=== PATIENT | male | born 1970 | race Caucasian/White ===

== ENCOUNTER 2020-08-31 09:24 | Emergency (ER) | payer OTHER, SELFPAY ==
--- NOTE | ~2020-08-31 | XR_ITS ---
EXAMINATION: XR LUMBOSACRAL SPINE CLINICAL INFORMATION: Injury COMPARISON: None TECHNIQUE: Three views of the lumbosacral spine. FINDINGS: No acute fracture or subluxation. Vertebral body height and alignment is maintained. Mild disc space narrowing of L3-L4. Small endplate osteophytes at multiple levels throughout the lumbar spine. The sacroiliac joints are symmetric. The sacrum appears intact. The bowel gas pattern is unremarkable. XR/XR lumbar spine 2-3V IMPRESSION: No acute abnormality. Mild degenerative changes.
[2020-08-31 09:51] VITALS: BP 154/90; PULSE 90; RESP 18; TEMP 36.9; O2SAT 96; BMI 33.4
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
== END 2020-08-31 11:01 | disposition home or self-care (01) ==
PROVIDERS: Emergency Provider Emergency Medicine Emergency Medical Services; PCP Internal Medicine
DX: S39.012A Strain of muscle, fascia and tendon of lower back, initial encounter (principal); V43.52XA Car driver injured in collision with other type car in traffic accident, initial encounter; G89.11 Acute pain due to trauma; M54.2 Cervicalgia; Y93.89 Activity, other specified; Y92.414 Local residential or business street as the place of occurrence of the external cause; Y99.9 Unspecified external cause status
CPT/HCPCS: 72100; 99283

== ENCOUNTER 2021-11-20 18:05 | Emergency (ER) | payer OTHER, SELFPAY ==
[2021-11-20 18:18] VITALS: BP 145/93; BP 172/100; PULSE 112; PULSE 98; RESP 16; TEMP 37; O2SAT 100; O2SAT 99; BMI 33.7
--- NOTE | 2021-11-20 18:29 | ED_ITS ---
HPI - General Adult General Chief complaint: General Medical Stated complaint: Withdraw Time Seen by Provider: 11/20/21 18:18 Source: patient Mode of arrival: ambulatory Limitations: other (Poor historian) History of Present Illness HPI narrative: This is a 51-year-old male pmhx diabetes, glaucoma, opiate used disorder started on suboxone 8 mg today presenting to the emergency department complaints of malaise, body aches, nausea, diarrhea, chills status post starting Suboxone. According to patient he was started on Suboxone today for the 1st time, he was given 8 mg, he tells me that he last used opiates late last night/possibly this morning. He told me he used a large amount of drugs. He tells me he took fentanyl and heroin in large quantities. Patient just tells me he does not feel well. Upon my examination he is shivering, and tells me he is having some palpitations. Denies shortness of breath, abdominal pain, headache, vision changes, chest pain Radiation: non-radiation Severity: severe Related Data Previous Rx's Medication Instructions Recorded lidocaine 4 % topical patch 1 patch topical DAILY PRN pain #10 08/31/20 ea Allergies Allergy/AdvReac Type Severity Reaction Status Date / Time haloperidol [From HALDOL] Allergy Severe EPS Unverified 02/17/20 16:53 trazodone [TRAZODONE] Allergy Unknown AGITATION Unverified 02/17/20 16:53 Review of Systems Review of Systems: Constitutional : No Weight loss, No Fever, + Chills, + Fatigue, + Malaise ENT/Mouth : No sore throat, No Rhinorrhea Eyes: No Eye Pain, No Swelling, No Redness Cardiovascular : No Chest Pain, No SOB, No Dyspnea on Exertion, No Orthopnea, No Edema, + Palpitations Respiratory : No Cough, No Sputum, No Wheezing Gastrointestinal : No Nausea, + Vomiting, No Diarrhea, No Constipation, No abdominal Pain, No Hematochezia, No Melena Genitourinary : No Dysuria, No Urinary Frequency, No Hematuria, Musculoskeletal : No joint pain, No Myalgias, No Joint Swelling Skin : No Skin Lesions, No rash Neuro : No Weakness, No Numbness, No Dizziness, No Headache All other systems reviewed and are negative Yes all other systems are reviewed and are negative [facility] Past Medical History Attestation statement: The following information was validated with the patient. Source: old records reviewed and nursing notes reviewed Medical History Diabetes Glaucoma Social History Social History Advance Directives: No Advance Directives Information Provided: No Physical Exam ED Vital Signs: Vital Signs - 24 hr 11/20/21 18:18 11/20/21 20:00 11/20/21 21:59 Temperature 98.6 F 98.9 F 98.7 F Pulse Rate 98 85 66 Respiratory Rate 16 16 16 Blood Pressure 145/93 H 148/89 H 163/91 H Pulse Oximetry 100 97 97 Oxygen Delivery Method Room Air Room Air Room Air BMI result Body Mass Index 33.7 VSS Appearance: Alert.? Oriented X3.? No acute distress.? Patient should bring Head: Normocephalic, atraumatic, no step-offs or deformities Eyes: Pupils equal, round and reactive to light.? ENT: Pharynx normal.? Neck: Normal inspection.? Neck supple.? CVS: Normal heart rate and rhythm.? Pulses normal.? Respiratory: No respiratory distress.? Breath sounds normal.? Abdomen: Soft and nontender.? Skin: Skin warm and dry.? Normal skin color.? Normal skin turgor.? Extremities: No lower extremity edema.? No calf ttp. 5/5 strength to bilateral upper and lower extremities Back: No midline tenderness, no C-spine tenderness, full range of motion, no CVA tenderness bilaterally Neuro: Oriented X 3.? No motor deficit.? No sensory deficit. CN 2-12 intact Course Reevaluation(s) Reevaluation #1: Drug tox positive for fentanyl. Patient's EKG with normal sinus rhythm, no ST elevations or inversions concerning for ischemia. Patient tells me that he is feeling back to normal. He does admit to drug use prior to taking Suboxone likely precipitated withdrawal. At this time patient will be discharged home I advised him to not use any drugs, he does not want to speak to anybody from the care team or crisis team. I offered him this and hospital to speak to somebody in for further evaluation however patient tells me he is uncomfortable and would like to go home. Explained to patient risks and benefits. He verbalized understanding. He tells me he will reach out to the methadone Center that he used to go to and he is going to speak to them. At this time I feel comfortable discharge home with strict return precautions. Time: 22:37 Medical Decision Making [facility] Narrative Medical decision making narrative: 1829 51-year-old male presents with body aches, palpitations, malaise, chills status post starting Suboxone today, reports that late last night possibly early this morning he will use a large amount of heroin and fentanyl. Physical examination benign however patient is shivering throughout my examination. Plan at this time is to obtain a drug screen, COVID test, UA. I will also obtain an EKG to check patient's cardiac rhythm. I will give patient 1 mg of p.o. Ativan for comfort. I am suspecting precipitated withdrawal as patient used heroin and fentanyl in close proximity to starting Suboxone. Medical Records Medical records reviewed: Yes I reviewed the patient's medical records. Lab Data Lab results reviewed: Yes I reviewed the patient's lab results. Labs: Lab Results 11/20/21 11/20/21 11/20/21 Range/Units 18:40 20:27 20:27 Urine Color YELLOW Urine Appearance CLEAR Urine pH >= 9.0 H (5.0-8.0) Ur Specific [place] 1.015 (1.005-1.025) Urine Protein TRACE (NEG-TRACE) MG/DL Urine Glucose (UA) NEG (NEG) MG/DL Urine Ketones 15 (NEG) MG/DL Urine Blood TRACE (NEG) Urine Nitrite NEG (NEG) Ur Leukocyte Esterase NEG (NEG) Urine RBC 5-9 H (0) /HPF Urine WBC 0-2 (0-4) /HPF Ur Squamous Epith Cells TRACE /LPF Urine Bacteria NONE /LPF Urine Opiates Screen Not Detected (Not Detect) Urine Fentanyl Screen POSITIVE H (Not Detect) Ur Barbiturates Screen Not Detected (Not Detect) Ur Phencyclidine Scrn Not Detected (Not Detect) Ur Amphetamines Screen Not Detected (Not Detect) U Benzodiazepines Scrn Not Detected (Not Detect) Urine Cocaine Screen Not Detected (Not Detect) U Marijuana (THC) Screen Not Detected (Not Detect) COVID-19 (BRUNO) Negative (Negative) COVID-19 Clin Com See Note ECG Data Attestation: I personally reviewed and interpreted this ECG as follows: Prior ECG tracings: available for review Interpretation: Ventricular rate of QRS, QT/QTC normal. EKG shows sinus rhythm with no ST becky vations or inversions concerning for ischemia. Significant changes when EKG May 2018. Critical Care Time Critical Care Time Critical Care Time: No Discharge Plan Discharge Clinical Impression: Opiate withdrawal Patient Disposition: Home, Self-Care Additional Instructions: Take your medications as prescribed. If you were prescribed antibiotics today, it is important that you take your medication to their entirety, do not skip any doses, do not finish them early. Follow-up with your primary care provider this week. Return to the emergency department with new or worsening symptoms. Such as fevers, chills, chest pain, shortness of breath, nausea, vomiting, dizziness, headache, vision changes, lethargy, suicidal ideation, homicidal ideation In case of emergency call 911 I offered you to stay in the hospital for observation/further evaluation, you refuse. Please return with new or worsening symptoms. Follow up with the behavioral health team if needed and please reach out to the methadone clinic. Prescriptions: No Action lidocaine 4 % adhesive patch,medicated 1 patch topical DAILY PRN (Reason: pain) Qty: 10 0RF Rx Instructions: may leave on for up to 12 hrs Referrals: [facility] [Provider Group] - 2 days Physician,Unknown J [Primary Care Provider] - Stand Alone Forms: Work/School Release
--- NOTE | 2021-11-20 18:29 | ECG_ITS ---
Test Reason : palpitations Blood Pressure : / mmHG Vent. Rate : 087 BPM Atrial Rate : 087 BPM P-R Int : 140 ms QRS Dur : 086 ms QT Int : 376 ms P-R-T Axes : 053 005 028 degrees QTc Int : 452 ms Normal sinus rhythm Normal ECG When compared with ECG of 06-MAY-2018 09:40, QT has lengthened Referred By: Margaret English Electronically Signed By:TOBIN EARLY MD
[2021-11-20 19:05] LABS: COVID-19 Test Negative (Negative); IDNOW Serial# 16C4AD1C
[2021-11-20] MEDS: LORazepam 1 MG TABLET PO (19:07)
[2021-11-20 20:00] VITALS: BP 148/89; PULSE 85; RESP 16; TEMP 37.2; O2SAT 97
[2021-11-20 20:33] LABS: Appearance Urine CLEAR; Color Urine YELLOW; Glucose Urine UA NEG (NEG); Leukocyte Esterase Urine NEG (NEG); Nitrite Urine NEG (NEG); PH >= 9.0 (5.0-8.0); Specific Gravity - Urine 1.015 (1.005-1.025); UACC Culture Trigger NO; Urine Blood TRACE (NEG); Urine Ketones 15 MG/DL (NEG); Urine Protein TRACE MG/DL (NEG-TRACE)
[2021-11-20 20:42] LABS: Squamous Epithelial Cell Urine TRACE /LPF; WBC Urine 0-2 /HPF (0-4)
[2021-11-20 20:54] LABS: Amphetamine Screen Urine Not Detected (Not Detect); Barbiturates, Urine Not Detected (Not Detect); Benzodiazepines Screen Urine Not Detected (Not Detect); Cannabinoid Screen Urine Not Detected (Not Detect); Cocaine Screen Urine Not Detected (Not Detect); Fentanyl, urine POSITIVE (Not Detect); Opiate Screen Urine Not Detected (Not Detect); Phencyclidine Screen Urine Not Detected (Not Detect)
[2021-11-20 21:59] VITALS: BP 163/91; PULSE 66; RESP 16; TEMP 37.1; O2SAT 97
== END 2021-11-20 23:19 | disposition home or self-care (01) ==
PROVIDERS: Physician Assistant; Emergency Provider Internal Medicine
DX: F11.23 Opioid dependence with withdrawal (principal); M79.10 Myalgia, unspecified site; R00.2 Palpitations; Z20.822 Contact with and (suspected) exposure to COVID-19; Z79.899 Other long term (current) drug therapy
CPT/HCPCS: 80307; 81001; 87635; 93005; 96372; 99283; 99284

== ENCOUNTER 2022-02-14 13:49 | Outpatient (REF) | payer OTHER, SELFPAY ==
--- NOTE | ~2022-02-14 | XR_ITS ---
EXAMINATION: XR SHOULDER, LEFT CLINICAL INFORMATION: Left shoulder pain COMPARISON: None TECHNIQUE: AP external rotation, Grashey, scapular Y, and axillary views of the left shoulder. FINDINGS: No visible acute fracture or dislocation. Glenohumeral joint space is maintained. Mild acromioclavicular arthritis. Visualized left lung is clear. XR/XR shoulder LT min 2V IMPRESSION: Mild acromioclavicular arthritis. No acute findings.
== END 2022-02-14 13:50 | disposition home or self-care (01) ==
LOC: HO.XRAY 13:49
PROVIDERS: PCP General Practice; Visit Provider Emergency Medicine
DX: M25.512 Pain in left shoulder (principal)
CPT/HCPCS: 73030

== ENCOUNTER 2022-12-20 00:37 | Emergency (ER) | payer MEDICAID, SELFPAY ==
--- NOTE | ~2022-12-20 | XR_ITS ---
EXAMINATION: XR CHEST CLINICAL INFORMATION: Fever COMPARISON: 08/14/2019 TECHNIQUE: Frontal view of the chest was obtained. FINDINGS: Lung volumes are symmetric. There is questionable subtle patchy mid to upper right lung opacity. Left lung appears clear. No evidence of pneumothorax, pleural effusion, or pulmonary edema. The cardiomediastinal contour is unremarkable. No acute osseous findings are seen. XR/XR chest 1V IMPRESSION: Questionable subtle patchy mid to upper right lung opacity, for which developing consolidation would be difficult to exclude in the setting of fever. Radiographic followup after treatment/resolution of symptoms is recommended.
[2022-12-20 00:46] VITALS: BP 154/99; PULSE 105; RESP 18; TEMP 39.3; O2SAT 98; BMI 36.5
[2022-12-20] MEDS: Ibuprofen 600 MG TABLET PO (00:54)
[2022-12-20] MEDS: Ondansetron ODT 4 MG TAB.RAPDIS TRANSLINGU (01:00)
[2022-12-20 01:20] VITALS: BP 111/91; PULSE 94; RESP 16; TEMP 38.5; O2SAT 97
--- NOTE | 2022-12-20 01:21 | MHC.EDTECH ---
THIS PCT JUST ASSUMED CARE OF PATIENT ,VITALS SIGN TAKEN , BLANKET GIVEN TO PATIENT ,RN ESTEE IS AWARE OF PATIENT HIGH FEVER ,PATIENT RESTING QUIETLY IN BED .
[2022-12-20 01:47] VITALS: BP 117/74; PULSE 96; RESP 16; TEMP 37.8; O2SAT 98
--- NOTE | 2022-12-20 01:57 | ED_ITS ---
HPI - Fever General Chief Complaint: Fever Stated Complaint: [id number]/[id number] Time Seen by Provider: 12/20/22 01:38 Source: patient Mode of arrival: ambulatory Limitations: no limitations History of Present Illness HPI Narrative: Patient otherwise healthy had shingle vaccine and Lyme vaccine earlier today since then noticed high fever with body aches no cough no sore throat T-max was 102.8 degrees. No nausea no vomiting no urinary complaints no other family member sick no tick bite Related Data Previous Rx's Medication Instructions Recorded lidocaine 4 % topical patch 1 patch topical DAILY PRN pain #10 08/31/20 ea Allergies Allergy/AdvReac Type Severity Reaction Status Date / Time haloperidol [From HALDOL] Allergy Severe EPS Verified 12/20/22 00:53 trazodone [TRAZODONE] Allergy Unknown AGITATION Verified 12/20/22 00:53 Review of Systems Review of Systems: Yes all other systems are reviewed and are negative PMFSH Past Medical History Medical History Diabetes Glaucoma Social History Social History Alcohol intake: never Smoked in Last 30 Days: No Use of substances other than those prescribed or required for medical reasons: No Advance Directives: No Advance Directives Information Provided: Yes Physical Exam Vital Signs: Vital Signs: Last Vital Signs Temp 98.9 F 12/20/22 04:18 Pulse 93 12/20/22 02:34 Resp 16 12/20/22 02:34 BP 126/68 12/20/22 02:34 Pulse Ox 97 12/20/22 02:34 O2 Del Method Room Air 12/20/22 02:34 BMI result Body Mass Index 36.5 Appearance: Alert. Oriented X3. No acute distress. Eyes: PERRLA, No Nystagmus ENT: Pharynx normal. Oral Mucosa moist Neck: Normal inspection. Neck supple. CVS: Normal heart rate and rhythm. Pulses normal. Respiratory: No respiratory distress. Equal air entry bilateral, no wheezing/rales/rhonchi Abdomen: Soft and nontender. Bowel sounds are present, no mass palpable, no CVA tenderness Skin: Skin warm and dry. Normal skin color. Normal skin turgor. Extremities: No lower extremity edema. No calf tenderness Neuro: Oriented X 3. No motor deficit. No sensory deficit.No cerebellar signs , cranial nerves II-XII intact Medications Administered Discontinued Medications Generic Name Dose Route Start Last Admin Trade Name Ebenezer PRN Reason Stop Dose Admin Acetaminophen 650 mg 12/20/22 01:53 12/20/22 02:03 Acetaminophen 325 Mg Tablet PO 12/20/22 01:54 650 mg ONCE ONE Administration Ibuprofen 600 mg 12/20/22 00:51 12/20/22 00:54 Ibuprofen 600 Mg Tablet PO 12/20/22 00:52 600 mg ONCE ONE Administration Ondansetron HCl 4 mg 12/20/22 01:00 12/20/22 01:00 Ondansetron Odt 4 Mg Tab.Rapdis TRANSLINGU 12/20/22 01:01 4 mg ONCE ONE Administration Medical Decision Making Medical Decision Making [facility] Narrative: Patient with fever post vaccination likely the cause workup acid is negative a lthough shows leukocytosis and lactic acid of 2.1 but patient is taking metformin and feeling much better will discharge patient home advised to follow with PCP Lab Data [facility] Lab Attestation statement: I reviewed the patient's lab results. 12/20/22 02:16 12/20/22 02:16 Labs: Lab Results 12/20/22 12/20/22 12/20/22 Range/Units 02:16 02:16 02:16 WBC 14.2 H (4.8-10.8) X10*3/uL RBC 4.81 (4.60-5.80) X10*6/uL Hgb 13.5 L (14.0-18.0) g/dl Hct 40.9 L (42.0-52.0) % MCV 85.0 (80.0-98.0) fL MCH 28.1 (27.0-33.0) pg MCHC 33.0 (31.0-36.0) g/dl RDW 12.3 (11.0-16.0) % Plt Count 216 (160-400) X10*3/uL MPV 9.5 (9.4-12.4) fL Immature Gran % (Auto) 0.5 H (0.0-0.4) % Neut % (Auto) 83.9 H (45-73) % Lymph % (Auto) 7.3 L (20-40) % [place] % (Auto) 7.3 (2-11) % Eos % (Auto) 0.7 (0-4) % Baso % (Auto) 0.3 (0-2) % Lymph # (Auto) 1.0 L (1.2-4.9) X10*3/uL [place] # (Auto) 1.0 (0.1-1.2) X10*3/uL Eos # (Auto) 0.1 (0.0-0.4) X10*3/uL Baso # (Auto) 0.0 (0.0-0.2) X10*3/uL Abs Immat Gran (auto) 0.07 H (0.00-0.03) X10*3/uL Absolute Neuts (auto) 11.9 H (2.0-8.3) x10*3/uL Absolute Nucleated RBC 0.000 (0.0-0.012) X10*3/uL Nucleated RBC % (auto) 0.0 (0.0-0.2) /100WBC Sodium 133 L (135-145) mmol/L Potassium 4.0 (3.3-5.1) mmol/L Chloride 98 (96-108) mmol/L Carbon Dioxide 27 (22-29) mmol/L Anion Gap 12 (12-20) BUN 19 H (9-16) mg/dL Creatinine 1.03 (0.5-1.4) mg/dL Estim Creat Clear Calc 102.6 Estimated GFR > 60 Random Glucose 314 H (60-115) mg/dL Lactic Acid 2.1 H* (0.5-2.0) mmol/L Calcium 8.6 (8.4-10.2) mg/dL Total Bilirubin 0.5 (0.0-1.0) mg/dL AST 14 (5-37) U/L ALT 25 (0-40) U/L Alkaline Phosphatase 86 (39-117) U/L Total Protein 7.0 (6.5-8.0) g/dL Albumin 3.8 (3.5-5.0) g/dL Urine Color Urine Appearance Urine pH (5.0-9.0) Ur Specific [place] (1.005-1.025) Urine Protein (Neg-Trace) mg/dL Urine Glucose (UA) (Negative) mg/dL Urine Ketones (Negative) mg/dL Urine Blood (Negative) Urine Nitrite (Negative) Ur Leukocyte Esterase (Negative) COVID-19 (BRUNO) (Negative) COVID-19 Clin Com 12/20/22 12/20/22 Range/Units 02:16 02:27 WBC (4.8-10.8) X10*3/uL RBC (4.60-5.80) X10*6/uL Hgb (14.0-18.0) g/dl Hct (42.0-52.0) % MCV (80.0-98.0) fL MCH (27.0-33.0) pg MCHC (31.0-36.0) g/dl RDW (11.0-16.0) % Plt Count (160-400) X10*3/uL MPV (9.4-12.4) fL Immature Gran % (Auto) (0.0-0.4) % Neut % (Auto) (45-73) % Lymph % (Auto) (20-40) % [place] % (Auto) (2-11) % Eos % (Auto) (0-4) % Baso % (Auto) (0-2) % Lymph # (Auto) (1.2-4.9) X10*3/uL [place] # (Auto) (0.1-1.2) X10*3/uL Eos # (Auto) (0.0-0.4) X10*3/uL Baso # (Auto) (0.0-0.2) X10*3/uL Abs Immat Gran (auto) (0.00-0.03) X10*3/uL Absolute Neuts (auto) (2.0-8.3) x10*3/uL Absolute Nucleated RBC (0.0-0.012) X10*3/uL Nucleated RBC % (auto) (0.0-0.2) /100WBC Sodium (135-145) mmol/L Potassium (3.3-5.1) mmol/L Chloride (96-108) mmol/L Carbon Dioxide (22-29) mmol/L Anion Gap (12-20) BUN (9-16) mg/dL Creatinine (0.5-1.4) mg/dL Estim Creat Clear Calc Estimated GFR Random Glucose (60-115) mg/dL Lactic Acid (0.5-2.0) mmol/L Calcium (8.4-10.2) mg/dL Total Bilirubin (0.0-1.0) mg/dL AST (5-37) U/L ALT (0-40) U/L Alkaline Phosphatase (39-117) U/L Total Protein (6.5-8.0) g/dL Albumin (3.5-5.0) g/dL Urine Color Yellow Urine Appearance Clear Urine pH 8.0 (5.0-9.0) Ur Specific [place] 1.025 (1.005-1.025) Urine Protein Trace (Neg-Trace) mg/dL Urine Glucose (UA) 250 H (Negative) mg/dL Urine Ketones Negative (Negative) mg/dL Urine Blood Negative (Negative) Urine Nitrite Negative (Negative) Ur Leukocyte Esterase Negative (Negative) COVID-19 (BRUNO) Negative (Negative) COVID-19 Clin Com See Note Discharge Plan Discharge Clinical Impression: Viral infection Patient Disposition: Home, Self-Care Instructions: Viral Syndrome (ED) Additional Instructions: Drink plenty of fluid Tylenol/Motrin for fever Follow-up with PCP if fever continues Prescriptions: No Action lidocaine 4 % adhesive patch,medicated 1 patch topical DAILY PRN (Reason: pain) Qty: 10 0RF Rx Instructions: may leave on for up to 12 hrs
[2022-12-20] MEDS: Acetaminophen 325 MG TABLET 650 MG PO (02:03)
[2022-12-20 02:21] LABS: MANUAL DIFF FLAG NO
[2022-12-20 02:22] LABS: Basophils Percent Auto 0.3 % (0-2); Eosinophils Absolute Auto 0.1 X10*3/uL (0.0-0.4); Eosinophils Percent Auto 0.7 % (0-4); Hematocrit 40.9 % (42.0-52.0); Hemoglobin 13.5 g/dl (14.0-18.0); Imm Gran Abs Auto 0.07 X10*3/uL (0.00-0.03); Imm Gran Pct Auto 0.5 % (0.0-0.4); Lymphocytes Percent Auto 7.3 % (20-40); Mean Corpuscular Hemoglobin 28.1 pg (27.0-33.0); Mean Platelet Volume 9.5 fL (9.4-12.4); Monocytes Percent Auto 7.3 % (2-11); Neutrophils Absolute Auto 11.9 x10*3/uL (2.0-8.3); Neutrophils Percent Auto 83.9 % (45-73); Platelet Count 216 X10*3/uL (160-400); Red Blood Count 4.81 X10*6/uL (4.60-5.80); Red Cell Distribution Width 12.3 % (11.0-16.0); White Blood Count 14.2 X10*3/uL (4.8-10.8)
--- NOTE | 2022-12-20 02:30 | MHC.EDTECH ---
PATIENT BLOOD DRAWN ,COVID SWAB COLLECTED ,1SET AND ND SET BLOOD CULTURE AND LACTIC ACID DRAWN AND SENT TO LAB ,VITALS SIGN TAKEN ,RN ESTEE IS AWARE THAT PATIENT TEMP UP AGAIN TO 101.0 ,PATIENT RESTING QUIETLY IN BED ,URINE SAMPLE COLLECTED AND SENT TO LAB .
[2022-12-20 02:34] VITALS: BP 126/68; PULSE 93; RESP 16; TEMP 38.3; O2SAT 97
[2022-12-20 02:34] LABS: COVID-19 Test Negative (Negative); IDNOW Serial# 6674DD1D
[2022-12-20 02:35] LABS: Appearance Urine Clear; Color Urine Yellow; Glucose Urine UA 250 mg/dL (Negative); Leukocyte Esterase Urine Negative (Negative); Nitrite Urine Negative (Negative); Specific Gravity - Urine 1.025 (1.005-1.025); Urine Blood Negative (Negative); Urine Ketones Negative (Negative); Urine Protein Trace mg/dL (Neg-Trace)
--- NOTE | 2022-12-20 02:38 | MHC.EDTECH ---
PATIENT WWAS HOOKED UP TO TISSUE INSERTER BY THIS PCT .
[2022-12-20 02:46] LABS: Alanine Aminotransferase 25 U/L (0-40); Albumin Level 3.8 g/dL (3.5-5.0); Alkaline Phosphatase 86 U/L (39-117); Anion Gap 12 (12-20); Aspartate Amino Transferase 14 U/L (5-37); Bilirubin Total 0.5 mg/dL (0.0-1.0); Blood Urea Nitrogen 19 mg/dL (9-16); Calcium 8.6 mg/dL (8.4-10.2); Carbon Dioxide 27 mmol/L (22-29); Chloride 98 mmol/L (96-108); Creatinine Clr Calc Pharmacy 102.6; Estimated Glomerular Filt Rate > 60; Glucose Random 314 mg/dL (60-115); Lactic Acid 2.1 mmol/L (0.5-2.0); Sodium 133 mmol/L (135-145)
[2022-12-20 04:18] VITALS: TEMP 37.2
[2022-12-20 04:19] LABS: Reflex Lactate? Lactic Acid Added
== END 2022-12-20 04:43 | disposition home or self-care (01) ==
PROVIDERS: Emergency Provider Internal Medicine
DX: B34.9 Viral infection, unspecified (principal); R50.9 Fever, unspecified; Z20.822 Contact with and (suspected) exposure to COVID-19; E11.9 Type 2 diabetes mellitus without complications
CPT/HCPCS: 71045; 80053; 81003; 83605; 85025; 87040; 87635; 99283; 99285

== ENCOUNTER 2023-08-17 09:40 | Emergency (ER) | payer MEDICAID, SELFPAY ==
--- NOTE | 2023-08-17 | ECG_ITS ---
Test Reason : epigastric pain Blood Pressure : / mmHG Vent. Rate : 073 BPM Atrial Rate : 073 BPM P-R Int : 148 ms QRS Dur : 086 ms QT Int : 382 ms P-R-T Axes : 016 -02 022 degrees QTc Int : 420 ms Normal sinus rhythm Cannot rule out Anterior infarct , age undetermined Abnormal ECG When compared with ECG of 20-NOV-2021 19:08, No significant change was found Referred By: Generic ED Physician Electronically Signed By:FLAKO KHALIL
--- NOTE | ~2023-08-17 | US_ITS ---
EXAMINATION: US VENOUS ULTRASOUND WITH DOPPLER LOWER EXTREMITY, BILATERAL CLINICAL INFORMATION: Swelling COMPARISON: None available. TECHNIQUE: Ultrasound of the deep veins is performed from the hip to the calf with compression sonography and color and pulse Doppler assessment. Spectral analysis with color-flow imaging is performed. FINDINGS: RIGHT: There is normal venous compression and respiratory variation and augmented flow. The visualized common femoral vein, superficial femoral vein, profunda femoral vein, popliteal vein, and the trifurcation region shows no evidence of deep venous thrombosis. There is no significant popliteal fossa cyst. LEFT: There is normal venous compression and respiratory variation and augmented flow. The visualized common femoral vein, superficial femoral vein, profunda femoral vein, popliteal vein, and the trifurcation region shows no evidence of deep venous thrombosis. The left peroneal vein was not identified limiting assessment. There is no significant popliteal fossa cyst. If the patient's symptoms persist, followup ultrasound in 5 days 7 days might be of value to exclude proximal propagation from a non-visualized calf vein. US/US venous duplex LE BI IMPRESSION: No DVT demonstrated in the bilateral lower extremities however the left peroneal vein was not identified limiting assessment.
[2023-08-17 09:49] VITALS: BP 113/86; PULSE 77; RESP 16; TEMP 36.6; O2SAT 94; BMI 38.4
[2023-08-17 10:10] LABS: Basophils Percent Auto 0.5 % (0-2); Eosinophils Absolute Auto 0.3 X10*3/uL (0.0-0.4); Eosinophils Percent Auto 3.4 % (0-4); Hematocrit 41.6 % (42.0-52.0); Hemoglobin 14.5 g/dl (14.0-18.0); Imm Gran Abs Auto 0.02 X10*3/uL (0.00-0.03); Imm Gran Pct Auto 0.3 % (0.0-0.4); Lymphocytes Absolute Auto 2.4 X10*3/uL (1.2-4.9); Lymphocytes Percent Auto 31.7 % (20-40); MANUAL DIFF FLAG NO; Mean Corpuscular HGB Conc 34.9 g/dl (31.0-36.0); Mean Corpuscular Hemoglobin 28.5 pg (27.0-33.0); Mean Corpuscular Volume 81.7 fL (80.0-98.0); Mean Platelet Volume 9.3 fL (9.4-12.4); Monocytes Absolute Auto 0.7 X10*3/uL (0.1-1.2); Neutrophils Absolute Auto 4.2 x10*3/uL (2.0-8.3); Neutrophils Percent Auto 55.1 % (45-73); Platelet Count 215 X10*3/uL (160-400); Red Blood Count 5.09 X10*6/uL (4.60-5.80); Red Cell Distribution Width 11.9 % (11.0-16.0); White Blood Count 7.6 X10*3/uL (4.8-10.8)
[2023-08-17 10:29] LABS: Alanine Aminotransferase 24 U/L (0-40); Albumin Level 4.1 g/dL (3.5-5.0); Alkaline Phosphatase 124 U/L (39-117); Anion Gap 14 (12-20); Aspartate Amino Transferase 15 U/L (5-37); Bilirubin Total 0.5 mg/dL (0.0-1.0); Blood Urea Nitrogen 15 mg/dL (9-16); Calcium 9.2 mg/dL (8.4-10.2); Carbon Dioxide 28 mmol/L (22-29); Chloride 94 mmol/L (96-108); Creatinine Clr Calc Pharmacy 81.2; Estimated Glomerular Filt Rate 59; Glucose Random 572 mg/dL (60-115); Potassium 4.7 mmol/L (3.3-5.1); Sodium 131 mmol/L (135-145); Total Protein 8.2 g/dL (6.5-8.0)
--- NOTE | 2023-08-17 11:26 | ED_ITS ---
HPI - General Adult General Chief complaint: General Medical Stated complaint: Abd pain, swelling in feet Time Seen by Provider: 08/17/23 10:56 Source: patient and family (Spouse) Mode of arrival: ambulatory Limitations: no limitations History of Present Illness HPI narrative: A 53-year-old male with history of DM controlled with metformin patient used to take insulin that was discontinued by his PCP few months ago, patient admitted to eating lot of fruits lately that maybe the reason of elevated blood sugar. Patient also been complaining of bilateral feet swelling that started few weeks ago, declined any recent travel, no trauma. Related Data Previous Rx's Medication Instructions Recorded lidocaine 4 % topical patch 1 patch topical DAILY PRN pain #10 08/31/20 ea Allergies Allergy/AdvReac Type Severity Reaction Status Date / Time haloperidol [From HALDOL] Allergy Severe EPS Verified 12/20/22 00:53 trazodone [TRAZODONE] Allergy Unknown AGITATION Verified 12/20/22 00:53 Review of Systems 2 Review of Systems: All other systems are reviewed and are negative Constitutional: Reports as per HPI and Reports no additional constitutional complaints Eyes: Reports as per HPI and Reports no additional eye complaints Reports system reviewed and no additional complaints, except as documented Cardiovascular: Reports as per HPI and Reports no additional cardiovascular complaints Respiratory: Reports as per HPI and Reports no additional respiratory complaints Gastrointestinal: Reports as per HPI and Reports no additional gastrointestinal complaints Genitourinary: Reports no additional female genitourinary complaints Musculoskeletal: Reports no additional musculoskeletal complaints Skin/Breast: Reports system reviewed and no additional complaints, except as docu Psychiatric: Reports no additional psychiatric complaints Endocrine: Reports no additional endocrine complaints Hematologic/Lymphatic: Reports no additional hematologic/lymphatic complaints Allergic/Immunologic: Reports no additional allergic/immunologic complaints Reports system reviewed and no additional complaints, except as documented and Reports Abnormal speech present [facility] Past Medical History Medical History Diabetes Glaucoma Social History Social History Alcohol intake: never Advance Directives: No Advance Directives Information Provided: Yes Physical Exam ED Vital Signs: Vital Signs - 24 hr 08/17/23 09:49 08/17/23 13:05 Temperature 97.9 F 97.6 F Pulse Rate 77 63 Respiratory Rate 16 18 Blood Pressure 113/86 123/72 Pulse Oximetry 94 99 Oxygen Delivery Method Room Air BMI result Body Mass Index 38.4 Vital signs have been reviewed and appear to be correct. Blood pressure elevated. Heart rate normal. Respiratory rate normal. Temperature normal. Oxygen saturation normal. Appearance: Alert. Oriented X3. No acute distress. Head: Normal external exam. Normocephalic. Atraumatic. No Rocha signs noted. No raccoon eyes noted Eyes: PERRLA. EOMI. Conjunctiva and sclera normal. Eyelids normal. ENT: TM's Normal. Pharynx normal. Uvula midline. Moist mucous membranes. No trismus noted. No drooling noted. No muffled voice noted. Neck: Normal inspection. Neck supple. FROM. No adenopathy. Thyroid Normal. No meningeal signs. No neck mass noted. CVS: Normal heart rate and rhythm. Heart sound normal. No murmurs noted. Pulses normal throughout. Respiratory: No respiratory distress. Painless inspiration. Breath sounds normal. No wheezes/rales/rhonchi noted. Chest nontender. No accessory muscle usage noted or decreased air movement noted. Abdomen: Soft and nontender. Bowel sounds normal in all 4 quadrants. No distention noted. No organomegaly noted. No visible injury noted. Back: No CVA tenderness. Full range of motion noted. Skin: Skin warm and dry. Normal skin color. Normal skin turgor. No rashes/lesions/lacerations noted. Extremities: +1 lower extremity pitting edema. Extremities exhibit normal range of motion. Extremities nontender. Neuro: Oriented X 3. Cranial nerve exam: II-XII are grossly intact No motor deficit. No sensory deficit. Reflexes normal. Course Reevaluation(s) Reevaluation #1: 53-year-old male with history of DM came in for hyperglycemia patient only control his diabetes with metformin used to take insulin was discontinued by his primary doctor but patient admitted that he has been eating high carbohydrate foods. Came in with bilateral lower extremity swelling, patient has a normal liver function, normal renal function, no issue with CHF, ultrasound showed no DVT. Patient was instructed to exercise or walk with nighttime leg elevation. Time: 15:56 Medications Administered Discontinued Medications Generic Name Dose Route Start Last Admin Trade Name Freq PRN Reason Stop Dose Admin Sodium Chloride 1,000 mls @ 999 mls/hr 08/17/23 11:14 08/17/23 12:59 Ns IV 08/17/23 12:14 Infused .Q1H1M ONE Infusion Sodium Chloride 1,000 mls @ 999 mls/hr 08/17/23 12:45 08/17/23 15:05 Ns IV 08/17/23 13:45 Infused .Q1H1M ONE Infusion Insulin Human Regular 5 unit 08/17/23 11:14 08/17/23 11:36 Insulin Regular, Human 100 Unit/Ml 3 Ml Vial IVPUSH 08/17/23 11:15 5 unit ONCE ONE Administration Insulin Human Regular 5 unit 08/17/23 12:45 08/17/23 13:04 Insulin Regular, Human 100 Unit/Ml 3 Ml Vial IVPUSH 08/17/23 12:46 5 unit ONCE ONE Administration Medical Decision Making Differential Diagnosis Differential Diagnoses: The differential diagnosis associated with the presentation includes (Hyperglycemia, DKA, electrolyte derangement, severe anemia, hepatitis, kidney injury, CHF, DVT.) Admission/Observation Consideration of admission/observation: Escalation of care including admission/observation considered Lab Data MDM Lab Attestation statement: I reviewed the patient's lab results. 08/17/23 10:06 08/17/23 10:06 Labs: Lab Results 08/17/23 08/17/23 08/17/23 Range/Units 10:06 12:17 13:51 WBC 7.6 (4.8-10.8) X10*3/uL RBC 5.09 (4.60-5.80) X10*6/uL Hgb 14.5 (14.0-18.0) g/dl Hct 41.6 L (42.0-52.0) % MCV 81.7 (80.0-98.0) fL MCH 28.5 (27.0-33.0) pg MCHC 34.9 (31.0-36.0) g/dl RDW 11.9 (11.0-16.0) % Plt Count 215 (160-400) X10*3/uL MPV 9.3 L (9.4-12.4) fL Immature Gran % (Auto) 0.3 (0.0-0.4) % Neut % (Auto) 55.1 (45-73) % Lymph % (Auto) 31.7 (20-40) % Barrow % (Auto) 9.0 (2-11) % Eos % (Auto) 3.4 (0-4) % Baso % (Auto) 0.5 (0-2) % Lymph # (Auto) 2.4 (1.2-4.9) X10*3/uL Barrow # (Auto) 0.7 (0.1-1.2) X10*3/uL Eos # (Auto) 0.3 (0.0-0.4) X10*3/uL Baso # (Auto) 0.0 (0.0-0.2) X10*3/uL Abs Immat Gran (auto) 0.02 (0.00-0.03) X10*3/uL Absolute Neuts (auto) 4.2 (2.0-8.3) x10*3/uL Absolute Nucleated RBC 0.000 (0.0-0.012) X10*3/uL Nucleated RBC % (auto) 0.0 (0.0-0.2) /100WBC Sodium 131 L (135-145) mmol/L Potassium 4.7 (3.3-5.1) mmol/L Chloride 94 L (96-108) mmol/L Carbon Dioxide 28 (22-29) mmol/L Anion Gap 14 (12-20) BUN 15 (9-16) mg/dL Creatinine 1.28 (0.5-1.4) mg/dL Estim Creat Clear Calc 81.2 Estimated GFR 59 POC Glucose 367 H* 257 H (60-115) mg/dL Random Glucose 572 H* (60-115) mg/dL Calcium 9.2 D (8.4-10.2) mg/dL Total Bilirubin 0.5 (0.0-1.0) mg/dL AST 15 (5-37) U/L ALT 24 (0-40) U/L Alkaline Phosphatase 124 H (39-117) U/L B-Natriuretic Peptide 20 (<100) pg/mL Total Protein 8.2 H (6.5-8.0) g/dL Albumin 4.1 (3.5-5.0) g/dL / Range/Units 15:15 WBC (4.8-10.8) X10*3/uL RBC (4.60-5.80) X10*6/uL Hgb (14.0-18.0) g/dl Hct (42.0-52.0) % MCV (80.0-98.0) fL MCH (27.0-33.0) pg MCHC (31.0-36.0) g/dl RDW (11.0-16.0) % Plt Count (160-400) X10*3/uL MPV (9.4-12.4) fL Immature Gran % (Auto) (0.0-0.4) % Neut % (Auto) (45-73) % Lymph % (Auto) (20-40) % Barrow % (Auto) (2-11) % Eos % (Auto) (0-4) % Baso % (Auto) (0-2) % Lymph # (Auto) (1.2-4.9) X10*3/uL Barrow # (Auto) (0.1-1.2) X10*3/uL Eos # (Auto) (0.0-0.4) X10*3/uL Baso # (Auto) (0.0-0.2) X10*3/uL Abs Immat Gran (auto) (0.00-0.03) X10*3/uL Absolute Neuts (auto) (2.0-8.3) x10*3/uL Absolute Nucleated RBC (0.0-0.012) X10*3/uL Nucleated RBC % (auto) (0.0-0.2) /100WBC Sodium (135-145) mmol/L Potassium (3.3-5.1) mmol/L Chloride (96-108) mmol/L Carbon Dioxide (22-29) mmol/L Anion Gap (12-20) BUN (9-16) mg/dL Creatinine (0.5-1.4) mg/dL Estim Creat Clear Calc Estimated GFR POC Glucose 285 H (60-115) mg/dL Random Glucose (60-115) mg/dL Calcium (8.4-10.2) mg/dL Total Bilirubin (0.0-1.0) mg/dL AST (5-37) U/L ALT (0-40) U/L Alkaline Phosphatase (39-117) U/L B-Natriuretic Peptide (<100) pg/mL Total Protein (6.5-8.0) g/dL Albumin (3.5-5.0) g/dL Independent Interpretation I performed an independent interpretation of an: Ultrasound (Bilateral lower extremity ultrasound: No DVT) Radiology Impression Discussion of test interpretation with radiology: I have reviewed the radiologist's reading. Discharge Plan Discharge Clinical Impression: Hyperglycemia due to diabetes mellitus, Edema Patient Disposition: Home, Self-Care Instructions: Diabetic Hyperglycemia (ED), Leg Edema (ED) Prescriptions: No Action lidocaine 4 % adhesive patch,medicated 1 patch topical DAILY PRN (Reason: pain) Qty: 10 0RF Rx Instructions: may leave on for up to 12 hrs Referrals: Michelle Rodriguez MD [Primary Care Provider] -
[2023-08-17] MEDS: Insulin Regular, Human 100 UNIT/ML 3 ML VIAL IVPUSH ×2 (11:36→13:04)
[2023-08-17] MEDS: 0.9 % Sodium Chloride 1,000 ML 999 ML IV ×2 (11:37→13:05)
[2023-08-17 11:57] LABS: B Type Natriuretic Peptide 20 pg/mL (<100)
[2023-08-17 12:20] LABS: Glucose, Whole Blood 367 mg/dL (60-115)
[2023-08-17 13:05] VITALS: BP 123/72; PULSE 63; RESP 18; TEMP 36.4; O2SAT 99
[2023-08-17 13:55] LABS: Glucose, Whole Blood 257 mg/dL (60-115)
[2023-08-17 15:19] LABS: Glucose, Whole Blood 285 mg/dL (60-115)
--- NOTE | 2023-08-17 15:24 | MHC.RECOVRN ---
Met with pt in ED15 after pt expressed to RN desire to meet with recovery team. Pt presented to the ED with bilateral feet swelling over past few days that has been getting worse. Pt sitting in bed, awake, alert, easily engages in conversation. Pt reports recent recurrence, a little longer than 3 months ago, after 13 years in recovery. Pt reports he is currently using heroin/fentanyl, 3 bundles daily, IV/IN, last use this morning. Pt reports he had switched from IV to IN use 5 days ago. 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 Pt is currently on methadone, 110 mg daily though [facility] x 1 year. Pt has discussed recurrence with OTP. Discussed other recovery support options, pt interested in softball coach. Provided pt with written resources as well as t/w contact information if needed. Denies questions or concerns at this time. Discussed with RN. women's lacrosse coach referral placed.
[2023-08-17 16:00] VITALS: BP 158/98; PULSE 65; RESP 20; TEMP 36.9; O2SAT 100
[2023-08-17 16:25] VITALS: BP 158/98; PULSE 65; RESP 20; TEMP 36.9; O2SAT 100
== END 2023-08-17 16:26 | disposition home or self-care (01) ==
PROVIDERS: Emergency Provider Emergency Medicine; PCP General Practice
DX: E11.65 Type 2 diabetes mellitus with hyperglycemia (principal); R60.0 Localized edema; Z79.84 Long term (current) use of oral hypoglycemic drugs
CPT/HCPCS: 36415; 80053; 82947; 83880; 85025; 93005; 93970; 96361; 96374; 96376; 99284

== ENCOUNTER → 2023-08-17 10:10 | Outpatient (BNV) | payer MEDICAID, SELFPAY | PROVIDERS: Emergency Provider Emergency Medicine; PCP General Practice; Visit Provider Internal Medicine | DX: R10.13 Epigastric pain (principal) | CPT/HCPCS: 93010 ==

== ENCOUNTER 2023-08-19 10:01 | Outpatient (REF) | payer MEDICAID, SELFPAY ==
[2023-08-19 12:14] LABS: Cholesterol 139 mg/dL (<200); HDL Cholesterol 34 mg/dL (>40); LDL Cholesterol Calculated 86 mg/dL (<100); Triglycerides 99 mg/dL (<150)
[2023-08-20 08:16] LABS: HIV AB/AG Nonreactive (Nonreactive); HIV Num 1 0.07 S/CO (0.00-0.99)
== END 2023-08-19 10:02 | disposition home or self-care (01) ==
LOC: HO.HHCL 10:01
PROVIDERS: Visit Provider General Practice
DX: E11.9 Type 2 diabetes mellitus without complications (principal); Z79.4 Long term (current) use of insulin
CPT/HCPCS: 36415; 80061; 87389

== ENCOUNTER 2023-09-06 20:07 | Emergency (ER) | payer MEDICAID, SELFPAY ==
[2023-09-06 20:15] VITALS: BP 174/88; PULSE 82; O2SAT 99
--- NOTE | 2023-09-06 20:15 | ED_ITS ---
HPI - General Adult General Chief complaint: General Medical Stated complaint: HTN, on lisinopril, feeling dizzy and weak Time Seen by Provider: 09/06/23 20:41 Source: patient Mode of arrival: ambulatory Limitations: no limitations History of Present Illness HPI narrative: Patient with history of hypertension recently started on lisinopril 2 days ago 10 mg daily blood pressure still elevated on arrival was 174/108 at home it was 164/98 no significant headache no nausea no vomiting no chest pain no shortness of breath Related Data Previous Rx's ?Medication ?Instructions ?Recorded lidocaine 4 % topical patch 1 patch topical DAILY PRN pain #10 08/31/20 ea blood-glucose meter #1 ea 09/06/23 insulin lispro 100 unit/mL 1 sliding scale dose subcut 09/06/23 subcutaneous pen (Humalog KwikPen USEASDIRECTD #15 mL (U-100) Insulin) lisinopril 20 1 tab PO DAILY #30 tabs 09/06/23 mg-hydrochlorothiazide 12.5 mg tablet Allergies Allergy/AdvReac Type Severity Reaction Status Date / Time haloperidol [From HALDOL] Allergy Severe EPS Verified 09/06/23 23:45 trazodone [TRAZODONE] Allergy Unknown AGITATION Verified 09/06/23 23:45 Review of Systems Review of Systems: Yes all other systems are reviewed and are negative PMFSH Past Medical History Medical History Diabetes Glaucoma Social History Social History Alcohol intake: never Advance Directives: No Advance Directives Information Provided: No Physical Exam ED Vital Signs: Vital Signs - 24 hr 09/06/23 20:39 09/06/23 22:39 Temperature 97 F 96.8 F Pulse Rate 73 75 Respiratory Rate 18 16 Blood Pressure 164/98 H 180/98 H Pulse Oximetry 97 99 Oxygen Delivery Method Room Air Room Air BMI result Body Mass Index 34.4 Appearance: Alert. Oriented X3. No acute distress. Eyes: PERRLA, No Nystagmus ENT: Pharynx normal. Oral Mucosa moist Neck: Normal inspection. Neck supple. CVS: Normal heart rate and rhythm. Pulses normal. Respiratory: No respiratory distress. Equal air entry bilateral, no wheezing/rales/rhonchi Abdomen: Soft and nontender. Bowel sounds are present, no mass palpable, no CVA tenderness Skin: Skin warm and dry. Normal skin color. Normal skin turgor. Extremities: No lower extremity edema. No calf tenderness Neuro: Oriented X 3. No motor deficit. No sensory deficit.No cerebellar signs , cranial nerves II-XII intact Course Course Course Narrative: This is a Rapid Medical Examination (RME) in triage, full HPI, ROS, assessment and plan per primary provider in the Main ED. 53 yo male with history of HTN on lisinopril started 2 days ago, recently out of detox who presents to the ER for evaluation of elevated BP at home - 170/80s at home. Dizzy intermittently today. Plan: monitor BP, labs Medications Administered Discontinued Medications Generic Name Dose Route Start Last Admin Trade Name Ebenezer PRN Reason Stop Dose Admin Lisinopril 20 mg 09/06/23 23:29 09/06/23 23:45 Lisinopril 20 Mg Tablet PO 09/06/23 23:30 20 mg ONCE ONE Administration Protocol Medical Decision Making Medical Decision Making [facility] Narrative: Patient's history of hypertension recently started on lisinopril 10 mg daily noted to have elevated blood pressure without any target organ damage patient advised to increase the dose of lisinopril to 20 mg along with hydrochlorothiazide check blood pressure at home also patient's blood sugar slightly elevated has Lantus insulin at home advised to increase the dose of Lantus to 24 units and continue sliding scale of insulin before meals Differential Diagnosis Differential Diagnoses: The differential diagnosis associated with the presentation includes Accelerated hypertension/hypertensive urgency/hyperglycemia Lab Data [facility] Lab Attestation statement: I reviewed the patient's lab results. Labs: Lab Results 09/06/23 Range/Units 23:34 POC Glucose 230 H (60-115) mg/dL Discharge Plan Discharge Clinical Impression: Hypertension, Diabetes mellitus Patient Disposition: Home, Self-Care Instructions: Chronic Hypertension (ED), Type 2 Diabetes Management for Adults (ED) Additional Instructions: Decrease salt intake Increase the dose of lisinopril to 20 mg daily Follow with your PCP Normal blood pressure should be less than 135/85 Take insulin as prescribed Increase the dose of Lantus to 24 units in the night And take NovoLog insulin 3 times a day before meals according to sliding scale 0-150: 0 unit 151-200 : 2 units 201-250: 4 units 251-300: 6 units 301-350: 8 units 351-400 : 10 units >401 : 12 units and come to ed or call pcp Prescriptions: New lisinopril-hydrochlorothiazide 20-12.5 mg tablet 1 tab PO DAILY Qty: 30 0RF (DME) blood-glucose meter Kit See Rx Instructions .Route Qty: 1 0RF Rx Instructions: As directed insulin lispro [Humalog KwikPen Insulin] 100 unit/mL insulin pen 1 sliding scale dose subcut USEASDIRECTD Qty: 15 3RF Rx Instructions: check blood sugar before meals BG <111 0 units, 111-150 - 0 units, 151-200 2 units, 201-250 4 units, 251-300 6 units, 301-350 8 units, >350 10 units No Action lidocaine 4 % adhesive patch,medicated 1 patch topical DAILY PRN (Reason: pain) Qty: 10 0RF Rx Instructions: may leave on for up to 12 hrs Print Language: Armenian
[2023-09-06 20:39] VITALS: BP 164/98; PULSE 73; RESP 18; TEMP 36.1; O2SAT 97; BMI 34.4
[2023-09-06 22:39] VITALS: BP 180/98; PULSE 75; RESP 16; TEMP 36; O2SAT 99
[2023-09-06 23:37] LABS: Glucose, Whole Blood 230 mg/dL (60-115)
[2023-09-06] MEDS: lisinopriL 20 MG TABLET PO (23:45)
[2023-09-06 23:50] VITALS: BP 152/106; PULSE 86; RESP 16; TEMP 36; O2SAT 99
== END 2023-09-06 23:51 | disposition home or self-care (01) ==
PROVIDERS: Emergency Provider Internal Medicine; PCP General Practice
DX: R42 Dizziness and giddiness (principal); I10 Essential (primary) hypertension; E11.9 Type 2 diabetes mellitus without complications; Z79.899 Other long term (current) drug therapy; Z79.4 Long term (current) use of insulin
CPT/HCPCS: 82947; 99282; 99283

== ENCOUNTER 2023-09-07 09:44 | Emergency (ER) | payer MEDICAID, SELFPAY ==
[2023-09-07 09:52] VITALS: BP 176/101; PULSE 85; RESP 18; TEMP 35.5; O2SAT 98; BMI 29.0
--- NOTE | 2023-09-07 10:23 | ED_ITS ---
HPI - General Adult General Chief complaint: Back Pain/Injury Stated complaint: HBP/Back pain Time Seen by Provider: 09/07/23 10:23 Source: patient Mode of arrival: ambulatory Limitations: no limitations History of Present Illness HPI narrative: Patient is a 53-year-old male with history of substance use disorder, HTN, DM presenting to the emergency department with complaint of mild low back pain. Patient was recently discharged from detox after 9 weeks of using fentanyl after not using for several years. He states that he was discharged from detox with 20 mg of lisinopril, has been taking this for 3 days. He was seen in this emergency department last night for ongoing high blood pressure. He was given an additional dose of lisinopril last night and a prescription for lisinopril/HCTZ was sent to his pharmacy for a 30 day supply. Patient states that when he went to pick up worker his new prescription, [facility] told him that it would only be covered by his insurance for a 90 day supply. He states that he is r eturning today because his discharge instructions noted that if he developed back pain should return to the ED. He complains of 2/10 low back pain. Reports elevated blood pressure readings on home monitor this morning. Denies fall or other trauma. Denies heavy lifting or other strenuous activity. Denies radiation of pain to his legs. Denies fever, weakness, numbness, tingling to lower extremities. Denies saddle anesthesia or bowel or bladder incontinence. Denies headaches, vision changes, chest pain, palpitations, dyspnea. MD complaint: back pain Onset (ago): hour(s) Location: back Radiation: non-radiation Severity: mild Severity scale (1-10): 2 Quality: aching Associated symptoms: other (high blood pressure readings) Treatments prior to arrival: none Related Data Previous Rx's ?Medication ?Instructions ?Recorded lidocaine 4 % topical patch 1 patch topical DAILY PRN pain #10 08/31/20 ea blood-glucose meter #1 ea 09/06/23 insulin lispro 100 unit/mL 1 sliding scale dose subcut 09/06/23 subcutaneous pen (Humalog KwikPen USEASDIRECTD #15 mL (U-100) Insulin) lisinopril 20 1 tab PO DAILY #30 tabs 09/06/23 mg-hydrochlorothiazide 12.5 mg tablet lisinopril 20 1 tab PO DAILY #90 tabs 09/07/23 mg-hydrochlorothiazide 12.5 mg tablet Allergies Allergy/AdvReac Type Severity Reaction Status Date / Time haloperidol [From HALDOL] Allergy Severe EPS Verified 09/07/23 09:59 trazodone [TRAZODONE] Allergy Unknown AGITATION Verified 09/07/23 09:59 Review of Systems Review of Systems: As per HPI. Yes all other systems are reviewed and are negative Constitutional: Constitutional: Reports as per HPI [facility] Past Medical History Medical History Diabetes Glaucoma Social History Social History Alcohol intake: never Advance Directives: No Advance Directives Information Provided: Yes Physical Exam ED Vital Signs: Vital Signs - 24 hr 09/07/23 09:52 Temperature 96 F L Pulse Rate 85 Respiratory Rate 18 Blood Pressure 176/101 H Pulse Oximetry 98 Oxygen Delivery Method Room Air BMI result Body Mass Index 29.0 Vital signs have been reviewed and appear to be correct. Blood pressure elevated. Heart rate normal. Respiratory rate normal. Temperature normal. Oxygen saturation normal. Const General: cooperative, healthy appearing and no acute distress Orientation/consciousness: oriented to person, oriented to place, oriented to time and patient oriented x3 Limitations: no limitations [facility] Head: Yes normocephalic and Yes atraumatic Ears: external ears normal General nose exam: Normal external nose present Face and sinus: Yes face symmetric Mouth: oropharynx normal and moist mucous membranes Throat: Yes uvula midline Eyes Pupils: Equal, round and reactive pupils present Neck Neck: Yes normal visual inspection, Yes no meningeal signs and Yes supple Resp Effort & Inspection: normal respiratory effort and able to speak in complete sentences Auscultation: clear to auscultation bilaterally Cardio Rate: regular rate Rhythm: regular rhythm Heart sounds: S1 normal heart sound present and S2 normal heart sound present GI Palpation (GI): Soft to palpation and nontender Auscultation: normoactive bowel sounds General: Yes no CVA tenderness Back/Spine/Pelvis Back: no CVA tenderness Thoracic/Lumbar Spine: thoracic and lumbar spine normal to inspection, thoraco- lumbar ROM normal, No pain with thoraco-lumbar ROM, No thoracic spinal tenderness and No lumbar spinal tenderness Skin General skin exam: elasticity normal and turgor normal Neuro General: oriented to person, oriented to place, oriented to time, patient oriented x3, gait normal, tone normal, moves all extremities, Normal light touch and pain sensation, no meningeal signs, no focal motor deficits, CN's II-XI intact bilaterally and deep tendon reflexes 2+ bilaterally Cranial nerves: Yes Equal, round and reactive pupils present Cognition (Neuro): normal cognition Motor exam (neuro): 5/5 motor strength present throughout, Normal motor muscle tone present throughout and Motor abnormalities not present Sensory Exam: Normal double simultaneous stimulation for sensation Extrem General: Yes full ROM, Yes no pedal edema and Yes no calf tenderness Psych Mental Status: mental status grossly normal Affect: normal affect Thought process: Normal thought process present Medical Decision Making Medical Decision Making MDM Narrative: Patient is a 53-year-old male with history of substance use disorder, HTN, DM presenting to the emergency department with complaint of mild low back pain. On exam patient is awake, A+Ox3, BP elevated, VS otherwise WNL, afebrile, normal neurological exam without focal deficits, physical exam findings as above. Given reported symptoms and physical exam findings, initial differential includes lumbar strain, hypertension. Do not suspect ACS, AAA rupture. No red flag findings concerning for spinal epidural abscess, cauda equina, cord compression, malignancy/mass. Patient was evaluated in this emergency department last night for hypertension and prescription was sent to pharmacy which patient was unable to fill due to an insurance issue. He reports that his hypertension is newly diagnosed and he is overly anxious about checking his blood pressure and is unsure of which symptoms to return to the emergency department for. Patient educated at length about signs and symptoms for which he should return to the emergency department. Patient states he is seeing his primary care provider in the morning. New prescription for lisinopril/HCTZ sent to pharmacy for 90 day supply which will be covered by patient's insurance. Patient verbalized understanding of and agreement with plan. Differential Diagnosis Differential Diagnoses: The differential diagnosis associated with the presentation includes As per [facility] External Record Review External record reviewed: Inpatient record, Office record and Outpatient record Prescription Management I considered prescription management with: Other Chronic Conditions Patient?s care impacted by: Diabetes and Hypertension Discharge Plan Discharge Clinical Impression: Hypertension, Low back pain Patient Disposition: Home, Self-Care Instructions: How to Take a Blood Pressure (ED), Low-Sodium Diet (ED), Hypert ension (ED), Hypertension and Diabetes (ED) Additional Instructions: You were evaluated in the emergency department today for elevated blood pressure readings. Please take your medications as prescribed and follow-up with your primary care provider in morning. Your prescription was resent with a 90 day supply so that it will be covered by your insurance. Return to the emergency department with chest pain, difficulty breathing, severe headaches, changes in vision, dizziness or lightheadedness, or any other concerning symptoms. Prescriptions: New lisinopril-hydrochlorothiazide 20-12.5 mg tablet 1 tab PO DAILY Qty: 90 0RF No Action lidocaine 4 % adhesive patch,medicated 1 patch topical DAILY PRN (Reason: pain) Qty: 10 0RF Rx Instructions: may leave on for up to 12 hrs lisinopril-hydrochlorothiazide 20-12.5 mg tablet 1 tab PO DAILY Qty: 30 0RF (DME) blood-glucose meter Kit See Rx Instructions .Route Qty: 1 0RF Rx Instructions: As directed insulin lispro [Humalog KwikPen Insulin] 100 unit/mL insulin pen 1 sliding scale dose subcut USEASDIRECTD Qty: 15 3RF Rx Instructions: check blood sugar before meals BG <111 0 units, 111-150 - 0 units, 151-200 2 units, 201-250 4 units, 251-300 6 units, 301-350 8 units, >350 10 units Print Language: Kittitian
[2023-09-07 10:53] VITALS: BP 176/101; PULSE 85; RESP 18; TEMP 35.5; O2SAT 98
== END 2023-09-07 10:25 | disposition home or self-care (01) ==
PROVIDERS: Emergency Provider Student in an Organized Health Care Education/Training Program; PCP General Practice
DX: M54.50 Low back pain, unspecified (principal); I10 Essential (primary) hypertension; Z79.899 Other long term (current) drug therapy
CPT/HCPCS: 99282; 99283

== ENCOUNTER 2024-03-08 09:09 | Outpatient (REF) | payer MEDICAID, SELFPAY ==
[2024-03-08 11:23] LABS: MANUAL DIFF FLAG NO
[2024-03-08 11:32] LABS: Basophils Absolute Auto 0.1 X10*3/uL (0.0-0.2); Basophils Percent Auto 0.7 % (0-2); Eosinophils Absolute Auto 0.5 X10*3/uL (0.0-0.4); Eosinophils Percent Auto 5.7 % (0-4); Hematocrit 43.3 % (42.0-52.0); Hemoglobin 14.1 g/dl (14.0-18.0); Imm Gran Abs Auto 0.05 X10*3/uL (0.00-0.03); Imm Gran Pct Auto 0.5 % (0.0-0.4); Lymphocytes Percent Auto 21.2 % (20-40); Mean Corpuscular HGB Conc 32.6 g/dl (31.0-36.0); Mean Corpuscular Hemoglobin 28.3 pg (27.0-33.0); Mean Corpuscular Volume 86.8 fL (80.0-98.0); Monocytes Absolute Auto 0.7 X10*3/uL (0.1-1.2); Monocytes Percent Auto 7.9 % (2-11); Neutrophils Absolute Auto 5.9 x10*3/uL (2.0-8.3); Platelet Count 260 X10*3/uL (160-400); Red Blood Count 4.99 X10*6/uL (4.60-5.80); Red Cell Distribution Width 12.3 % (11.0-16.0); White Blood Count 9.2 X10*3/uL (4.8-10.8)
[2024-03-08 11:53] LABS: Estimated Average Glucose 206 mg/dL; Hemoglobin A1C 257.3492 umol/L; Hemoglobin A1c % 8.8 % (<6.0)
[2024-03-08 12:02] LABS: Creatinine Urine 110.89 mg/dL; Microalbumin Urine < 5.0 mg/L
[2024-03-08 12:11] LABS: TSH reflex Free T4 1.01 uIU/mL (0.32-4.0)
[2024-03-08 12:14] LABS: HBS Num1 71.41 mIU/mL (0-7.99); HBsAGNum1 0.53 S/CO (0.00-0.99); Hepatitis A Antibody IgM 0.26 Index (0-0.79); Hepatitis B Core Antibody Nonreactive (Nonreactive); Hepatitis B Surface Antigen Negative (Negative); ~Hepatitis A Antibody IgM Nonreactive (Nonreactive); ~Hepatitis B Surface Antibody REACTIVE (Nonreactive); ~Hepatitis C Antibody Reactive (Nonreactive)
[2024-03-08 12:29] LABS: Folate 11.9 ng/mL (> or = 4.0); Vitamin B12 653 pg/mL (200-900)
[2024-03-09 13:33] LABS: RPR Rapid Plasma Reagin NON-REACTIVE (NON-REACTIVE)
[2024-03-17 14:49] LABS: Testosterone, Total 69 ng/dL (250-1100)
== END 2024-03-08 09:10 | disposition home or self-care (01) ==
LOC: HO.HHCL 09:09
PROVIDERS: Visit Provider General Practice
DX: E29.1 Testicular hypofunction (principal); R41.3 Other amnesia; E11.65 Type 2 diabetes mellitus with hyperglycemia; Z79.4 Long term (current) use of insulin; Z86.19 Personal history of other infectious and parasitic diseases
CPT/HCPCS: 36415; 82043; 82570; 82607; 82746; 83036; 84402; 84403; 84443; 85025; 86592; 86704; 86706; 86709; 86803; 87340

== ENCOUNTER 2024-07-01 11:06 | Outpatient (REF) | payer MEDICAID, SELFPAY ==
--- NOTE | ~2024-07-01 | US_ITS ---
CLINICAL HISTORY: flank pain US Renal Comparison: None Findings: Right kidney normal size and echotexture, 10.7 cm length. Left kidney normal size and echotexture, 10.8 cm length. No hydronephrosis of either kidney. Normal color Doppler IMPRESSION: 1. Normal kidneys. This document has been electronically signed by: Fausto Pavon MD on 07/01/2024 12:27:56
--- OUTSIDE RECORDS SUMMARY | 2024-07-01 14:58 | XMS_ITS | Encounter Summary ---
Author Organization [facility] Address [address] [place] [address] 7t [place] [address] Care Team Providers Care University Manager Name Role Phone Michelle Rodriguez MD Primary Care Provider [phone] Rose Phillip PharmD Unavailable [phone] Reason for Visit * Reason Comments Med Refill Encounter Details Date Type Department Care Team ([facility] st Contact Info) Description 11/11/2023 Refill [facility] MEDICINE [address] [place], [place] [phone] Michelle Rodriguez MD [address] [place] [address] Primary insomnia Social History Tobacco Use Types Packs/Day Years Used Date Smoking Tobacco: Every Day Cigarettes 0.1 2 Passive Smoke Exposure: Past Smokeless Tobacco: Current Alcohol Use Standard Drinks/Week Comments Never 0 (1 standard drink = 0.6 oz pur e alcohol) Depression Answer Date Recorded Patient Health Questionnaire-9 Score 6 11/01/2022 Housing Stability Answer Date Recorded What is your housing situation today? I have natacha deshpande 11/06/[address] you li ve. Do you have problems with any of the following? None of the above 11/06/2023 Food Insecurity Answer Date Recorded Within the past 12 months, y ou worried that your food would run out before you got money to buy more: Never True 11/06/2023 Within the past 12 months,th e food you bought just didn't last and you didn't have enough money to get more: Never True 11/2023 Transportation Answer Date Recorded In the past 12 months, has l ack of transportation kept you from medical appts, meetings, work or from getting things needed for daily living? No 11/06/2023 Utilities Answer Date Recorded In the past 12 months, has t he electric, gas, oil or water company threatened to shut off services in your home? No 11/06/2023 Depression Answer Date Recorded Patient Health Questionnaire-2 Score 3 11/01/2022 Sex and Gender Information Value Date Recorded Sex Assigned at Male 04/01/2022 10:16 AM EDT Legal Sex Male 10:16 AM EDT Gender Identity Male 04/01/2022 10:16 AM EDT Sexual Orientation Straight 04/01/2022 10 :16 AM EDT documented as of this encounter Plan of Treatment Upcoming Encounters Date Type Department Care Team (Late st Contact Info) Description 07/02/2024 9:00 AM EST Medication Management [facility] MEDICINE [address] [place] [address] Rose Phillip PharmD [address] [place] [address] 09/08/2024 9:00 AM EDT Office Visit [facility] ADULT DENTAL [address] [place] [address] Miguelito, Johanne [address] [place] [address] documented as of this encounter Visit Diagnoses Diagnosis Primary insomnia Persistent disorder of initiating or maintaining sleep documented in this encounter Additional Health Concerns Assessment Noted Time PHQ-9 Depression Total Score: 6 11/02/19 23 3:44 PM EDT documented as of this encounter Care Teams University Manager Relationship Specialty Start Date End Date Michelle Rodriguez MD [address] [place] [phone] PCP - General Family Medicine 02/19/21 Rose Phillip PharmD [address] [place] [address] Pharmacist Internal Medicine 03/02/24 documented as of this encounter
--- OUTSIDE RECORDS SUMMARY | 2024-07-01 14:59 | XMS_ITS | Encounter Summary ---
Author Organization [facility] Address [address] [place] [address] 7 [place] [address] Care Team Providers Care Defect Repairer Glassware Name Role Phone Michelle Rodriguez MD Primary Care Provider [phone] Rose Phillip PharmD Unavailable [phone] Reason for Visit * Reason Comments Pre-visit Planning (Unable to reach for PVP screening, LVM) Encounter Details Date Type Department Care Team ([facility] st Contact Info) Description 06/03/2024 Patient Outreach [facility] MEDICINE [address] [place], [place] [phone] Michelle Rodriguez MD [address] [place], [place] [phone] Pre-visit Planning ((Unable to reach for PVP screening, LVM)) Social History Tobacco Use Types Packs/Day Years [...] AM EDT documented as of this encounter Progress Notes * Brenda Alvarez - 06/03/2024 2:22 PM EST CC Brenda. Placed outbound call to patient to complete pre-visit planning. No answer at this time. Patient name and were not confirmed. CC left voicemail requesting return call. Direct contact information provided. documented in this encounter Plan of Treatment Upcoming Encounters Date Type Department Care Team (Late st Contact Info) Description 07/02/2024 9:00 AM EST Medication Management [facility] MEDICINE [address] [place] [address] Rose Phillip, PharmD [address] [place] [address] 09/08/2024 9:00 AM EDT Office Visit [facility] ADULT DENTAL [address] [place] [address] Miguelito, Johanne [address] [place] [address] documented as of this encounter Visit Diagnoses Not on filedocumented in this encounter Additional Health Concerns Assessment Noted Time PHQ-9 Depression Total Score: 6 11/02/19 23 3:44 PM EDT documented as of this encounter Care Teams Defect Repairer Glassware Relationship Specialty Start Date End Date Michelle Rodriguez MD [address] [place] [address] PCP - General Family Medicine 02/19/21 Rose Phillip, Camilo [address] [place] [address] Pharmacist Internal Medicine 03/02/24 documented as of this encounter
--- OUTSIDE RECORDS SUMMARY | 2024-07-01 14:59 | XMS_ITS | Encounter Summary ---
Author Organization [facility] Address [address] [place] [address] 7t [place] [address] Care Team Providers Care Mold Capper Helper Name Role Phone Michelle Rodriguez MD Primary Care Provider [phone] Rose Phillip PharmD Unavailable [phone] Reason for Visit * Reason Comments Med Refill Encounter Details Date Type Department Care Team ([facility] st Contact Info) Description 09/10/2023 Refill [facility] MEDICINE [address] [place], [place] [phone] Michelle Rodriguez MD [address] [place] [address] Primary insomnia Social History Tobacco Use Types [...] housing situation today? I have natacha deshpande 04/07/[address] you li ve. Do you have problems with any of the following? None of the above 04/07/2023 Food Insecurity Answer Date Recorded Within the past 12 months, y ou worried that your food would run out before you got money to buy more: Never True 04/07/2023 Within the past 12 months,th e food you bought just didn't last and you didn't have enough money to get more: Never True 10/2022 Transportation Answer Date Recorded In the past 12 months, has l ack of transportation kept you from medical appts, meetings, work or from getting things needed for daily living? No 04/07/2023 Utilities Answer Date Recorded In the past 12 months, has t he electric, gas, oil or water company threatened to shut off services in your home? I am not sure 04/07/2023 Depression Answer Date Recorded Patient Health Questionnaire-2 [...] Description 07/02/2024 9:00 AM EST Medication Management [facility] MEDICINE [address] [place] [address] Rose Phillip PharmD [address] [place] [address] 09/08/2024 9:00 AM EDT Office Visit [facility] ADULT DENTAL [address] [place] [address] Miguelito, Johanne [address] [place] [address] documented as of this encounter Visit Diagnoses Diagnosis Primary insomnia Persistent disorder of initiating or maintaining sleep documented in this encounter Additional Health Concerns Assessment Noted Time PHQ-9 Depression Total Score: 6 11/02/19 23 3:44 PM EDT documented as of this encounter Care Teams Mold Capper Helper Relationship Specialty Start Date End Date Michelle Rodriguez MD [address] [place] [phone] PCP - General Family Medicine 02/19/21 Rose Phillip PharmD [address] [place] [address] Pharmacist Internal Medicine 03/02/24 documented as of this encounter
--- OUTSIDE RECORDS SUMMARY | 2024-07-01 14:59 | XMS_ITS | Encounter Summary ---
Author Organization [facility] Address [address] [facility] 7t [place] [address] Care Team Providers Care Utility Bill Complaints Investigator Name Role Phone Michelle Rodriguez MD Primary Care Provider [phone] Rose Phillip PharmD Unavailable [phone] Encounter Details Date Type Department Care Team ([facility] st Contact Info) Description 09/11/2023 Orders Only [facility] MED[facility]INE [address] [place], [place] [phone] Michelle Rodriguez MD [address] [place], [place] [phone] Primary insomnia Social History Tobacco Use Types [...] Description 07/02/2024 9:00 AM EST Medication Management [facility] MED[facility]INE [address] [place] [address] Rose Phillip PharmD [address] [place] [address] 09/08/2024 9:00 AM EDT Office Visit [facility] ADULT DENTAL [address] [place] [address] Miguelito, Johanne [address] [place] [address] documented as of this encounter Visit Diagnoses Diagnosis Primary insomnia Persistent disorder of initiating or maintaining sleep documented in this encounter Additional Health Concerns Assessment Noted Time PHQ-9 Depression Total Score: 6 11/02/19 23 3:44 PM EDT documented as of this encounter Care Teams Utility Bill Complaints Investigator Relationship Specialty Start Date End Date Michelle Rodriguez MD [address] [place] [address] PCP - General Family Medicine 02/19/21 Rose Phillip PharmD [address] [place] [address] Pharmacist Internal Medicine 03/02/24 documented as of this encounter
--- OUTSIDE RECORDS SUMMARY | 2024-07-01 14:59 | XMS_ITS | Encounter Summary ---
Author Organization [employer] [facility] Address [address] [place] [address] [place] [address] Care Team Providers Care Broadcast Operations Manager Name Role Phone Michelle Rodriguez MD Primary Care Provider [phone] Rose Phillip PharmD Unavailable [phone] Reason for Visit * Reason Comments Med Refill Encounter Details Date Type Department Care Team (Late st Contact Info) Description 01/20/2023 Refill [facility] MEDICINE [address] [place] [address] Mimi Machuca FNP [address] [place] [address] Dept [place] [address] Primary insomnia Social History Tobacco Use Types Packs/Day Years Used Date Smoking Tobacco: Every Day Cigarettes 0.1 2 Passive Smoke Exposure: Past Smokeless Tobacco: Current Depression Answer Date Recorded Patient Health Questionnaire-9 Score 6 11/01/2022 Depression Answer Date Recorded Patient Health Questionnaire-2 [...] Description 07/02/2024 9:00 AM EST Medication Management [facility] MEDICINE [address] [place], [place] [phone] PuAngela jenningssa, PharmD [address] [place], [place] [phone] 09/08/2024 9:00 AM EDT Office Visit [facility] ADULT DENTAL [address] [place] [address] Johanne Farley [address] [place] [address] documented as of this encounter Visit Diagnoses Diagnosis Primary insomnia Persistent disorder of initiating or maintaining sleep documented in this encounter Additional Health Concerns Assessment Noted Time PHQ-9 Depression Total Score: 6 11/02/19 23 3:44 PM EDT documented as of this encounter Care Teams Broadcast Operations Manager Relationship Specialty Start Date End Date Michelle Rodriguez MD [address] [place] [address] PCP - General Family Medicine 02/19/21 Rose Phillip, Camilo [address] [place] [address] Pharmacist Internal Medicine 03/02/24 documented as of this encounter
--- OUTSIDE RECORDS SUMMARY | 2024-07-01 14:59 | XMS_ITS | Encounter Summary ---
Author Organization [facility] Address [address] [place] [address] 7 [place] [address] Care Team Providers Care Manager Ui Name Role Phone Michelle Rodriguez MD Primary Care Provider Rose Phillip PharmD Unavailable Reason for Visit * Reason Comments Med Refill Encounter Details Date Type Department Care Team (Late st Contact Info) Description 12/21/2022 Refill [facility]INE [address] [place], [place] [phone] Michelle Rodriguez MD [address] [place] [address] Social History Tobacco Use Types Packs/Day Years [...] Description 07/02/2024 9:00 AM EST Medication Management [facility] MED[facility]INE [address] [place] [address] PuiaAngelasa, PharmD [address] [place], [place] [phone] 09/08/2024 9:00 AM EDT Office Visit [facility] ADULT DENTAL [address] [place] [address] Johanne Farley [address] [place] [address] documented as of this encounter Visit Diagnoses Not on filedocumented in this encounter Additional Health Concerns Assessment Noted Time PHQ-9 Depression Total Score: 6 11/02/19 23 3:44 PM EDT documented as of this encounter Care Teams Manager Ui Relationship Specialty Start Date End Date Michelle Rodriguez MD [address] [place] [phone] PCP - General Family Medicine 02/19/21 Rose Phillip PharmD [address] [place] [address] Pharmacist Internal Medicine 03/02/24 documented as of this encounter
--- OUTSIDE RECORDS SUMMARY | 2024-07-01 14:59 | XMS_ITS | Encounter Summary ---
Author Organization [employer] [facility] Address [address] [facility] 7t [place] [address] Care Team Providers Care Practice Specialist Name Role Phone Michelle Rodriguez MD Primary Care Provider [phone] Rose Phillip PharmD Unavailable [phone] Reason for Visit * Reason Comments Med Refill Encounter Details Date Type Department Care Team ([facility] st Contact Info) Description 06/22/2024 Refill [facility] MEDICINE [address] [place], [place] [phone] Michelle Rodriguez MD [address] [place] [address] Type 2 diabetes mellitus with hyperglycemia, with long-term current use of insulin ([facility]) Social History Tobacco Use Types Packs/Day Years [...] 9:00 AM EST Medication Management [facility] MEDICINE [address] [place] [address] Rose Phillip PharmD [address] [place] [address] 09/08/2024 9:00 AM EDT Office Visit [facility] ADULT DENTAL [address] [place] [address] Johanne Farley [address] [place] [address] documented as of this encounter Visit Diagnoses Diagnosis Type 2 diabetes mellitus with hyperglycemia, with long-term current use of insulin ([facility]) documented in this encounter Additional Health Concerns Assessment Noted Time PHQ-9 Depression Total Score: 6 11/02/19 23 3:44 PM EDT documented as of this encounter Care Teams Practice Specialist Relationship Specialty Start Date End Date Michelle Rodriguez MD [address] [place] [id number] PCP - General Family Medicine 02/19/21 Rose Phillip PharmD [address] [place] [phone] Pharmacist Internal Medicine 03/02/24 documented as of this encounter
--- OUTSIDE RECORDS SUMMARY | 2024-07-01 14:59 | XMS_ITS | Encounter Summary ---
Author Organization [employer] Address [address] [place] [address] 7t [place] [address] Care Team Providers Care Nipple Machine Operator Name Role Phone Michelle Rodriguez MD Primary Care Provider [phone] Rose Phillip PharmD Unavailable [phone] Reason for Visit * Reason Onset Date Comments No Show 06/11/2024 Encounter Details Date Type Department Care Team ([facility] st Contact Info) Description 06/11/2024 Telephone [facility] [address] [place], [place] [phone] Michelle Rodriguez MD [address] [place], [place] [phone] No Show Social History Tobacco Use Types Packs/Day Years [...] AM EDT documented as of this encounter Miscellaneous Notes * Telephone Encounter - Tamela Ford - 06/11/2024 10:35 AM EST Pt no show to appt PHQ9, A1c & Glu pt request (Unable to reach for PVP screening, LVM) to be completed in office documented in this encounter Plan of Treatment Upcoming Encounters Date Type Department Care Team (Late st Contact Info) Description 07/02/2024 9:00 AM EST Medication Management [facility] [address] [place] [address] Rose Phillip PharmD [address] [place] [address] 09/08/2024 9:00 AM EDT Office Visit [facility] D[facility] [address] [place] [address] Miguelito, Johanne [address] [place] [address] documented as of this encounter Visit Diagnoses Not on filedocumented in this encounter Additional Health Concerns Assessment Noted Time PHQ-9 Depression Total Score: 6 11/02/19 23 3:44 PM EDT documented as of this encounter Care Teams Nipple Machine Operator Relationship Specialty Start Date End Date Michelle Rodriguez MD [address] [place] [address] PCP - General Family Medicine 02/19/21 Rose Phillip, MerissaD [address] [place] [address] Pharmacist Internal Medicine 03/02/24 documented as of this encounter
--- OUTSIDE RECORDS SUMMARY | 2024-07-01 14:59 | XMS_ITS | Encounter Summary ---
Author Organization [email or web address] [facility] Address [address] [place] [address] 7 [place] [address] Care Team Providers Care Freelance Art Director Name Role Phone Michelle Rodriguez MD Primary Care Provider [phone] Rose Phillip PharmD Unavailable [phone] Encounter Details Date Type Department Care Team (Latest Contact Info) Description 12/13/2021 Abstract [facility] CONVERSIONS Dental, Provider, DDS Social History Tobacco Use Types Packs/Day Years Used Date Smoking Tobacco: Never Assessed Sex and Gender Information Value Date Recorded Sex Assigned at Male 04/01/2022 10:16 AM EDT Legal Sex Male 10:16 AM EDT Gender Identity Male 04/01/2022 10:16 AM EDT Sexual Orientation Straight 04/01/2022 10 :16 AM EDT documented as of this encounter Plan of Treatment Upcoming Encounters Date Type Department Care Team ( st Contact Info) Description 07/02/2024 9:00 AM EST Medication Management [facility] [address] [place] [address] Rose Phillip, PharmD [address] [place] [address] 09/08/2024 9:00 AM EDT Office Visit [facility] ADULT DENTAL [address] [place] [address] Johanne Farley [address] [place] [address] documented as of this encounter Visit Diagnoses Not on filedocumented in this encounter Care Teams Freelance Art Director Relationship Specialty Start Date End Date Michelle Rodriguez MD [address] [place] [address] PCP - General Family Medicine 02/19/21 Rose Phillip, Camilo [address] [place] [address] Pharmacist Internal Medicine 03/02/24 documented as of this encounter
--- OUTSIDE RECORDS SUMMARY | 2024-07-01 14:59 | XMS_ITS | Encounter Summary ---
Author Organization [employer] Address [address] [place] [address] 7t [place] [address] Care Team Providers Care Technical Consultant Name Role Phone Michelle Rodriguez MD Primary Care Provider [phone] Rose Phillip PharmD Unavailable Reason for Referral * Consultation (Routine) - Authorized Specialty Diagnoses / Procedures Referred By Contac t Referred To Contact Pharmacy Diagnoses Type 2 diabetes mellitus with hyperglycemia, with long-term current use of insulin (CMS/HCC) Michelle Rodriguez MD [address] [place] [address] Phone: tel: fax: Referral ID Status Reason Start Date Expiration Date Visits Requested Visits Authorized [id number] Authorized Consult and Treat 03/26/2024 03/26/2025 6 6 Encounter Details Date Type Department Care Team (Late st Contact Info) Description 03/21/2024 Orders Only [facility] [address] [place], [place] [phone] Michelle Rodriguez MD [address] [place], [place] [phone] Male hypogonadism (Primary Dx); Type 2 diabetes mellitus with hyperglycemia, with long-term current use of insulin (CMS/HCC) Social History Tobacco Use Types Packs/Day Years [...] Description 07/02/2024 9:00 AM EST Medication Management [facility] [address] [place] [address] Rose Phillip, PharmD [address] [place] [address] 09/08/2024 9:00 AM EDT Office Visit [facility] ADULT DENTAL [address] [place] [address] Johanne Farley [address] [place] [address] Scheduled Orders Name Type Priority Associated Diagnoses Orde r Schedule Testosterone, Free (Dialysis) And Total, MS Lab Routine Male hypogonadism Expected: 03/21/2024 (Approximate), Expires: 03/21/2025 Scheduled Referrals Name Type Priority Associated Diagnoses Orde r Schedule Referral to Pharmacy CDTM Outpatient Referral Routine Type 2 diabetes mellitus with hyperglycemia, with long-term current use of insulin ([facility]) Ordered: 03/26/2024 documented as of this encounter Visit Diagnoses Diagnosis Male hypogonadism- Primary Other testicular hypofunction Type 2 diabetes mellitus with hyperglycemia, with long-term current use of insulin ([facility]) documented in this encounter Additional Health Concerns Assessment Noted Time PHQ-9 Depression Total Score: 6 11/02/19 23 3:44 PM EDT documented as of this encounter Care Teams Technical Consultant Relationship Specialty Start Date End Date Michelle Rodriguez MD [address] [place] [address] PCP - General Family Medicine 02/19/21 Rose Phillip PharmD [address] [place] [address] Pharmacist Internal Medicine 03/02/24 documented as of this encounter
--- OUTSIDE RECORDS SUMMARY | 2024-07-01 14:59 | XMS_ITS | Encounter Summary ---
Author Organization [employer] Address [address] [place] [address] [address] [place] [address] Care Team Providers Care Exhibit Carpenter Name Role Phone Michelle Rodriguez MD Primary Care Provider [phone] Rose Phillip PharmD Unavailable [phone] Reason for Referral * Imaging (Routine) - Closed Specialty Diagnoses / Procedures Referred By Contac t Referred To Contact Radiology Diagnoses Left flank pain Procedures US Renal Complete Michelle Rodriguez MD [address] [place] [address] Phone: tel: fax: [address] Phone: tel: fax: Referral ID Status Reason Start Date Expiration Date Visits Re quested Visits Authorized [id number] Closed 06/14/2024 06/14/2025 1 1 Reason for Visit * Reason Comments Diabetes Encounter Details Date Type Department Care Team (Late st Contact Info) Description 06/14/2024 9:00 AM EST Office Visit [facility] [address] [place], [place] [phone] Michelle Rodriguez MD [address] [place], [place] [phone] Type 2 diabetes mellitus with hyperglycemia, with long-term current use of insulin (CMS/HCC) (Primary Dx); Testosterone insufficiency; Left flank pain; Uncomplicated opioid dependence (CMS/HCC); Dietary counseling; Exercise counseling; Class 1 obesity with serious comorbidity and body mass index (BMI) of 34.0 to 34.9 in adult, unspecified obesity type; History of hepatitis C; Male hypogonadism; Generalized anxiety disorder; Gastroesophageal reflux disease, unspecified whether esophagitis present; Essential hypertension Social History Tobacco Use Types Packs/Day Years [...] AM EDT documented as of this encounter Last Filed Vital Signs Vital Sign Reading Time Taken Comments Blood Pressure 129/74 06/14/2024 8:56 AM EST Pulse 71 06/14/2024 8:56 AM EST Temperature 36.6 ??C (97.9 ??F) 06/14/2024 8:56 AM ES T Respiratory Rate 17 06/14/2024 8:56 AM EST Oxygen Saturation - - Inhaled Oxygen Concentration - - Weight 106 kg (234 lb) 06/14/2024 8:56 AM EST Height 172.7 cm (5' 8 ) 06/14/2024 8:56 AM EST Body Mass Index 35.58 06/14/2024 8:56 AM EST documented in this encounter Progress Notes * Michelle Rodriguez MD - 06/14/2024 9:00 AM EST SUBJECTIVE: Raimundo Carcamo is a 53 y.o. year old male who presents for chronic disease management. Denies recent illness, ER visit, or hospitalization. Acute Concerns: L sided flank pain, once or twice a year, feels numbing and searing along L side and then subsides on its own. Last happened one week ago. No fevers or chills, no dysuria. No prior imaging of kidneys Interim Updates: Memory loss, both parents with Alzheimer's Normal TSH, folate, Vit B12, CBC 03/2024 HTN At goal <140/90 most days at home Taking Amlodipine 5mg and Lisinopril 20mg daily Insomnia sleeping better with Ambien 10mg, 5-6 hours a night DM2: A1C 9.5 today and random glucose 357, comanaged with Rose Puia, next appt 07/02/24 Metformin 1000mg BID and Glipizide 5mg BID Lantus 30 units at night Taking Trulicity 4.5mg Podiatry: referral in, appt not made Dental: at [facility] Eye: at [facility] 03/2023 Mental Health Anxiety is high right now PTSD, and son killed in a robbery 20 years ago Therapist: stopped during pandemic, has not restarted taking Ambien Low testosterone/ED On testosterone 1.62% 2 pumps daily Needs retesting of testosterone gets Viagra from pharmacy in [place] Likely secondary to opioids OUD, on Methadone 87mg at [facility] clinic Using right now x 2 months Health maintenance: Colon- never, due, GI referral placed 01/2024 Imms- PCV, Td, COVID,zoster; declines today PSA at 55-69 shared decision making Patient Active Problem List Diagnosis Gastroesophageal reflux disease Hepatitis C Impaired glucose tolerance Male hypogonadism Noncompliance with treatment Obesity Severe opioid use disorder (CMS/HCC) Vitamin D deficiency Type 2 diabetes mellitus (CMS/HCC) Generalized anxiety disorder Carpal tunnel syndrome on both sides ED (erectile dysfunction) History of substance abuse (CMS/HCC) Hydrocele Melasma Ulnar neuropathy of both upper extremities Dental plaque Dental caries Xerostomia Pharyngeal dysphagia Memory loss No past surgical history on file. 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 Respiratory: Negative. Cardiovascular: Negative. Gastrointestinal: Positive for abdominal pain. Genitourinary: Positive for flank pain. Negative for decreased urine volume, difficulty urinating, dysuria and frequency. Skin: Negative. OBJECTIVE: Vitals: 06/14/24 0856 BP: 129/74 BP Location: Right arm Patient Position: Sitting BP Cuff Size: Large adult Pulse: 71 Resp: 17 Temp: 97.9 ??F (36.6 ??C) TempSrc: Temporal Weight: 234 lb (106 kg) Height: 5' 8 (1.727 m) Physical Exam Vitals and nursing note reviewed. Constitutional: Appearance: Normal appearance. He is normal weight. HENT: Head: Normocephalic and atraumatic. Cardiovascular: Rate and Rhythm: Normal rate and regular rhythm. Pulses: Normal pulses. Heart sounds: Normal heart sounds. Pulmonary: Effort: Pulmonary effort is normal. Breath sounds: Normal breath sounds. Musculoskeletal: Cervical back: Normal range of motion and neck supple. Skin: General: Skin is warm and dry. Capillary Refill: Capillary refill takes less than 2 seconds. Neurological: General: No focal deficit present. Mental Status: He is alert and oriented to person, place, and time. Psychiatric: Mood and Affect: Mood normal. Behavior: Behavior normal. ASSESSMENT/PLAN Problem List Items Addressed This Visit Gastroesophageal reflux disease Current Assessment & Plan Referred to GI 01/2024 for upper and lower endoscopy Pt given phone number to schedule today History of hepatitis C Overview Treated in 2011 Current Assessment & Plan Hep C antibody positive 03/2024 Awaiting confirmatory negative viral load Relevant Orders Hepatitis C Viral Load, RNA, Quantification Male hypogonadism Current Assessment & Plan Check testosterone level for monitoring On two pumps of 1.62% gel daily Obesity Type 2 diabetes mellitus (CMS/HCC) - Primary Current Assessment & Plan Add Lispro 6-10 units with meals (2 units for every 50 over 150 prior to eating), this is per patient preference and request because he has Lispro at home He will likely switch from Trulicity to Mounjaro at next CDTM appointment A1C 9.5 today and random glucose 357, comanaged with Rose Puia, next appt 07/02/24 Metformin 1000mg BID and Glipizide 5mg BID Lantus 30 units at night Taking Trulicity 4.5mg Podiatry: referral in, appt not made Dental: at [facility] BMP: Lab Results Component Value Date CREATININE 1.28 08/17/2023 K 4.7 08/17/2023 Microalbumin: Foot Exam: Complete at follow up Eye Exam:03/2023, no DM2 damage Lipid panel: ASCVD: The 10-year ASCVD risk score (Carlos REEVES, et al., 2019) is: 16.2% Values used to calculate the score: Age: 53 years Sex: Male Is Non- : No Diabetic: Yes Tobacco smoker: Yes Systolic Blood Pressure: 129 mmHg Is BP treated: Yes HDL Cholesterol: 34 mg/dL Total Cholesterol: 139 mg/dL Statin: Yes ASA: Yes JAYDON/ARB: Yes Encouraged regular aerobic exercise for improved glycemic control Encouraged daily foot checks Encouraged lean protein snacks and to avoid foods high in sugar and simple carbohydrates Treatment Goals: A1c goal: <7% FBG goal: <130 2 hour post prandial goal: <180 Relevant Orders POCT Glucose (Completed) POCT HGB A1C (Completed) Generalized anxiety disorder Current Assessment & Plan Taking Ambien 10mg nightly for sleep Prior medication trials: Zoloft, Amitriptyline Uncomplicated opioid dependence (CMS/HCC) Current Assessment & Plan Has call or contact centre coach and supports at [facility] Last use 3 weeks ago Testosterone insufficiency Relevant Orders Testosterone, Total, males (Adult), IA Essential hypertension Current Assessment & Plan Continue Lisinopril 20mg and Amlodipine 5mg Other Visit Diagnoses Left flank pain Relevant Orders US Renal Complete Dietary counseling Exercise counseling Follow Up: 3-4 months or sooner prn Allergies Allergen Reactions Haloperidol Other reaction(s): Numbness, tingling or swelling of the lips, tongue or mouth Trazodone Other PANIC ATTACKS Current Outpatient Medications: amLODIPine (Norvasc) 5 MG tablet, TAKE 1 TABLET BY MOUTH EVERY MORNING, Disp: 30 tablet, Rfl: 11 aspirin 81 MG EC tablet, Take 1 tablet (81 mg) by mouth in the morning., Disp: 30 tablet, Rfl: 11 atorvastatin (Lipitor) 20 MG tablet, Take 1 tablet (20 mg) by mouth Once per day., Disp: 90 tablet,Rfl: 3 Continuous Glucose [facility] (FreeStyle [place] 2 Brohman) device, Scan sensor every 8 hours, Disp: 1 each, Rfl: 0 Continuous Glucose Sensor (FreeStyle [place] 2 Sensor) misc, APPLY AND CHANGE EVERY 14 DAYS, Disp: 2 each, Rfl: 3 dulaglutide (Trulicity) 4.5 MG/0.5ML solution pen-injector, Inject 4.5 mg under the skin 1 (one) time per week., Disp: 2 mL, Rfl: 11 fluticasone (Flonase) 50 MCG/ACT nasal spray, Administer 2 sprays into each nostril in the morning., Disp: , Rfl: glipiZIDE (Glucotrol) 5 MG tablet, Take 1 tablet (5 mg) by mouth before breakfast and before evening meal., Disp: 60 tablet, Rfl: 5 glucose blood (FreeStyle Precision Kwaku Test) test strip, Use to test blood sugar up to 3 times daily, as directed, Disp: 100 each, Rfl: 11 insulin glargine (Lantus SoloStar) 100 UNIT/ML pen, Inject 22 units under the skin daily at bedtime. Increase, as directed, to 26 units daily starting 12/6. Follow up with CDTM as scheduled., Disp: ,Rfl: insulin lispro (HumaLOG) 100 UNIT/ML injection, INJECT SUBCUTANEOUSLY PER SLIDING SCALE; BLOOD SUGAR <150 = 0 UNITS, BLOOD SUGAR 151-200 = 2 UNITS, BLOOD SUGAR 201-251 = 4 UNITS, BLOOD SUGAR 251-300 = 6 UNITS, BLOOD SUGAR 301-350 = 8 UNITS, BLOOD SUGAR > 350 = 10 UNITS, Disp: , Rfl: lisinopril 20 MG tablet, Take 1 tablet (20 mg) by mouth Once per day., Disp: 90 tablet, Rfl: 3 metFORMIN (Glucophage) 1000 MG tablet, TAKE 1 TABLET BY MOUTH TWICE DAILY IN THE MORNING AND IN THEEVENING WITH MEALS, Disp: 180 tablet, Rfl: 3 nicotine (Nicoderm CQ) 14 MG/24HR patch, Place 1 patch on the skin 1 (one) time each day at the same time., Disp: , Rfl: nicotine (Nicoderm, Step 3) 7 MG/24HR patch, APPLY 1 PATCH TOPICALLY TO THE SKIN IN THE MORNING *DONOT SMOKE WHILE USING PATCH*, Disp: 14 patch, Rfl: 0 nicotine polacrilex (Commit) 2 MG lozenge, Dissolve 1 lozenge, as directed, every 1-2 hours as needed for cravings. Max 20 lozenges per 24 hours., Disp: 144 lozenge, Rfl: 5 Pentips 32G X 4 MM misc, USE ONCE DAILY WITH INSULIN, Disp: 100 each, Rfl: 3 pilocarpine (Salagen) 5 MG tablet, Take 1 tablet (5 mg) by mouth 3 times daily., Disp: 90 tablet, Rfl: 11 Sodium Fluoride 5000 Sensitive 1.1-5 % gel, BRUSH WITH A PEA SIZED AMOUNT OF TOOTHPASTE (1/4 GRAM) TWICE DAILY IN THE MORNING AND AT BEDTIME FOR 2 MINUTES, SPIT OUT EXCESS, DO NOT RINSE, DO NOT EAT OR DRINK FOR 30 MINUTES AFTER USE, Disp: , Rfl: Testosterone 20.25 MG/ACT (1.62%) gel, APPLY 2 PUMPS TOPICALLY EVERY MORNING DIRECTED, Disp: 75 g, Rfl: 3 TRUEplus Lancets 33G misc, Use to test blood sugar 3 time(s) daily, Disp: 100 each, Rfl: 11 zolpidem (Ambien) 10 MG tablet, TAKE 1 TABLET BY MOUTH EVERY DAY AT BEDTIME, Disp: 30 tablet, Rfl: 0 [place] Translation: Patient is bilingual and declines translation services documented in this encounter Miscellaneous Notes * Assessment & Plan Note - Michelle Rodriguez MD - 06/14/2024 10:19 AM EST Associated Problem(s): Generalized anxiety disorder Taking Ambien 10mg nightly for sleep Prior medication trials: Zoloft, Amitriptyline * Assessment & Plan Note - Michelle Rodriguez MD - 06/14/2024 10:18 AM EST Associated Problem(s): Uncomplicated opioid dependence (CMS/HCC) Has call or contact centre coach and supports at [facility] Last use 3 weeks ago * Assessment & Plan Note - Michelle Rodriguez MD - 06/14/2024 10:17 AM EST Associated Problem(s): Type 2 diabetes mellitus (CMS/HCC) Add Lispro 6-10 units with meals (2 units for every 50 over 150 prior to eating), this is per patient preference and request because he has Lispro at home He will likely switch from Trulicity to Mounjaro at next CD appointment A1C 9.5 today and random glucose 357, comanaged with Rose Puia, next appt 07/02/24 Metformin 1000mg BID and Glipizide 5mg BID Lantus 30 units at night Taking Trulicity 4.5mg Podiatry: referral in, appt not made Dental: at [facility] BMP: Lab Results Component Value Date CREATININE 1.28 08/17/2023 K 4.7 08/17/2023 Microalbumin: Foot Exam: Complete at follow up Eye Exam:03/2023, no DM2 damage Lipid panel: ASCVD: The 10-year ASCVD risk score (Carlos REEVES, et al., 2019) is: 16.2% Values used to calculate the score: Age: 53 years Sex: Male Is Non- : No Diabetic: Yes Tobacco smoker: Yes Systolic Blood Pressure: 129 mmHg Is BP treated: Yes HDL Cholesterol: 34 mg/dL Total Cholesterol: 139 mg/dL Statin: Yes ASA: Yes JAYDON/ARB: Yes Encouraged regular aerobic exercise for improved glycemic control Encouraged daily foot checks Encouraged lean protein snacks and to avoid foods high in sugar and simple carbohydrates Treatment Goals: A1c goal: <7% FBG goal: <130 2 hour post prandial goal: <180 * Assessment & Plan Note - Michelle Rodriguez MD - 06/14/2024 10:15 AM EST Associated Problem(s): Essential hypertension Continue Lisinopril 20mg and Amlodipine 5mg * Assessment & Plan Note - Michelle Rodriguez MD - 06/14/2024 10:14 AM EST Associated Problem(s): Male hypogonadism Check testosterone level for monitoring On two pumps of 1.62% gel daily * Assessment & Plan Note - Michelle Rodriguez MD - 06/14/2024 10:14 AM EST Associated Problem(s): Gastroesophageal reflux disease Referred to GI 01/2024 for upper and lower endoscopy Pt given phone number to schedule today * Assessment & Plan Note - Michelle Rodriguez MD - 06/14/2024 10:14 AM EST Associated Problem(s): History of hepatitis C Hep C antibody positive 03/2024 Awaiting confirmatory negative viral load documented in this encounter Plan of Treatment Upcoming Encounters Date Type Department Care Team (Late st Contact Info) Description 07/02/2024 9:00 AM EST Medication Management [facility] [address] [place] [address] Rose Phillip, PharmD [address] [place] [address] 09/08/2024 9:00 AM EDT Office Visit [facility] ADULT DENT[facility] [address] [place] [address] Miguelito, Johanne [address] [place] [address] Scheduled Orders Name Type Priority Associated Diagnoses Orde r Schedule Hepatitis C Viral Load, RNA, Quantification Lab Routine History of hepatitis C Expected: 06/14/2024 (Approximate), Expires: 06/14/2025 Testosterone, Total, males (Adult), IA Lab Routine Testosterone insufficiency Expected: 06/14/2024, Expires: 06/14/2025 US Renal Complete Imaging Routine Left flank pain Expected: 06/14/2024, Expires: 06/14/2025 documented as of this encounter Procedures Procedure Name Priority Date/Time Associated Diagnosis Comments POCT GLYCATED HEMOGLOBIN, TOTAL Routine 06/14/2024 9:04 AM EST Type 2 diabetes mellitus with hyperglycemia, with long-term current use of insulin ([facility]) POCT GLUCOSE Routine 06/14/2024 9:02 AM EST Type 2 diabetes mellitus with hyperglycemia, with long-term current use of insulin ([facility]) documented in this encounter Results * (ABNORMAL) POCT HGB A1C (06/14/2024 9:04 AM EST) Hemoglobin A1C 9.5(A) 4.0 - 6.0 % QC Media Lot # [id number] Lot# Expiration Date Blood 06/14/2024 9:04 AM EST Michelle Rodriguez MD POINT OF CARE TEST ENTER/EDIT ORDERABLES Final Result * (ABNORMAL) POCT Glucose (06/14/2024 9:02 AM EST) Glucose Blood, POC 357(A) 60 - 200 mg/dL QC Media Lot # [id number] Lot# Expiration Date ,025 Blood Capillary blood specimen / Unknown 06/14/2024 9:02 AM EST Michelle Rodriguez MD POINT OF CARE TEST ENTER/EDIT ORDERABLES Final Result documented in this encounter Visit Diagnoses Diagnosis Type 2 diabetes mellitus with hyperglycemia, with long-term current use of insulin ([facility])- Primary Testosterone insufficiency Left flank pain Abdominal pain, unspecified site Uncomplicated opioid dependence ([facility]) Dietary counseling Dietary surveillance and counseling Exercise counseling Class 1 obesity with serious comorbidity and body mass index (BMI) of 34.0 to 34.9 in adult, unspecified obesity type History of hepatitis C Personal history of other infectious and parasitic disease Male hypogonadism Other testicular hypofunction Generalized anxiety disorder Gastroesophageal reflux disease, unspecified whether esophagitis present Essential hypertension Unspecified essential hypertension documented in this encounter Additional Health Concerns Assessment Noted Time PHQ-9 Depression Total Score: 6 11/02/19 23 3:44 PM EDT documented as of this encounter Care Teams Exhibit Carpenter Relationship Specialty Start Date End Date Michelle Rodriguez MD [address] [place] [address] PCP - General Family Medicine 02/19/21 Rose Phillip PharmD [address] [place] [address] Pharmacist Internal Medicine 03/02/24 documented as of this encounter
--- OUTSIDE RECORDS SUMMARY | 2024-07-01 14:59 | XMS_ITS | Encounter Summary ---
Author Organization [employer] Address [address] [place] [address] [address] [place] [address] Care Team Providers Care It Risk Advisor Name Role Phone Michelle Rodriguez MD Primary Care Provider [phone] Rose Phillip PharmD Unavailable [phone] Encounter Details Date Type Department Care Team (Late st Contact Info) Description 02/05/2023 Orders Only [facility] [address] [place], [place] [phone] Michelle Rodriguez MD [address] [place] [address] Male hypogonadism (Primary Dx) Social History Tobacco Use Types Packs/Day Years [...] Description 07/02/2024 9:00 AM EST Medication Management [facility] [address] [place] [address] Rose Phillip, PharmD [address] [place], [place] [phone] 09/08/2024 9:00 AM EDT Office Visit [facility] [address] [place] [address] Johanne Farley [address] [place] [address] Scheduled Orders Name Type Priority Associated Diagnoses Orde r Schedule Testosterone, Free (Dialysis) And Total, MS Lab Routine Male hypogonadism Expected: 02/05/2023 (Approximate), Expires: 02/06/2024 documented as of this encounter Visit Diagnoses Diagnosis Male hypogonadism- Primary Other testicular hypofunction documented in this encounter Additional Health Concerns Assessment Noted Time PHQ-9 Depression Total Score: 6 11/02/19 23 3:44 PM EDT documented as of this encounter Care Teams It Risk Advisor Relationship Specialty Start Date End Date Michelle Rodriguez MD [address] [place] [address] [phone] PCP - General Family Medicine 02/19/21 Rose Phillip PharmD [address] [place] [phone] Pharmacist Internal Medicine 03/02/24 documented as of this encounter
--- OUTSIDE RECORDS SUMMARY | 2024-07-01 14:59 | XMS_ITS | Encounter Summary ---
Author Organization [employer] Address [address] [facility] [address] [place] [address] Care Team Providers Care Composite Bond Technician Name Role Phone Michelle Rodriguez MD Primary Care Provider [phone] Rose Phillip PharmD Unavailable [phone] Encounter Details Date Type Department Care Team (Late st Contact Info) Description 07/15/2022 Orders Only [facility] [address] [place] [address] Pily Linn LPN Social History Tobacco Use Types Packs/Day Years Used Date Smoking Tobacco: Every Day Cigarettes 0.3 2 Passive Smoke Exposure: Past Smokeless Tobacco: Current Sex and Gender Information Value Date Recorded Sex Assigned at Male 04/01/2022 10:16 AM EDT Legal Sex Male 10:16 AM EDT Gender Identity Male 04/01/2022 10:16 AM EDT Sexual Orientation Straight 04/01/2022 10 :16 AM EDT COVID-19 Exposure Response Date Recorded In the last 10 days, have yo u been in contact with someone who was confirmed or suspected to have Coronavirus/COVID-19? No / Unsure 06/27/2022 9:36 AM EST documented as of this encounter Plan of Treatment Upcoming Encounters Date Type Department Care Team (Late st Contact Info) Description 07/02/2024 9:00 AM EST Medication Management [facility] [address] [place], [place] [phone] Rose Phillip, PharmD [address] [place], [place] [phone] 09/08/2024 9:00 AM EDT Office Visit [facility] [address] [place] [address] Johanne Farley [address] [place], [place] [phone] documented as of this encounter Visit Diagnoses Not on filedocumented in this encounter Care Teams Composite Bond Technician Relationship Specialty Start Date End Date Michelle Rodriguez MD [address] [place], [place] [phone] PCP - General Family Medicine 02/19/21 Rose Phillip PharmD [address] [place], [place] [phone] Pharmacist Internal Medicine 03/02/24 documented as of this encounter
--- OUTSIDE RECORDS SUMMARY | 2024-07-01 14:59 | XMS_ITS | Clinical Summary ---
Author Organization [employer] Address [address] [place] [address] [address] [place] [address] Care Team Providers Care Tonsorial Artist Name Role Phone Michelle Rodriguez MD Primary Care Provider [phone] Rose Phillip PharmD Unavailable [phone] Allergies Active Allergy Reactions Criticality Noted Date Comments Haloperidol 05/06/2012 Other reaction(s): Numbness, tingling or swelling of the lips, tongue or mouth Trazodone Other 09/14/2020 PANIC ATTACKS Medications * This document contains information received from the source organization and may not represent a complete record from that organization. fluticasone (Flonase) 50 MCG/ACT nasal spray Administer 2 sprays into each nostril in the morning. 023 Active aspirin 81 MG EC tablet Take 1 tablet (81 mg) by mouth in the morning. 30 tablet 024 2024 Active amLODIPine (Norvasc) 5 MG tablet TAKE 1 TABLET BY MOUTH EVERY MORNING 30 tablet Active lisinopril 20 MG tabletIndicatio ns:Primary hypertension Take 1 tablet (20 mg) by mouth Once per day. 90 tablet 3 Active metFORMIN (Glucophage) 1000 MG tablet TAKE 1 TABLET BY MOUTH TWICE DAILY IN THE MORNING AND IN THE EVENING WITH MEALS 180 tablet Active Testosterone 20.25 MG/ACT (1.62%) gel APPLY 2 PUMPS TOPICALLY EVERY MORNING DIRECTED 75 g 3 Active Pentips 32G X 4 MM misc USE ONCE DAILY WITH INSULIN 100 each Active Continuous Glucose Reg[facility] (FreeStyle La Nena 2 Lewis) deviceIndicatio ns:Type 2 diabetes mellitus with hyperglycemia, with long-term current use of insulin ([facility]) Scan sensor every 8 hours 1 each Active zolpidem (Ambien) 10 MG tabletIndicatio ns:Primary insomnia TAKE 1 TABLET BY MOUTH EVERY DAY AT BEDTIME 30 tablet Active pilocarpine (Salagen) 5 MG tablet Take 1 tablet (5 mg) by mouth 3 times daily. 90 tablet 2024 Active nicotine polacrilex (Commit) 2 MG lozengeIndicati ons:Tobacco use disorder Dissolve 1 lozenge, as directed, every 1-2 hours as needed for cravings. Max 20 lozenges per 24 hours. 144 lozenge 5 Active glucose blood (FreeStyle Precision Kwaku Test) test stripIndication s:Type 2 diabetes mellitus with hyperglycemia, with long-term current use of insulin ([facility]) Use to test blood sugar up to 3 times daily, as directed 100 each Active TRUEplus Lancets 33G miscIndications :Type 2 diabetes mellitus with hyperglycemia, with long-term current use of insulin ([facility]) Use to test blood sugar 3 time(s) daily 100 each Active dulaglutide (Trulicity) 4.5 MG/0.5ML solution pen-injectorInd ications:Type 2 diabetes mellitus with hyperglycemia, with long-term current use of insulin ([facility]) Inject 4.5 mg under the skin 1 (one) time per week. 2 mL Active Sodium Fluoride 5000 Sensitive 1.1-5 % gel BRUSH WITH A PEA SIZED AMOUNT OF TOOTHPASTE (1/4 GRAM) TWICE DAILY IN THE MORNING AND AT BEDTIME FOR 2 MINUTES, SPIT OUT EXCESS, DO NOT RINSE, DO NOT EAT OR DRINK FOR 30 MINUTES AFTER USE Active glipiZIDE (Glucotrol) 5 MG tabletIndicatio ns:Type 2 diabetes mellitus with hyperglycemia, with long-term current use of insulin ([facility]) Take 1 tablet (5 mg) by mouth before breakfast and before evening meal. 60 tablet 5 Active atorvastatin (Lipitor) 20 MG tablet Take 1 tablet (20 mg) by mouth Once per day. 90 tablet 3 024 2024 Active nicotine (Nicoderm, Step 3) 7 MG/24HR patchIndication s:Tobacco use disorder APPLY 1 PATCH TOPICALLY TO THE SKIN IN THE MORNING *DO NOT SMOKE WHILE USING PATCH* 14 patch Active nicotine (Nicoderm CQ) 14 MG/24HR patchIndication s:Tobacco use disorder Place 1 patch on the skin 1 (one) time each day at the same time. Active insulin glargine (Lantus SoloStar) 100 UNIT/ML penIndications: Type 2 diabetes mellitus with hyperglycemia, with long-term current use of insulin ([facility]) Inject 22 units under the skin daily at bedtime. Increase, as directed, to 26 units daily starting 05/07. Follow up with CDTM as scheduled. Active insulin lispro (HumaLOG) 100 UNIT/ML injection INJECT SUBCUTANEOUSLY PER SLIDING SCALE; BLOOD SUGAR <150 = 0 UNITS, BLOOD SUGAR 151-200 = 2 UNITS, BLOOD SUGAR 201-251 = 4 UNITS, BLOOD SUGAR 251-300 = 6 UNITS, BLOOD SUGAR 301-350 = 8 UNITS, BLOOD SUGAR > 350 = 10 UNITS Active Continuous Glucose Sensor (FreeStyle La Nena 2 Sensor) miscIndications :Type 2 diabetes mellitus with hyperglycemia, with long-term current use of insulin (CMS/HCC) USE DIRECTED TO TEST BLOOD SUGAR. CHANGE EVERY 14 DAYS . 2 each 3 Active hydroquinone 4 % creamIndication s:Melasma APPLY TO THE AFFECTED AREA(S) TWICE DAILY, AVOID el joseph 28.35 g 3 023 2024 Discontinued(C ost of medication) Continuous Glucose Sensor (FreeStyle La Nena 2 Sensor) miscIndications :Type 2 diabetes mellitus with hyperglycemia, with long-term current use of insulin (CMS/HCC) APPLY AND CHANGE EVERY 14 DAYS 2 each 3 024 2024 Discontinued lisinopril-hydr oCHLOROthiazide 20-12.5 MG tablet Take 1 tablet by mouth Once per day. 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 [facility] Last use 3 weeks ago Testosterone insufficiency 06/14/2024 Essential hypertension 06/14/2024 Assessment & Plan (06/14/2024 10:15 AM EST): Continue Lisinopril 20mg and Amlodipine 5mg Pharyngeal dysphagia 01/28/2024 Memory loss 01/28/2024 Assessment & Plan (01/28/2024 12:06 PM EDT): Labs ordered, f/u in 1-2 months to review and perform MMSE Dental plaque 11/27/2023 Dental caries 11/27/2023 Xerostomia 11/27/2023 Ulnar neuropathy of both upper extremities 05/21 Assessment & Plan (05/21/2023 12:49 PM EST): Trial of Gabapentin Note written for work to modify his work environment for less bending of elbows to 90 degrees and less trauma to the elbows Melasma 11/06/2022 Assessment & Plan (11/06/2022 9:30 AM EDT): Sun exposure to be strictly voided SPF 30-50 Hydroquinone cream daily as first line treatment History of substance abuse 11/01/2022 Overview (11/01/2022): IVDA, heroin. Last use 2013, follows with suboxone clinic Type 2 diabetes mellitus 06/18/2022 Assessment & Plan (06/14/2024 10:17 AM EST): Add Lispro 6-10 units with meals (2 units for every 50 over 150 prior to eating), this is per patient preference and request because he has Lispro at home He will likely switch from Trulicity to Mounjaro at next [facility] appointment A1C 9.5 today and random glucose 357, comanaged with Rose Kenji, next appt 07/02/24 Metformin 1000mg BID and Glipizide 5mg BID Lantus 30 units at night Taking Trulicity 4.5mg Podiatry: referral in, appt not made Dental: at [facility] BMP: Lab Results Component Value Date [...] <130 2 hour post prandial goal: <180 Assessment & Plan (01/28/2024 12:07 PM EDT): continue Trulicity at 3mg weekly Continue Metformin, Glipizide Continue Lantus 20 units at night Will refer for CGM and co-management with clinical pharmacist Current A1c: 12.9 BMP: Lab Results Component Value Date CREATININE 1.08/17/2023 K 4.7 08/17/2023 Microalbumin: Foot Exam: Complete at follow up Eye Exam: 09/2022, no DM2 damage Lipid panel: ASCVD: Calculate pending updated labs Statin: Yes ASA: No JAYDON/ARB: Yes (but not taking) Encouraged regular aerobic exercise for improved glycemic control Encouraged daily foot checks Encouraged lean protein snacks and to avoid foods high in sugar and simple carbohydrates Treatment Goals: A1c goal: <7% FBG goal: <130 2 hour post prandial goal: <180 Assessment & Plan (08/18/2023 10:29 AM EDT): continue Trulicity at 3mg weekly (encouraged being regular about taking it) Continue Metformin, Glipizide Add back Lantus 20 units at night Current A1c: 12.9 BMP: Lab Results Component Value Date CREATININE 1.28 08/17/2023 K 4.7 08/17/2023 Microalbumin: Foot Exam: Complete at follow up Eye Exam: 09/2022, no DM2 damage Lipid panel: ASCVD: Calculate pending updated labs Statin: Yes ASA: No JAYDON/ARB: Yes (but not taking) Encouraged regular aerobic exercise for improved glycemic control Encouraged daily foot checks Encouraged lean protein snacks and to avoid foods high in sugar and simple carbohydrates Treatment Goals: A1c goal: <7% FBG goal: <130 2 hour post prandial goal: <180 Assessment & Plan (05/21/2023 9:01 AM EST): Increase Trulicity to 3mg weekly Continue Metformin, Glipizide * he asks about CGM, but he will not qualify because not injecting multiple times with insulin Current A1c: 7.7 BMP: Lab Results Component Value Date CREATININE 1.03 12/20/2022 K 4.0 12/20/2022 Microalbumin: Foot Exam: Complete at follow up Eye Exam: 09/2022, no DM2 damage Lipid panel: ASCVD: Calculate pending updated labs Statin: Yes ASA: No JAYDON/ARB: Yes (but not taking) Encouraged regular aerobic exercise for improved glycemic control Encouraged daily foot checks Encouraged lean protein snacks and to avoid foods high in sugar and simple carbohydrates Treatment Goals: A1c goal: <7% FBG goal: <130 2 hour post prandial goal: <180 Assessment & Plan (11/05/2022 1:22 PM EDT): On Trulicity 1.5mg weekly, Metformin, Glipizide * he asks about CGM, but he will not qualify because not injecting multiple times with insulin Current A1c: 7.7 BMP: Microalbumin: Foot Exam: Complete at follow up Eye Exam: 09/2022, no DM2 damage Lipid panel: ASCVD: Calculate pending updated labs Statin: Yes ASA: No JAYDON/ARB: Yes (but not taking) Encouraged regular aerobic exercise for improved glycemic control Encouraged daily foot checks Encouraged lean protein snacks and to avoid foods high in sugar and simple carbohydrates Treatment Goals: A1c goal: <7% FBG goal: <130 2 hour post prandial goal: <180 Obesity 02/19/2021 Generalized anxiety disorder 08/16/2019 Assessment & Plan (06/14/2024 10:19 AM EST): Taking Ambien 10mg nightly for sleep Prior medication trials: Zoloft, Amitriptyline Carpal tunnel syndrome on both sides 06/12/2018 Overview (11/01/2022): Bilateral with some proximal nerve damage on the left as well Hydrocele 06/25/2017 Male hypogonadism 10/28/2013 Assessment & Plan (06/14/2024 10:14 AM EST): Check testosterone level for monitoring On two pumps of 1.62% gel daily Assessment & Plan (05/21/2023 9:01 AM EST): Check testosterone level for monitoring Assessment & Plan (11/05/2022 1:24 PM EDT): Likely opioid induced I will take over testosterone prescribing, sent to our pharmacy with PA Needs q 3-4 months CBC, testosterone levels, and to quit smoking Gastroesophageal reflux disease 05/06/2012 Assessment & Plan (06/14/2024 10:14 AM EST): Referred to GI 01/2024 for upper and lower endoscopy Pt given phone number to schedule today History of hepatitis C 05/06/2012 Overview (06/14/2024): Treated in 2011 Assessment & Plan (06/14/2024 10:14 AM EST): Hep C antibody positive 03/2024 Awaiting confirmatory negative viral load Vitamin D deficiency 05/06/2012 Resolved Problems Problem Noted Date Diagnosed Date Resolved Date ED (erectile dysfunction) 06/14/2019 Overview (11/01/2022): Follows with urology Prediabetes 07/04/2017 11/05/2022 Impaired glucose tolerance 05/06/2012 0 06/14/2024 Noncompliance with treatment 05/06/2012 06/11/2024 Severe opioid use disorder 05/06/2012 0 06/14/2024 Assessment & Plan (08/18/2023 10:26 AM EDT): Has started injecting and snorting as of two months ago, 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 Assessment & Plan (11/05/2022 1:20 PM EDT): Continue meds per psych He asked about Klonopin, I declined to prescribe this Encounters Date Type Department Care Team Description 07/01/2024 Orders Only [facility] [address] [place] [address] Michelle Rodriguez MD 06/22/2024 Refill [facility] [address] [place] [address] Michelle Rodriguez MD Type 2 diabetes mellitus with hyperglycemia, with long-term current use of insulin (CMS/HCC) 06/14/2024 9:00 AM EST Office Visit [facility] [address] [place] [address] Michelle Rodriguez MD Type 2 diabetes mellitus with hyperglycemia, with [...] disease, unspecified whether esophagitis present; Essential hypertension 06/11/2024 Telephone [facility] [address] [place] [address] Michelle Rodriguez MD No Show 06/03/2024 Patient Outreach [address] [address] Michelle Rodriguez MD Pre-visit Planning ((Unable to reach for PVP screening, LVM)) 05/03/2024 10:30 AM EST Telemedicine [facility] [address] [place] [address] Rose Phillip, PharmD Type 2 diabetes mellitus with hyperglycemia, with long-term current use of insulin ([facility]) 04/23/2024 Telephone [facility] [address] [place] [phone] Melina Britt [place] APT REQUEST 04/22/[address] [address] Liat Pink, Camilo 04/14/2024 Travel 04/13/[address] [address] Rose Phillip PharmD Tobacco use disorder 04/09/2024 Travel 04/05/[address] [address] Michelle Rodriguez MD telephone call 04/01/2024 Travel from Last 3 Months Immunizations Name Administration Dates Next Due Hep B, adult 04/21/2024(Deferred: No longer needed - immune per titers 03/08/24) Influenza, IIV3, injectable 02/28/2010 Influenza, Split (incl. sangeeta fied surface antigen) 05/06/2012 Pfizer Covid-19 Vaccine 12+ Bivalent 06/27/2022 Tdap 04/21/2024 Zoster, Recombinant 04/21/2024(Deferred: Patient Refused - reports hospitalization following dose #1),12/19/2022 Social History Tobacco Use Types Packs/Day Years Used Date Smoking Tobacco: Every Day Cigarettes 0.1 2 Passive Smoke Exposure: Past Smokeless Tobacco: Current Tobacco Cessation:Ready to Q uit: Yes; Counseling Given: Yes Alcohol Use Standard Drinks/Week Comments Never 0 [...] Orientation Straight 04/01/2022 10 :16 AM EDT Last Filed Vital Signs Vital Sign Reading Time Taken Comments Blood Pressure 129/74 06/14/2024 8:56 AM EST Pulse 71 06/14/2024 8:56 AM EST Temperature 36.6 ??C (97.9 ??F) 06/14/2024 8:56 AM ES T Respiratory Rate 17 06/14/2024 8:56 AM EST Oxygen Saturation 98% 09/26/2023 1:10 PM EDT Inhaled Oxygen Concentration - - Weight 106 kg (234 lb) 06/14/2024 8:56 AM EST Height 172.7 cm (5' 8 ) 06/14/2024 8:56 AM EST Body Mass Index 35.58 06/14/2024 8:56 AM EST Plan of Treatment Upcoming Encounters Date Type Department Care Team (Late st Contact Info) Description 07/02/2024 9:00 AM EST Medication Management [facility] [address] [place] [address] Rose Phillip, PharmD [address] [place] [address] 09/08/2024 9:00 AM EDT Office Visit [facility] [address] [place] [address] Bright Farleyaris [address] [place] [address] Health Maintenance Due Date Last Done Comments CT Colonography 1972 Colonoscopy 1972 Colorectal Cancer Screening 1972 Dental X-Ray: Full Mouth 1972 FIT DNA/Cologuard 1972 FIT 1972 FOBT 1972 Sigmoidoscopy 1972 Diabetes: Foot Exam 1982 Alcohol/Substance Use Screening 1984 Family Planning (PISQ) 08/02/1987 Hepatitis A Vaccines (1 of 2 - Risk 2-dose series) 08/02/1991 Pneumococcal Vaccine: 50+ Years (1 of 2 - PCV) 08/02/1991 Zoster Vaccines (2 of 2) 02/13/2023 12/19/2022 Depression Screening 11/02/2023 11/01/2022, 11/02/19 23 COVID-19 Vaccine ( season) 2024 06/27/2022, 10/05/2021, 12/27/2020, Additional history exists Influenza Vaccine (#1) 2024 05/06/2012, 2009 Dental Oral Exam 05/29/2024 11/27/2023 Dental Prophylaxis 05/29/2024 11/27/2023 Lipid Panel 08/18/2024 08/19/2023, 04/03, 08/22/2021 Diabetes: Hemoglobin A1C 09/12/2024 025, 03/08/2024, 03/02/2024, Additional history exists SDOH Screening 11/05/2024 11/06/2023 Dental X-Ray: Bitewings 11/27/2024 11/27/2023 Diabetes: Urine Protein Screening 03/08/2025 03/08/2024, 04/24/2022, 08/22/2021 Tobacco Screening 06/14/2025 06/14/2024 Eye Exam 11/19/2025 11/20/2023, 11/01, 11/20/2023, Additional history exists DTaP/Tdap/Td Vaccines (2 - Td or Tdap) 04/21/2034 04/21/2024 RSV Patients and Patients Aged 60 years or older (1 - 1-dose 75+ series) 08/02/2047 HIV Screening Completed 08/19/2023 HIB Vaccines Aged Out No longer eligi ble based on patient's age to complete this topic HPV Vaccines Aged Out No longer eligi ble based on patient's age to complete this topic Hepatitis B Vaccines Discontinued IPV Vaccines Aged Out No longer eligi ble based on patient's age to complete this topic Meningococcal Vaccine Aged Out No munira ken eligible based on patient's age to complete this topic RSV under 20 months Aged Out No longe r eligible based on patient's age to complete this topic Rotavirus Vaccines Aged Out No longer eligible based on patient's age to complete this topic Procedures Procedure Name Priority Date/Time Associated Diagnosis Comments US RENAL BI Routine 07/01/2024 12:27 PM EST POCT GLYCATED HEMOGLOBIN, TOTAL Routine 06/14/2024 9:04 AM EST Type 2 diabetes mellitus with hyperglycemia, with long-term current use of insulin ([facility]) POCT GLUCOSE Routine 06/14/2024 9:02 AM EST Type 2 diabetes mellitus with hyperglycemia, with long-term current use of insulin ([facility]) ALBUMIN, RANDOM URINE W/CREATININE Routine 03/08/2024 9:17 AM EDT Full PROPHYLAXIS - ADULT Routine 11/27/2023 8:00 AM EDT Dental plaque Dental calculus BITEWINGS - 4 RADIOGRAPHIC IMAGES Routine 11/27/2023 8:00 AM EDT PERIODIC ORAL EVALUATION - ESTABLISHED PATIENT Routine 11/27/2023 8:00 AM EDT HIV 1/2 ANTIGEN/ANTIBODY, FOURTH GENERATION W/RFL Routine 08/19/2023 10:02 AM EDT Type 2 diabetes mellitus without complication, with long-term current use of insulin (CMS/HCC) LIPID PANEL, STANDARD Routine 08/19/2023 10:02 AM EDT Type 2 diabetes mellitus without complication, with long-term current use of insulin (CMS/HCC) from Last 3 Months or Most Recently Relevant to Health Maintenance Results * US RENAL BI (07/01/2024 12:27 PM EST) Anatomical Region Laterality Modality Abdomen Ultrasound 07/01/2024 12:2 7 PM EST Narrative 07/01/2024 12:29 PM EST ? [facility] ?[address] ?[place] [address] ? Ultrasound Report ? Signed ? Patient: Carlos Alberto,Raimundo ?MR#: [id number] ?? 9 ? : 1970 ?Acct:[id number] ? Age/Sex: 53 / M ?ADM Date: 07/01/24 ? Loc: HO.US ? Attending Dr: Michelle Rodriguez MD ? Ordering Physician: Michelle Rodriguez ?? Date of Service: 07/01/24 ?? Procedure(s): US renal BI ?? Accession Number(s): [id number] ? cc: Michelle Rodriguez ? CLINICAL HISTORY: flank pain ? US Renal ? Comparison: None ? Findings: ?? Right kidney normal size and echotexture, 10.7 cm length. ?? Left kidney normal size and echotexture, 10.8 cm length. ? No hydronephrosis of either kidney. Normal color Doppler ? IMPRESSION: ?? 1. Normal kidneys. ? This document has been electronically signed by: Fausto Pavon MD on ?? 07/01/2024 12:27:56 ? Dictated By: ?Fausto Pavon MD ? Signed By: ?<Electronically signed by Fausto Pavon MD in OV> ? 07/01/24 1229 ? DD/ 1227 ? TD/TT: 07/01/24 1227 ? Yard Pilot: ? Procedure Note Sukhdev Sloan - 07/01/[address] [address] Ultrasound Report Signed Patient: Raimundo CarcamoMR#: [id number] 9 : 1970Acct:[id number] Age/Sex: 53 / MADM Date: 07/01/24 Loc: HO.US Attending Dr: Michelle Rodriguez MD Ordering Physician: Michelle Rodriguez Date of Service: 07/01/24 Procedure(s): US renal BI Accession Number(s): [id number] cc: Michelle Rodriguez CLINICAL HISTORY: flank pain US Renal Comparison: None Findings: Right kidney normal size and echotexture, 10.7 cm length. Left kidney normal size and echotexture, 10.8 cm length. No hydronephrosis of either kidney. Normal color Doppler IMPRESSION: 1. Normal kidneys. This document has been electronically signed by: Fausto Pavon MD on 07/01/2024 12:27:56 Dictated By: Fausto Pavon MD Signed By: <Electronically signed by Fausto Pavon MD in OV> 07/01/24 1229 DD/ 1227 TD/TT: 07/01/24 1227 Yard Pilot: Michelle Rodriguez MD IMG US PROCEDURES Final Result * (ABNORMAL) POCT HGB A1C (06/14/2024 9:04 AM EST) Hemoglobin A1C 9.5(A) 4.0 - 6.0 % QC Media Lot # [id number] Lot# Expiration Date ,026 Blood 06/14/2024 9:04 AM EST Michelle Rodriguez MD POINT OF CARE TEST ENTER/EDIT ORDERABLES Final Result * (ABNORMAL) POCT Glucose (06/14/2024 9:02 AM EST) Glucose Blood, POC 357(A) 60 - 200 mg/dL QC Media Lot # [id number] Lot# Expiration Date 6172,025 Blood Capillary blood specimen / Unknown 06/14/2024 9:02 AM EST Michelle Rodriguez MD POINT OF CARE TEST ENTER/EDIT ORDERABLES Final Result * Albumin, Random Urine W/Creatinine (03/08/2024 9:17 AM EDT) Creatinine, Urine 110.89 mg/dL [facility] Microalbumin Urine <5.0 mg/L [facility] Microalbum Creatinine Ratio Ur TNP <30 ug/mg cr [facility] Comment:Unable to calculate albumin/creatinine ratio due to lowmicroalbumin or creatinine result. 03/08/2024 9:17 AM EDT 03/08/2024 10:55 AM EDT Michelle Rodriguez MD LAB URINE ORDERABLES Final Res ult [facility] [address] [place] [phone] * HIV-1/2 Antigen and Antibodies, Fourth Generation, with Reflexes (08/19/2023 10:02 AM EDT) HIV AB/AG Nonreactive Nonreactive [facility] Comment:HIV-1 p24 Ag and/or HIV-1/HIV-2 Ab not detected.A test result that is nonreactive does not exclude thepossibility of exposure to or infection with HIV-1 and/orHIV-2. Nonreactive results in this assay for individualswith prior exposure to HIV-1 and/or HIV-2 may be due toantigen and antibody levels that are below the limit ofdetection of this assay.The Manyeta HIV Ag/Ab Combo assay result andsupplemental assay results should be interpreted inconjunction with the patient's clinical presentation,history and other laboratory results. If the results areinconsistent with clinical evidence, additional testing issuggested to confirm the result. Blood Venous blood specimen / Unknown 08/19/2023 10:02 AM EDT 08/19/2023 11:21 AM EDT Michelle Rodriguez MD LAB BLOOD ORDERABLES Final Res ult Performing Organization Address City/[facility]/ZIP Co de Phone Number [facility] [address] [place] [address] [phone] * (ABNORMAL) Lipid Panel, Standard (08/19/2023 10:02 AM EDT) Triglycerides 99 <150 mg/dL [facility] Comment:Desirable Triglyceri de: less than 150 mg/dLBorderline High Triglyceride 150-199 mg/dLHigh Triglyceride: 200-499 mg/dLVery High Triglyceride: greater than or equal to 5OO mg/dL Cholesterol 139 <200 mg/dL [facility] Comment:Desirable Cholestero l: less than 200 mg/dLBorderline High Cholesterol: 200-239 mg/dLHigh Cholesterol: greater than 239 mg/dL LDL Cholesterol Calculated 86 <100 mg/dL [facility] Comment:Desirable LDL: less than 100 mg/dLNear Optimal/Above Optimal LDL: 110- 129 mg/dLBorderline High LDL: 130-159 mg/dLHigh LDL: 160-189 mg/dLVery High LDL: greater than or equal to 190 mg/dL HDL Cholesterol 34(L) >40 mg/dL [facility] Comment:Desirable HDL: great er than 40 mg/dL Note: This HDL assay may give artificially low results in patients with liver disease. Blood Venous blood specimen / Unknown 08/19/2023 10:02 AM EDT 08/19/2023 11:21 AM EDT Michelle Rodriguez MD LAB BLOOD ORDERABLES Final Res ult Performing Organization Address City/[facility]/ZIP Co de Phone Number [facility] [address] [place] [address] [phone] from Last 3 Months or Most Recently Relevant to Health Maintenance Insurance [facility] C3 DENTAL-[facility] MEDICAID STAND ADULT Care Teams Tonsorial Artist Relationship Specialty Start Date End Date Michelle Rodriguez MD [address] [place] [address] PCP - General Family Medicine 02/19/21 Rose Phillip, Camilo [address] [place] [address] Pharmacist Internal Medicine 03/02/24
--- OUTSIDE RECORDS SUMMARY | 2024-07-01 14:59 | XMS_ITS | Encounter Summary ---
Author Organization [employer] Address [address] [facility] 7t [place] [address] Care Team Providers Care Manual Plate Filler Name Role Phone Michelle Rodriguez MD Primary Care Provider [phone] Rose Phillip PharmD Unavailable [phone] Encounter Details Date Type Department Care Team ([facility] st Contact Info) Description 03/02/2024 Orders Only [facility] [address] [place], [place] [phone] Michelle Rodriguez MD [address] [place], [place] [phone] History of hepatitis C (Primary Dx) Social History Tobacco Use Types [...] Description 07/02/2024 9:00 AM EST Medication Management [facility] [address] [place] [address] Rose Phillip PharmD [address] [place] [address] 09/08/2024 9:00 AM EDT Office Visit [facility] ADULT DENTAL [address] [place] [address] Miguelito, Johanne [address] [place] [address] documented as of this encounter Procedures Procedure Name Priority Date/Time Associated Diagnosis Comments HEPATITIS PANEL, GENERAL Routine 03/08/2024 9:25 AM EDT History of hepatitis C documented in this encounter Results * (ABNORMAL) Hepatitis A,B,C Profile (03/08/2024 9:25 AM EDT) Hepatitis A IgM Nonreactive Nonreactive [facility] Comment:IgM antibodies to JOSEPH V not detected; does not exclude earlyacute or recovered HAV infection. ~Hepatitis B Surface Antibody REACTIVE Nonreactive [facility] Comment:REACTIVE: > 11.99 mI U/mL Hepatitis B Core Antibody Nonreactive Nonreactive [facility] Hepatitis C Antibody Reactive(A) Nonreactive [facility] Comment:Presumptive evidence of antibodies to HCV. Hepatitis B Surface Ag Negative Negative [facility] Blood Venous blood specimen / Unknown 03/08/2024 9:25 AM EDT 03/08/2024 11:15 AM EDT Michelle Rodriguez MD LAB BLOOD ORDERABLES Final Res ult [facility] [address] [place] [address] [phone] documented in this encounter Visit Diagnoses Diagnosis History of hepatitis C- Primary Personal history of other infectious and parasitic disease documented in this encounter Additional Health Concerns Assessment Noted Time PHQ-9 Depression Total Score: 6 11/02/19 23 3:44 PM EDT documented as of this encounter Care Teams Manual Plate Filler Relationship Specialty Start Date End Date Michelle Rodriguez MD [address] [place] [address] PCP - General Family Medicine 02/19/21 Rose Phillip PharmD [address] [place] [address] Pharmacist Internal Medicine 03/02/24 documented as of this encounter
--- OUTSIDE RECORDS SUMMARY | 2024-07-01 14:59 | XMS_ITS | Encounter Summary ---
Author Organization [employer] Address [address] [place] [address] 7 [place] [address] Care Team Providers Care Silver Plater Name Role Phone Michelle Rodriguez MD Primary Care Provider [phone] Rose Phillip PharmD Unavailable [phone] Encounter Details Date Type Department Care Team ([facility] st Contact Info) Description 04/22/2024 Telephone [facility] [address] [place], [place] [phone] Liat Pink PharmD 230 [place] [address] Social History Tobacco Use Types Packs/Day Years [...] Description 07/02/2024 9:00 AM EST Medication Management [facility] [address] [place] [address] Rose Phillip PharmD [address] [place] [address] 09/08/2024 9:00 AM EDT Office Visit [facility] ADULT DENTAL [address] [place] [address] Miguelito, Johanne [address] [place] [address] documented as of this encounter Visit Diagnoses Not on filedocumented in this encounter Additional Health Concerns Assessment Noted Time PHQ-9 Depression Total Score: 6 11/02/19 23 3:44 PM EDT documented as of this encounter Care Teams Silver Plater Relationship Specialty Start Date End Date Michelle Rodriguez MD [address] [place] [address] PCP - General Family Medicine 02/19/21 Rose Phillip PharmD [address] [place] [address] Pharmacist Internal Medicine 03/02/24 documented as of this encounter
--- OUTSIDE RECORDS SUMMARY | 2024-07-01 14:59 | XMS_ITS | Encounter Summary ---
Author Organization [employer] Address [address] [place] [address] 7t [place] [address] Care Team Providers Care Level Vial Setter Name Role Phone Michelle Rodriguez MD Primary Care Provider [phone] Rose Phillip PharmD Unavailable Encounter Details Date Type Department Care Team (Late st Contact Info) Description 08/30/2022 Orders Only [facility] CHC MED & PEDS [address] [place] [address] Pily Linn LPN Social History Tobacco Use [...] Description 07/02/2024 9:00 AM EST Medication Management [facility] MEDICINE [address] [place] [address] PuiaAngelasa, PharmD [address] [place] [address] 09/08/2024 9:00 AM EDT Office Visit [facility] ADULT DENTAL 230 [place] [address] Johanne Farley 230 [place] [address] documented as of this encounter Visit Diagnoses Not on filedocumented in this encounter Care Teams Level Vial Setter Relationship Specialty Start Date End Date Michelle Rodriguez MD [address] [place], [place] [phone] PCP - General Family Medicine 02/19/21 Rose Phillip PharmD [address] [place] [address] Pharmacist Internal Medicine 03/02/24 documented as of this encounter
--- OUTSIDE RECORDS SUMMARY | 2024-07-01 14:59 | XMS_ITS | Encounter Summary ---
Author Organization [employer] Address [address] [facility] [address] 7t [place] [address] Care Team Providers Care Splicing Supervisor Name Role Phone Michelle Rodriguez MD Primary Care Provider [phone] Rose Phillip PharmD Unavailable [phone] Reason for Visit * Reason Comments Med Refill Encounter Details Date Type Department Care Team ([facility] st Contact Info) Description 05/14/2023 Refill [facility] [address] [place] [address] Uriah Hoang FNP Social History Tobacco Use Types Packs/Day Years [...] Description 07/02/2024 9:00 AM EST Medication Management [facility] [address] [place] [address] Rose Phillip PharmD [address] [place] [address] 09/08/2024 9:00 AM EDT Office Visit [facility] ADULT DENTAL [address] [place], [place] [phone] Johanne Farley [address] [place] [address] documented as of this encounter Visit Diagnoses Not on filedocumented in this encounter Additional Health Concerns Assessment Noted Time PHQ-9 Depression Total Score: 6 11/02/19 23 3:44 PM EDT documented as of this encounter Care Teams Splicing Supervisor Relationship Specialty Start Date End Date Michelle Rodriguez MD [address] [place] [address] PCP - General Family Medicine 02/19/21 Rose Phillip PharmD [address] [place] [address] Pharmacist Internal Medicine 03/02/24 documented as of this encounter
== END 2024-07-01 11:07 | disposition home or self-care (01) ==
LOC: HO.US 11:06
PROVIDERS: PCP General Practice; Visit Provider General Practice
DX: R10.9 Unspecified abdominal pain (principal)
CPT/HCPCS: 76775

== ENCOUNTER → 2024-07-01 11:30 | Outpatient (BNV) | payer MEDICAID, SELFPAY | PROVIDERS: PCP General Practice; Visit Provider Radiology Vascular & Interventional Radiology | DX: R10.9 Unspecified abdominal pain (principal) | CPT/HCPCS: 76775 ==

== ENCOUNTER 2024-07-27 09:16 | Outpatient (REF) | payer MEDICAID, SELFPAY ==
--- OUTSIDE RECORDS SUMMARY | 2024-07-27 10:10 | XMS_ITS | Encounter Summary ---
Author Organization [employer] Address 75 [facility] 7t [place] [address] Care Team Providers Care Work Distributor Name Role Phone Michelle Rodriguez MD Primary Care Provider [phone] Rose Phillip PharmD Unavailable [phone] Encounter Details Date Type Department Care Team (Late st Contact Info) Description 07/15/2022 Orders Only [facility] CH[facility] MED & PEDS [address] [place] [address] Pily Linn LPN Social History Tobacco Use [...] Care Team (Late st Contact Info) Description 08/05/2024 9:30 AM EST Medication Management [facility] MEDICINE 230 [place], [place] [phone] Rose Phillip, PharmD [address] [place], [place] [phone] 09/08/2024 9:00 AM EDT Office Visit [facility] ADULT DENTAL 230 [place] [address] Johanne Farley 230 [place], [place] [phone] documented as of this encounter Visit Diagnoses Not on filedocumented in this encounter Care Teams Work Distributor Relationship Specialty Start Date End Date Michelle Rodriguez MD [address] [place], [place] [phone] PCP - General Family Medicine 02/19/21 Rose Phillip PharmD [address] [place], [place] [phone] Pharmacist Internal Medicine 03/02/24 documented as of this encounter
--- OUTSIDE RECORDS SUMMARY | 2024-07-27 10:10 | XMS_ITS | Encounter Summary ---
Author Organization [employer] Address [address] [place] [address] 7t [place] [address] Care Team Providers Care Amusement Machine Mechanic Name Role Phone Michelle Rodriguez MD Primary Care Provider [phone] Rose Phillip PharmD Unavailable [phone] Reason for Visit * Reason Comments Med Refill Encounter Details Date Type Department Care Team ([facility] st Contact Info) Description 07/23/2024 Refill [facility] 230 [place], [place] [phone] Michelle Rodriguez MD [address] [place] [address] Primary insomnia Social History Tobacco Use Types [...] Description 08/05/2024 9:30 AM EST Medication Management [facility] MED[facility] 230 [place] [address] Rose Phillip PharmD [address] [place] [address] 09/08/2024 9:00 AM EDT Office Visit [facility] ADULT DENTAL [address] [place] [address] Miguelito, Johanne [address] [place] [address] documented as of this encounter Visit Diagnoses Diagnosis Primary insomnia Persistent disorder of initiating or maintaining sleep documented in this encounter Additional Health Concerns Assessment Noted Time PHQ-9 Depression Total Score: 6 11/02/19 23 3:44 PM EDT documented as of this encounter Care Teams Amusement Machine Mechanic Relationship Specialty Start Date End Date Michelle Rodriguez MD [address] [place] [address] PCP - General Family Medicine 02/19/21 Rose Phillip PharmD [address] [place] [address] Pharmacist Internal Medicine 03/02/24 documented as of this encounter
--- OUTSIDE RECORDS SUMMARY | 2024-07-27 10:10 | XMS_ITS | Encounter Summary ---
Author Organization [employer] Address 75 [facility] 7t [place] [address] Care Team Providers Care Habilitation Worker Name Role Phone Michelle Rodriguez MD Primary Care Provider [phone] Rose Phillip PharmD Unavailable [phone] Encounter Details Date Type Department Care Team ([facility] st Contact Info) Description 09/11/2023 Orders Only [facility] MEDICINE [address] [place], [place] [phone] Michelle Rodriguez MD [address] [place], [place] [phone] Primary insomnia Social History Tobacco Use Types [...] Description 08/05/2024 9:30 AM EST Medication Management [facility] MEDICINE [address] [place] [address] Rose Phillip PharmD [address] [place] [address] 09/08/2024 9:00 AM EDT Office Visit [facility] ADULT DENTAL [address] [place] [address] Miguelito Johanne [address] [place] [address] documented as of this encounter Visit Diagnoses Diagnosis Primary insomnia Persistent disorder of initiating or maintaining sleep documented in this encounter Additional Health Concerns Assessment Noted Time PHQ-9 Depression Total Score: 6 11/02/19 23 3:44 PM EDT documented as of this encounter Care Teams Habilitation Worker Relationship Specialty Start Date End Date Michelle Rodriguez MD [address] [place] [address] PCP - General Family Medicine 02/19/21 Rose Phillip PharmD [address] [place] [address] Pharmacist Internal Medicine 03/02/24 documented as of this encounter
--- OUTSIDE RECORDS SUMMARY | 2024-07-27 10:10 | XMS_ITS | Encounter Summary ---
Author Organization [employer] Address [address] [facility] [address] 7t [place] [address] Care Team Providers Care Barn Manager Name Role Phone Michelle Rodriguez MD Primary Care Provider [phone] Rose Phillip PharmD Unavailable [phone] Reason for Visit * Reason Comments Med Refill Encounter Details Date Type Department Care Team ([facility] st Contact Info) Description 05/14/2023 Refill [facility] [address] [place] [address] Uriah Hoang FNP Social History Tobacco Use [...] Description 08/05/2024 9:30 AM EST Medication Management [facility] MED[facility] [address] [place] [address] Rose Phillip PharmD 230 [place] [address] 09/08/2024 9:00 AM EDT Office Visit [facility] ADULT DENTAL [address] [place], [place] [phone] Johanne Farley [address] [place] [address] documented as of this encounter Visit Diagnoses Not on filedocumented in this encounter Additional Health Concerns Assessment Noted Time PHQ-9 Depression Total Score: 6 11/02/19 23 3:44 PM EDT documented as of this encounter Care Teams Barn Manager Relationship Specialty Start Date End Date Michelle Rodriguez MD [address] [place] [address] PCP - General Family Medicine 02/19/21 Rose Phillip PharmD [address] [place] [address] Pharmacist Internal Medicine 03/02/24 documented as of this encounter
--- OUTSIDE RECORDS SUMMARY | 2024-07-27 10:10 | XMS_ITS | Encounter Summary ---
Author Organization [employer] Address [address] [place] [address] [place] [address] Care Team Providers Care Cocktail Waitress Name Role Phone Michelle Rodriguez MD Primary Care Provider [phone] Rose Phillip PharmD Unavailable [phone] Reason for Visit * Reason Comments Med Refill Encounter Details Date Type Department Care Team (Late st Contact Info) Description 01/20/2023 Refill [facility] MEDICINE [address] [place] [address] Mimi Machuca FNP [address] [place] [address] Dept [place] [address] Primary insomnia Social History Tobacco Use Types [...] Description 08/05/2024 9:30 AM EST Medication Management [facility] MEDICINE 230 [place], [place] [phone] PuiaGilbertoRose, PharmD 230 [place], [place] [phone] 09/08/2024 9:00 AM EDT Office Visit [facility] ADULT DENTAL [address] [place] [address] Johanne Farley [address] [place] [address] documented as of this encounter Visit Diagnoses Diagnosis Primary insomnia Persistent disorder of initiating or maintaining sleep documented in this encounter Additional Health Concerns Assessment Noted Time PHQ-9 Depression Total Score: 6 11/02/19 23 3:44 PM EDT documented as of this encounter Care Teams Cocktail Waitress Relationship Specialty Start Date End Date Michelle Rodriguez MD [address] [place] [address] PCP - General Family Medicine 02/19/21 Rose Phillip, Camilo [address] [place] [address] Pharmacist Internal Medicine 03/02/24 documented as of this encounter
--- OUTSIDE RECORDS SUMMARY | 2024-07-27 10:10 | XMS_ITS | Encounter Summary ---
Author Organization [employer] Address [address] [place] [address] 7 [place] [address] Care Team Providers Care Bottling Supervisor Name Role Phone Michelle Rodriguez MD Primary Care Provider Rose Phillip PharmD Unavailable [phone] Encounter Details Date Type Department Care Team (Late st Contact Info) Description 02/05/2023 Orders Only [facility] 230 [place], [place] [phone] Michelle Rodriguez MD [address] [place] [address] Male hypogonadism (Primary Dx) Social History Tobacco [...] Description 08/05/2024 9:30 AM EST Medication Management [facility] 230 [place] [address] Rose Phillip, PharmD [address] [place], [place] [phone] 09/08/2024 9:00 AM EDT Office Visit [facility] ADULT DENTAL 230 [place] [address] Johanne Farley 230 [place] [address] Scheduled Orders Name Type Priority Associated Diagnoses [...] documented as of this encounter Care Teams Bottling Supervisor Relationship Specialty Start Date End Date Michelle Rodriguez MD [address] [place] [address] [phone] PCP - General Family Medicine 02/19/21 Rose Phillip PharmD [address] [place] [address] Pharmacist Internal Medicine 03/02/24 documented as of this encounter
--- OUTSIDE RECORDS SUMMARY | 2024-07-27 10:10 | XMS_ITS | Encounter Summary ---
Author Organization [employer] Address [address] [place] [address] 7t [place] [address] Care Team Providers Care Nc Machinist Name Role Phone Michelle Rodriguez MD Primary Care Provider [phone] Rose Phillip PharmD Unavailable [phone] Reason for Visit * Reason Comments Med Refill Encounter Details Date Type Department Care Team ([facility] st Contact Info) Description 11/11/2023 Refill [facility] MED[facility] 230 [place], [place] [phone] Michelle Rodriguez MD 230 [place] [address] Primary insomnia Social History Tobacco Use Types [...] Description 08/05/2024 9:30 AM EST Medication Management [facility] [address] [place] [address] Rose Phillip PharmD 230 [place] [address] 09/08/2024 9:00 AM EDT Office Visit [facility] ADULT DENTAL 230 [place] [address] Miguelito, Johanne [address] [place] [address] documented as of this encounter Visit Diagnoses Diagnosis Primary insomnia Persistent disorder of initiating or maintaining sleep documented in this encounter Additional Health Concerns Assessment Noted Time PHQ-9 Depression Total Score: 6 11/02/19 23 3:44 PM EDT documented as of this encounter Care Teams Nc Machinist Relationship Specialty Start Date End Date Michelle Rodriguez MD [address] [place] [address] PCP - General Family Medicine 02/19/21 Rose Phillip PharmD [address] [place] [address] Pharmacist Internal Medicine 03/02/24 documented as of this encounter
--- OUTSIDE RECORDS SUMMARY | 2024-07-27 10:10 | XMS_ITS | Encounter Summary ---
Author Organization [employer] Address [address] [place] [address] 7 [place] [address] Care Team Providers Care Feller Machine Operator Name Role Phone Michelle Rodriguez MD Primary Care Provider Rose Phillip PharmD Unavailable [phone] Reason for Visit * Reason Comments Med Refill Encounter Details Date Type Department Care Team (Late st Contact Info) Description 12/21/2022 Refill [facility] [address] [place], [place] [phone] Michelle Rodriguez MD 230 [place] [address] Social History Tobacco Use Types Packs/Day Years [...] Description 08/05/2024 9:30 AM EST Medication Management [facility] [address] [place] [address] PuiaAngelasa, PharmD 230 [place], [place] [phone] 09/08/2024 9:00 AM EDT Office Visit [facility] ADULT DENTAL [address] [place] [address] Johanne Farley [address] [place] [address] documented as of this encounter Visit Diagnoses Not on filedocumented in this encounter Additional Health Concerns Assessment Noted Time PHQ-9 Depression Total Score: 6 11/02/19 23 3:44 PM EDT documented as of this encounter Care Teams Feller Machine Operator Relationship Specialty Start Date End Date Michelle Rodriguez MD [address] [place] [address] PCP - General Family Medicine 02/19/21 Rose Phillip PharmD [address] [place] [address] Pharmacist Internal Medicine 03/02/24 documented as of this encounter
--- OUTSIDE RECORDS SUMMARY | 2024-07-27 10:10 | XMS_ITS | Encounter Summary ---
Author Organization [employer] Address [address] [place] [address] 7t [place] [address] Care Team Providers Care Accounts Payable Professional Name Role Phone Michelle Rodriguez MD Primary Care Provider [phone] Rose Phillip PharmD Unavailable Reason for Referral * Consultation (Routine) - Authorized Specialty Diagnoses / Procedures Referred By Contac t Referred To Contact Pharmacy Diagnoses Type 2 diabetes mellitus with hyperglycemia, with long-term current use of insulin (CMS/HCC) Michelle Rodriguez MD [address] [place] [address] Phone: tel: fax: Referral ID Status Reason Start Date Expiration Date Visits Requested Visits Authorized [id number] Authorized Consult and Treat 03/26/2024 03/26/2025 6 6 Encounter Details Date Type Department Care Team (Late st Contact Info) Description 03/21/2024 Orders Only [facility] MEDICINE 230 [place], [place] [phone] Michelle Rodriguez MD [address] [place], [place] [phone] Male hypogonadism (Primary Dx); Type 2 diabetes [...] Description 08/05/2024 9:30 AM EST Medication Management [facility] MED[facility] [address] [place] [address] Rose Phillip, PharmD [address] [place] [address] 09/08/2024 9:00 AM EDT Office Visit [facility] ADULT DENTAL [address] [place] [address] Johanne Farley [address] [place] [address] Scheduled Orders Name Type Priority Associated Diagnoses Orde r Schedule Testosterone, Free (Dialysis) And Total, MS Lab Routine Male hypogonadism Expected: 03/21/2024 (Approximate), Expires: 03/21/2025 Scheduled Referrals Name Type Priority Associated Diagnoses Orde r Schedule Referral to Pharmacy CDTM Outpatient Referral Routine Type 2 diabetes mellitus with hyperglycemia, with long-term current use of insulin ([facility]) Ordered: 03/26/2024 documented as of this encounter Visit Diagnoses Diagnosis Male hypogonadism- Primary Other testicular hypofunction Type 2 diabetes mellitus with hyperglycemia, with long-term current use of insulin ([facility]) documented in this encounter Additional Health Concerns Assessment Noted Time PHQ-9 Depression Total Score: 6 11/02/19 23 3:44 PM EDT documented as of this encounter Care Teams Accounts Payable Professional Relationship Specialty Start Date End Date Michelle Rodriguez MD [address] [place] [address] PCP - General Family Medicine 02/19/21 Rose Phillip PharmD [address] [place] [address] Pharmacist Internal Medicine 03/02/24 documented as of this encounter
--- OUTSIDE RECORDS SUMMARY | 2024-07-27 10:10 | XMS_ITS | Encounter Summary ---
Author Organization [facility] [facility] Address [address] [place] [address] 7 [place] [address] Care Team Providers Care Green Feed Attendant Name Role Phone Michelle Rodriguez MD Primary Care Provider [phone] Rose Phillip PharmD Unavailable [phone] Encounter Details Date Type Department Care Team (Latest Contact Info) Description 12/13/2021 Abstract [facility] CONVERSIONS Dental, Provider, DDS Social History Tobacco [...] Care Team ( st Contact Info) Description 08/05/2024 9:30 AM EST Medication Management [facility] MEDICINE [address] [place] [address] Rose Phillip, PharmD [address] [place] [address] 09/08/2024 9:00 AM EDT Office Visit [facility] ADULT DENTAL [address] [place] [address] Johanne Farley [address] [place] [address] documented as of this encounter Visit Diagnoses Not on filedocumented in this encounter Care Teams Green Feed Attendant Relationship Specialty Start Date End Date Michelle Rodriguez MD [address] [place] [address] PCP - General Family Medicine 02/19/21 Rose Phillip, Camilo [address] [place] [address] Pharmacist Internal Medicine 03/02/24 documented as of this encounter
--- OUTSIDE RECORDS SUMMARY | 2024-07-27 10:10 | XMS_ITS | Encounter Summary ---
Author Organization [employer] Address [address] [facility] 7t [place] [address] Care Team Providers Care Residential Door Installer Name Role Phone Michelle Rodriguez MD Primary Care Provider [phone] Rose Phillip PharmD Unavailable [phone] Encounter Details Date Type Department Care Team ([facility] st Contact Info) Description 03/02/2024 Orders Only [facility] MEDICINE [address] [place], [place] [phone] Michelle Rodriguez MD [address] [place], [place] [phone] History of hepatitis C (Primary Dx) Social [...] Description 08/05/2024 9:30 AM EST Medication Management [facility] [address] [place] [address] Rose Phillip PharmD 230 [place] [address] 09/08/2024 9:00 AM EDT Office Visit [facility] ADULT DENTAL [address] [place] [address] Miguelito, Johanne [address] [place] [address] documented as of this encounter Procedures Procedure Name Priority Date/Time Associated Diagnosis Comments HEPATITIS PANEL, GENERAL Routine 03/08/2024 9:25 AM EDT History of hepatitis C documented in this encounter Results * (ABNORMAL) Hepatitis A,B,C Profile (03/08/2024 9:25 AM EDT) Hepatitis A IgM Nonreactive Nonreactive [facility] Comment:IgM antibodies to JOSEPH V not detected; does not exclude earlyacute or recovered HAV infection. ~Hepatitis B Surface Antibody REACTIVE Nonreactive [facility] Comment:REACTIVE: > 11.99 mI U/mL Hepatitis B Core Antibody Nonreactive Nonreactive [facility] Hepatitis C Antibody Reactive(A) Nonreactive [facility] Comment:Presumptive evidence of antibodies to HCV. Hepatitis B Surface Ag Negative Negative [facility] Blood Venous blood specimen / Unknown 03/08/2024 9:25 AM EDT 03/08/2024 11:15 AM EDT Michelle Rodriguez MD LAB BLOOD ORDERABLES Final Res ult [facility] [address] [place] [address] [phone] documented in this encounter Visit Diagnoses Diagnosis History of hepatitis C- Primary Personal history of other infectious and parasitic disease documented in this encounter Additional Health Concerns Assessment Noted Time PHQ-9 Depression Total Score: 6 11/02/19 23 3:44 PM EDT documented as of this encounter Care Teams Residential Door Installer Relationship Specialty Start Date End Date Michelle Rodriguez MD [address] [place] [address] PCP - General Family Medicine 02/19/21 Rose Phillip PharmD [address] [place] [address] Pharmacist Internal Medicine 03/02/24 documented as of this encounter
--- OUTSIDE RECORDS SUMMARY | 2024-07-27 10:10 | XMS_ITS | Encounter Summary ---
Author Organization [employer] Address [address] [place] [address] 7t [place] [address] Care Team Providers Care Engraver Wood Name Role Phone Michelle Rodriguez MD Primary Care Provider [phone] Rose Phillip PharmD Unavailable [phone] Reason for Visit * Reason Comments Med Refill Encounter Details Date Type Department Care Team ([facility] st Contact Info) Description 07/10/2024 Refill [facility] MED[facility]INE [address] [place], [place] [phone] Michelle Rodriguez MD [address] [place] [address] Social History Tobacco Use Types Packs/Day Years [...] 9:30 AM EST Medication Management [facility] MEDICINE [address] [place] [address] Rose Phillip PharmD [address] [place] [address] 09/08/2024 9:00 AM EDT Office Visit [facility] ADULT DENTAL [address] [place] [address] Miguelito, Johanne [address] [place] [address] documented as of this encounter Visit Diagnoses Not on filedocumented in this encounter Additional Health Concerns Assessment Noted Time PHQ-9 Depression Total Score: 6 11/02/19 23 3:44 PM EDT documented as of this encounter Care Teams Engraver Wood Relationship Specialty Start Date End Date Michelle Rodriguez MD [address] [place] [address] PCP - General Family Medicine 02/19/21 Rose Phillip PharmD [address] [place] [address] Pharmacist Internal Medicine 03/02/24 documented as of this encounter
--- OUTSIDE RECORDS SUMMARY | 2024-07-27 10:10 | XMS_ITS | Encounter Summary ---
Author Organization [email or web address] Address [address] [place] [address] 7t [place] [address] Care Team Providers Care Thermal Intelligence Analyst Name Role Phone Michelle Rodriguez MD Primary Care Provider [phone] Rose Phillip PharmD Unavailable Encounter Details Date Type Department Care Team (Late st Contact Info) Description 08/30/2022 Orders Only [facility] [address] [place] [address] Pily Linn LPN Social History Tobacco Use [...] Description 08/05/2024 9:30 AM EST Medication Management [facility] [address] [place] [address] PuiaAngelasa, PharmD [address] [place] [address] 09/08/2024 9:00 AM EDT Office Visit [facility] ADULT DENTAL [address] [place] [address] Johanne Farley [address] [place] [address] documented as of this encounter Visit Diagnoses Not on filedocumented in this encounter Care Teams Thermal Intelligence Analyst Relationship Specialty Start Date End Date Michelle Rodriguez MD [address] [place], [place] [phone] PCP - General Family Medicine 02/19/21 Rose Phillip PharmD [address] [place] [address] Pharmacist Internal Medicine 03/02/24 documented as of this encounter
--- OUTSIDE RECORDS SUMMARY | 2024-07-27 10:10 | XMS_ITS | Clinical Summary ---
Author Organization [employer] Address [address] [place] [address] 7t [place] [address] Care Team Providers Care Cripple Cutter Name Role Phone Michelle Rodriguez MD Primary Care Provider [phone] Rose Phillip PharmD Unavailable [phone] Allergies Active Allergy Reactions Criticality Noted [...] by mouth in the morning. 30 tablet 11 024 2024 Active amLODIPine (Norvasc) 5 MG tablet TAKE 1 TABLET BY MOUTH EVERY MORNING 30 tablet Active lisinopril 20 MG tabletIndicatio ns:Primary hypertension Take 1 tablet (20 mg) by mouth Once per day. 90 tablet 3 024 Active metFORMIN (Glucophage) 1000 MG tablet TAKE 1 TABLET BY MOUTH TWICE DAILY IN THE MORNING AND IN THE EVENING WITH MEALS 180 tablet 3 Active Pentips 32G X 4 MM misc USE ONCE DAILY WITH INSULIN 100 each [address] Traffic Controller (FreeStyle [place] 2 [place]) deviceIndicatio ns:Type 2 diabetes mellitus with hyperglycemia, with long-term current use of insulin ([facility]) Scan sensor every 8 hours 1 each Active pilocarpine (Salagen) 5 MG tablet Take 1 tablet (5 mg) by mouth 3 times daily. 90 tablet 11 2024 Active nicotine polacrilex (Commit) 2 MG lozengeIndicati ons:Tobacco use disorder Dissolve 1 lozenge, as directed, every 1-2 hours as needed for cravings. Max 20 lozenges per 24 hours. 144 lozenge 5 Active glucose blood (FreeStyle Precision Kwaku Test) test stripIndication s:Type 2 diabetes mellitus with hyperglycemia, with long-term current use of insulin ([facility]) Use to test blood sugar up to 3 times daily, as directed 100 each Active TRUEplus Lancets 33G miscIndications :Type 2 diabetes mellitus with hyperglycemia, with long-term current use of insulin ([facility]) Use to test blood sugar 3 time(s) daily 100 each Active dulaglutide (Trulicity) 4.5 MG/0.5ML solution pen-injectorInd ications:Type 2 diabetes mellitus with hyperglycemia, with long-term current use of insulin ([facility]) Inject 4.5 mg under the [...] hyperglycemia, with long-term current use of insulin ([facility]) Take 1 tablet (5 mg) by mouth before breakfast and before evening meal. 60 tablet 5 Active atorvastatin (Lipitor) 20 MG tablet Take 1 tablet (20 mg) by mouth Once per day. 90 tablet 3 2024 Active nicotine (Nicoderm, Step 3) 7 [...] hyperglycemia, with long-term current use of insulin ([facility]) Inject 22 units under the [...] EVERY 14 DAYS . 2 each 3 025 Active Testosterone 1.62 % gel APPLY 2 PUMPS TOPICALLY EVERY MORNING DIRECTED 75 g 3 025 Active zolpidem (Ambien) 10 MG tabletIndicatio ns:Primary insomnia TAKE 1 TABLET BY MOUTH AT BEDTIME 30 tablet Active Testosterone 20.25 MG/ACT (1.62%) gel APPLY 2 PUMPS TOPICALLY EVERY MORNING DIRECTED 75 g 3 024 2024 Discontinued zolpidem (Ambien) 10 MG tabletIndicatio ns:Primary insomnia TAKE 1 TABLET BY MOUTH EVERY DAY AT BEDTIME 30 tablet 024 2024 Discontinued Active Problems Problem Noted Date Diagnosed Date Uncomplicated opioid dependence 06/14/2024 Assessment & Plan (06/14/2024 10:18 AM EST): 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 [facility] Last use 3 weeks ago Testosterone [...] switch from Trulicity to Mounjaro at next [facility] appointment A1C 9.5 today and random glucose 357, comanaged with Rose Puia, next appt 07/02/24 Metformin 1000mg BID and Glipizide 5mg BID Lantus 30 units at night Taking Trulicity 4.5mg Podiatry: referral in, appt not made Dental: at [facility] BMP: Lab Results Component Value Date [...] two months ago, he is actively seeking detox/head wrestling coach Will come tomorrow morning at 845 to [...] Encounters Date Type Department Care Team Description 07/23/2024 Refill [facility]INE [address] [place] [address] Michelle Rodriguez MD Primary insomnia 07/10/2024 Refill [facility] [address] [place] [address] Michelle Rodriguez MD 07/09/2024 Telephone [facility] [address] [place] [address] [address] [place] Results 07/01/2024 Orders Only [facility] [address] [place] [address] Michelle Rodriguez MD 06/22/2024 Refill [facility] [address] [place] [address] Michelle Rodriguez MD Type 2 diabetes mellitus with hyperglycemia, with long-term current use of insulin (CMS/HCC) 06/14/2024 9:00 AM EST Office Visit [facility] [address] [place] [address] Michelle Rodriguez MD Type 2 diabetes mellitus [...] whether esophagitis present; Essential hypertension 06/11/2024 Telephone [facility] [address] [place] [address] Michelle Rodriguez MD No Show 06/03/2024 Patient Outreach [facility] [address] [place] [address] Michelle Rodriguez MD Pre-visit Planning ((Unable to reach for PVP screening, LVM)) 05/03/2024 10:30 AM EST Telemedicine [facility] [address] [place] [address] Rose Phillip, MerissaD Type 2 diabetes mellitus with hyperglycemia, with long-term current use of insulin ([facility]) from Last 3 Months Immunizations Name Administration [...] your housing situation today? I have natacha jeramy 11/06/[address] you li [...] Description 08/05/2024 9:30 AM EST Medication Management [facility] [address] [place] [address] PuiaRose, PharmD [address] [place] [address] 09/08/2024 9:00 AM EDT Office Visit [facility] ADULT DENTAL [address] [place] [address] Johanne Farley [address] [place] [address] Health Maintenance Due Date Last Done Comments [...] 02/13/2023 12/19/2022 Depression Screening 11/02/2023 11/01/2022, 11/02/19 COVID-19 Vaccine ( season) 2024 06/27/2022, 10/05/2021, [...] with long-term current use of insulin (CMS/HCC) POCT GLUCOSE Routine 06/14/2024 9:02 AM EST Type 2 diabetes mellitus with hyperglycemia, with long-term current use of insulin (CMS/HCC) ALBUMIN, RANDOM URINE W/CREATININE Routine 03/08/2024 9:17 [...] EST Narrative 07/01/2024 12:29 PM EST ? [facility] ?[address] ?[place] [address] ? Ultrasound Report ? Signed ? Patient: Carcamo,Raimundo ?MR#: [id number] ?? 9 ? : 1970 ?Acct:[id number] ? Age/Sex: 53 / M ?ADM Date: 07/01/24 ? Loc: HO.US ? Attending Dr: Michelle Rodriguez MD ? Ordering Physician: Michelle Rodriguez ?? Date of Service: 07/01/24 ?? Procedure(s): US renal BI ?? Accession Number(s): [id number] ? cc: Michelle Rodriguez ? CLINICAL HISTORY: [...] DD/ 1227 ? TD/TT: 07/01/24 1227 ? Website Designer: ? Procedure Note Nathalia, Image - 07/01/2024 [place] [address] Ultrasound Report Signed Patient: Todd Carcamo#: [id number] 9 : 1970Acct:[id number] Age/Sex: 53 / MADM Date: 07/01/24 Loc: HO.US Attending Dr: Michelle Rodriguez MD Ordering Physician: Michelle Rodriguez Date of Service: 07/01/24 Procedure(s): US renal BI Accession Number(s): [id number] cc: Michelle Rodriguez CLINICAL HISTORY: flank pain [...] 07/01/24 1229 DD/ 1227 TD/TT: 07/01/24 1227 Website Designer: Michelle Rodriguez MD IMG US PROCEDURES Final [...] Media Lot # [id number] Lot# Expiration Date 025 Blood Capillary blood specimen / Unknown 06/14/2024 9:02 AM EST Michelle Rodriguez MD POINT OF CARE TEST ENTER/EDIT ORDERABLES Final Result * Albumin, Random Urine W/Creatinine (03/08/2024 9:17 AM EDT) Creatinine, Urine 110.89 mg/dL [facility] Microalbumin Urine <5.0 mg/L [facility] Microalbum Creatinine Ratio Ur TNP <30 ug/mg cr [facility] Comment:Unable to calculate albumin/creatinine ratio due to lowmicroalbumin or creatinine result. 03/08/2024 9:17 AM EDT 03/08/2024 10:55 AM EDT us Michelle Rodriguez MD LAB URINE ORDERABLES Final Res ult Performing Organization Address [facility] Co de Phone Number [facility] [address] [place] [address] [phone] * HIV-1/2 Antigen and Antibodies, Fourth Generation, with Reflexes (08/19/2023 10:02 AM EDT) HIV AB/AG Nonreactive Nonreactive [facility] Comment:HIV-1 p24 Ag and/or HIV-1/HIV-2 Ab not detected.A test result that is nonreactive does not exclude thepossibility of exposure to or infection with HIV-1 and/orHIV-2. Nonreactive results in this assay for individualswith prior exposure to HIV-1 and/or HIV-2 may be due toantigen and antibody levels that are below the limit ofdetection of this assay.The [email or web address] HIV Ag/Ab Combo assay result andsupplemental assay results should be interpreted inconjunction with the patient's clinical presentation,history and other laboratory results. If the results areinconsistent with clinical evidence, additional testing issuggested to confirm the result. Blood Venous blood specimen / Unknown 08/19/2023 10:02 AM EDT 08/19/2023 11:21 AM EDT us Michelle Rodriguez MD LAB BLOOD ORDERABLES Final Res ult Performing Organization Address [facility]/ZIP Co de Phone Number [facility] [address] [place] [address] [phone] * (ABNORMAL) Lipid Panel, Standard (08/19/2023 10:02 AM EDT) Triglycerides 99 <150 mg/dL [facility] Comment:Desirable Triglyceri de: less than 150 mg/dLBorderline High Triglyceride 150-199 mg/dLHigh Triglyceride: 200-499 mg/dLVery High Triglyceride: greater than or equal to 5OO mg/dL Cholesterol 139 <200 mg/dL [facility] Comment:Desirable Cholestero l: less than 200 mg/dLBorderline High Cholesterol: 200-239 mg/dLHigh Cholesterol: greater than 239 mg/dL LDL Cholesterol Calculated 86 <100 mg/dL [facility] Comment:Desirable LDL: less than 100 mg/dLNear Optimal/Above Optimal LDL: 110- 129 mg/dLBorderline High LDL: 130-159 mg/dLHigh LDL: 160-189 mg/dLVery High LDL: greater than or equal to 190 mg/dL HDL Cholesterol 34(L) >40 mg/dL [facility] Comment:Desirable HDL: great er than 40 mg/dL Note: This HDL assay may give artificially low results in patients with liver disease. Blood Venous blood specimen / Unknown 08/19/2023 10:02 AM EDT 08/19/2023 11:21 AM EDT us Michelle Rodriguez MD LAB BLOOD ORDERABLES Final Res ult [facility] [address] [place] [address] [phone] from Last 3 Months or Most Recently Relevant to Health Maintenance Insurance [facility] [address] [place] [address] DENTAL-[facility] MEDICAID STAND ADULT Care Teams Cripple Cutter Relationship Specialty Start Date End Date Michelle Rodriguez MD [address] [place] [address] PCP - General Family Medicine 02/19/21 Rose Phillip PharmD [address] [place] [address] Pharmacist Internal Medicine 03/02/24
--- OUTSIDE RECORDS SUMMARY | 2024-07-27 10:10 | XMS_ITS | Encounter Summary ---
Author Organization [employer] Address [address] [place] [address] [place] [address] Care Team Providers Care Office Machine Repair Shop Supervisor Name Role Phone Michelle Rodriguez MD Primary Care Provider [phone] Rose Phillip PharmD Unavailable [phone] Encounter Details Date Type Department Care Team ([facility] st Contact Info) Description 04/22/2024 Telephone [facility] MEDICINE [address] [place], [place] [phone] Liat Pink PharmD [address] [place] [address] Social History Tobacco Use Types Packs/Day Years [...] 08/05/2024 9:30 AM EST Medication Management [facility] MEDICINE [address] [place] [address] Rose Phillip PharmD [address] [place] [address] 09/08/2024 9:00 AM EDT Office Visit [facility] ADULT DENTAL [address] [place] [address] Miguelito, Johanne [address] [place] [address] documented as of this encounter Visit Diagnoses Not on filedocumented in this encounter Additional Health Concerns Assessment Noted Time PHQ-9 Depression Total Score: 6 11/02/19 23 3:44 PM EDT documented as of this encounter Care Teams Office Machine Repair Shop Supervisor Relationship Specialty Start Date End Date Michelle Rodriugez MD [address] [place] [address] PCP - General Family Medicine 02/19/21 Rose Phillip PharmD [address] [place] [phone] Pharmacist Internal Medicine 03/02/24 documented as of this encounter
--- OUTSIDE RECORDS SUMMARY | 2024-07-27 10:10 | XMS_ITS | Encounter Summary ---
Author Organization [employer] Address [address] [place] [address] 7t [place] [address] Care Team Providers Care Button Sewer Hand Name Role Phone Michelle Rodriguez MD Primary Care Provider [phone] Rose Phillip PharmD Unavailable [phone] Reason for Visit * Reason Comments Med Refill Encounter Details Date Type Department Care Team ([facility] st Contact Info) Description 09/10/2023 Refill [facility] MEDICINE [address] [place], [place] [phone] Michelle Rodriguez MD [address] [place] [address] Primary insomnia Social History Tobacco Use Types [...] Description 08/05/2024 9:30 AM EST Medication Management [facility] MEDICINE [address] [place] [address] Rose Phillip PharmD [address] [place] [address] 09/08/2024 9:00 AM EDT Office Visit [facility] ADULT DENTAL [address] [place] [address] Miguelito, Johanne [address] [place] [address] documented as of this encounter Visit Diagnoses Diagnosis Primary insomnia Persistent disorder of initiating or maintaining sleep documented in this encounter Additional Health Concerns Assessment Noted Time PHQ-9 Depression Total Score: 6 11/02/19 23 3:44 PM EDT documented as of this encounter Care Teams Button Sewer Hand Relationship Specialty Start Date End Date Michelle Rodriguez MD [address] [place] [address] PCP - General Family Medicine 02/19/21 Rose Phillip PharmD [address] [place] [address] Pharmacist Internal Medicine 03/02/24 documented as of this encounter
--- OUTSIDE RECORDS SUMMARY | 2024-07-27 10:10 | XMS_ITS | Encounter Summary ---
Author Organization [employer] Address [address] [facility] 7t [place] [address] Care Team Providers Care Professor Of Marketing Name Role Phone Michelle Rodriguez MD Primary Care Provider [phone] Rose Phillip PharmD Unavailable [phone] Encounter Details Date Type Department Care Team ([facility] st Contact Info) Description 07/01/2024 Orders Only [facility] MEDICINE [address] [place], [place] [phone] Michelle Rodriguez MD [address] [place], [place] [phone] Social History Tobacco Use Types Packs/Day Years [...] as of this encounter Miscellaneous Notes * Result Encounter Note - Michelle Rodriguez MD - 07/01/2024 12:30 PM EST Please let patient know that no abnormalities were noted in his kidneys, specifically no stones or swelling of the kidneys or cysts. TY documented in this encounter Plan of Treatment Upcoming Encounters Date Type Department Care Team (Late st Contact Info) Description 08/05/2024 9:30 AM EST Medication Management [facility] MEDICINE [address] [place] [address] Rose Phillip, PharmD [address] [place] [address] 09/08/2024 9:00 AM EDT Office Visit [facility] ADULT DENTAL [address] [place] [address] Miguelito, Johanne [address] [place] [address] documented as of this encounter Procedures Procedure Name Priority Date/Time Associated Diagnosis Comments US RENAL BI Routine 07/01/2024 12:27 PM EST documented in this encounter Results * US RENAL BI (07/01/2024 12:27 PM EST) Anatomical Region Laterality Modality Abdomen Ultrasound 07/01/2024 12:2 7 PM EST Narrative 07/01/2024 12:29 PM EST ? [facility] ?[address] ?[place] [address] ? Ultrasound Report ? Signed ? Patient: Carcamo,Raimundo ?MR#: [id number] ?? 9 ? : 1970 ?Acct:[id number] ? Age/Sex: 53 / M ?ADM Date: 07/01/24 ? Loc: HO.US ? Attending Dr: Michelle Rodriguez MD ? Ordering Physician: Michelle Rodriguez ?? Date of Service: 07/01/24 ?? Procedure(s): US renal BI ?? Accession Number(s): [id number] ? cc: Michelle Rodriguez ? CLINICAL HISTORY: [...] DD/ 1227 ? TD/TT: 07/01/24 1227 ? Recycling Technician: ? Procedure Note Sukhdev Sloan - 07/01/2024 [place] [address] Ultrasound Report Signed Patient: Todd Carcamo#: [id number] 9 : 1970Acct:[id number] Age/Sex: 53 / MADM Date: 07/01/24 Loc: HO.US Attending Dr: Michelle Rodriguez MD Ordering Physician: Michelle Rodriguez Date of Service: 07/01/24 Procedure(s): US renal BI Accession Number(s): [id number] cc: Michelle Rodriguez CLINICAL HISTORY: flank pain [...] 07/01/24 1229 DD/ 1227 TD/TT: 07/01/24 1227 Recycling Technician: Michelle Rodriguez MD IM US PROCEDURES Final Result documented in this encounter Visit Diagnoses Not on filedocumented in this encounter Additional Health Concerns Assessment Noted Time PHQ-9 Depression Total Score: 6 11/02/19 23 3:44 PM EDT documented as of this encounter Care Teams Professor Of Marketing Relationship Specialty Start Date End Date Michelle Rodriguez MD [address] [place] [address] PCP - General Family Medicine 02/19/21 Rose Phillip PharmD [address] [place] [address] Pharmacist Internal Medicine 03/02/24 documented as of this encounter
--- OUTSIDE RECORDS SUMMARY | 2024-07-27 10:10 | XMS_ITS | Encounter Summary ---
Author Organization [employer] Address [address] [facility] 7t [place] [address] Care Team Providers Care Internet Manager Name Role Phone Michelle Rodriguez MD Primary Care Provider [phone] Rose Phillip PharmD Unavailable [phone] Reason for Visit * Reason Onset Date Comments Results 07/09/2024 Encounter Details Date Type Department Care Team ([facility] st Contact Info) Description 07/09/[address] [facility] MEDICINE [address] [place], [place] [phone] [place] Results Social History Tobacco Use Types Packs/Day Years [...] encounter Miscellaneous Notes * Telephone Encounter - Kenisha Plaza [place] - 07/09/2024 4:17 PM EST T/C placed to pt to notify per pcp that Ultrasound was normal. documented in this encounter Plan of Treatment Upcoming Encounters Date Type Department Care Team (Late st Contact Info) Description 08/05/2024 9:30 AM EST Medication Management [facility] MEDICINE [address] [place] [address] Rose Phillip, PharmD 230 [place] [address] 09/08/2024 9:00 AM EDT Office Visit [facility] ADULT DENTAL [address] [place] [address] Miguelito, Johanne [address] [place] [address] documented as of this encounter Visit Diagnoses Not on filedocumented in this encounter Additional Health Concerns Assessment Noted Time PHQ-9 Depression Total Score: 6 11/02/19 23 3:44 PM EDT documented as of this encounter Care Teams Internet Manager Relationship Specialty Start Date End Date Michelle Rodriguez MD [address] [place] [phone] PCP - General Family Medicine 02/19/21 Rose Phillip, PharmD [address] [place] [phone] Pharmacist Internal Medicine 03/02/24 documented as of this encounter
[2024-08-08 13:38] LABS: Testosterone, Total 335 ng/dL (250-1100)
== END 2024-07-27 09:17 | disposition home or self-care (01) ==
LOC: HO.HHCL 09:16
PROVIDERS: Visit Provider General Practice
DX: E29.1 Testicular hypofunction (principal); E34.9 Endocrine disorder, unspecified
CPT/HCPCS: 36415; 84402; 84403

== ENCOUNTER 2024-10-18 09:28 | Outpatient (REF) | payer MEDICAID, SELFPAY ==
--- OUTSIDE RECORDS SUMMARY | 2024-10-18 09:47 | XMS_ITS | Encounter Summary ---
Author Organization [employer] Address [address] [facility] 7t [place] [address] Care Team Providers Care Glove Cutter Name Role Phone Michelle Rodriguez MD Primary Care Provider [phone] Rose Phillip PharmD Unavailable [phone] Encounter Details Date Type Department Care Team (Late st Contact Info) Description 07/15/2022 Orders Only [facility] MED & PEDS [address] [place] [address] Pily Linn LPN Social History Tobacco Use [...] Care Team (Late st Contact Info) Description 10/18/2024 3:30 PM EDT Office Visit [facility] MEDICINE [address] [place] [phone] Michelle Rodriguez MD [address] [place] [address] 10/21/2024 10:30 AM EDT Medication Management [facility] MEDICINE [address] [place] [address] Rose Phillip PharmD [address] [place] [address] documented as of this encounter Visit Diagnoses Not on filedocumented in this encounter Care Teams Glove Cutter Relationship Specialty Start Date End Date Michelle Rodriguez MD [address] [place] [address] PCP - General Family Medicine 02/19/21 Rose Phillip PharmD [address] [place] [address] Pharmacist Internal Medicine 03/02/24 documented as of this encounter
--- OUTSIDE RECORDS SUMMARY | 2024-10-18 09:47 | XMS_ITS | Encounter Summary ---
Author Organization [employer] Address [address] [place] [address] 7t [place] [address] Care Team Providers Care Auditor Internal Name Role Phone Michelle Rodriguez MD Primary Care Provider [phone] Rose Phillip PharmD Unavailable Encounter Details Date Type Department Care Team (Late st Contact Info) Description 08/30/2022 Orders Only [facility] CHC MED & PEDS [address] [place] [address] Pily Linn LPN Social History Tobacco Use [...] Description 10/18/2024 3:30 PM EDT Office Visit [facility] MEDICINE [address] [place] [phone] Michelle Rodriguez MD [address] [place] [address] 10/21/2024 10:30 AM EDT Medication Management [facility] MEDICINE [address] [place] [phone] Rose Phillip, PharmD 230 [place] [address] documented as of this encounter Visit Diagnoses Not on filedocumented in this encounter Care Teams Auditor Internal Relationship Specialty Start Date End Date Michelle Rodriguez MD 230 [place], [place] [phone] PCP - General Family Medicine 02/19/21 Rose Phillip PharmD 230 [place] [address] Pharmacist Internal Medicine 03/02/24 documented as of this encounter
--- OUTSIDE RECORDS SUMMARY | 2024-10-18 09:47 | XMS_ITS | Encounter Summary ---
Author Organization [employer] Address [address] [place] [address] 7t [place] [address] Care Team Providers Care Application Support Administrator Name Role Phone Michelle Rodriguez MD Primary Care Provider [phone] Rose Phillip PharmD Unavailable [phone] Reason for Visit * Reason Comments Med Refill Encounter Details Date Type Department Care Team ([facility] st Contact Info) Description 11/11/[address] [facility] MEDICINE [address] [place], [place] [phone] Michelle Rodriguez MD [address] [place] [address] Primary insomnia Social History Tobacco Use Types [...] Description 10/18/2024 3:30 PM EDT Office Visit [facility] MEDICINE [address] [place] [phone] Michelle Rodriguez MD [address] [place] [phone] 10/21/2024 10:30 AM EDT Medication Management [facility] MEDICINE [address] [place] [address] Rose Phillip PharmD [address] [place] [phone] documented as of this encounter Visit Diagnoses Diagnosis Primary insomnia Persistent disorder of initiating or maintaining sleep documented in this encounter Additional Health Concerns Assessment Noted Time PHQ-9 Depression Total Score: 6 11/02/19 23 3:44 PM EDT documented as of this encounter Care Teams Application Support Administrator Relationship Specialty Start Date End Date Michelle Rodriguez MD [address] [place] [phone] PCP - General Family Medicine 02/19/21 Rose Phillip PharmD [address] [place] [phone] Pharmacist Internal Medicine 03/02/24 documented as of this encounter
--- OUTSIDE RECORDS SUMMARY | 2024-10-18 09:47 | XMS_ITS | Encounter Summary ---
Author Organization [employer] Address [address] [place] [address] 7 [place] [address] Care Team Providers Care Automatic Toe Laster Name Role Phone Michelle Rodriguez MD Primary Care Provider Rose Phillip PharmD Unavailable Reason for Visit * Reason Comments Med Refill Encounter Details Date Type Department Care Team (Late Contact Info) Description 12/21/2022 Refill [facility] MEDICINE [address] [place] [address] [phone] Michelle Rodriguez MD [address] [place] [address] [phone] Social History Tobacco Use Types Packs/Day Years [...] Description 10/18/2024 3:30 PM EDT Office Visit [facility] MEDICINE [address] [place] [address] [phone] Michelle Rodriguez MD [address] [place] [address] [phone] 10/21/2024 10:30 AM EDT Medication Management [facility] MEDICINE 230 [place] [address] Rose Phillip PharmD 230 [place] [address] documented as of this encounter Visit Diagnoses Not on filedocumented in this encounter Additional Health Concerns Assessment Noted Time PHQ-9 Depression Total Score: 6 11/02/19 23 3:44 PM EDT documented as of this encounter Care Teams Automatic Toe Laster Relationship Specialty Start Date End Date Michelle Rodriguez MD 230 [place], [place] [phone] PCP - General Family Medicine 02/19/21 Rose Phillip PharmD 230 [place], [place] [phone] Pharmacist Internal Medicine 03/02/24 documented as of this encounter
--- OUTSIDE RECORDS SUMMARY | 2024-10-18 09:48 | XMS_ITS | Encounter Summary ---
Author Organization [employer] Address [address] [place] [address] 7t [place] [address] Care Team Providers Care Reamer Hand Name Role Phone Michelle Rodriguez MD Primary Care Provider [phone] Rose Phillip PharmD Unavailable [phone] Reason for Visit * Reason Comments Med Refill Encounter Details Date Type Department Care Team ([facility] st Contact Info) Description 09/10/2023 Refill [facility] MEDICINE 230 [place], [place] [phone] Michelle Rodriguez MD 230 [place] [address] Primary insomnia Social History Tobacco Use Types [...] Description 10/18/2024 3:30 PM EDT Office Visit [facility] MEDICINE [address] [place] [phone] Michelle Rodriguez MD [address] [place] [address] 10/21/2024 10:30 AM EDT Medication Management [facility] MEDICINE [address] [place] [phone] Rose Phillip PharmD [address] [place] [phone] documented as of this encounter Visit Diagnoses Diagnosis Primary insomnia Persistent disorder of initiating or maintaining sleep documented in this encounter Additional Health Concerns Assessment Noted Time PHQ-9 Depression Total Score: 6 11/02/19 23 3:44 PM EDT documented as of this encounter Care Teams Reamer Hand Relationship Specialty Start Date End Date Michelle Rodriguez MD [address] [place] [phone] PCP - General Family Medicine 02/19/21 Rose Phillip PharmD [address] [place] [phone] Pharmacist Internal Medicine 03/02/24 documented as of this encounter
--- OUTSIDE RECORDS SUMMARY | 2024-10-18 09:48 | XMS_ITS | Encounter Summary ---
Author Organization [employer] Address [address] [facility] 7t [place] [address] Care Team Providers Care Yield Loss Inspector Name Role Phone Michelle Rodriguez MD Primary Care Provider [phone] Rose Phillip PharmD Unavailable [phone] Encounter Details Date Type Department Care Team ([facility] st Contact Info) Description 03/02/2024 Orders Only [facility] MEDICINE [address] [place], [place] [phone] Michelle Rodriguez MD [address] [place], [place] [phone] History of hepatitis C (Primary Dx) Social [...] Description 10/18/2024 3:30 PM EDT Office Visit [facility] MEDICINE [address] [place] [phone] Michelle Rodriguez MD [address] [place] [address] 10/21/2024 10:30 AM EDT Medication Management [facility] MEDICINE [address] [place] [phone] Rose Phillip, PharmD [address] [place] [address] documented as of this encounter Procedures Procedure Name Priority Date/Time Associated Diagnosis Comments HEPATITIS PANEL, GENERAL Routine 03/08/2024 9:25 AM EDT History of hepatitis C documented in this encounter Results * (ABNORMAL) Hepatitis A,B,C Profile (03/08/2024 9:25 AM EDT) Hepatitis A IgM Nonreactive Nonreactive [facility] Comment:IgM antibodies to JOSEPH V not detected; does not exclude earlyacute or recovered HAV infection. ~Hepatitis B Surface Antibody REACTIVE Nonreactive [facility] Comment:REACTIVE: > 11.99 mI U/mL Hepatitis B Core Antibody Nonreactive Nonreactive [facility] Hepatitis C Antibody Reactive(A) Nonreactive [facility] Comment:Presumptive evidence of antibodies to HCV. Hepatitis B Surface Ag Negative Negative [facility] Blood Venous blood specimen / Unknown 03/08/2024 9:25 AM EDT 03/08/2024 11:15 AM EDT Michelle Rodriguez MD LAB BLOOD ORDERABLES Final Res ult [facility] [address] [place] [phone] [phone] documented in this encounter Visit Diagnoses Diagnosis History of hepatitis C- Primary Personal history of other infectious and parasitic disease documented in this encounter Additional Health Concerns Assessment Noted Time PHQ-9 Depression Total Score: 6 11/02/19 23 3:44 PM EDT documented as of this encounter Care Teams Yield Loss Inspector Relationship Specialty Start Date End Date Michelle Rodriguez MD [address] [place] [address] PCP - General Family Medicine 02/19/21 Rose Phillip PharmD [address] [place] [phone] Pharmacist Internal Medicine 03/02/24 documented as of this encounter
--- OUTSIDE RECORDS SUMMARY | 2024-10-18 09:48 | XMS_ITS | Clinical Summary ---
Author Organization [employer] Address [address] [place] [address] 7t [place] [address] Care Team Providers Care Aircraft Load Controller Name Role Phone Michelle Rodriguez MD Primary Care Provider [phone] Rose Phillip PharmD Unavailable [phone] Allergies Active Allergy Reactions Criticality Noted [...] sprays into each nostril in the morning. 10/03/19 23 Active amLODIPine (Norvasc) 5 MG tablet TAKE 1 TABLET BY MOUTH EVERY MORNING 30 tablet 11 09/08/19 24 Active metFORMIN (Glucophage) 1000 MG tablet TAKE 1 TABLET BY MOUTH TWICE DAILY IN THE MORNING AND IN THE EVENING WITH MEALS 180 tablet 3 11/17/19 24 Active Pentips 32G X 4 MM misc USE ONCE DAILY WITH INSULIN 100 each 3 01/26/20 24 Active Continuous Glucose Braille Proofreader (FreeStyle [place]ena 2 Nebo) deviceIndication s:Type 2 diabetes mellitus with hyperglycemia, with long-term current use of insulin ([facility]) Scan sensor every 8 hours 1 each 01/28/20 24 Active pilocarpine (Salagen) 5 MG tablet Take 1 tablet (5 mg) by mouth 3 times daily. 90 tablet 11 02/20/20 24 025 Active glucose blood (FreeStyle Precision Kwaku Test) test stripIndications :Type 2 diabetes mellitus with hyperglycemia, with long-term current use of insulin ([facility]) Use to test blood sugar up to 3 times daily, as directed 100 each 11 03/02/20 24 Active TRUEplus Lancets 33G miscIndications: Type 2 diabetes mellitus with hyperglycemia, with long-term current use of insulin ([facility]) Use to test blood sugar 3 time(s) daily 100 each 11 03/02/20 24 Active Sodium Fluoride 5000 Sensitive 1.1-5 % gel BRUSH WITH A PEA SIZED AMOUNT OF TOOTHPASTE (1/4 GRAM) TWICE DAILY IN THE MORNING AND AT BEDTIME FOR 2 MINUTES, SPIT OUT EXCESS, DO NOT RINSE, DO NOT EAT OR DRINK FOR 30 MINUTES AFTER USE 02/20/20 24 Active atorvastatin (Lipitor) 20 MG tablet Take 1 tablet (20 mg) by mouth Once per day. 90 tablet 3 03/02/20 24 025 Active Continuous Glucose Sensor (FreeStyle La Nena 2 Sensor) miscIndications: Type 2 diabetes mellitus with hyperglycemia, with long-term current use of insulin ([facility]) USE DIRECTED TO TEST BLOOD SUGAR. CHANGE EVERY 14 DAYS . 2 each 3 06/22/19 25 Active Testosterone 1.62 % gel APPLY 2 PUMPS TOPICALLY EVERY MORNING DIRECTED 75 g 3 07/12/19 25 Active zolpidem (Ambien) 10 MG tabletIndication s:Primary insomnia TAKE 1 TABLET BY MOUTH AT BEDTIME 30 tablet 07/23/19 25 Active ibuprofen 600 MG tablet Take 1 tablet by mouth every 8 (eight) hours if needed for pain. 07/23/19 25 Active hydrOXYzine HCl (Atarax) 25 MG tablet TAKE 1 TO 2 TABLETS BY MOUTH TWICE DAILY NEEDED FOR ANXIETY 07/23/19 25 Active Semaglutide, 2 MG/DOSE, (Ozempic, 2 MG/DOSE,) 8 MG/3ML solution pen-injectorIndi cations:Type 2 diabetes mellitus with hyperglycemia, with long-term current use of insulin ([facility]) Inject 0.75 mL (2 mg) under the skin 1 (one) time per week. 3 mL 11 08/06/19 25 Active insulin glargine (Lantus SoloStar) 100 UNIT/ML penIndications:T ype 2 diabetes mellitus with hyperglycemia, with long-term current use of insulin ([facility]) Inject 10 Units under the skin at bedtime. 15 mL 1 08/06/19 25 Active insulin lispro (HumaLOG) 100 UNIT/ML injection INJECT SUBCUTANEOUSLY WITH MEALS PER SLIDING SCALE; BLOOD SUGAR <150 = 0 UNITS, 151-200 = 2 UNITS, 201-251 = 4 UNITS, 251-300 = 6 UNITS, 301-350 = 8 UNITS, > 350 = 10 UNITS 15 mL 08/06/19 25 Active nicotine polacrilex (Commit) 2 MG lozengeIndicatio ns:Tobacco use disorder DISSOLVE 1 LOZENGE BY MOUTH EVERY 1 TO 2 HOURS NEEDED FOR CRAVINGS DO NOT EXCEED 20 LOZENGE / 24 HOURS 144 lozenge 5 09/04/19 25 Active lisinopril 20 MG tabletIndication s:Primary hypertension TAKE 1 TABLET BY MOUTH EVERYDAY AT NOON 90 tablet 3 09/07/19 25 Active glipiZIDE (Glucotrol) 5 MG tabletIndication s:Type 2 diabetes mellitus with hyperglycemia, with long-term current use of insulin (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 [facility] Last use 3 weeks ago Testosterone [...] referral in, appt not made Dental: at [facility] BMP: Lab Results Component Value Date [...] two months ago, he is actively seeking detox/acetone recovery worker Will come tomorrow morning at 845 to [...] Encounters Date Type Department Care Team Description 10/15/2024 Telephone [facility] MED[facility]INE [address] [place] [address] Michelle Rodriguez MD Chart Prep 10/13/2024 9:00 AM EDT Telemedicine [facility] [address] [place] [address] Rose Phillip PharmD Type 2 diabetes mellitus with hyperglycemia, with long-term current use of insulin ([facility]) (Primary Dx) 10/12/2024 Refill [facility] [address] [place] [address] Rose [place] 09/05/2024 Refill [facility] [address] [place] [address] Rose Phillip Pharm[place] Type 2 diabetes mellitus with hyperglycemia, with long-term current use of insulin ([facility]) 09/05/2024 Refill [facility] [address] [place] [address] Michelle Rodriguez MD Primary hypertension 09/05/2024 Refill [facility] [address] [place] [address] Franci Lopez MD 09/03/2024 Refill [facility] [address] [place] [address] Rose Phillip [facility] Tobacco use disorder 08/13/2024 Population Health Risk Score [facility] Department [address] [phone] Provider, Population Health Generic 08/05/2024 Telephone [facility] MED[facility]INE [address] [place] [address] Rose Phillip PharmD Prior Authorization ([facility]) 08/05/2024 Travel 07/23/2024 Refill [facility] [address] [place] [address] Michelle Rodriguez MD Primary insomnia from Last 3 Months Immunizations Immunization Administration Dates Next Due Hep B, adult [...] the past 12 months, has t he [employer], gas, oil or water [employer] threatened to shut off services in your [...] 10/18/2024 3:30 PM EDT Office Visit [facility] MED[facility]INE [address] [place] [address] Michelle Rodriguez MD [address] [place] [address] 10/21/2024 10:30 AM EDT Medication Management [facility] [address] [place] [address] Rose Phillip, PharmD [address] [place] [address] Health Maintenance Due Date Last Done Comments CT Colonography 1972 Colonoscopy 1972 Colorectal Cancer Screening 1972 Dental X-Ray: Full Mouth 1972 FIT DNA/Cologuard 1972 FIT 1972 FOBT 1972 Sigmoidoscopy 1972 Disability Screening 1972 Diabetes: Foot Exam 1982 Alcohol/Substance Use [...] patient's age to complete this topic Meningococcal B Vaccine Aged Out No l onger eligible based on patient's age to complete [...] Procedure Name Priority Date/Time Associated Diagnosis Comments TESTOSTERONE, TOTAL, MALES (ADULT), IA Routine 07/27/2024 9:18 AM EST Testosterone insufficiency TESTOSTERONE, FREE (DIALYSIS) AND TOTAL,MS Routine 07/27/2024 9:18 AM EST Male hypogonadism POCT GLYCATED HEMOGLOBIN, TOTAL Routine 06/14/2024 9:04 AM EST Type 2 diabetes mellitus with hyperglycemia, with long-term current use of insulin ([facility]) ALBUMIN, RANDOM URINE W/CREATININE Routine 03/08/2024 9:17 [...] complication, with long-term current use of insulin ([facility]) LIPID PANEL, STANDARD Routine 08/19/2023 10:02 AM EDT Type 2 diabetes mellitus without complication, with long-term current use of insulin ([facility]) from Last 3 Months or Most Recently Relevant to Health Maintenance Results * Testosterone, Free (Dialysis) And Total, MS (07/27/2024 9:18 AM EST) Testosterone, Total 335 250 - 1100 ng/dL [facility] Comment:For additional infor erwin, please refer tohttp://education.[employer]/faq/CkyliMmwlxhovoavdRZRJZQJNV034(This link is being provided for informational/educational purposes only.)This test was developed and its analytical performancecharacteristics have been determined by [employer] [place], [place]. It hasnot been cleared or approved by the U.S. Food and DrugAdministration. This assay has been validated pursuantto the CLIA regulations and is used for clinicalpurposes. Testosterone, Free 65.0 35.0 - 155.0 pg/mL [facility] Comment:This test was develo ped and its analytical performancecharacteristics have been determined by [employer] [place], [place]. It hasnot been cleared or approved by the U.S. Food and DrugAdministration. This assay has been validated pursuantto the CLIA regulations and is used for clinicalpurposes.THIS TEST WAS PERFORMED AT:[employer]/[id number] [place] [address]JHEJTMFLONNIE GUAMAN MD,PHD Blood Venous blood specimen / Unknown 07/27/2024 9:18 AM EST 07/27/2024 11:35 AM EST Result [facility] Michelle Rodriguez MD LAB BLOOD ORDERABLES Final Res ult Performing Organization Address City/[facility]/ZIP Co de Phone Number [facility] [address] [place] [phone] * Testosterone, Total, males (Adult), IA (07/27/2024 9:18 AM EST) Testosterone, Total TNP [facility] Comment:DUPLICATE Blood Venous blood specimen / Unknown 07/27/2024 9:18 AM EST 07/27/2024 11:35 AM EST Result [facility] Michelle Rodriguez MD LAB BLOOD ORDERABLES Final Res ult Performing Organization Address City/[facility] Co de Phone Number [facility] [address] [place] [phone] * (ABNORMAL) POCT HGB A1C (06/14/2024 9:04 AM EST) Hemoglobin A1C 9.5(A) 4.0 - 6.0 % QC Media Lot # [id number] Lot# Expiration Date Blood 06/14/2024 9:04 AM EST Result [facility] Michelle Rodriguez MD POINT OF CARE TEST ENTER/EDIT ORDERABLES Final Result * Albumin, Random Urine W/Creatinine (03/08/2024 9:17 AM EDT) Creatinine, Urine 110.89 mg/dL [facility] Microalbumin Urine <5.0 mg/L [facility] Microalbum Creatinine Ratio Ur TNP <30 ug/mg cr [facility] Comment:Unable to calculate albumin/creatinine ratio due to lowmicroalbumin or creatinine result. 03/08/2024 9:17 AM EDT 03/08/2024 10:55 AM EDT us Michelle Rodriguez MD LAB URINE ORDERABLES Final Res ult Performing Organization Address City/[facility]/ZIP Co de Phone Number [facility] [address] [place] [phone] * HIV-1/2 Antigen and Antibodies, Fourth Generation, with Reflexes (08/19/2023 10:02 AM EDT) HIV AB/AG Nonreactive Nonreactive [facility] Comment:HIV-1 p24 Ag and/or HIV-1/HIV-2 Ab not detected.A test result that is nonreactive does not exclude thepossibility of exposure to or infection with HIV-1 and/orHIV-2. Nonreactive results in this assay for individualswith prior exposure to HIV-1 and/or HIV-2 may be due toantigen and antibody levels that are below the limit ofdetection of this assay.The [employer] HIV Ag/Ab Combo assay result andsupplemental assay results should be interpreted inconjunction with the patient's clinical presentation,history and other laboratory results. If the results areinconsistent with clinical evidence, additional testing issuggested to confirm the result. Blood Venous blood specimen / Unknown 08/19/2023 10:02 AM EDT 08/19/2023 11:21 AM EDT us Michelle Rodriguez MD LAB BLOOD ORDERABLES Final Res ult [facility] [address] [place] [phone] * (ABNORMAL) Lipid Panel, Standard (08/19/2023 10:02 AM EDT) Triglycerides 99 <150 mg/dL [facility] Comment:Desirable Triglyceri de: less than 150 mg/dLBorderline High Triglyceride 150-199 mg/dLHigh Triglyceride: 200-499 mg/dLVery High Triglyceride: greater than or equal to 5OO mg/dL Cholesterol 139 <200 mg/dL [facility] Comment:Desirable Cholestero l: less than 200 mg/dLBorderline High Cholesterol: 200-239 mg/dLHigh Cholesterol: greater than 239 mg/dL LDL Cholesterol Calculated 86 <100 mg/dL [facility] Comment:Desirable LDL: less than 100 mg/dLNear Optimal/Above Optimal LDL: 110- 129 mg/dLBorderline High LDL: 130-159 mg/dLHigh LDL: 160-189 mg/dLVery High LDL: greater than or equal to 190 mg/dL HDL Cholesterol 34(L) >40 mg/dL [facility] Comment:Desirable HDL: great er than 40 mg/dL Note: This HDL assay may give artificially low results in patients with liver disease. Blood Venous blood specimen / Unknown 08/19/2023 10:02 AM EDT 08/19/2023 11:21 AM EDT Michelle Rodriguez MD LAB BLOOD ORDERABLES Final Res ult Performing Organization Address [facility] Co de Phone Number [facility] [address] [place] [phone] from Last 3 Months or Most Recently Relevant to Health Maintenance Insurance [facility] C3 DENTAL-[facility] MEDICAID STAND ADULT Care Teams Aircraft Load Controller Relationship Specialty Start Date End Date Michelle Rodriguez MD [address] [place], [place] [phone] PCP - General Family Medicine 02/19/21 Rose Phillip PharmD [address] [place], [place] [phone] Pharmacist Internal Medicine 03/02/24
--- OUTSIDE RECORDS SUMMARY | 2024-10-18 09:48 | XMS_ITS | Encounter Summary ---
Author Organization [employer] Address [address] 7[address] [place] [address] Care Team Providers Care Booster Assembler Name Role Phone Michelle Rodriguez MD Primary Care Provider [phone] Rose Phillip PharmD Unavailable [phone] Reason for Visit * Reason Comments Med Refill Encounter Details Date Type Department Care Team ([facility] st Contact Info) Description 05/14/2023 Refill [facility] [address] [place] [address] Uriah Hoang FNP Social History Tobacco Use [...] Description 10/18/2024 3:30 PM EDT Office Visit [facility] [address] [place] [phone] Michelle Rodriguez MD [address] [place] [address] 10/21/2024 10:30 AM EDT Medication Management [facility] [address] [place] [phone] Rose Phillip PharmD [address] [place] [phone] documented as of this encounter Visit Diagnoses Not on filedocumented in this encounter Additional Health Concerns Assessment Noted Time PHQ-9 Depression Total Score: 6 11/02/19 23 3:44 PM EDT documented as of this encounter Care Teams Booster Assembler Relationship Specialty Start Date End Date Michelle Rodriguez MD [address] [place] [phone] PCP - General Family Medicine 02/19/21 Rose Phillip PharmD [address] [place] [address] [phone] Pharmacist Internal Medicine 03/02/24 documented as of this encounter
--- OUTSIDE RECORDS SUMMARY | 2024-10-18 09:48 | XMS_ITS | Encounter Summary ---
Author Organization [employer] Address [address] [place] [address] 7t [place] [address] Care Team Providers Care Supervisor Travel Information Center Name Role Phone Michelle Rodriguez MD Primary Care Provider [phone] Rose Phillip PharmD Unavailable Reason for Referral * Consultation (Routine) - Authorized Specialty Diagnoses / Procedures Referred By Contac t Referred To Contact Pharmacy Diagnoses Type 2 diabetes mellitus with hyperglycemia, with long-term current use of insulin (CMS/HCC) Michelle Rodriguez MD [address] [place] [address] Phone: tel: fax: Referral ID Status Reason Start Date Expiration Date Visits Requested Visits Authorized [id number] Authorized Consult and Treat 03/26/2024 03/26/2025 6 6 Encounter Details Date Type Department Care Team (Late st Contact Info) Description 03/21/2024 Orders Only [facility] [address] [place], [place] [phone] Michelle Rodriguez MD [address] [place], [place] [phone] Male hypogonadism (Primary Dx); Type 2 diabetes [...] Description 10/18/2024 3:30 PM EDT Office Visit [facility] [address] [place] [phone] Michelle Rodriguez MD [address] [place] [phone] 10/21/2024 10:30 AM EDT Medication Management [facility] [address] [place] [address] Rose Phillip, Camilo [address] [place] [phone] Scheduled Referrals Name Type Priority Associated Diagnoses Orde r Schedule Referral to Pharmacy CDTM Outpatient Referral Routine Type 2 diabetes mellitus with hyperglycemia, with long-term current use of insulin ([facility]) Ordered: 03/26/2024 documented as of this encounter Procedures Procedure Name Priority Date/Time Associated Diagnosis Comments TESTOSTERONE, FREE (DIALYSIS) AND TOTAL,MS Routine 07/27/2024 9:18 AM EST Male hypogonadism documented in this encounter Results * Testosterone, Free (Dialysis) And Total, MS (07/27/2024 9:18 AM EST) Testosterone, Total 335 250 - 1100 ng/dL [facility] Comment:For additional infor matfranki, please refer tohttp://education.[employer]/faq/PnggrSbgffgigcagtCWVWTCLXC901(This link is being provided for informational/educational purposes only.)This test was developed and its analytical performancecharacteristics have been determined by [employer]. It hasnot been cleared or approved by the U.S. Food and DrugAdministration. This assay has been validated pursuantto the CLIA regulations and is used for clinicalpurposes. Testosterone, Free 65.0 35.0 - 155.0 pg/mL [facility] Comment:This test was develo ped and its analytical performancecharacteristics have been determined by [employer]. It hasnot been cleared or approved by the U.S. Food and DrugAdministration. This assay has been validated pursuantto the CLIA regulations and is used for clinicalpurposes.THIS TEST WAS PERFORMED AT:[facility]/[employer] [id number] [place] [address]EJCQHADLONNIE GUAMAN MD,PHD Blood Venous blood specimen / Unknown 07/27/2024 9:18 AM EST 07/27/2024 11:35 AM EST us Michelle Rodriguez MD LAB BLOOD ORDERABLES Final Res ult [facility] [address] [place] [address] [phone] documented in this encounter Visit Diagnoses Diagnosis Male hypogonadism- Primary Other testicular hypofunction Type 2 diabetes mellitus with hyperglycemia, with long-term current use of insulin ([facility]) documented in this encounter Additional Health Concerns Assessment Noted Time PHQ-9 Depression Total Score: 6 11/02/19 23 3:44 PM EDT documented as of this encounter Care Teams Supervisor Travel Information Center Relationship Specialty Start Date End Date Michelle Rodriguez MD [address] [place] [address] PCP - General Family Medicine 02/19/21 Rose Phillip PharmD [address] [place] [address] Pharmacist Internal Medicine 03/02/24 documented as of this encounter
--- OUTSIDE RECORDS SUMMARY | 2024-10-18 09:48 | XMS_ITS | Encounter Summary ---
Author Organization [employer] Address [address] [place] [address] 7 [place] [address] Care Team Providers Care Vehicle Body Sander Name Role Phone Michelle Rodriguez MD Primary Care Provider [phone] Rose Phillip PharmD Unavailable [phone] Encounter Details Date Type Department Care Team ([facility] st Contact Info) Description 04/22/2024 Telephone [facility] [address] [place], [place] [phone] Liat Pink PharmD [address] [place] [address] Social History Tobacco Use Types Packs/Day Years [...] Description 10/18/2024 3:30 PM EDT Office Visit [facility] [address] [place] [phone] Michelle Rodriguez MD [address] [place] [address] 10/21/2024 10:30 AM EDT Medication Management [facility] [address] [place] [phone] Rose Phillip PharmD [address] [place] [phone] documented as of this encounter Visit Diagnoses Not on filedocumented in this encounter Additional Health Concerns Assessment Noted Time PHQ-9 Depression Total Score: 6 11/02/19 23 3:44 PM EDT documented as of this encounter Care Teams Vehicle Body Sander Relationship Specialty Start Date End Date Michelle Rodriguez MD [address] [place] [phone] PCP - General Family Medicine 02/19/21 Rose Phillip PharmD [address] [place] [address] [phone] Pharmacist Internal Medicine 03/02/24 documented as of this encounter
--- OUTSIDE RECORDS SUMMARY | 2024-10-18 09:48 | XMS_ITS | Encounter Summary ---
Author Organization [employer] [facility] Address [address] [place] [address] 7t [place] [address] Care Team Providers Care Medical Review Coordinator Name Role Phone Michelle Rodriguez MD Primary Care Provider [phone] Rose Phillip PharmD Unavailable Encounter Details Date Type Department Care Team (Latest Contact Info) Description 12/13/2021 Abstract [facility] CONVERSIONS Dental, Provider, DDS Social History [...] Description 10/18/2024 3:30 PM EDT Office Visit [facility] [address] [place] [phone] Michelle Rodriguez MD [address] [place] [address] 10/21/2024 10:30 AM EDT Medication Management [facility] [address] [place] [address] Rose Phillip, PharmD [address] [place] [address] documented as of this encounter Visit Diagnoses Not on filedocumented in this encounter Care Teams Medical Review Coordinator Relationship Specialty Start Date End Date Michelle Rodriguez MD [address] [place] [address] PCP - General Family Medicine 02/19/21 Rose Phillip PharmD [address] [place] [address] Pharmacist Internal Medicine 03/02/24 documented as of this encounter
--- OUTSIDE RECORDS SUMMARY | 2024-10-18 09:48 | XMS_ITS | Encounter Summary ---
Author Organization [employer] Address [address] [place] [address] 7t [place] [address] Care Team Providers Care Long Distance Operator Name Role Phone Michelle Rodriguez MD Primary Care Provider [phone] Rose Phillip PharmD Unavailable [phone] Encounter Details Date Type Department Care Team (Late st Contact Info) Description 02/05/2023 Orders Only [facility] MEDICINE [address] [place] [address] [phone] Michelle Rodriguez MD [address] [place] [address] [phone] Male hypogonadism (Primary Dx) Social History Tobacco [...] Description 10/18/2024 3:30 PM EDT Office Visit [facility] MEDICINE [address] [place] [address] [phone] Michelle Rodriguez MD [address] [place] [address] [phone] 10/21/2024 10:30 AM EDT Medication Management [facility] MEDICINE [address] [place] [address] Rose Phillip PharmD [address] [place] [address] Scheduled Orders Name Type Priority Associated Diagnoses [...] documented as of this encounter Care Teams Long Distance Operator Relationship Specialty Start Date End Date Michelle Rodriguez MD [address] [place] [phone] PCP - General Family Medicine 02/19/21 Rose Phillip PharmD [address] [place] [phone] Pharmacist Internal Medicine 03/02/24 documented as of this encounter
--- OUTSIDE RECORDS SUMMARY | 2024-10-18 09:48 | XMS_ITS | Encounter Summary ---
Author Organization [employer] Address [address] [place] [address] 7t [place] [address] Care Team Providers Care Brine Tank Separator Operator Name Role Phone Michelle Rodriguez MD Primary Care Provider [phone] Rose Phillip PharmD Unavailable [phone] Reason for Visit * Reason Comments Med Refill Encounter Details Date Type Department Care Team ([facility] st Contact Info) Description 10/12/2024 Refill [facility] MEDICINE [address] [place], [place] [phone] Rose Phillip, PharmD [address] [place] [address] Social History Tobacco Use Types Packs/Day Years [...] Description 10/18/2024 3:30 PM EDT Office Visit [facility] MEDICINE [address] [place] [phone] Michelle Rodriguez MD [address] [place] [address] 10/21/2024 10:30 AM EDT Medication Management [facility] MEDICINE [address] [place] [phone] Rose Phillip PharmD [address] [place] [phone] documented as of this encounter Visit Diagnoses Not on filedocumented in this encounter Additional Health Concerns Assessment Noted Time PHQ-9 Depression Total Score: 6 11/02/19 23 3:44 PM EDT documented as of this encounter Care Teams Brine Tank Separator Operator Relationship Specialty Start Date End Date Michelle Rodriguez MD [address] [place] [phone] PCP - General Family Medicine 02/19/21 Rose Phillip PharmD [address] [place] [address] [phone] Pharmacist Internal Medicine 03/02/24 documented as of this encounter
--- OUTSIDE RECORDS SUMMARY | 2024-10-18 09:48 | XMS_ITS | Encounter Summary ---
Author Organization [employer] Address [address] [place] [address] [place] [address] Care Team Providers Care Die Inspector Name Role Phone Michelle Rodriguez MD Primary Care Provider [phone] Rose Phillip PharmD Unavailable [phone] Reason for Visit * Reason Comments Med Refill Encounter Details Date Type Department Care Team (Late st Contact Info) Description 01/20/2023 Refill [facility] MEDICINE [address] [place] [phone] Mimi Machuca FNP [address] [place] [address] [place] [address] Primary insomnia Social History Tobacco Use Types [...] Description 10/18/2024 3:30 PM EDT Office Visit [facility] MEDICINE [address] [place], [place] [phone] Michelle Rodriguez MD [address] [place], [place] [phone] 10/21/2024 10:30 AM EDT Medication Management [facility] MEDICINE [address] [place] [address] Rose Phillip PharmD [address] [place] [address] documented as of this encounter Visit Diagnoses Diagnosis Primary insomnia Persistent disorder of initiating or maintaining sleep documented in this encounter Additional Health Concerns Assessment Noted Time PHQ-9 Depression Total Score: 6 11/02/19 23 3:44 PM EDT documented as of this encounter Care Teams Die Inspector Relationship Specialty Start Date End Date Michelle Rodriguez MD [address] [place] [address] PCP - General Family Medicine 02/19/21 Rose Phillip, Camilo [address] [place] [address] Pharmacist Internal Medicine 03/02/24 documented as of this encounter
--- OUTSIDE RECORDS SUMMARY | 2024-10-18 09:48 | XMS_ITS | Encounter Summary ---
Author Organization [employer] Address [address] [facility] 7t [place] [address] Care Team Providers Care Electrical Research Engineer Name Role Phone Michelle Rodriguez MD Primary Care Provider [phone] Rose Phillip PharmD Unavailable [phone] Encounter Details Date Type Department Care Team ([facility] st Contact Info) Description 09/11/2023 Orders Only [facility] MEDICINE 230 [place], [place] [phone] Michelle Rodriguez MD 230 [place], [place] [phone] Primary insomnia Social History Tobacco Use Types [...] Description 10/18/2024 3:30 PM EDT Office Visit [facility] MEDICINE [address] [place] [phone] Michelle Rodriguez MD [address] [place] [phone] 10/21/2024 10:30 AM EDT Medication Management [facility] MEDICINE [address] [place] [phone] Rose Phillip PharmD [address] [place] [phone] documented as of this encounter Visit Diagnoses Diagnosis Primary insomnia Persistent disorder of initiating or maintaining sleep documented in this encounter Additional Health Concerns Assessment Noted Time PHQ-9 Depression Total Score: 6 11/02/19 23 3:44 PM EDT documented as of this encounter Care Teams Electrical Research Engineer Relationship Specialty Start Date End Date Michelle Rodriguez MD [address] [place] [phone] PCP - General Family Medicine 02/19/21 Rose Phillip PharmD [address] [place] [phone] Pharmacist Internal Medicine 03/02/24 documented as of this encounter
--- OUTSIDE RECORDS SUMMARY | 2024-10-18 09:48 | XMS_ITS | Encounter Summary ---
Author Organization [employer] Address [address] [place] [address] 7 [place] [address] Care Team Providers Care Medical Logistics Specialist Name Role Phone Michelle Rodriguez MD Primary Care Provider Rose Phillip PharmD Unavailable Reason for Visit * Consultation (Routine) - Authorized Specialty Diagnoses / Procedures Referred By Contac t Referred To Contact Pharmacy Diagnoses Type 2 diabetes mellitus with hyperglycemia, with long-term current use of insulin (CMS/HCC) Michelle Rodriguez MD [address] [place] [address] Phone: tel: fax: Referral ID Status Reason Start Date Expiration Date Visits Requested Visits Authorized [id number] Authorized Consult and Treat 03/26/2024 03/26/2025 6 6 Encounter Details Date Type Department Care Team ([facility] st Contact Info) Description 10/13/2024 9:00 AM EDT Telemedicine [facility] MEDICINE [address] [place] [address] Rose Phillip, PharmD [address] [place] [address] Type 2 diabetes mellitus with hyperglycemia, with long-term current use of insulin (CMS/HCC) (Primary Dx) Social History Tobacco Use Types [...] as of this encounter Progress Notes * Rose Phillip PharmD - 10/13/2024 9:00 AM EDT Pharmacy Brief Encounter Pharmacist: Rose Phillip PharmD Raimundo Carcamo is a 54 y.o. year old patient here for CDTM - Diabetes completed over the phone. Pharmacotherapy: Glipizide IR 5 mg twice daily with meals Humalog kwikpen, inject subQ with meals per SS Sliding scale: BLOOD SUGAR <150 = 0 UNITS, 151-200 = 2 UNITS, 201-251 = 4 UNITS, 251-300 = 6 UNITS, 301-350 = 8 UNITS, > 350 = 10 UNITS Lantus solostar, inject 10 units subQ daily at bedtime *discrepancy exists* Metformin IR 1000 mg twice daily with meals (max dose) Ozempic 2 mg subQ once weekly on Tuesdays (max dose) Summary of previous encounter(s): 08/05/24 (CDTM) - change Trulicity to Ozempic to optimize tx; restart Lantus at starting dose of 10 units, reviewed difference between basal & bolus therapy and plan to taper/discontinue bolus in future as able; routine labs ordered. Today's Visit: [facility] placed outgoing call to patient due to now show to in person CDTM DM. In person follow up desired for repeat A1c & this was discussed with patient; he agreed to reschedule, as below. While on the phone; patient commented he has been experiencing nocturnal hypoBG and is awaking to CGM alarms many nights. Reports using Lantus 12 units (self increase +2). Continues on Humalog per SS. Patient reports using with meals per SS; denies using additional doses in response to hyperBG as known to do prior. Denies completing confirmatory, capillary BG monitoring in response to low BG alarms. It is not clear if these are true lows or potentially compression lows. This was discussed with patient, see planbelow. Patient is requesting apt with his PCP to discuss acute concerns; see plan below for provider visit. He c/o nocturia (?BPH sx, although he does not currently have this dx). He is not on diuretics, SGTL2 or other known, contributory meds. Denies other sx including burning or pain so less suggestive for UTI. 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 He denies SI but does request apt with PCP for these concerns. Plan: Patient counseled to complete confirmatory capillary BG monitoring as recommended by sensor black belt when CGM alarms for lows overnight. Reviewed s/sx and proper treatment of hypoBG for capillary BG values <70 mg/dL. If true hypoBG exists per capillary monitoring patient was directed to decrease Lantus to 10 units. Call the CDTM team for next steps if pattern of nocturnal hypoBG persists despite this change. If true nocturnal hypoBG (<70 mg/dL) is confirmed via SMBG counseled patient to decrease Lantus to 10 units daily. Otherwise, continue current regimen without change. Reviewed, preliminarily, thatbolus insulin treatment may not be indicated on an ongoing basis if DM control has improved on Ozempic. CGM data to guide next steps in follow up; patient is aware. Patient to follow up with PCP in sick visit now scheduled for 10/18. [facility] spoke with team RN regarding open recall and patient c/o of nocturia and strategy execution consultant fatigue. Patient agreed to and was scheduledfor sick visit. Will FYI PCP with this notes. Patient was rescheduled for CDTM DM in person in ~2 wks for repeat A1c, CGM download and further discussion around next steps for DM management. documented in this encounter Plan of Treatment Upcoming Encounters Date Type Department Care Team (Late st Contact Info) Description 10/18/2024 3:30 PM EDT Office Visit [facility] MEDICINE [address] [place] [phone] Michelle Rodriguez MD [address] [place] [phone] 10/21/2024 10:30 AM EDT Medication Management [address] [phone] Rose Phillip PharmD [address] [place] [phone] documented as of this encounter Visit Diagnoses Diagnosis Type 2 diabetes mellitus with hyperglycemia, with long-term current use of insulin ([facility])- Primary documented in this encounter Additional Health Concerns Assessment Noted Time PHQ-9 Depression Total Score: 6 11/02/19 23 3:44 PM EDT documented as of this encounter Care Teams Medical Logistics Specialist Relationship Specialty Start Date End Date Michelle Rodriguez MD [address] [place] [phone] PCP - General Family Medicine 02/19/21 Rose Phillip PharmD [address] [place] [phone] Pharmacist Internal Medicine 03/02/24 documented as of this encounter
--- OUTSIDE RECORDS SUMMARY | 2024-10-18 09:48 | XMS_ITS | Encounter Summary ---
Author Organization [employer] Address [address] [facility] 7t [place] [address] Care Team Providers Care Fabric Worker Fitter Name Role Phone Michelle Rodriguez MD Primary Care Provider [phone] Rose Phillip PharmD Unavailable [phone] Reason for Visit * Reason Onset Date Comments Chart Prep 10/15/2024 Encounter Details Date Type Department Care Team ([facility] st Contact Info) Description 10/15/2024 Telephone [facility] MEDICINE [address] [place], [place] [phone] Michelle Rodriguez MD [address] [place], [place] [phone] Chart Prep Social History Tobacco Use Types Packs/Day Years [...] encounter Miscellaneous Notes * Telephone Encounter - Ellen Bustos [place] - 10/15/2024 11:07 AM EDT Chart Prep Labs: done Spoke w/patient will have lab done before appointment. Images: done US Renal Report-07/01/24([facility]) Referrals: complete Vaccines due: Covid, Flu, PCV20, Hep A, and Zoster Screenings: colonoscopy and foot exam Overdue care gaps: A1c, Glucose, SBIRT, PHQ-9, BUNNY-7, Disability screen, and Tobacco documented in this encounter Plan of Treatment Upcoming Encounters Date Type Department Care Team (Late st Contact Info) Description 10/18/2024 3:30 PM EDT Office Visit [facility] MEDICINE [address] [place] [phone] Michelle Rodriguez MD [address] [place] [phone] 10/21/2024 10:30 AM EDT Medication Management [facility] MEDICINE [address] [place] [address] Rose Phillip, MerissaD [address] [place] [phone] documented as of this encounter Visit Diagnoses Not on filedocumented in this encounter Additional Health Concerns Assessment Noted Time PHQ-9 Depression Total Score: 6 11/02/19 23 3:44 PM EDT documented as of this encounter Care Teams Fabric Worker Fitter Relationship Specialty Start Date End Date Michelle Rodriguez MD [address] [place] [address] PCP - General Family Medicine 02/19/21 Rose Phillip PharmD [address] [place] [address] Pharmacist Internal Medicine 03/02/24 documented as of this encounter
[2024-10-18 11:46] LABS: Alanine Aminotransferase 39 U/L (0-40); Albumin Level 4.4 g/dL (3.5-5.0); Alkaline Phosphatase 85 U/L (39-117); Anion Gap 12 (12-20); Aspartate Amino Transferase 51 U/L (5-37); Bilirubin Direct 0.2 mg/dL (0.0-0.5); Bilirubin Total 0.4 mg/dL (0.0-1.0); Blood Urea Nitrogen 16 mg/dL (9-16); Calcium 9.1 mg/dL (8.4-10.2); Carbon Dioxide 25 mmol/L (22-29); Chloride 102 mmol/L (96-108); Cholesterol 75 mg/dL (<200); Estimated Glomerular Filt Rate > 60; Glucose Random 144 mg/dL (60-115); HDL Cholesterol 32 mg/dL (>40); LDL Cholesterol Calculated 33 mg/dL (<100); Sodium 135 mmol/L (135-145); Total Protein 7.9 g/dL (6.5-8.0); Triglycerides 52 mg/dL (<150)
== END 2024-10-18 09:29 | disposition home or self-care (01) ==
LOC: HO.HHCL 09:28
PROVIDERS: Visit Provider General Practice
DX: E11.65 Type 2 diabetes mellitus with hyperglycemia (principal); Z79.4 Long term (current) use of insulin
CPT/HCPCS: 36415; 80048; 80061; 80076

== ENCOUNTER 2025-03-14 14:24 | Emergency (ER) | payer MEDICAID, SELFPAY ==
--- NOTE | ~2025-03-14 | CT_ITS ---
CLINICAL HISTORY: right sided abdominal pain --- Additional Notes or Special Instructions: NO IV @ 18:27, GOING TO INSERT US GUIDED LINE - JR CT abdomen and pelvis with contrast Comparison: US - US RENAL BI - 07/01/24 11:43 EST Findings: No consolidation at the lung bases. Unremarkable gallbladder and bladder. No hydronephrosis. Right nephrolithiasis measures up to 3 mm. No left nephrolithiasis. No focal decreased enhancement of the kidneys. The other solid organs are unremarkable. No bowel dilation. Question mild wall thickening versus underdistention of portions of the small bowel and colon, most prominent in the distal small bowel and proximal colon. A normal appendix is identified. No aneurysm. Mild calcified atherosclerotic disease. No lymphadenopathy. No ascites. No acute osseous abnormality. Impression: Question mild enterocolitis, infectious/inflammatory. This document has been electronically signed by: Vidhya Pedersen MD on 03/14/2025 20:49:59
--- NOTE | ~2025-03-14 | XR_ITS ---
CLINICAL HISTORY: syncope Chest Radiographs, 2 views Comparison: 12/20/22 Findings: No cardiomegaly. Normal mediastinal contours. No pneumothorax. No opacity. No pleural effusion. Normal upper abdomen. No acute fracture. Impression: No acute findings. This document has been electronically signed by: Vidhya Pedersen MD on 03/14/2025 15:07:30
[2025-03-14 14:27] VITALS: BP 143/83; PULSE 103; RESP 16; TEMP 36.8; O2SAT 97; BMI 34.9
--- NOTE | 2025-03-14 14:28 | ED_ITS ---
HPI - General Adult General Chief complaint: Nausea/Vomiting/Diarrhea Stated complaint: fever, abd pain, n/v/d Time Seen by Provider: 03/14/25 16:39 Source: patient, RN notes reviewed and old records reviewed Mode of arrival: ambulatory Limitations: no limitations History of Present Illness ED Provider: Мария GAO narrative: 54-year-old male presents for evaluation of nausea, diarrhea and fevers. He reports his symptoms started 3 days ago. He has had fevers every day but mostly at night. He has some mild upper abdominal pain but no severe pain. Denies any black or bloody stool pain He reports diarrhea at least 3 times every day that has been foul-smelling. He did visit his mother in a prison but is unsure of any positive sick contacts Denies any previous abdominal surgeries Denies any cough, chest pain, shortness of breath Denies any rashes. Denies any headaches or neck pain Related Data Previous Rx's ?Medication ?Instructions ?Recorded lidocaine 4 % topical patch 1 patch topical DAILY PRN pain #10 08/31/20 ea blood-glucose meter #1 ea 09/06/23 insulin lispro 100 unit/mL 1 sliding scale dose subcut 09/06/23 subcutaneous pen (Humalog KwikPen USEASDIRECTD #15 mL (U-100) Insulin) lisinopril 20 1 tab PO DAILY #30 tabs 04/0 6/24 mg-hydrochlorothiazide 12.5 mg tablet lisinopril 20 1 tab PO DAILY #90 tabs 04/0 7/24 mg-hydrochlorothiazide 12.5 mg tablet Allergies Allergy/AdvReac Type Severity Reaction Status Date / Time haloperidol (From HALDOL) Allergy Severe EPS Verified 03/14/25 14:29 trazodone (TRAZODONE) Allergy Unknown AGITATION Verified 03/14/25 14:29 Review of Systems 2 Constitutional: Constitutional: Reports body ache(s), Reports chills, Reports fever(s), Denies headache(s) and Reports malaise Eyes: Eyes: Denies blurry vision ENT: Denies vertigo, Denies dizziness, Denies dry mouth and Denies headache(s) Cardiovascular: Cardiovascular: Denies chest pain and Denies dyspnea on exertion Respiratory: Respiratory: Denies cough and Denies dyspnea on exertion Gastrointestinal: Gastrointestinal: Reports abdominal pain, Denies melena, Denies bloating, Denies hematochezia, Reports diarrhea, Reports loose stools, Reports nausea, Denies vomiting and Denies hematemesis Genitourinary: Genitourinary: Denies dysuria and Denies flank pain Musculoskeletal: Musculoskeletal: Denies back pain Integumentary/Breasts: Skin/Breast: Denies rash Neurologic: Denies vertigo, Denies dizziness and Denies headache(s) [facility] Past Medical History Medical History Diabetes Glaucoma Social History Social History Alcohol intake: never Advance Directives: No Advance Directives Information Provided: No Do you have a plan to hurt others: No Plan Physical Exam ED Vital Signs: Vital Signs - 24 hr 03/14/25 14:27 03/14/25 16:53 03/14/25 20:12 Temperature 98.3 F 98.7 F 98.5 F Pulse Rate 103 H 81 88 Respiratory Rate 16 18 20 Blood Pressure 143/83 H 115/71 128/76 Pulse Oximetry 97 99 98 Oxygen Delivery Method Room Air Room Air Room Air BMI result Body Mass Index 34.9 Const General: healthy appearing, comfortable, no acute distress, alert and awake Nutritional Appearance: well nourished Orientation/consciousness: patient oriented x3 HENMT Head: Yes normocephalic and Yes atraumatic Eyes Eyelids: Yes eyelids normal Conjunctivae: conjunctivae normal Sclerae: sclerae normal Corneas: corneas normal Pupils: Equal, round and reactive pupils present EOM: EOMs intact bilaterally Neck Neck: Yes full ROM Resp Effort & Inspection: normal respiratory effort, able to speak in complete sentences, no audible wheezes and not labored Auscultation: clear to auscultation bilaterally Cardio Rate: regular rate Rhythm: regular rhythm GI Inspection: No distended Palpation (GI): Soft to palpation, not firm, nontender, no guarding and not rigid Skin General skin exam: elasticity normal Neuro General: patient oriented x3 Cranial nerves: Yes CN's II-XII intact bilaterally, Yes Equal, round and reactive pupils present and Yes Bilaterally intact EOM present Cognition (Neuro): normal cognition Extrem Other: Moving all extremities well without any obvious deformities Course Course Course Narrative: Rapid medical examination performed in triage by Hien Schmidt PA-C. Patient is a 54 year old assigned male at presenting to the emergency department feeling generally unwell. Patient states that he has had several episodes of syncope over the last few days and is having decreased appetite. Patient states that he has been taking care of his mother who is in hospice 23/12. Detailed physical exam and review of systems are deferred to the nursing assoc. EKG, labs, imaging, and swabs ordered. Patient placed back in the waiting room pending room availability and results. Reevaluation(s) Reevaluation #1: Patient's CT scan shows mild entire colitis. He reports that he has not had any abdominal pain, his diarrhea has seemed to stop since being in the emergency department. He was having diarrhea every 40 minutes and has not had an a bowel movement in over 4 hours. He was unable to provide us a stool sample for C diff testing. Given that his symptoms have improved C diff his favored to be less likely. We will discharge the patient with symptomatic care. He was treated for a mild hyponatremia with IV fluids Time: 20:58 Medications Administered Discontinued Medications Generic Name Dose Route Start Last Admin Trade Name Freq PRN Reason Stop Dose Admin Sodium Chloride 1,000 mls @ 999 mls/hr 03/14/25 17:15 03/14/25 19:08 Ns IV 03/14/25 18:15 999 mls/hr .Q1H1M RICHIE Administration Iohexol 85 ml 03/14/25 19:48 03/14/25 19:49 Iohexol 350 Mg/Ml 100 Ml Infus..Btl IV 03/14/25 19:49 85 ml ONCE ONE Administration Medical Decision Making Medical Decision Making [facility] Narrative: 54-year-old male presents for evaluation of mild abdominal discomfort, nausea and diarrhea. His symptoms started 3 days ago. Reports fevers over the last few days that improved with Tylenol. He took Tylenol this morning in his afebrile on arrival to the ED. He has a mild leukocytosis. Concern for infectious colitis or diverticulitis. He does not have any significant risk factors for C diff but did recently visit in prison. We will try to obtain a stool sample. Viral swabs negative. The patient's chemistries show a mild hyponatremia of 134 which is likely due to his diarrhea. We will give a L of IV fluids. Given his reported fevers with abdominal pain, nausea and diarrhea with a CT scan of the abdomen pelvis to rule out infectious process. Less likely obstruction due to the fact that he is still having diarrhea. He has no previous abdominal surgeries Differential Diagnosis Differential Diagnoses: The differential diagnosis associated with the presentation includes Colitis Diverticulitis C diff Acute appendicitis less likely Hyponatremia Dehydration MALACHI Lab Data MDM Lab Attestation statement: I reviewed the patient's lab results. As above notably mild leukocytosis and mild hyponatremia 03/14/25 14:43 03/14/25 14:43 Labs: Lab Results 03/14/25 Range/Units 14:43 WBC 11.3 H (4.8-10.8) X10*3/uL RBC 5.16 (4.60-5.80) X10*6/uL Hgb 14.3 (14.0-18.0) g/dl Hct 43.1 (42.0-52.0) % MCV 83.5 (80.0-98.0) fL MCH 27.7 (27.0-33.0) pg MCHC 33.2 (31.0-36.0) g/dl RDW 12.2 (11.0-16.0) % Plt Count 289 (160-400) X10*3/uL MPV 8.9 L (9.4-12.4) fL Immature Gran % (Auto) 0.4 (0.0-0.4) % Neut % (Auto) 71.8 (45-73) % Lymph % (Auto) 19.3 L (20-40) % Rock % (Auto) 7.2 (2-11) % Eos % (Auto) 0.9 (0-4) % Baso % (Auto) 0.4 (0-2) % Lymph # (Auto) 2.2 (1.2-4.9) X10*3/uL Rock # (Auto) 0.8 (0.1-1.2) X10*3/uL Eos # (Auto) 0.1 (0.0-0.4) X10*3/uL Baso # (Auto) 0.0 (0.0-0.2) X10*3/uL Abs Immat Gran (auto) 0.05 H (0.00-0.03) X10*3/uL Absolute Neuts (auto) 8.1 (2.0-8.3) x10*3/uL Absolute Nucleated RBC 0.000 (0.0-0.012) X10*3/uL Nucleated RBC % (auto) 0.0 (0.0-0.2) /100WBC PT 13.0 H (10.9-12.4) SEC INR 1.1 (0.9-1.1) Sodium 134 L (135-145) mmol/L Potassium 3.8 (3.3-5.1) mmol/L Chloride 102 (96-108) mmol/L Carbon Dioxide 22 (22-29) mmol/L Anion Gap 14 (12-20) BUN 14 (9-16) mg/dL Creatinine 0.84 (0.5-1.4) mg/dL Estim Creat Clear Calc 120.2 Estimated GFR > 60 Random Glucose 178 H (60-115) mg/dL Calcium 9.2 (8.4-10.2) mg/dL Magnesium 1.7 (1.6-2.6) mg/dL Total Bilirubin 0.5 (0.0-1.0) mg/dL AST 26 (5-37) U/L ALT 38 (0-40) U/L Alkaline Phosphatase 117 (39-117) U/L Troponin I High Sens < 2.7 (<3.5-35.0) ng/L Total Protein 8.5 H (6.5-8.0) g/dL Albumin 4.9 (3.5-5.0) g/dL Lipase 8 (8-78) U/L COVID-19 (BRUNO) Negative (Negative) COVID-19 Clin Com See Note Influenza Type A (ESTHER) Negative (Negative) Influenza Type B (ESTHER) Negative (Negative) Influenza A & B Note See Note Independent Interpretation I performed an independent interpretation of an: CT Scan Interpretation: Agree with Radiology interpretation Radiology Impression Discussion of test interpretation with radiology: I have reviewed the radiologist's reading. Radiologist Impression: Findings: No consolidation at the lung bases. Unremarkable gallbladder and bladder. No hydronephrosis. Right nephrolithiasis measures up to 3 mm. No left nephrolithiasis. No focal decreased enhancement of the kidneys. The other solid organs are unremarkable. No bowel dilation. Question mild wall thickening versus underdistention of portions of the small bowel and colon, most prominent in the distal small bowel and proximal colon. A normal appendix is identified. No aneurysm. Mild calcified atherosclerotic disease. No lymphadenopathy. No ascites. No acute osseous abnormality. Impression: Question mild enterocolitis, infectious/inflammatory. This document has been electronically signed by: Vidhya Pedersen MD on 03/14/2025 20:49:59 Discharge Plan Discharge Clinical Impression: Enterocolitis Patient Disposition: Home, Self-Care Instructions: Gastroenteritis (ED) Additional Instructions: Your symptoms are most likely related to a viral illness causing the nausea and the diarrhea. Your CT scan did not show any concerning findings. You may continue Imodium as needed for diarrhea. Hydrate well. Your sodium was slightly low and was treated with IV fluids Return for new or worsening symptoms Prescriptions: No Action lidocaine 4 % adhesive patch,medicated 1 patch topical DAILY PRN (Reason: pain) Qty: 10 0RF Rx Instructions: may leave on for up to 12 hrs lisinopril-hydrochlorothiazide 20-12.5 mg tablet 1 tab PO DAILY Qty: 30 0RF (DME) blood-glucose meter Kit See Rx Instructions .Route Qty: 1 0RF Rx Instructions: As directed insulin lispro [Humalog KwikPen Insulin] 100 unit/mL insulin pen 1 sliding scale dose subcut USEASDIRECTD Qty: 15 3RF Rx Instructions: check blood sugar before meals BG <111 0 units, 111-150 - 0 units, 151-200 2 units, 201-250 4 units, 251-300 6 units, 301-350 8 units, >350 10 units lisinopril-hydrochlorothiazide 20-12.5 mg tablet 1 tab PO DAILY Qty: 90 0RF Print Language: Somali
--- NOTE | 2025-03-14 14:29 | ECG_ITS ---
Test Reason : syncope Blood Pressure : */* mmHG Vent. Rate : 104 BPM Atrial Rate : 104 BPM P-R Int : 136 ms QRS Dur : 78 ms QT Int : 306 ms P-R-T Axes : 51 5 46 degrees QTcB Int : 402 ms Sinus tachycardia with occasional Premature ventricular complexes and Fusion complexes Otherwise normal ECG When compared with ECG of 17-Aug-2023 10:10, Fusion complexes are now Present Premature ventricular complexes are now Present Referred By: Hien Schmidt Electronically Signed By: Marcellus Atwood
[2025-03-14 14:48] LABS: MANUAL DIFF FLAG NO
[2025-03-14 14:56] LABS: INTERNATIONAL NORM RATIO 1.1 (0.9-1.1); Prothrombin Time 13.0 SEC (10.9-12.4)
[2025-03-14 15:04] LABS: Anion Gap 14 (12-20)
[2025-03-14 15:05] LABS: Hematocrit 43.1 % (42.0-52.0); Hemoglobin 14.3 g/dl (14.0-18.0); Imm Gran Abs Auto 0.05 X10*3/uL (0.00-0.03); Imm Gran Pct Auto 0.4 % (0.0-0.4); Lymphocytes Absolute Auto 2.2 X10*3/uL (1.2-4.9); Mean Corpuscular HGB Conc 33.2 g/dl (31.0-36.0); Mean Corpuscular Hemoglobin 27.7 pg (27.0-33.0); Mean Corpuscular Volume 83.5 fL (80.0-98.0); NRBC Abs Auto 0.000 X10*3/uL (0.0-0.012); NRBC Pct Auto 0.0 /100WBC (0.0-0.2); Platelet Count 289 X10*3/uL (160-400); Red Blood Count 5.16 X10*6/uL (4.60-5.80); White Blood Count 11.3 X10*3/uL (4.8-10.8)
[2025-03-14 15:06] LABS: COVID-19 Test Negative (Negative); IDNOW Serial# 55D5AD1C; IDNOW Serial# 58CA691E; Influenza B2 Negative (Negative)
[2025-03-14 15:09] LABS: Alanine Aminotransferase 38 U/L (0-40); Albumin Level 4.9 g/dL (3.5-5.0); Aspartate Amino Transferase 26 U/L (5-37); Blood Urea Nitrogen 14 mg/dL (9-16); Calcium 9.2 mg/dL (8.4-10.2); Carbon Dioxide 22 mmol/L (22-29); Chloride 102 mmol/L (96-108); Creatinine Clr Calc Pharmacy 120.2; Estimated Glomerular Filt Rate > 60; Magnesium 1.7 mg/dL (1.6-2.6); Potassium 3.8 mmol/L (3.3-5.1); Sodium 134 mmol/L (135-145); Total Protein 8.5 g/dL (6.5-8.0)
[2025-03-14 15:14] LABS: Troponin-I High Sensitivity < 2.7 ng/L (<3.5-35.0)
[2025-03-14 15:28] LABS: Alkaline Phosphatase 117 U/L (39-117)
--- OUTSIDE RECORDS SUMMARY | 2025-03-14 16:11 | XMS_ITS | Encounter Summary ---
Author Organization [employer] Address [address] [place] [address] [address] [place] [address] Care Team Providers Care Regional Recruiter Name Role Phone Michelle Rodriguez MD Primary Care Provider [phone] Rose Phillip PharmD Unavailable [phone] Reason for Referral * Consultation (Routine) - Authorized Specialty Diagnoses / Procedures Referred By Contac t Referred To Contact Pharmacy Diagnoses Type 2 diabetes mellitus with hyperglycemia, with long-term current use of insulin ([facility]) Michelle Rodriguez MD [address] [place] [address] Phone: tel: fax: Referral ID Status Reason Start Date Expiration Date Visits Requested Visits Authorized [id number] Authorized Consult and Treat 03/26/2024 03/26/2025 6 6 Encounter Details Date Type Department Care Team (Late st Contact Info) Description 03/21/2024 Orders Only [facility] [address] [place], [place] [phone] Michelle Rodriguez MD [address] [place], [place] [phone] Male hypogonadism (Primary Dx); Type 2 diabetes mellitus with hyperglycemia, with long-term current use of insulin ([facility]) Social History Tobacco Use Types Packs/Day Years [...] Care Team (Late st Contact Info) Description 03/31/2025 11:00 AM EDT Office Visit [facility] [address] [place] [address] Johanne Farley [address] [place] [address] 04/05/2025 11:00 AM EST Office Visit [facility] [address] [place] [address] Johanne Farley [address] [place] [address] Scheduled Referrals Name Type Priority Associated Diagnoses Orde r Schedule Referral to Pharmacy CDTM Outpatient Referral Routine Type 2 diabetes mellitus with hyperglycemia, with long-term current use of insulin ([facility]) Ordered: 03/26/2024 documented as of this encounter Procedures Procedure Name Priority Date/Time Associated Diagnosis Comments TESTOSTERONE, FREE (DIALYSIS) AND TOTAL,MS Routine 07/27/2024 9:18 AM EST Male hypogonadism documented in this encounter Results * Testosterone, Free (Dialysis) And Total, MS (07/27/2024 9:18 AM EST) Testosterone, Total 335 250 - 1100 ng/dL [facility] Comment:For additional infor erwin, please refer [email or web address].Akita/faq/[email or web address](This link is being provided for informational/educational purposes only.)This test was developed and its analytical performancecharacteristics have been determined by [employer] [place], [place]. It hasnot been cleared or approved by the U.S. Food and DrugAdministration. This assay has been validated pursuantto the CLIA regulations and is used for clinicalpurposes. Testosterone, Free 65.0 35.0 - 155.0 pg/mL [facility] Comment:This test was develo ped and its analytical performancecharacteristics have been determined by [employer] [place], [place]. It hasnot been cleared or approved by the U.S. Food and DrugAdministration. This assay has been validated pursuantto the CLIA regulations and is used for clinicalpurposes.THIS TEST WAS PERFORMED AT:[employer] [id number] [place] [id number] GUAMAN MD,PHD Blood Venous blood specimen / Unknown 07/27/2024 9:18 AM EST 07/27/2024 11:35 AM EST us Michelle Rodriguez MD LAB BLOOD ORDERABLES Final Res ult [facility] [address] [place] [phone] documented in this encounter Visit Diagnoses Diagnosis Male hypogonadism- Primary Other testicular hypofunction Type 2 diabetes mellitus with hyperglycemia, with long-term current use of insulin (HCC) documented in this encounter Additional Health Concerns Assessment Noted Time PHQ-9 Depression Total Score: 6 11/02/19 23 3:44 PM EDT documented as of this encounter Care Teams Regional Recruiter Relationship Specialty Start Date End Date Michelle Rodriguez MD [address] [place] [address] PCP - General Family Medicine 02/19/21 Rose Phillip PharmD [address] [place] [address] Pharmacist Internal Medicine 03/02/24 documented as of this encounter
--- OUTSIDE RECORDS SUMMARY | 2025-03-14 16:11 | XMS_ITS | Encounter Summary ---
Author Organization [employer] Address [address] [place] [address] 7 [place] [address] Care Team Providers Care Decorating Consultant Name Role Phone Michelle Rodriguez MD Primary Care Provider [phone] Rose Phillip PharmD Unavailable [phone] Encounter Details Date Type Department Care Team ([facility] st Contact Info) Description 04/22/2024 Telephone [facility] [address] [place], [place] [phone] Liat Pink, PharmD [address] [place] [address] Social History Tobacco Use Types Packs/Day Years [...] Description 03/31/2025 11:00 AM EDT Office Visit [facility]ULT [facility] [address] [place] [address] Johanne Farley [address] [place] [address] 04/05/2025 11:00 AM EST Office Visit [facility] [address] [place] [address] Johanne Farley [address] [place] [address] documented as of this encounter Visit Diagnoses Not on filedocumented in this encounter Additional Health Concerns Assessment Noted Time PHQ-9 Depression Total Score: 6 11/02/19 23 3:44 PM EDT documented as of this encounter Care Teams Decorating Consultant Relationship Specialty Start Date End Date Michelle Rodriguez MD [address] [place] [address] PCP - General Family Medicine 02/19/21 Rose Phillip PharmD [address] [place] [address] Pharmacist Internal Medicine 03/02/24 documented as of this encounter
--- OUTSIDE RECORDS SUMMARY | 2025-03-14 16:11 | XMS_ITS | Encounter Summary ---
Author Organization [employer] Address [address] [facility] 7t [place] [address] Care Team Providers Care Implement Mechanic Name Role Phone Michelle Rodriguez MD Primary Care Provider [phone] Rose Phillip PharmD Unavailable [phone] Encounter Details Date Type Department Care Team (Late st Contact Info) Description 08/30/2022 Orders Only [facility] [address] [place], [place] [phone] Pily Linn LPN Social History Tobacco Use [...] Description 03/31/2025 11:00 AM EDT Office Visit [facility] [address] [place] [address] Miguelito Johanne [address] [place] [address] 04/05/2025 11:00 AM EST Office Visit [facility] [address] [place] [address] Bright Farleyaris [address] [place] [address] documented as of this encounter Visit Diagnoses Not on filedocumented in this encounter Care Teams Implement Mechanic Relationship Specialty Start Date End Date Michelle Rodriguez MD [address] [place] [address] PCP - General Family Medicine 02/19/21 Rose Phillip, Camilo [address] [place] [address] Pharmacist Internal Medicine 03/02/24 documented as of this encounter
--- OUTSIDE RECORDS SUMMARY | 2025-03-14 16:11 | XMS_ITS | Encounter Summary ---
Author Organization [employer] Address [address] [place] [address] [address]t [place] [address] Care Team Providers Care Dolly Operator Name Role Phone Michelle Rodriguez MD Primary Care Provider [phone] Rose Phillip PharmD Unavailable [phone] Reason for Visit * Reason Comments Med Refill Encounter Details Date Type Department Care Team ([facility] st Contact Info) Description 11/11/2023 Refill [facility] [address] [place], [place] [phone] Michelle Rodriguez MD [address] [place], [place] [phone] Primary insomnia Social History Tobacco Use Types [...] Description 03/31/2025 11:00 AM EDT Office Visit [facility] ADULT D[facility] [address] [place] [address] Johanne Farley [address] [place] [address] 04/05/2025 11:00 AM EST Office Visit [facility] [address] [place] [address] Johanne Farley [address] [place] [address] documented as of this encounter Visit Diagnoses Diagnosis Primary insomnia Persistent disorder of initiating or maintaining sleep documented in this encounter Additional Health Concerns Assessment Noted Time PHQ-9 Depression Total Score: 6 11/02/19 23 3:44 PM EDT documented as of this encounter Care Teams Dolly Operator Relationship Specialty Start Date End Date Michelle Rodriguez MD [address] [place] [id number] PCP - General Family Medicine 02/19/21 Rose Phillip PharmD [address] [place] [phone] Pharmacist Internal Medicine 03/02/24 documented as of this encounter
--- OUTSIDE RECORDS SUMMARY | 2025-03-14 16:11 | XMS_ITS | Encounter Summary ---
Author Organization [employer] Address [address] [place] [address] 7t [place] [address] Care Team Providers Care Communications Tower Climber Name Role Phone Michelle Rodriguez MD Primary Care Provider [phone] Rose Phillip PharmD Unavailable [phone] Reason for Visit * Reason Comments Med Refill Encounter Details Date Type Department Care Team ([facility] st Contact Info) Description 02/10/2025 Refill [facility] [address] [place], [place] [phone] Michelle Rodriguez MD [address] [place], [place] [phone] Primary insomnia Social History Tobacco Use Types Packs/Day Years Used Date Smoking Tobacco: Every Day Cigarettes 0.1 2 Passive Smoke Exposure: Current Smokeless Tobacco: Current Alcohol Use Standard Drinks/Week Comments Never 0 (1 standard drink = 0.6 oz pur e alcohol) Depression Answer Date Recorded Patient Health Questionnaire-9 Score 21 10/18/2024 Patient Health Questionnaire-9 Score 21 10/18/2024 Last PHQ-9: Questionnaire Data Not on file 0 10/18/2024 Housing Stability Answer Date Recorded What is [...] Answer Date Recorded Patient Health Questionnaire-2 Score 6 10/18/2024 Sex and Gender Information Value Date Recorded Sex Assigned at Male 04/01/2022 10:16 AM EDT Legal Sex Male 10:16 AM EDT Gender Identity Male 04/01/2022 10:16 AM EDT Sexual Orientation Straight 04/01/2022 10 :16 AM EDT documented as of this encounter Plan of Treatment Upcoming Encounters Date Type Department Care Team (Late st Contact Info) Description 03/31/2025 11:00 AM EDT Office Visit [facility] ADULT [facility] [address] [place] [address] Johanne Farley [address] [place] [address] 04/05/2025 11:00 AM EST Office Visit [facility] [address] [place] [address] Johanne Farley [address] [place] [address] documented as of this encounter Visit Diagnoses Diagnosis Primary insomnia Persistent disorder of initiating or maintaining sleep documented in this encounter Additional Health Concerns Assessment Noted Time PHQ-9 Depression Total Score: 21 025 4:09 PM EDT documented as of this encounter Care Teams Communications Tower Climber Relationship Specialty Start Date End Date Michelle Rodriguez MD [address] [place] [id number] PCP - General Family Medicine 02/19/21 Rose Phillip PharmD [address] [place] [phone] Pharmacist Internal Medicine 03/02/24 documented as of this encounter
--- OUTSIDE RECORDS SUMMARY | 2025-03-14 16:11 | XMS_ITS | Encounter Summary ---
Author Organization [employer] Address [address] [facility] [address] 7[address] [place] [address] Care Team Providers Care Lens Generating Machine Tender Name Role Phone Michelle Rodriguez MD Primary Care Provider [phone] Rose Phillip PharmD Unavailable [phone] Encounter Details Date Type Department Care Team ([facility] st Contact Info) Description 10/19/2024 Orders Only [facility] [address] [place], [place] [phone] Michelle Rodriguez MD [address] [place], [place] [phone] Social History Tobacco Use Types Packs/Day Years [...] Description 03/31/2025 11:00 AM EDT Office Visit [facility] ADULT D[facility] [address] [place] [address] Johanne Farley [address] [place] [address] 04/05/2025 11:00 AM EST Office Visit [facility] [address] [place] [address] Johanne Farley [address] [place] [address] documented as of this encounter Visit Diagnoses Not on filedocumented in this encounter Additional Health Concerns Assessment Noted Time PHQ-9 Depression Total Score: 21 025 4:09 PM EDT documented as of this encounter Care Teams Lens Generating Machine Tender Relationship Specialty Start Date End Date Michelle Rodriguez MD [address] [place] [address] PCP - General Family Medicine 02/19/21 Rose Phillip PharmD [address] [place] [phone] Pharmacist Internal Medicine 03/02/24 documented as of this encounter
--- OUTSIDE RECORDS SUMMARY | 2025-03-14 16:11 | XMS_ITS | Encounter Summary ---
Author Organization [email or web address] Address [address] [place] [address] Care Team Providers Care Recycle Coordinator Name Role Phone Michelle Rodriguez MD Primary Care Provider [phone] Rose Phillip PharmD Unavailable [phone] Encounter Details Date Type Department Care Team (Late st Contact Info) Description 03/08/2025 Refill [facility] [address] [place], [place] [phone] Michelle Rodriguez MD [address] [place], [place] [phone] Social History Tobacco Use Types Packs/Day Years [...] your housing situation today? I have natacha dehspande 02/17/[address] you li ve. Do you have problems with any of the following? None of the above 02/17/2025 Food Insecurity Answer Date Recorded Within the past 12 months, y ou worried that your food would run out before you got money to buy more: Never True 02/17/2025 Within the past 12 months,th e food you bought just didn't last and you didn't have enough money to get more: Never True Transportation Answer Date Recorded In the past 12 months, has l ack of transportation kept you from medical appts, meetings, work or from getting things needed for daily living? No 02/17/2025 Utilities Answer Date Recorded In the past 12 months, has t he electric, gas, oil or water company threatened to shut off services in your home? No 02/17/2025 Depression Answer Date Recorded Patient Health Questionnaire-2 Score 6 10/18/2024 Internet Access Answer Date Recorded Internet Access Q1 Yes 02/17/2025 Internet Access Q2 Not on file 02/17/2025 Sex and Gender Information Value Date Recorded Sex Assigned at Male 04/01/2022 10:16 AM EDT Legal Sex Male 10:16 AM EDT Gender Identity Male 04/01/2022 10:16 AM EDT Sexual Orientation Straight 04/01/2022 10 :16 AM EDT documented as of this encounter Plan of Treatment Upcoming Encounters Date Type Department Care Team (Late st Contact Info) Description 03/31/2025 11:00 AM EDT Office Visit [facility] [address] [place] [address] Johanne Farley [address] [place] [address] 04/05/2025 11:00 AM EST Office Visit [facility] [address] [place] [address] Bright Farleyaris [address] [place] [address] documented as of this encounter Visit Diagnoses Not on filedocumented in this encounter Additional Health Concerns Assessment Noted Time PHQ-9 Depression Total Score: 21 025 4:09 PM EDT documented as of this encounter Care Teams Recycle Coordinator Relationship Specialty Start Date End Date Michelle Rodriguez MD [address] [place] [id number] PCP - General Family Medicine 02/19/21 Rose Phillip PharmD [address] [place] [id number] Pharmacist Internal Medicine 03/02/24 documented as of this encounter
--- OUTSIDE RECORDS SUMMARY | 2025-03-14 16:11 | XMS_ITS | Encounter Summary ---
Author Organization [employer] Address [address] [place] [address] [address] [place] [address] Care Team Providers Care Precision Agriculture Specialist Name Role Phone Michelle Rodriguez MD Primary Care Provider [phone] Rose Phillip PharmD Unavailable Reason for Referral * Consultation (Routine) - Authorized Specialty Diagnoses / Procedures Referred By Contanjelica t Referred To Contact Pharmacy Diagnoses Type 2 diabetes mellitus with hyperglycemia, with long-term current use of insulin (HCC) Michelle Rodriguez MD [address] [place] [address] Phone: tel: fax: Referral ID Status Reason Start Date Expiration Date Visits Requested Visits Authorized [id number] Authorized Consult and Treat 03/11/2025 03/11/2026 6 6 Encounter Details Date Type Department Care Team (Late st Contact Info) Description 03/11/2025 Orders Only [facility] MED[facility] [address] [place], [place] [phone] Michelle Rodriguez MD [address] [place], [place] [phone] Type 2 diabetes mellitus with hyperglycemia, with long-term current use of insulin (HCC) (Primary Dx) Social History Tobacco Use Types [...] housing situation today? I have natacha deshpande 02/17/[address] you li [...] Description 03/31/2025 11:00 AM EDT Office Visit [facility]ULT DENTAL [address] [place] [address] Miguelito Johanne [address] [place] [address] 04/05/2025 11:00 AM EST Office Visit [facility] DENTAL [address] [place] [address] Johanne Farley [address] [place] [address] Scheduled Referrals Name Type Priority Associated Diagnoses Orde r Schedule Referral to Pharmacy [facility] Outpatient Referral Routine Type 2 diabetes mellitus with hyperglycemia, with long-term current use of insulin (HCC) Ordered: 03/11/2025 documented as of this encounter Visit Diagnoses Diagnosis Type 2 diabetes mellitus with hyperglycemia, with long-term current use of insulin (HCC)- Primary documented in this encounter Additional Health Concerns Assessment Noted Time PHQ-9 Depression Total Score: 025 4:09 PM EDT documented as of this encounter Care Teams Precision Agriculture Specialist Relationship Specialty Start Date End Date Michelle Rodriguez MD [address] [place] [address] PCP - General Family Medicine 02/19/21 Rose Phillip PharmD [address] [place] [address] Pharmacist Internal Medicine 03/02/24 documented as of this encounter
--- OUTSIDE RECORDS SUMMARY | 2025-03-14 16:11 | XMS_ITS | Encounter Summary ---
Author Organization [employer] Address [address] [place] [address] Care Team Providers Care Electric Engine Mechanic Name Role Phone Michelle Rodriguez MD Primary Care Provider [phone] Rose Phillip PharmD Unavailable [phone] Encounter Details Date Type Department Care Team (Late st Contact Info) Description 09/11/2023 Orders Only [facility] MEDICINE [address] [place], [place] [phone] Michelle Rodriguez MD [address] [place], [place] [phone] Primary insomnia Social History Tobacco Use Types [...] Description 03/31/2025 11:00 AM EDT Office Visit [facility] ADULT DENTAL [address] [place] [address] Bright Farleyaris [address] [place] [address] 04/05/2025 11:00 AM EST Office Visit [facility]ULT D[facility] [address] [place] [address] Johanne Farley [address] [place] [address] documented as of this encounter Visit Diagnoses Diagnosis Primary insomnia Persistent disorder of initiating or maintaining sleep documented in this encounter Additional Health Concerns Assessment Noted Time PHQ-9 Depression Total Score: 6 11/02/19 23 3:44 PM EDT documented as of this encounter Care Teams Electric Engine Mechanic Relationship Specialty Start Date End Date Michelle Rodriguez MD [address] [place] [address] PCP - General Family Medicine 02/19/21 Rose Phillip PharmD [address] [place] [address] Pharmacist Internal Medicine 03/02/24 documented as of this encounter
--- OUTSIDE RECORDS SUMMARY | 2025-03-14 16:11 | XMS_ITS | Encounter Summary ---
Author Organization [employer] Address [address] [place] [address] [address] [place] [address] Care Team Providers Care Lining Cleaner Name Role Phone Michelle Rodriguez MD Primary Care Provider Rose Phillip PharmD Unavailable Reason for Visit * Reason Comments Med Refill Encounter Details Date Type Department Care Team (Late st Contact Info) Description 12/21/[address] [facility] MED[facility] [address] [place] [address] Michelle Rodriguez MD [address] [place] [address] Social History Tobacco Use Types Packs/Day Years [...] Description 03/31/2025 11:00 AM EDT Office Visit [facility] ADULT DENTAL [address] [place] [address] Johanne Farley [address] [place] [address] 04/05/2025 11:00 AM EST Office Visit [facility] ADULT DENTAL [address] [place] [address] Johanne Farley [address] [place], [place] [phone] documented as of this encounter Visit Diagnoses Not on filedocumented in this encounter Additional Health Concerns Assessment Noted Time PHQ-9 Depression Total Score: 6 11/02/19 23 3:44 PM EDT documented as of this encounter Care Teams Lining Cleaner Relationship Specialty Start Date End Date Michelle Rodriguez MD [address] [place] [address] PCP - General Family Medicine 02/19/21 Rose Phillip PharmD [address] [place] [address] Pharmacist Internal Medicine 03/02/24 documented as of this encounter
--- OUTSIDE RECORDS SUMMARY | 2025-03-14 16:11 | XMS_ITS | Clinical Summary ---
Author Organization [employer] Address [address] [place] [address] [address] [place] [address] Care Team Providers Care Childcare Aide Name Role Phone Michelle Rodriguez MD Primary Care Provider [phone] Rose Phillip PharmD Unavailable [phone] Allergies Active Allergy Reactions Criticality Noted Date Comments Haloperidol 05/06/2012 Other reaction(s): Numbness, tingling or swelling of the lips, tongue or mouth Trazodone Other 09/14/2020 PANIC ATTACKS Medications * This document contains information received from the source organization and may not represent a complete record from that organization. TRUEplus Lancets 33G miscIndications :Type 2 diabetes mellitus with hyperglycemia, with long-term current use of insulin (HCC) Use to test blood sugar 3 time(s) daily 100 each 11 03/02/20 24 Active Sodium Fluoride 5000 Sensitive 1.1-5 % gel BRUSH WITH A PEA SIZED AMOUNT OF TOOTHPASTE (1/4 GRAM) TWICE DAILY IN THE MORNING AND AT BEDTIME FOR 2 MINUTES, SPIT OUT EXCESS, DO NOT RINSE, DO NOT EAT OR DRINK FOR 30 MINUTES AFTER USE 02/20/20 24 Active Testosterone 1.62 % gel APPLY 2 PUMPS TOPICALLY EVERY MORNING DIRECTED 75 g 3 07/12/19 25 Active lisinopril 20 MG tabletIndicatio ns:Primary hypertension TAKE 1 TABLET BY MOUTH EVERYDAY AT NOON 90 tablet 3 09/07/19 25 Active aspirin 81 MG EC tablet TAKE 1 TABLET BY MOUTH EVERY MORNING 90 tablet 3 09/07/19 25 Active Continuous Glucose Certification Technician (FreeStyle [place] 3 [place]) deviceIndicatio ns:Type 2 diabetes mellitus with hyperglycemia, with long-term current use of insulin (HCC) 1 each Once per day. Use as directed for CGM 1 each 10/22/19 25 Active Continuous Glucose Sensor (FreeStyle [place]ena 3 Plus Sensor) miscIndications :Type 2 diabetes mellitus with hyperglycemia, with long-term current use of insulin ([facility]) Apply 1 every 15 days as directed for CGM 2 each 10/22/19 25 Active glucose blood (FreeStyle Precision Kwaku Test) test stripIndication s:Type 2 diabetes mellitus with hyperglycemia, with long-term current use of insulin ([facility]) Use to test blood sugar up to 3 times daily, as directed 100 each 10/22/19 25 Active insulin pen needle (Pentips) 32G x 4 mm misc Use 1 daily with basal insulin 100 each 10/22/19 25 Active metFORMIN (Glucophage) 1000 MG tablet TAKE 1 TABLET BY MOUTH TWICE DAILY IN THE MORNING AND IN THE EVENING WITH MEALS 180 tablet 3 10/30/19 25 Active glipiZIDE (Glucotrol) 5 MG tabletIndicatio ns:Type 2 diabetes mellitus with hyperglycemia, with long-term current use of insulin ([facility]) TAKE 1 TABLET BY MOUTH TWICE DAILY IN THE MORNING AND IN THE EVENING WITH MEALS 60 tablet 5 11/02/19 25 Active amLODIPine (Norvasc) 5 MG tablet TAKE 1 TABLET BY MOUTH EVERY MORNING 90 tablet 3 11/04/19 25 Active atorvastatin (Lipitor) 20 MG tablet TAKE 1 TABLET BY MOUTH EVERYDAY AT NOON 90 tablet 3 01/25/20 25 Active acetaminophen (Tylenol 8 Hour) 650 MG ER tablet Take 1 tablet (650 mg) by mouth every 8 (eight) hours if needed for mild pain. Do not crush, chew, or split. 30 tablet 01/27/20 25 Active ibuprofen 600 MG tablet Take 1 tablet (600 mg) by mouth 3 times daily. 20 tablet 01/27/20 25 Active insulin degludec (Tresiba FlexTouch) 100 UNIT/ML injection Inject 20 Units under the skin at bedtime. 15 mL 1 02/06/20 25 Active tamsulosin (Flomax) 0.4 MG 24 hr capsule Take 1 capsule (0.4 mg) by mouth at bedtime. 90 capsule 1 02/12/20 25 Active Tirzepatide (Mounjaro) 5 MG/0.5ML solution auto-injectorIn dications:Type 2 diabetes mellitus with hyperglycemia, with long-term current use of insulin (HCC) Inject 5 mg under the skin 1 (one) time per week. 2 mL 02/12/20 25 Active nicotine polacrilex (Nicorette) 2 MG gumIndications: Tobacco use disorder Chew 1 piece of gum, as directed, every 1-2 hours as needed for cravings. No more than 24 pieces in 24 hours. 110 each 5 02/12/20 25 Active nicotine polacrilex (Nicorette) 4 MG gum CHEW 1 PIECE OF GUM EVERY 1 TO 2 HOURS NEEDED FOR CRAVINGS. NO MORE THAN 24 IN 24 HOURS. 02/12/20 25 Active pilocarpine (Salagen) 5 MG tablet TAKE 1 TABLET BY MOUTH THREE TIMES DAILY IN THE MORNING, EVENING, AND BEDTIME 02/12/20 Active zolpidem (Ambien) 10 MG tabletIndicatio ns:Primary insomnia Take 1 tablet (10 mg) by mouth at bedtime. 30 tablet 02/26/20 25 Active pilocarpine (Salagen) 5 MG tablet Take 1 tablet (5 mg) by mouth 3 times daily. 90 tablet 02/20/20 025 hydrOXYzine HCl (Atarax) 25 MG tablet TAKE 1 TO 2 TABLETS BY MOUTH TWICE DAILY NEEDED FOR ANXIETY 07/23/19 025 Discontinued(T herapy completed) zolpidem (Ambien) 10 MG tabletIndicatio ns:Primary insomnia TAKE 1 TABLET BY MOUTH AT BEDTIME 30 tablet 01/06/20 025 Discontinued(R eorder (will not trigger notification to Pharmacy)) amoxicillin (Amoxil) 500 MG capsule Take 1 capsule (500 mg) by mouth every 8 (eight) hours for 10 days. 30 capsule 02/22/20 25 025 ibuprofen 800 MG tablet Take 1 tablet (800 mg) by mouth every 6 (six) hours if needed for mild pain for up to 7 days. 21 tablet 02/22/20 25 025 Active Problems Problem Noted Date Diagnosed Date Insomnia, unspecified 03/04/2025 Tobacco dependence 02/11/2025 Dental calculus 01/26/2025 Missing teeth, acquired 01/26/2025 Gingival bleeding 01/26/2025 Non-restorable tooth 01/26/2025 Tooth sensitivity 01/26/2025 Caregiver with fatigue 10/18/2024 Assessment & Plan (10/18/2024 5:09 PM EDT): Gave resources from [place] [facility] to call for respite care/hours and caregiver support Frequent urination 10/18/2024 Assessment & Plan (10/18/2024 5:10 PM EDT): UA bland Trial Flomax 0.4mg at night Screening for colon cancer 10/18/2024 Uncomplicated opioid dependence (CMS/HCC) 2024 Assessment & Plan (06/14/2024 10:18 AM EST): Has graduation coach and supports at [facility] Last use 3 weeks ago Testosterone insufficiency 06/14/2024 Assessment & Plan (10/18/2024 5:10 PM EDT): Continue 2 pumps daily 1.62% foam Essential hypertension 06/14/2024 Assessment & Plan (06/14/2024 10:15 AM EST): Continue Lisinopril 20mg and Amlodipine 5mg Pharyngeal dysphagia 01/28/2024 Memory loss 01/28/2024 Assessment & Plan (01/28/2024 12:06 PM EDT): Labs ordered, f/u in 1-2 months to review and perform MMSE Dental plaque 11/27/2023 Severe dental caries 11/27/2023 Xerostomia 11/27/2023 Ulnar neuropathy of [...] first line treatment History of substance abuse ([facility]) 11/01/2022 Overview (11/01/2022): IVDA, heroin. Last use 2013, follows with suboxone clinic Type 2 diabetes mellitus 06/18/2022 Assessment & Plan (02/05/2025 12:12 PM EDT): Uncontrolled today, A1c above 8. There is probably related to patient's weight gain, I do not see any S/S acute infection at this time. Increase Tresiba to 18 units nightly, can increase 2 more units (20U/at bedtime) every 4 days if FBS is above 120, she will follow-up with CDTM program and PCP Continue metformin and glipizide. Rx Humalog 4 units today. Consider switching him to Mounjaro as he has reached max dose of Ozempic with no improvement of A1c and/or weight loss. Advised to restart testosterone gel Assessment & Plan (10/18/2024 5:11 PM EDT): Continue Novolog with meals, hold Lantus at night Metformin 1000mg BID and Glipizide 5mg BID Taking Trulicity 4.5mg Podiatry: referral in, appt not made Dental: at [facility] BMP: Lab Results Component Value Date CREATININE 0.80 10/18/2024 K 4.0 10/18/2024 Microalbumin: Foot Exam: Complete at follow up Eye Exam:03/2023, no DM2 damage Lipid panel: ASCVD: The ASCVD Risk score (Carlos REEVES, et al., 2019) failed to calculate for the following reasons: The valid total cholesterol range is 130 to 320 mg/dL Statin: Yes ASA: Yes JAYDON/ARB: Yes Encouraged regular aerobic exercise for improved glycemic control Encouraged daily foot checks Encouraged lean protein snacks and to avoid foods high in sugar and simple carbohydrates Treatment Goals: A1c goal: <7% FBG goal: <130 2 hour post prandial goal: <180 Assessment & Plan (06/14/2024 10:17 AM EST): Add Lispro 6-10 units with meals (2 units for every 50 over 150 prior to eating), this is per patient preference and request because he has Lispro at home He will likely switch from Trulicity to Mounjaro at next [facility] appointment A1C 9.5 today and random glucose 357, comanaged with Rosesa Phillip, next appt 07/02/24 Metformin 1000mg BID and Glipizide 5mg BID Lantus 30 units at night Taking Trulicity 4.5mg Podiatry: referral in, appt not made Dental: at [facility] BMP: Lab Results Component Value Date CREATININE [...] Pt given phone number to schedule today Vitamin D deficiency 05/06/2012 Resolved Problems Problem Noted Date Diagnosed Date Resolved Date ED (erectile dysfunction) 06/14/2019 Overview (11/01/2022): Follows with urology Prediabetes 07/04/2017 11/05/2022 History of hepatitis C 05/06/201210/18 Overview (06/14/2024): Treated in 2011 Assessment & Plan (06/14/2024 10:14 AM EST): Hep C antibody positive 03/2024 Awaiting confirmatory negative viral load Impaired glucose tolerance 05/06/2012 0 06/14/2024 Noncompliance with treatment 05/06/2012 06/11/2024 Severe opioid use disorder (CMS/HCC) 05/06/2012 06/14/2024 Assessment & Plan (08/18/2023 10:26 AM EDT): Has started injecting and snorting as of two months ago, he is actively seeking detox/graduation coach Will come tomorrow morning at 845 [...] Klonopin, I declined to prescribe this Encounters * This document contains information received from the source organization and may not represent a complete record from that organization. Date Type Department Care Team Description 03/14/2025 Orders Only GENERIC EXTERNAL DATA DEPARTMENT Provider, Generic External Data 03/11/2025 Orders Only [facility] MEDICINE [address] [place], [place] [phone] Michelle Rodriguez MD Type 2 diabetes mellitus with hyperglycemia, with long-term current use of insulin (HCC) (Primary Dx) 03/10/[address] [facility] MEDICINE [address] [place], [place] [phone] Rose Phillip, PharmD 03/08/[address] [facility] MEDICINE [address] [place], [place] [phone] Michelle Rodriguez MD 03/06/[address] [facility] ADULT DENTAL [address] [place] [address] Brice Sommers DDS 03/04/2025 9:00 AM EDT Office Visit [facility] ADULT DENTAL [address] [place] [address] Brice Sommers DDS Severe dental caries (Primary Dx); Non-restorable tooth 03/01/2025 1:30 PM EDT Office Visit [facility] OPTOMETRY [address] [place] [address] Lennox, Riana, OD Diabetes type 2, no ocular involvement (CMS/HCC) (Primary Dx); Presbyopia of both eyes; Retinal pigment epithelial atrophy; Age-related nuclear cataract of both eyes 03/01/2025 Travel 02/25/2025 3:30 PM EDT Office Visit [facility] MEDICINE [address] [place] [address] Michelle Rodriguez MD Type 2 diabetes mellitus with hyperglycemia, with long-term current use of insulin (CMS/HCC); Primary insomnia 02/25/2025 Travel 02/23/[address] [facility] MEDICINE [address] [place] [phone] Michelle Rodriguez MD chart prep 02/21/2025 11:00 AM EDT Office Visit [facility] ADULT DENTAL [address] [place] [address] Kalyan Walker, DDS Dental caries (Primary Dx) 02/17/2025 Patient Outreach [facility] MEDICINE [address] [place] [phone] Michelle Rodriguez MD Pre-visit Planning (SDOH screening negative and tobacco screening negative) 02/11/2025 Patient Outreach [address] [address] Robson Garcia Recovery Supports 02/11/2025 Travel 02/10/[address] [facility] MEDICINE [address] [place] [address] Michelle Rodriguez MD 02/10/[address] [address] Michelle Rodriguez MD Primary insomnia 02/05/2025 11:40 AM EDT Office Visit [facility] WALK-IN CENTER [address] [place] [address] Sandee Whitaker MD Type 2 diabetes mellitus with hyperglycemia, with long-term current use of insulin ([facility]) 02/05/2025 Travel 01/26/2025 11:00 AM EDT Office Visit [facility] ADULT DENTAL [address] [place] [address] Miguelito Johanne Dental caries (Primary Dx); Dental calculus; Missing teeth, acquired; Gingival bleeding; Periodontal disease; Tooth sensitivity 01/23/[address] [facility] MEDICINE [address] [place] [address] Michelle Rodriguez MD 01/21/2025 Patient Outreach [facility] MEDICINE [address] [place] [address] Robson Garcia RC Recovery Supports 01/04/[address] [facility] MEDICINE [address] [place] [phone] Pily Dobson DO Primary insomnia from Last 3 Months Immunizations [...] Passive Smoke Exposure: Current Smokeless Tobacco: Current Tobacco Cessation:Ready to Q uit: Not Asked; Counseling Given: Not Answered Alcohol Use Standard Drinks/Week Comments Never 0 [...] Sign Reading Time Taken Comments Blood Pressure 90/60 03/04/2025 8:57 AM EDT Pulse 64 03/04/2025 8:57 AM EDT Temperature 36.9 C (98.5 F) 02/25/2025 3:39 PM EDT Respiratory Rate 21 02/25/2025 3:39 PM EDT Oxygen Saturation 98% 02/25/2025 3:39 PM EDT Inhaled Oxygen Concentration - - Weight 108 kg (238 lb) 02/25/2025 3:39 PM EDT Height 172.7 cm (5' 8 ) 02/25/2025 3:39 PM EDT Body Mass Index 36.19 02/25/2025 3:39 PM EDT Plan of Treatment Upcoming Encounters Date Type Department Care Team (Late st Contact Info) Description 03/31/2025 11:00 AM EDT Office Visit [facility] ADULT DENTAL [address] [place] [address] Johanne Farley [address] [place] [phone] 04/05/2025 11:00 AM EST Office Visit [facility] ADULT DENTAL [address], [place] [address] Johanne Farley [address] [place] [address] Health Maintenance Due Date Last Done Comments CT Colonography 1972 Colonoscopy 1972 FIT 1972 Sigmoidoscopy 1972 Alcohol/Substance Use Screening 1984 Family Planning (PISQ) 08/02/1987 Hepatitis A Vaccines (1 of 2 - Risk 2-dose series) 08/02/1991 Pneumococcal Vaccine: 50+ Years (1 of 2 - PCV) 08/02/1991 Zoster Vaccines (2 of 2) 02/13/2023 12/19/2022 COVID-19 Vaccine ( season) 2025 06/27/2022, 10/05/2021, 12/27/2020, Additional history exists Influenza Vaccine (#1) 2025 05/06/2012, 2009 Diabetes: Urine Protein Screening 03/08/2025 03/08/2024, 04/24/2022, 08/22/2021 Depression Monitoring 04/20/2025 10/18/2024, 025 Diabetes: Hemoglobin A1C 05/07/2025 025, 10/18/2024, 06/14/2024, Additional history exists Dental Oral Exam 07/30/2025 01/26/2025, 11/27/2023 Dental Prophylaxis 07/30/2025 01/26/2025, 11/27/2023 Disability Screening 10/18/2025 10/18/2024 Lipid Panel 10/18/2025 10/18/2024, 07/31, 04/24/2022, Additional history exists FOBT 10/26/2025 10/26/2024 Dental X-Ray: Bitewings 01/27/2026 01/26/2025, 11/26 SDOH Screening 02/17/2026 02/17/2025 Diabetes: Foot Exam 02/25/2026 02/25/2025, 02/25/2025, 02/25/2025, Additional history exists Tobacco Screening 03/09/2026 03/09/2025 Eye Exam 03/01/2027 03/01/2025, 02/02, 03/01/2025, Additional history exists Colorectal Cancer Screening 10/27/2027 FIT DNA/Cologuard 10/27/2027 10/26/2024 Dental X-Ray: Full Mouth 01/28/2028 01/26/2025, 11/30 DTaP/Tdap/Td Vaccines (2 - Td or Tdap) [...] Procedure Name Priority Date/Time Associated Diagnosis Comments XR CHEST 2 VIEWS Routine 03/14/2025 3:07 PM EDT HIGH SENSITIVITY TROPONIN I Routine 03/14/2025 2:43 PM EDT MAGNESIUM Routine 03/14/2025 2:43 PM EDT COVID-19 ID NOW (MAYER) Routine 03/14/2025 2:43 PM EDT CBC WITH AUTO DIFFERENTIAL Routine 03/14/2025 2:43 PM EDT COMPREHENSIVE METABOLIC PANEL Routine 03/14/2025 2:43 PM EDT PROTHROMBIN TIME-INR Routine 03/14/2025 2:43 PM EDT INFLUENZA A B2 ID NOW (MAYER) Routine 03/14/2025 2:43 PM EDT 18 EXTRACTION, ERUPTED TOOTH REQ REMOVAL OF BONE AND/OR SECTIONING OF TOOTH Routine 03/04/2025 9:00 AM EDT CASE PRESENTATION, DETAILED AND EXTENSIVE TREATMENT PLANNING Routine 03/04/2025 9:00 AM EDT OCT, RETINA - OU - BOTH EYES Routine 03/01/2025 1:30 PM EDT Retinal pigment epithelial atrophy POCT GLUCOSE Routine 02/25/2025 3:41 PM EDT Type 2 diabetes mellitus with hyperglycemia, with long-term current use of insulin ([facility]) LIMITED ORAL EVALUATION - PROBLEM FOCUSED Routine 02/21/2025 11:00 AM EDT POCT GLYCOSYLATED HEMOGLOBIN (HGB A1C) Routine 02/05/2025 11:45 AM EDT Type 2 diabetes mellitus with hyperglycemia, with long-term current use of insulin ([facility]) POCT GLUCOSE Routine 02/05/2025 11:44 AM EDT Type 2 diabetes mellitus with hyperglycemia, with long-term current use of insulin ([facility]) PERIODIC ORAL EVALUATION - ESTABLISHED PATIENT Routine 01/26/2025 11:00 AM EDT ORAL HYGIENE INSTRUCTIONS Routine 01/26/2025 11:00 AM EDT CASE PRESENTATION, DETAILED AND EXTENSIVE TREATMENT PLANNING Routine 01/26/2025 11:00 AM EDT PROPHYLAXIS - ADULT Routine 01/26/2025 1 1:00 AM EDT INTRAORAL - COMPLETE SERIES OF RADIOGRAPHIC IMAGES Routine 01/26/2025 11:00 AM EDT 31 O AMALGAM FILLING Routine 01/26/2025 12:00 AM EDT LAB COLOGUARD COLON CANCER SCREEN Routine 10/26/2024 7:05 AM EDT Screening for colon cancer LIPID PANEL, STANDARD Routine 10/18/2024 9:30 AM EDT ALBUMIN, RANDOM URINE W/CREATININE Routine 03/08/2024 9:17 AM EDT HIV 1/2 ANTIGEN/ANTIBODY, FOURTH GENERATION W/RFL Routine 08/19/2023 10:02 AM EDT Type 2 diabetes mellitus without complication, with long-term current use of insulin (CMS/HCC) from Last 3 Months or Most Recently Relevant to Health Maintenance Results * XR Chest 2 Views (03/14/2025 3:07 PM EDT) Anatomical Region Laterality Modality Chest Radiographic Telma ging 03/14/2025 3:07 PM EDT Narrative 03/14/2025 3:08 PM EDT [place] [address] XRay Report Signed Patient: Raimundo Carcamo MR#: [id number] 9 : 1970 Acct:[id number] Age/Sex: 54 / M ADM Date: 03/14/25 Loc: HO.ED Attending Dr: Ordering Physician: Hien Schmidt Date of Service: 03/14/25 Procedure(s): XR chest 2V Accession Number(s): [id number] cc: Hien Schmidt; Michelle Rodriguez Reason for Exam: syncope CLINICAL HISTORY: syncope Chest Radiographs, 2 views Comparison: 12/20/22 Findings: No cardiomegaly. Normal mediastinal contours. No pneumothorax. No opacity. No pleural effusion. Normal upper abdomen. No acute fracture. Impression: No acute findings. This document has been electronically signed by: Vidhya Pedersen MD on 03/14/2025 15:07:30 Dictated By: Vidhya Dubose MD Signed By: <Electronically signed by Vidhya Dubose MD in OV> 03/14/25 1508 DD/ 1507 TD/TT: 03/14/25 1507 Boat Ride Operator: Procedure Note Donotuseinterpreter, Image - 03/14/2025 [facility] [address] [facility] [place] [address] XRay Report Signed Patient: Raimundo CarcamoMR#: [id number] 9 : 1970Acct:[id number] Age/Sex: 54 / MADM Date: 03/14/25 Loc: HO.ED Attending Dr: Ordering Physician: Hien Schmidt Date of Service: 03/14/25 Procedure(s): XR chest 2V Accession Number(s): [id number] cc: Hien Schmidt; Michelle Rodriguez Reason for Exam: syncope CLINICAL HISTORY: syncope Chest Radiographs, 2 views Comparison: 12/20/22 Findings: No cardiomegaly. Normal mediastinal contours. No pneumothorax. No opacity. No pleural effusion. Normal upper abdomen. No acute fracture. Impression: No acute findings. This document has been electronically signed by: Vidhya Pedersen MD on 03/14/2025 15:07:30 Dictated By: Vidhya Dubose MD Signed By: <Electronically signed by Vidhya Dubose MD in OV> 03/14/25 1508 DD/ 1507 TD/TT: 03/14/25 1507 Boat Ride Operator: [facility] External Provider IMG XR PROCEDURES Edited Result - Final * Influenza A B2 ID NOW (Mayer) (03/14/2025 2:43 PM EDT) IDNOW SERIAL# [id number] [facility] Influenza A Negative Negative [facility] Influenza B2 Negative Negative [facility] Influenza A B2 Note See Note [facility] Comment:The Mayer ID NOW In fluenza A B2 test is used for thequalitative detection of influenza A and B from patientswith signs and symptoms of respiratory infection.Negative results do not preclude influenza virus infectionand should not be used as the sole basis for diagnosis,treatment or other patient management decisions.There is a risk of false negative results due to thepresence of variants in the viral targets of the assay, lowlevels of virus in the specimen and co- infection withRespiratory Syncytial Virus. 03/14/2025 2:43 PM EDT 03/14/2025 2:46 PM EDT Generic External Data Provider LAB MICROBIOLOGY - GENERAL ORDERABLES Final Result [facility] [address] [place] [address] [phone] * COVID-19 ID NOW (MAYER) (03/14/2025 2:43 PM EDT) IDNOW SERIAL# [id number] [facility] COVID-19 TEST Negative Negative [facility] COVID-19 NOTE See Note [facility] Comment: Results are for the identification of SARS-CoV2 RNA. TheSARS-CoV2 RNA is generally detectable in respiratory samplesduring the acute phase of infection. Positive results areindicative of the presence of SARS-CoV-2 RNA; clinicalcorrelation with patient history and other diagnosticinformation is necessary to determine patient infectionstatus. Positive results do not rule out bacterial infectionor co- infection with other viruses.Testing facilities within the [facility] and itsterritories are required to report all positive results tothe appropriate public health authorities.Negative results should be treated as presumptive and, ifinconsistent with clinical signs and symptoms or necessaryfor patient management, should be tested with differentauthorized or cleared molecular tests. Negative results donot preclude SARS-CoV2 RNA infection and should not be usedas the sole basis for patient management decisions. Negativeresults should be considered in the context of a patient'srecent exposures, history and the presence of clinical signsand symptoms consistent with COVID-19.This test has been authorized by the FDA under an EmergencyUse Authorization (EUA) for use by authorized laboratories.Testing performed on the Mayer ID NOW utilizing NAAT. 03/14/2025 2:43 PM EDT 03/14/2025 2:46 PM EDT Generic External Data Provider LAB MOLECULAR STEVE GNOSTICS ORDERABLES Final Result Performing Organization Address City/[facility] Co de Phone Number [facility] [address] [place] [address] [phone] * High Sensitivity Troponin I (03/14/2025 2:43 PM EDT) [facility] TROPONIN I HIGH SENSITIVITY <2.7 <3.5 - 35.0 ng/L [facility] Comment:The Mayer high sens itivity Troponin-I results should beused in conjunction with other diagnostic information suchas ECG, clinical observations and information, and patientsymptoms to aid in the diagnosis of OR. 03/14/2025 2:43 PM EDT 03/14/2025 2:46 PM EDT us Generic External Data Provider LAB BLOOD ORDERAB LES Final Result Performing Organization Address [facility] Co de Phone Number [facility] [address] [place] [phone] * (ABNORMAL) CBC auto differential (03/14/2025 2:43 PM EDT) [facility] White Blood Count 11.3(H) 4.8 - 10.8 X10*3/uL [facility] Red Blood Count 5.16 4.60 - 5.80 X10*6/uL [facility] Hemoglobin 14.3 14.0 - 18.0 g/dl [facility] Hematocrit 43.1 42.0 - 52.0 % [facility] Mean Corpuscular Volume 83.5 80.0 - 98.0 fL [facility] Mean Corpuscular Hemoglobin 27.7 27.0 - 33.0 pg [facility] [facility] Mean Corpuscular HGB Conc 33.2 31.0 - 36.0 g/dl [facility] Red Cell Distribution Width 12.2 11.0 - 16.0 % [facility] Platelet Count 289 160 - 400 X10*3/uL [facility] Mean Platelet Volume 8.9(L) 9.4 - 12.4 fL [facility] Neutrophils Percent Auto 71.8 45 - 73 % [facility] Imm Gran Pct Auto 0.4 0.0 - 0.4 % [facility] Lymphocytes Percent Auto 19.3(L) 20 - 40 % [facility] Monocytes Percent Auto 7.2 2 - 11 % [facility] Eosinophils Percent Auto 0.9 0 - 4 % [facility] Basophils Percent Auto 0.4 0 - 2 % [facility] NRBC Pct Auto 0.0 0.0 - 0.2 /100WBC [facility] Neutrophils Absolute Auto 8.1 2.0 - 8.3 x10*3/uL [facility] Imm Gran Abs Auto 0.05(H) 0.00 - 0.03 X10*3/uL [facility] Lymphocytes Absolute Auto 2.2 1.2 - 4.9 X10*3/uL [facility] Monocytes Absolute Auto 0.8 0.1 - 1.2 X10*3/uL [facility] Eosinophils Absolute Auto 0.1 0.0 - 0.4 X10*3/uL [facility] Basophils Absolute Auto 0.0 0.0 - 0.2 X10*3/uL [facility] NRBC Abs Auto 0.000 0.0 - 0.012 X10*3/uL [facility] 03/14/2025 2:43 PM EDT 03/14/2025 2:46 PM EDT us Generic External Data Provider LAB BLOOD ORDERAB LES Final Result [facility] [address] [place] [address] [phone] * (ABNORMAL) Prothrombin Time-INR (03/14/2025 2:43 PM EDT) Prothrombin Time 13.0(H) 10.9 - 12.4 SEC [facility] INTERNATIONAL NORM RATIO 1.1 0.9 - 1.1 [facility] Comment:INTERNATIONAL NORMAL IZED RATIO (INR) REFERENCE RANGES Reference RangeFor patients not on anticoagulant therapy: 0.9 - 1.1INR ranges for oral anticoagulanttherapy:For prevention and treatment of venous thrombosis and pulmonary embolism: 2.0 - 3.0For acute myocardial infarction with aspirin therapy: 2.0 - 3.0For acute myocardial infarction without aspirin therapy: 3.0 - 4.0For patients with mechanical prosthetic heart valves: 2.5 - 3.5 03/14/2025 2:43 PM EDT 03/14/2025 2:46 PM EDT Generic External Data Provider LAB BLOOD ORDERAB LES Final Result Performing Organization Address [facility] Co de Phone Number [facility] [address] [place] [phone] * Magnesium (03/14/2025 2:43 PM EDT) Pathologist [facility] Magnesium 1.7 1.6 - 2.6 mg/dL [facility] 03/14/2025 2:43 PM EDT 03/14/2025 2:46 PM EDT ICEX External Data Provider LAB BLOOD ORDERAB LES Final Result Performing Organization Address [facility] de Phone Number [facility] [address] [place] [phone] * (ABNORMAL) Comprehensive Metabolic Panel (03/14/2025 2:43 PM EDT) Sodium 134(L) 135 - 145 mmol/L [facility] Potassium 3.8 3.3 - 5.1 mmol/L [facility] Chloride 102 96 - 108 mmol/L [facility] Carbon Dioxide 22 22 - 29 mmol/L [facility] Anion Gap 14 12 - 20 [facility] Urea Nitrogen (BUN) 14 9 - 16 mg/dL [facility] Creatinine, Serum 0.84 0.5 - 1.4 mg/dL [facility] Creatinine Clr Calc Pharmacy 120.2 [facility] Comment:eGFR (calculated fro m the MDRD study equation) and eCrCl(calculated from the Cockcroft-Gault equation) are based ondifferent parameters and may not yield comparable results.If eCrCl result is absurd, please check patient'sheight/weight. Estimated Glomerular Filt Rate >60 [facility] Comment:Chronic Kidney Disea se: Estimated GFR < 60 mL/min/1.20h8Zwfega Kidney Disease: Estimated GFR < 15 mL/min/1.73m2 Glucose 178(H) 60 - 115 mg/dL [facility] Calcium 9.2 8.4 - 10.2 mg/dL [facility] Bilirubin, Total 0.5 0.0 - 1.0 mg/dL [facility] Aspartate Amino Transferase 26 5 - 37 U/L [facility] Alanine Aminotransferase 38 0 - 40 U/L [facility] Total Protein 8.5(H) 6.5 - 8.0 g/dL [facility] Albumin Level 4.9 3.5 - 5.0 g/dL [facility] Alkaline Phosphatase 117 39 - 117 U/L [facility] 03/14/2025 2:43 PM EDT 03/14/2025 2:46 PM EDT us Generic External Data Provider LAB BLOOD ORDERAB LES Final Result [facility] [address] [place] [phone] * OCT, Retina - OU - Both Eyes (03/01/2025 1:30 PM EDT) Narrative Riana High, OD - 03/09/2025 2:45 PM EDT Images from the original result were not included. OCT [facility] [employer] Optical Coherence Tomography Interpretation Report Measurements: OD OS Macula Thickness 236 microns 230 microns Test findings: OD: Normal foveal contour, no cystoid macular edema. No retinal pigment epithelium disruption, no subretinal fluid OS: Normal foveal contour, no cystoid macular edema. focal retinal pigment epithelium atrophy inferotemporal to macula, no subretinal fluid Impression and Plan: Stable, focal area of retinal pigment epithelium atrophy inferotemporal to the left macula. It is not visually significant. Will monitor at his next exam. Riana High OD OPHTH TOMOGRAPHY Final Result * POCT Glucose (02/25/2025 3:41 PM EDT) Only the most recent of2 resultswithin the time period is included. Glucose Blood, POC 137 60 - 200 mg/dL QC Media Lot # [id number] Lot# Expiration Date , Blood Capillary blood specimen / Unknown 02/25/2025 3:41 PM EDT Michelle Rodriguez MD POINT OF CARE TEST ENTER/EDIT ORDERABLES Final Result * (ABNORMAL) POCT glycosylated hemoglobin (Hgb A1c) (02/05/2025 11:45 AM EDT) Pathologist [facility] Hemoglobin A1C 8.1(A) 4.0 - 5.7 % QC Media Lot # [id number] Lot# Expiration Date Blood Capillary blood specimen / Unknown 02/05/2025 11:45 AM EDT Sandee Whitaker MD POINT OF CARE TEST ENTER /EDIT ORDERABLES Final Result * Cologuard?? colon cancer screening (10/26/2024 7:05 AM EDT) Cologuard Result Negative Negative 10/30/19 25 6:16 AM EDT [facility] (CLIA #:[id number]) Comment: The Cologuard (TM) test was performed on this specimen. NEGATIVE TEST RESULT. A negative Cologuard result indicates a low likelihood that a colorectal cancer (CRC) or advanced adenoma (adenomatous polyps with more advanced pre-malignant features) is present. The chance that a person with a negative Cologuard test has a colorectal cancer is less than 1 in 1500 (negative predictive value >99.9%) or has an advanced adenoma is less than 5.3% (negative predictive value 94.7%). These data are based on a prospective cross-sectional study of 10,000 individuals at average risk for colorectal cancer who were screened with both Cologuard and colonoscopy. (Chip Kinsey al, N Engl J Med 2014;370(14):1286- 1297) The normal value (reference range) for this assay is negative. COLOGUARD RE-SCREENING RECOMMENDATION: Periodic colorectal cancer screening is an important part of preventive healthcare for asymptomatic individuals at average risk for colorectal cancer. Following a negative Cologuard result, the [employer] and U.S. Multi-Society Task Force screening guidelines recommend a Cologuard re-screening interval of 3 years. References: [employer] Guideline for Colorectal Cancer Screening: https://www.cancer.org/cancer/lgbll-oxzicy-sixftg/jlnykqhll-sepjujqbq-uugeunx/ac s-rec ommendations.html.; Oswald DK, Cielo ESCOBEDO, Gulshan LiveK, Colorectal Cancer Screening: Recommendations for Physicians and Patients from the U.S. Multi-Society Task Force on Colorectal Cancer Screening , Am J Gastroenterology 2017; 112:6176-1442. TEST DESCRIPTION: Composite algorithmic analysis of stool DNA-biomarkers with hemoglobin immunoassay. Quantitative values of individual biomarkers are not reportable and are not associated with individual biomarker result reference ranges. Cologuard is intended for colorectal cancer screening of adults of either sex, 45 years or older, who are at average-risk for colorectal cancer (CRC). Cologuard has been approved for use by the U.S. FDA. The performance of Cologuard was established in a cross sectional study of average-risk adults aged 50-84. Cologuard performance in patients ages 45 to 49 years was estimated by sub-group analysis of near-age groups. Colonoscopies performed for a positive result may find as the most clinically significant lesion: colorectal cancer [4.0%], advanced adenoma (including sessile serrated polyps greater than or equal to 1cm diameter) [20%] or non- advanced adenoma [31%]; or no colorectal neoplasia [45%]. These estimates are derived from a prospective cross-sectional screening study of 10,000 individuals at average risk for colorectal cancer who were screened with both Cologuard and colonoscopy. (Chip Mesa, N Engl J Med 2014;370(14):1211-8601.) Cologuard may produce a false negative or false positive result (no colorectal cancer or precancerous polyp present at colonoscopy follow up). A negative Cologuard test result does not guarantee the absence of CRC or advanced adenoma (pre-cancer). The current Cologuard screening interval is every 3 years. ([employer] [employer] and U.S. Multi-Society Task Force). Cologuard performance data in a 10,000 patient pivotal study using colonoscopy as the reference method can be accessed at the following location: www.[employer]zi/results. Additional description of the Cologuard test process, warnings and precautions can be found at www.[email or web address].[email or web address]. Stool specimen (specimen) 10/26/2024 7:05 AM EDT 10/27/2024 10:44 AM EDT Michelle Rodriguez MD LAB MOLECULAR DIAGNOSTICS NEYMAR MOORE Final Result [facility] (CLIA #:[id number]) [address] [place] [address], * (ABNORMAL) Lipid Panel, Standard (10/18/2024 9:30 AM EDT) Triglycerides 52 <150 mg/dL [facility] Comment:Desirable Triglyceri de: less than 150 mg/dLBorderline High Triglyceride 150-199 mg/dLHigh Triglyceride: 200-499 mg/dLVery High Triglyceride: greater than or equal to 5OO mg/dL Cholesterol 75 <200 mg/dL [facility] Comment:Desirable Cholestero l: less than 200 mg/dLBorderline High Cholesterol: 200-239 mg/dLHigh Cholesterol: greater than 239 mg/dL LDL Cholesterol Calculated 33 <100 mg/dL [facility] Comment:Desirable LDL: less than 100 mg/dLNear Optimal/Above Optimal LDL: 110- 129 mg/dLBorderline High LDL: 130-159 mg/dLHigh LDL: 160-189 mg/dLVery High LDL: greater than or equal to 190 mg/dL HDL Cholesterol 32(L) >40 mg/dL [facility] Comment:Desirable HDL: great er than 40 mg/dL Note: This HDL assay may give artificially low results in patients with liver disease. 10/18/2024 9:30 AM EDT 10/18/2024 11:00 AM EDT Michelle Rodriguez MD LAB BLOOD ORDERABLES Final Res ult [facility] [address] [place] [phone] * Albumin, Random Urine W/Creatinine (03/08/2024 9:17 AM EDT) Creatinine, Urine 110.89 mg/dL [facility] Microalbumin Urine <5.0 mg/L [facility] Microalbum Creatinine Ratio Ur TNP <30 ug/mg cr [facility] Comment:Unable to calculate albumin/creatinine ratio due to lowmicroalbumin or creatinine result. 03/08/2024 9:17 AM EDT 03/08/2024 10:55 AM EDT Michelle Rodriguez MD LAB URINE ORDERABLES Final Res ult Performing Organization Address [facility]/ZIP Co de Phone Number [facility] [address] [place] [phone] * HIV-1/2 Antigen and Antibodies, Fourth Generation, with Reflexes (08/19/2023 10:02 AM EDT) HIV AB/AG Nonreactive Nonreactive [facility] Comment:HIV-1 p24 Ag and/or HIV-1/HIV-2 Ab not detected.A test result that is nonreactive does not exclude thepossibility of exposure to or infection with HIV-1 and/orHIV-2. Nonreactive results in this assay for individualswith prior exposure to HIV-1 and/or HIV-2 may be due toantigen and antibody levels that are below the limit ofdetection of this assay.The [employer] HIV Ag/Ab Combo assay result andsupplemental assay results should be interpreted inconjunction with the patient's clinical presentation,history and other laboratory results. If the results areinconsistent with clinical evidence, additional testing issuggested to confirm the result. Blood Venous blood specimen / Unknown 08/19/2023 10:02 AM EDT 08/19/2023 11:21 AM EDT us Michelle Rodriguez MD LAB BLOOD ORDERABLES Final Res ult [facility] [address] [place] [phone] [phone] from Last 3 Months or Most Recently Relevant to Health Maintenance Insurance [facility] C3 DENTAL-[facility] MEDICAID STAND ADULT Care Teams Childcare Aide Relationship Specialty Start Date End Date Michelle Rodriguez MD [address] [place] [address] PCP - General Family Medicine 02/19/21 Rose Phillip, Camilo [address] [place] [address] Pharmacist Internal Medicine 03/02/24
--- OUTSIDE RECORDS SUMMARY | 2025-03-14 16:11 | XMS_ITS | Encounter Summary ---
Author Organization [facility] Address [address] [place] [address] 7t [place] [address] Care Team Providers Care Teaching Aide Name Role Phone Michelle Rodriguez MD Primary Care Provider [phone] Rose Phillip PharmD Unavailable [phone] Reason for Visit * Reason Comments Med Refill Encounter Details Date Type Department Care Team (Late st Contact Info) Description 01/20/2023 Refill [facility] [address] [place] [address] Mimi Machuca FNP Primary insomnia Social History Tobacco Use Types [...] Description 03/31/2025 11:00 AM EDT Office Visit [facility] ADULT DENTAL [address] [place] [address] Johanne Farley [address] [place] [address] 04/05/2025 11:00 AM EST Office Visit [facility] [address] [place] [address] Johanne Farley [address] [place] [address] documented as of this encounter Visit Diagnoses Diagnosis Primary insomnia Persistent disorder of initiating or maintaining sleep documented in this encounter Additional Health Concerns Assessment Noted Time PHQ-9 Depression Total Score: 6 11/02/19 23 3:44 PM EDT documented as of this encounter Care Teams Teaching Aide Relationship Specialty Start Date End Date Michelle Rodriguez MD [address] [place] [address] PCP - General Family Medicine 02/19/21 Rose Phillip PharmD [address] [place] [address] Pharmacist Internal Medicine 03/02/24 documented as of this encounter
--- OUTSIDE RECORDS SUMMARY | 2025-03-14 16:11 | XMS_ITS | Encounter Summary ---
Author Organization [employer] Address [address] [place] [address] Care Team Providers Care Radiographer Name Role Phone Michelle Rodriguez MD Primary Care Provider [phone] Rose Phillip PharmD Unavailable [phone] Encounter Details Date Type Department Care Team (Late st Contact Info) Description 03/10/2025 Telephone [facility] [address] [place], [place] [phone] Rose Phillip, PharmD [address] [place] [address] Social History Tobacco Use Types Packs/Day Years [...] encounter Miscellaneous Notes * Telephone Encounter - Rose Phillip PharmD - 03/10/2025 4:36 PM EDT Pharmacy is requesting an updated CDTM referral with a diagnosis of diabetes. This is to replace existing referral which will before next appointment. Please send at your earliest convenience.Thank you! documented in this encounter Plan of Treatment Upcoming Encounters Date Type Department Care Team (Late st Contact Info) Description 03/31/2025 11:00 AM EDT Office Visit [facility] ADULT D[facility] [address] [place] [address] Johanne Farley [address] [place] [address] 04/05/2025 11:00 AM EST Office Visit [facility] AD[facility] [address] [place] [address] Johanne Farley [address] [place] [address] documented as of this encounter Visit Diagnoses Not on filedocumented in this encounter Additional Health Concerns Assessment Noted Time PHQ-9 Depression Total Score: 21 025 4:09 PM EDT documented as of this encounter Care Teams Radiographer Relationship Specialty Start Date End Date Michelle Rodriguez MD [address] [place] [address] PCP - General Family Medicine 02/19/21 Rose Phillip, Camilo [address] [place] [address] Pharmacist Internal Medicine 03/02/24 documented as of this encounter
--- OUTSIDE RECORDS SUMMARY | 2025-03-14 16:11 | XMS_ITS | Encounter Summary ---
Author Organization [employer] Address [address] [place] [address] [address] [place] [address] Care Team Providers Care Farm Management Adviser Name Role Phone Michelle Rodriguez MD Primary Care Provider [phone] Rose Phillip PharmD Unavailable [phone] Encounter Details Date Type Department Care Team (Latest Contact Info) Description 12/13/[address] [facility] CONVERSIONS Dental, Provider, DDS Social History [...] Care Team ( st Contact Info) Description 03/31/2025 11:00 AM EDT Office Visit [facility] ADULT DENTAL [address] [place] [address] Johanne Farley [address] [place] [address] 04/05/2025 11:00 AM EST Office Visit [facility] ADULT D[facility]AL [address] [place] [address] Johanne Farley [address] [place] [address] documented as of this encounter Visit Diagnoses Not on filedocumented in this encounter Care Teams Farm Management Adviser Relationship Specialty Start Date End Date Michelle Rodirguez MD [address] [place] [address] PCP - General Family Medicine 02/19/21 Rose Phillip, MerissaD [address] [place] [phone] Pharmacist Internal Medicine 03/02/24 documented as of this encounter
--- OUTSIDE RECORDS SUMMARY | 2025-03-14 16:11 | XMS_ITS | Encounter Summary ---
Author Organization [employer] Address [address] [facility] 7t [place] [address] Care Team Providers Care Grain Mill Worker Name Role Phone Michelle Rodriguez MD Primary Care Provider [phone] Rose Phillip PharmD Unavailable [phone] Reason for Visit * Reason Comments Med Refill Encounter Details Date Type Department Care Team ([facility] st Contact Info) Description 10/25/2024 Refill [facility] [address] [place], [place] [phone] Michelle Rodriguez MD [address] [place], [place] [phone] Type 2 diabetes mellitus with hyperglycemia, with long-term current use of insulin ([facility]) Social History Tobacco Use Types Packs/Day Years [...] Description 03/31/2025 11:00 AM EDT Office Visit [facility] ADULT DENTAL [address] [place] [address] Bright Farleyaris [address] [place] [address] 04/05/2025 11:00 AM EST Office Visit [facility]ULT [facility] [address] [place] [address] Miguelito [facility] [address] [place] [address] documented as of this encounter Visit Diagnoses Diagnosis Type 2 diabetes mellitus with hyperglycemia, with long-term current use of insulin (HCC) documented in this encounter Additional Health Concerns Assessment Noted Time PHQ-9 Depression Total Score: 21 025 4:09 PM EDT documented as of this encounter Care Teams Grain Mill Worker Relationship Specialty Start Date End Date Michelle Rodriguez MD [address] [place] [address] PCP - General Family Medicine 02/19/21 Rose Phillip PharmD [address] [place] [address] Pharmacist Internal Medicine 03/02/24 documented as of this encounter
--- OUTSIDE RECORDS SUMMARY | 2025-03-14 16:11 | XMS_ITS | Encounter Summary ---
Author Organization [employer] Address [address] [facility] [address]t [place] [address] Care Team Providers Care Director Internal Audit Name Role Phone Michelle Rodriguez MD Primary Care Provider [phone] Rose Phillip PharmD Unavailable [phone] Encounter Details Date Type Department Care Team (Late st Contact Info) Description 07/15/2022 Orders Only [facility] [address] [place], [place] [phone] Pily Linn LPN Social History Tobacco Use [...] Description 03/31/2025 11:00 AM EDT Office Visit [facility] ADULT DENTAL [address] [place] [address] Johanne Farley [address] [place] [address] 04/05/2025 11:00 AM EST Office Visit [facility] AD[facility] [address] [place], [place] [phone] Miguelito, Johanne [address] [place] [address] documented as of this encounter Visit Diagnoses Not on filedocumented in this encounter Care Teams Director Internal Audit Relationship Specialty Start Date End Date Michelle Rodriguez MD [address] [place] [address] PCP - General Family Medicine 02/19/21 Rose Phillip PharmD [address] [place] [address] Pharmacist Internal Medicine 03/02/24 documented as of this encounter
--- OUTSIDE RECORDS SUMMARY | 2025-03-14 16:11 | XMS_ITS | Encounter Summary ---
Author Organization [employer] Address [address] [place] [address] Care Team Providers Care Client Account Representative Name Role Phone Michelle Rodriguez MD Primary Care Provider [phone] Rose Phillip PharmD Unavailable [phone] Reason for Visit * Reason Comments Med Refill Encounter Details Date Type Department Care Team ([facility] st Contact Info) Description 05/14/2023 Refill [facility] [place] [address] [place] [address] Uriah Hoang FNP Social History Tobacco Use [...] Description 03/31/2025 11:00 AM EDT Office Visit [facility] ADULT DENTAL [address] [place] [address] Johanne Farley [address] [place] [address] 04/05/2025 11:00 AM EST Office Visit [facility] ADULT DENTAL [address] [place] [address] Johanne Farley [address] [place] [address] documented as of this encounter Visit Diagnoses Not on filedocumented in this encounter Additional Health Concerns Assessment Noted Time PHQ-9 Depression Total Score: 6 11/02/19 23 3:44 PM EDT documented as of this encounter Care Teams Client Account Representative Relationship Specialty Start Date End Date Michelle Rodriguez MD [address] [place] [phone] PCP - General Family Medicine 02/19/21 Rose Phillip PharmD [address] [place] [phone] Pharmacist Internal Medicine 03/02/24 documented as of this encounter
--- OUTSIDE RECORDS SUMMARY | 2025-03-14 16:11 | XMS_ITS | Encounter Summary ---
Author Organization [employer] Address [address] [place] [address] Care Team Providers Care Box Toe Maker Name Role Phone Michelle Rodriguez MD Primary Care Provider [phone] Rose Phillip PharmD Unavailable [phone] Encounter Details Date Type Department Care Team ([facility] st Contact Info) Description 03/02/2024 Orders Only [facility] MEDICINE [address] [place], [place] [phone] Michelle Rodriguez MD [address] [place], [place] [phone] History of hepatitis C (Primary Dx) Social [...] Office Visit [facility] ADULT DENTAL [address] [place] [address] MiguelitoBrightJohanne [address] [place] [address] 04/05/2025 11:00 AM EST Office Visit [facility]ULT [facility] [address] [place] [address] Miguelito, Johanne [address] [place] [address] documented as of this encounter Procedures Procedure Name Priority Date/Time Associated Diagnosis Comments HEPATITIS PANEL, GENERAL Routine 03/08/2024 9:25 AM EDT History of hepatitis C documented in this encounter Results * (ABNORMAL) Hepatitis A,B,C Profile (03/08/2024 9:25 AM EDT) Hepatitis A IgM Nonreactive Nonreactive [facility] Comment:IgM antibodies to JOSEPH V not detected; does not exclude earlyacute or recovered HAV infection. ~Hepatitis B Surface Antibody REACTIVE Nonreactive [facility] Comment:REACTIVE: > 11.99 mI U/mL Hepatitis B Core Antibody Nonreactive Nonreactive [facility] Hepatitis C Antibody Reactive(A) Nonreactive [facility] Comment:Presumptive evidence of antibodies to HCV. Hepatitis B Surface Ag Negative Negative [facility] Blood Venous blood specimen / Unknown 03/08/2024 9:25 AM EDT 03/08/2024 11:15 AM EDT us Michelle Rodriguez MD LAB BLOOD ORDERABLES Final Res ult [facility] [address] [place] [address] [phone] documented in this encounter Visit Diagnoses Diagnosis History of hepatitis C- Primary Personal history of other infectious and parasitic disease documented in this encounter Additional Health Concerns Assessment Noted Time PHQ-9 Depression Total Score: 6 11/02/19 23 3:44 PM EDT documented as of this encounter Care Teams Box Toe Maker Relationship Specialty Start Date End Date Michelle Rodriguez MD [address] [place] [address] PCP - General Family Medicine 02/19/21 Rose Phillip PharmD [address] [place] [address] Pharmacist Internal Medicine 03/02/24 documented as of this encounter
--- OUTSIDE RECORDS SUMMARY | 2025-03-14 16:11 | XMS_ITS | Encounter Summary ---
Author Organization [employer] Address [address] [place] [address] 7t [place] [address] Care Team Providers Care Payable Representative Name Role Phone Michelle Rodriguez MD Primary Care Provider [phone] Rose Phillip PharmD Unavailable [phone] Reason for Visit * Reason Comments Med Refill Encounter Details Date Type Department Care Team ([facility] st Contact Info) Description 10/12/2024 Refill [facility] MED[facility]INE [address] [place], [place] [phone] Rose Phillip, PharmD [address] [place] [address] Social History Tobacco Use Types Packs/Day Years [...] Telephone Encounter - Rose Phillip PharmD - 10/27/2024 11:02 AM EDT Med was discontinued in [facility] 10/21, refills not needed documented in this encounter Plan of Treatment Upcoming Encounters Date Type Department Care Team (Late st Contact Info) Description 03/31/2025 11:00 AM EDT Office Visit [facility] ADULT DENTAL [address] [place] [address] Johanne Farley [address] [place] [address] 04/05/2025 11:00 AM EST Office Visit [facility] ADULT DENTAL [address] [place] [address] Bright Farleyaris [address] [place] [address] documented as of this encounter Visit Diagnoses Not on filedocumented in this encounter Additional Health Concerns Assessment Noted Time PHQ-9 Depression Total Score: 6 11/02/19 23 3:44 PM EDT documented as of this encounter Care Teams Payable Representative Relationship Specialty Start Date End Date Michelle Rodriguez MD [address] [place] [address] PCP - General Family Medicine 02/19/21 Rose Phillip PharmD [address] [place] [phone] Pharmacist Internal Medicine 03/02/24 documented as of this encounter
--- OUTSIDE RECORDS SUMMARY | 2025-03-14 16:11 | XMS_ITS | Encounter Summary ---
Author Organization [employer] Address [address] [place] [address] 7t [place] [address] Care Team Providers Care High Speed Operator Name Role Phone Michelle Rodriguez MD Primary Care Provider [phone] Rose Phillip PharmD Unavailable Encounter Details Date Type Department Care Team (Late st Contact Info) Description 02/05/2023 Orders Only [facility] MEDICINE [address] [place], [place] [phone] Michelle Rodriguez MD [address] [place] [address] Male hypogonadism (Primary Dx) Social History Tobacco [...] Description 03/31/2025 11:00 AM EDT Office Visit [facility] ADULT DENTAL [address] [place] [address] Johanne Farley [address] [place] [address] 04/05/2025 11:00 AM EST Office Visit [facility] ADULT DENTAL [address] [place] [address] Johanne Farley [address] [place] [address] Scheduled Orders Name Type Priority Associated Diagnoses [...] documented as of this encounter Care Teams High Speed Operator Relationship Specialty Start Date End Date Michelle Rodriguez MD [address] [place] [address] PCP - General Family Medicine 02/19/21 Rose Phillip PharmD [address] [place] [address] Pharmacist Internal Medicine 03/02/24 documented as of this encounter
--- OUTSIDE RECORDS SUMMARY | 2025-03-14 16:11 | XMS_ITS | Encounter Summary ---
Author Organization [employer] Address [address] 7[address] [place] [address] Care Team Providers Care Rehab Care Assistant Name Role Phone Michelle Rodriguez MD Primary Care Provider [phone] Rose Phillip PharmD Unavailable [phone] Encounter Details Date Type Department Care Team (Late st Contact Info) Description 03/14/2025 Orders Only GENERIC EXTERNAL DATA DEPARTMENT Provider, Generic External Data Social History Tobacco Use Types Packs/Day Years [...] Description 03/31/2025 11:00 AM EDT Office Visit [facility] ADULT DENTAL [address] [place] [address] Miguelito Johanne [address] [place] [address] 04/05/2025 11:00 AM EST Office Visit [facility] [address] [place] [address] Miguelito Johanne [address] [place] [address] documented as of this encounter Procedures Procedure Name Priority Date/Time Associated Diagnosis Comments XR CHEST 2 VIEWS Routine 03/14/2025 3:07 PM EDT INFLUENZA A B2 ID NOW (MAYER) Routine 03/14/2025 2:43 PM EDT COVID-19 ID NOW (MAYER) Routine 03/14/2025 2:43 PM EDT HIGH SENSITIVITY TROPONIN I Routine 03/14/2025 2:43 PM EDT CBC WITH AUTO DIFFERENTIAL Routine 03/14/2025 2:43 PM EDT PROTHROMBIN TIME-INR Routine 03/14/2025 2:43 PM EDT MAGNESIUM Routine 03/14/2025 2:43 PM EDT COMPREHENSIVE METABOLIC PANEL Routine 03/14/2025 2:43 PM EDT documented in this encounter Results * XR Chest 2 Views (03/14/2025 3:07 PM EDT) Anatomical Region Laterality Modality Chest Radiographic Telma ging 03/14/2025 3:07 PM EDT Narrative 03/14/2025 3:08 PM EDT [address] [address] XRay Report Signed Patient: Raimundo Carcamo MR#: [id number] 9 : 1970 Acct:[id number] Age/Sex: 54 / M ADM Date: 03/14/25 Loc: HO.ED Attending Dr: Ordering Physician: Hien Schmidt Date of Service: 03/14/25 Procedure(s): XR chest 2V Accession Number(s): [id number] cc: Hien Schmidt; Michelle Rodriguez Reason for [...] 03/14/25 1508 DD/ 1507 TD/TT: 03/14/25 1507 Irrigation Manager: Procedure Note Donotuseinterpreter, Image - 03/14/[address] [address] XRay Report Signed Patient: Raimundo CarcamoMR#: [id number] 9 : 1970Acct:[id number] Age/Sex: 54 / MADM Date: 03/14/25 Loc: HO.ED Attending Dr: Ordering Physician: Hien Schmidt Date of Service: 03/14/25 Procedure(s): XR chest 2V Accession Number(s): [id number] cc: Hien Schmidt; Michelle Rodriguez Reason for [...] Dubose MD in OV> 03/14/25 1508 DD/ 06 TD/TT: 03/14/251506 Irrigation Manager: [facility] External Provider IMG XR PROCEDURES Edited Result - Final * High Sensitivity Troponin I (03/14/2025 2:43 PM EDT) [facility] TROPONIN I HIGH SENSITIVITY <2.7 <3.5 - 35.0 ng/L [facility] Comment:The Mayer high sens itivity Troponin-I results should beused in conjunction with other diagnostic information suchas ECG, clinical observations and information, and patientsymptoms to aid in the diagnosis of HI. 03/14/2025 2:43 PM EDT 03/14/2025 2:46 PM EDT Generic External Data Provider LAB BLOOD ORDERAB LES Final Result [facility] [address] [place] [phone] * Magnesium (03/14/2025 2:43 PM EDT) [facility] Magnesium 1.7 1.6 - 2.6 mg/dL [facility] 03/14/2025 2:43 PM EDT 03/14/2025 2:46 PM EDT Generic External Data Provider LAB BLOOD ORDERAB LES Final Result Performing Organization Address [facility]/ZIP Co de Phone Number [facility] [address] [place] [address] [phone] * COVID-19 ID NOW (Moondo) (03/14/2025 2:43 PM EDT) IDNOW SERIAL# [id number] [facility] COVID-19 TEST Negative Negative [facility] COVID-19 NOTE See Note [facility] Comment: Results are for the identification of SARS-CoV2 RNA. TheSARS-CoV2 RNA is generally detectable in respiratory samplesduring the acute phase of infection. Positive results areindicative of the presence of SARS-CoV-2 RNA; clinicalcorrelation with patient history and other diagnosticinformation is necessary to determine patient infectionstatus. Positive results do not rule out bacterial infectionor co- infection with other viruses.Testing facilities within the [facility] and [facility] are required to report all positive results [...] GNOSTICS ORDERABLES Final Result Performing Organization Address [facility]/ZIP Co de Phone Number [facility] [address] [place] [phone] * Influenza A B2 ID NOW (Mayer) (03/14/2025 2:43 PM EDT) Pathologist [facility] IDNOW SERIAL# [id number] [facility] Influenza A Negative Negative [facility] Influenza B2 Negative Negative [facility] Influenza A B2 Note See Note [facility] Comment:The Mayer ID NOW In [...] LAB MICROBIOLOGY - GENERAL ORDERABLES Final Result [facility] [address] [place] [phone] * (ABNORMAL) CBC auto differential (03/14/2025 2:43 PM EDT) Pathologist [facility] White Blood Count 11.3(H) 4.8 - 10.8 X10*3/uL [facility] Red Blood Count 5.16 4.60 - 5.80 X10*6/uL [facility] Hemoglobin 14.3 14.0 - 18.0 g/dl [facility] Hematocrit 43.1 42.0 - 52.0 % [facility] Mean Corpuscular Volume 83.5 80.0 - 98.0 fL [facility] Mean Corpuscular Hemoglobin 27.7 27.0 - 33.0 pg [facility] Mean Corpuscular HGB Conc 33.2 31.0 - 36.0 g/dl [facility] Red Cell Distribution Width 12.2 11.0 - 16.0 % [facility] Platelet Count 289 160 - 400 X10*3/uL [facility] Mean Platelet Volume 8.9(L) 9.4 - 12.4 fL [facility] Neutrophils Percent Auto 71.8 45 - 73 % [facility] Imm Gran Pct Auto 0.4 0.0 - 0.4 % [facility] Lymphocytes Percent Auto 19.3(L) 20 - 40 % [facility] Monocytes Percent Auto 7.2 2 - 11 % [facility] Eosinophils Percent Auto 0.9 0 - 4 % [facility] Basophils Percent Auto 0.4 0 - 2 % [facility] NRBC Pct Auto 0.0 0.0 - 0.2 /100WBC [facility] Neutrophils Absolute Auto 8.1 2.0 - 8.3 x10*3/uL [facility] Imm Gran Abs Auto 0.05(H) 0.00 - 0.03 X10*3/uL [facility] Lymphocytes Absolute Auto 2.2 1.2 - 4.9 X10*3/uL [facility] Monocytes Absolute Auto 0.8 0.1 - 1.2 X10*3/uL [facility] Eosinophils Absolute Auto 0.1 0.0 - 0.4 X10*3/uL [facility] Basophils Absolute Auto 0.0 0.0 - 0.2 X10*3/uL [facility] NRBC Abs Auto 0.000 0.0 - 0.012 X10*3/uL [facility] 03/14/2025 2:43 PM EDT 03/14/2025 2:46 PM EDT us Generic External Data Provider LAB BLOOD ORDERAB LES Final Result [facility] [address] [place] [address] [phone] * (ABNORMAL) Comprehensive Metabolic Panel (03/14/2025 2:43 PM EDT) Sodium 134(L) 135 - 145 mmol/L [facility] Potassium 3.8 3.3 - 5.1 mmol/L [facility] Chloride 102 96 - 108 mmol/L [facility] Carbon Dioxide 22 22 - 29 mmol/L [facility] Anion Gap 14 12 - 20 [facility] Urea Nitrogen (BUN) 14 9 - 16 mg/dL [facility] Creatinine, Serum 0.84 0.5 - 1.4 mg/dL [facility] Creatinine Clr Calc Pharmacy 120.2 [facility] Comment:eGFR (calculated fro m the MDRD study equation) and eCrCl(calculated from the Cockcroft-Gault equation) are based ondifferent parameters and may not yield comparable results.If eCrCl result is absurd, please check patient'sheight/weight. Estimated Glomerular Filt Rate >60 [facility] Comment:Chronic Kidney Disea se: Estimated GFR < 60 mL/min/1.36q7Ezkymu Kidney Disease: Estimated GFR < 15 mL/min/1.73m2 Glucose 178(H) 60 - 115 mg/dL [facility] Calcium 9.2 8.4 - 10.2 mg/dL [facility] Bilirubin, Total 0.5 0.0 - 1.0 mg/dL [facility] Aspartate Amino Transferase 26 5 - 37 U/L [facility] Alanine Aminotransferase 38 0 - 40 U/L [facility] Total Protein 8.5(H) 6.5 - 8.0 g/dL [facility] Albumin Level 4.9 3.5 - 5.0 g/dL [facility] Alkaline Phosphatase 117 39 - 117 U/L [facility] 03/14/2025 2:43 PM EDT 03/14/2025 2:46 PM EDT us Generic External Data Provider LAB BLOOD ORDERAB LES Final Result [facility] [address] [place] [address] [phone] * (ABNORMAL) Prothrombin Time-INR (03/14/2025 2:43 PM EDT) Prothrombin Time 13.0(H) 10.9 - 12.4 SEC [facility] INTERNATIONAL NORM RATIO 1.1 0.9 - 1.1 [facility] Comment:INTERNATIONAL NORMAL IZED RATIO (INR) [...] Provider LAB BLOOD ORDERAB LES Final Result [facility] [address] [place] [address] [phone] documented in this encounter Visit Diagnoses Not on filedocumented in this encounter Additional Health Concerns Assessment Noted Time PHQ-9 Depression Total Score: 21 025 4:09 PM EDT documented as of this encounter Care Teams Rehab Care Assistant Relationship Specialty Start Date End Date Michelle Rodriguez MD [address] [place] [address] PCP - General Family Medicine 02/19/21 Rose Phillip PharmD [address] [place] [address] Pharmacist Internal Medicine 03/02/24 documented as of this encounter
--- OUTSIDE RECORDS SUMMARY | 2025-03-14 16:11 | XMS_ITS | Encounter Summary ---
Author Organization [employer] Address [address] [facility] [address]t [place] [address] Care Team Providers Care Tractor Operator Battery Name Role Phone Michelle Rodriguez MD Primary Care Provider [phone] Rose Phillip PharmD Unavailable [phone] Reason for Visit * Reason Comments Med Refill Encounter Details Date Type Department Care Team ([facility] st Contact Info) Description 09/10/2023 Refill [facility] MEDICINE [address] [place], [place] [phone] Michelle Rodriguez MD [address] [place], [place] [phone] Primary insomnia Social History Tobacco Use Types [...] Description 03/31/2025 11:00 AM EDT Office Visit [facility] ADULT DENTAL [address] [place] [address] Bright Farleyaris [address] [place] [address] 04/05/2025 11:00 AM EST Office Visit [facility] ADULT DENTAL [address] [place] [address] Johanne Farely [address] [place] [address] documented as of this encounter Visit Diagnoses Diagnosis Primary insomnia Persistent disorder of initiating or maintaining sleep documented in this encounter Additional Health Concerns Assessment Noted Time PHQ-9 Depression Total Score: 6 11/02/19 23 3:44 PM EDT documented as of this encounter Care Teams Tractor Operator Battery Relationship Specialty Start Date End Date Michelle Rodriguez MD [address] [place] [phone] PCP - General Family Medicine 02/19/21 Rose Phlilip PharmD [address] [place] [phone] Pharmacist Internal Medicine 03/02/24 documented as of this encounter
[2025-03-14 16:53] VITALS: BP 115/71; PULSE 81; RESP 18; TEMP 37.1; O2SAT 99
[2025-03-14 17:16] LABS: Lipase 8 U/L (8-78)
[2025-03-14] MEDS: iohexoL 350 MG/ML 100 ML INFUS..BTL 85 ML IV (19:49)
[2025-03-14 20:12] VITALS: BP 128/76; PULSE 88; RESP 20; TEMP 36.9; O2SAT 98
[2025-03-14 21:27] VITALS: BP 128/76; PULSE 88; RESP 20; TEMP 36.9; O2SAT 98
== END 2025-03-14 21:39 | disposition home or self-care (01) ==
PROVIDERS: Physician Assistant; Physician Assistant Medical; Emergency Provider Emergency Medicine Emergency Medical Services; PCP General Practice
DX: K52.9 Noninfective gastroenteritis and colitis, unspecified (principal); Z88.8 Allergy status to other drugs, medicaments and biological substances
CPT/HCPCS: 71046; 74177; 80053; 83690; 83735; 84484; 85025; 85610; 87502; 87635; 93005; 96360; 96361; 99285; Q9967

== ENCOUNTER → 2025-03-14 14:29 | Outpatient (BNV) | payer MEDICAID, SELFPAY | PROVIDERS: Emergency Provider Emergency Medicine Emergency Medical Services; PCP General Practice; Visit Provider Internal Medicine Cardiovascular Disease | DX: I49.3 Ventricular premature depolarization (principal); R00.0 Tachycardia, unspecified | CPT/HCPCS: 93010 ==

== ENCOUNTER → 2025-03-14 14:29 | Outpatient (BNV) | payer MEDICAID, SELFPAY | PROVIDERS: PCP General Practice; Visit Provider Radiology Diagnostic Radiology | DX: N20.0 Calculus of kidney (principal); R10.811 Right upper quadrant abdominal tenderness; R55 Syncope and collapse | CPT/HCPCS: 71046; 74177 ==

== ENCOUNTER 2025-05-29 09:41 | Emergency (ER) | payer MEDICAID, SELFPAY ==
--- NOTE | ~2025-05-29 | XR_ITS ---
CLINICAL HISTORY: Chest pain 2 view chest x-ray. Comparison: 03/14/2025 Findings: No consolidation. No pneumothorax. Heart size normal No acute fracture. Impression: Lungs are clear. This document has been electronically signed by: Fredrick Alaniz MD on 05/29/2025 13:10:57
--- NOTE | 2025-05-29 09:43 | ECG_ITS ---
Test Reason : cp Blood Pressure : */* mmHG Vent. Rate : 76 BPM Atrial Rate : 76 BPM P-R Int : 154 ms QRS Dur : 84 ms QT Int : 370 ms P-R-T Axes : 28 -3 24 degrees QTcB Int : 416 ms Normal sinus rhythm Normal ECG When compared with ECG of 14-Mar-2025 14:36, Premature ventricular complexes are no longer Present Referred By: Margaret Villalba Electronically Signed By: FLAKO KHALIL
[2025-05-29 10:01] VITALS: BP 123/63; PULSE 75; RESP 18; TEMP 36.4; O2SAT 97; BMI 35.4
[2025-05-29 10:04] LABS: MANUAL DIFF FLAG NO
[2025-05-29 10:06] LABS: Hematocrit 41.4 % (42.0-52.0); Hemoglobin 13.6 g/dl (14.0-18.0); Imm Gran Abs Auto 0.04 X10*3/uL (0.00-0.03); Imm Gran Pct Auto 0.5 % (0.0-0.4); Lymphocytes Absolute Auto 1.9 X10*3/uL (1.2-4.9); Mean Corpuscular HGB Conc 32.9 g/dl (31.0-36.0); Mean Corpuscular Hemoglobin 27.8 pg (27.0-33.0); Mean Corpuscular Volume 84.5 fL (80.0-98.0); NRBC Abs Auto 0.000 X10*3/uL (0.0-0.012); NRBC Pct Auto 0.0 /100WBC (0.0-0.2); Platelet Count 221 X10*3/uL (160-400); Red Blood Count 4.90 X10*6/uL (4.60-5.80); White Blood Count 8.9 X10*3/uL (4.8-10.8)
[2025-05-29 10:14] LABS: INTERNATIONAL NORM RATIO 1.0 (0.9-1.1); Prothrombin Time 12.1 SEC (11.2-13.5)
[2025-05-29 10:20] LABS: Alanine Aminotransferase 25 U/L (0-40); Albumin Level 4.3 g/dL (3.5-5.0); Alkaline Phosphatase 115 U/L (39-117); Anion Gap 14 (12-20); Aspartate Amino Transferase 21 U/L (5-37); Blood Urea Nitrogen 19 mg/dL (9-16); Calcium 9.1 mg/dL (8.4-10.2); Carbon Dioxide 21 mmol/L (22-29); Chloride 104 mmol/L (96-108); Creatinine Clr Calc Pharmacy 115.6; Estimated Glomerular Filt Rate > 60; Magnesium 1.7 mg/dL (1.6-2.6); Potassium 4.6 mmol/L (3.3-5.1); Sodium 134 mmol/L (135-145); Total Protein 7.8 g/dL (6.5-8.0)
[2025-05-29 10:30] LABS: Troponin-I High Sensitivity < 2.7 ng/L (<3.5-35.0)
--- OUTSIDE RECORDS SUMMARY | 2025-05-29 10:45 | XMS_ITS | Encounter Summary ---
Author Organization [employer] Address [address] [facility] 7t [place] [address] Care Team Providers Care Bird Tender Name Role Phone Michelle Rodriguez MD Primary Care Provider [phone] Rose Phillip PharmD Unavailable [phone] Reason for Visit * Reason Onset Date Comments Prior Authorization 05/24/2025 Kayleigh Encounter Details Date Type Department Care Team ([facility] st Contact Info) Description 05/24/2025 Telephone [facility] [address] [place] [address] Puia Rose, PharmD [address] [place] [address] Prior Authorization (Kayleigh ) Social History Tobacco Use Types Packs/Day Years [...] Telephone Encounter - Rose Phillip PharmD - 05/24/2025 2:18 PM EST Was notified via mail by plan that Kayleigh requires a PA (see also, scan from pharmacy 05/23). RPhcompleted PA via cover my meds today (lane: [id number]); awaiting response at this time. Patient was already aware of next fill date 06/03/25 (finish suppyl of 5 mg dose before can increase to 7.5 mg) & is not expecting the med urgently. I updated pharmacy that PA was in process today. FYI to PA team - this request is all set. documented in this encounter Plan of Treatment Upcoming Encounters Date Type Department Care Team (Late st Contact Info) Description 06/22/2025 9:30 AM EST Medication Management [facility] [address] [place], [place] [phone] Rose Phillip PharmD [address] [place] [address] 06/28/2025 10:15 AM EST Office Visit [facility] [address] [place] [address] Michelle Rodriguez MD [address] [place] [address] documented as of this encounter Goals Goal Patient Goal Type Associated Problems Recent Progress Patient-Stated? Author Help patients manage their type 2 diabetes Care Plan Help patients manage their type 2 diabetes No JoseRobson Weekly blood pressure task Care Plan Weekly blood pressure task No JoseKarenRobson Help patients manage their type 2 diabetes Care Plan Help patients manage their type 2 diabetes No JoseKarenRobson Patient has chronic kidney disease Care Plan Patient has chronic kidney disease No JoseKarenRobson Weekly blood pressure task Care Plan Weekly blood pressure task No Jose Robson Patient has chronic kidney disease Care Plan Patient has chronic kidney disease No Jose Robson Weekly blood pressure task Care Plan Weekly blood pressure task No Jordon, Cathiria Weekly blood pressure task Care Plan Weekly blood pressure task No Jordon Cathiria Patient has chronic kidney disease Care Plan Patient has chronic kidney disease No Jordon, Cathiria Patient has chronic kidney disease Care Plan Patient has chronic kidney disease No Jordon, Cathiria Weekly blood pressure task Care Plan Weekly blood pressure task No Jordon, Cathiria Weekly blood pressure task Care Plan Weekly blood pressure task No Jordon, Cathiria Patient has chronic kidney disease Care Plan Patient has chronic kidney disease No Jordon, Cathiria Patient has chronic kidney disease Care Plan Patient has chronic kidney disease No Jrodon, Cathiria Weekly blood pressure task Care Plan Weekly blood pressure task No Puia, Rose, PharmD Weekly blood pressure task Care Plan Weekly blood pressure task No Puia, Rose, PharmD Patient has chronic kidney disease Care Plan Patient has chronic kidney disease No Puia, Rose, PharmD Patient has chronic kidney disease Care Plan Patient has chronic kidney disease No Puia, Rose, PharmD Weekly blood pressure task Care Plan Weekly blood pressure task No Albino, Antonio Weekly blood pressure task Care Plan Weekly blood pressure task No Albino, Antonio Patient has chronic kidney disease Care Plan Patient has chronic kidney disease No Albino Antonio Patient has chronic kidney disease Care Plan Patient has chronic kidney disease No Antonio Posada Weekly blood pressure task Care Plan Weekly blood pressure task No Puia, Rose, PharmD Weekly blood pressure task Care Plan Weekly blood pressure task No Rose Phillip PharmD Patient has chronic kidney disease Care Plan Patient has chronic kidney disease No Rose Phillip PharmD Patient has chronic kidney disease Care Plan Patient has chronic kidney disease No Rose Phillip PharmD documented as of this encounter Visit Diagnoses Not on filedocumented in this encounter Additional Health Concerns Active Problems Noted Date Diagnosed Date Help patients manage their type 2 diabetes 04/25 Weekly blood pressure task 04/25/2025 Help patients manage their type 2 diabetes 04/25 Patient has chronic kidney disease 04/25/2025 Weekly blood pressure task 04/25/2025 Patient has chronic kidney disease 04/25/2025 Weekly blood pressure task 04/25/2025 Weekly blood pressure task 04/25/2025 Patient has chronic kidney disease 04/25/2025 Patient has chronic kidney disease 04/25/2025 Weekly blood pressure task 05/02/2025 Weekly blood pressure task 05/02/2025 Patient has chronic kidney disease 05/02/2025 Patient has chronic kidney disease 05/02/2025 Weekly blood pressure task 05/20/2025 Weekly blood pressure task 05/20/2025 Patient has chronic kidney disease 05/20/2025 Patient has chronic kidney disease 05/20/2025 Weekly blood pressure task 05/23/2025 Weekly blood pressure task 05/23/2025 Patient has chronic kidney disease 05/23/2025 Patient has chronic kidney disease 05/23/2025 Weekly blood pressure task 05/24/2025 Weekly blood pressure task 05/24/2025 Patient has chronic kidney disease 05/24/2025 Patient has chronic kidney disease 05/24/2025 Assessment Noted Time PHQ-9 Depression Total Score: 21 025 4:09 PM EDT documented as of this encounter Care Teams Bird Tender Relationship Specialty Start Date End Date Michelle Rodriguez MD [address] [place] [address] PCP - General Family Medicine 02/19/21 Rose Phillip PharmD [address] [place] [address] Pharmacist Internal Medicine 03/02/24 documented as of this encounter
--- OUTSIDE RECORDS SUMMARY | 2025-05-29 10:45 | XMS_ITS | Encounter Summary ---
Author Organization [employer] Address [address] [facility] 7t [place] [address] Care Team Providers Care Meter Reading Clerk Name Role Phone Michelle Rodriguez MD Primary Care Provider [phone] Rose Phillip PharmD Unavailable [phone] Reason for Visit * Reason Comments Med Refill Encounter Details Date Type Department Care Team ([facility] st Contact Info) Description 02/10/2025 Refill [facility] [address] [place], [place] [phone] Michelle Rodriguez MD [address] [place], [place] [phone] Primary insomnia Social History Tobacco Use Types [...] Description 06/22/2025 9:30 AM EST Medication Management [address] [address] Rose Phillip PharmD [address] [place] [phone] 06/28/2025 10:15 AM EST Office Visit [address] [address] Michelle Rodriguez MD [address] [place] [phone] documented as of this encounter Visit Diagnoses Diagnosis Primary insomnia Persistent disorder of initiating or maintaining sleep documented in this encounter Additional Health Concerns Assessment Noted Time PHQ-9 Depression Total Score: 21 025 4:09 PM EDT documented as of this encounter Care Teams Meter Reading Clerk Relationship Specialty Start Date End Date Michelle Rodriguez MD [address] [place] [address] [phone] PCP - General Family Medicine 02/19/21 Rose Phillip PharmD [address] [place] [address] [phone] Pharmacist Internal Medicine 03/02/24 documented as of this encounter
--- OUTSIDE RECORDS SUMMARY | 2025-05-29 10:45 | XMS_ITS | Encounter Summary ---
Author Organization [employer] Address [address] [facility] 7t [place] [address] Care Team Providers Care Precision Dyer Name Role Phone Michelle Rodriguez MD Primary Care Provider Rose Phillip PharmD Unavailable Encounter Details Date Type Department Care Team (Late st Contact Info) Description 08/30/2022 Orders Only [facility] [address] [place] [address] Pily Linn LPN Social History Tobacco Use [...] Description 06/22/2025 9:30 AM EST Medication Management [facility] [address] [place] [address] Rose Phillip, PharmD 230 [place] [address] 06/28/2025 10:15 AM EST Office Visit [facility] [address] [place] [phone] Michelle Rodriguez MD [address] [place] [address] [phone] documented as of this encounter Visit Diagnoses Not on filedocumented in this encounter Care Teams Precision Dyer Relationship Specialty Start Date End Date Michelle Rodriguez MD [address] [place], [place] [phone] PCP - General Family Medicine 02/19/21 Rose Phillip PharmD [address] [place] [address] Pharmacist Internal Medicine 03/02/24 documented as of this encounter
--- OUTSIDE RECORDS SUMMARY | 2025-05-29 10:45 | XMS_ITS | Encounter Summary ---
Author Organization [employer] Address [address] [place] [address] 7t [place] [address] Care Team Providers Care Parking Garage Manager Name Role Phone Michelle Rodriguez MD Primary Care Provider [phone] Rose Phillip PharmD Unavailable Reason for Referral * Consultation (Routine) - Closed Specialty Diagnoses / Procedures Referred By Contac t Referred To Contact Pharmacy Diagnoses Type 2 diabetes mellitus with hyperglycemia, with long-term current use of insulin ([facility]) Michelle Rodriguez MD [address] [place] [address] Phone: tel: fax: Referral ID Status Reason Start Date Expiration Date V isits Requested Visits Authorized [id number] Closed Consult and Treat 03/26/2024 03/26/2025 6 6 Encounter Details Date Type Department Care Team (Late st Contact Info) Description 03/21/2024 Orders Only [facility] [address] [place], [place] [phone] Michelle Rodriguez MD [address] [place], [place] [phone] Male hypogonadism (Primary Dx); Type 2 diabetes mellitus with hyperglycemia, with long-term current use of insulin ([facility]) Social History Tobacco Use Types Packs/Day [...] Description 06/22/2025 9:30 AM EST Medication Management [facility] [address] [place] [phone] Rose Phillip, MerissaD [address] [place] [phone] 06/28/2025 10:15 AM EST Office Visit [facility] [address] [place] [address] [phone] Michelle Rodriguez MD [address] [place] [phone] Scheduled Referrals Name Type Priority Associated Diagnoses Orde r Schedule Referral to Pharmacy CDTM Outpatient Referral Routine Type 2 diabetes mellitus with hyperglycemia, with long-term current use of insulin ([facility]) Ordered: 03/26/2024 documented as of this encounter Procedures Procedure Name Priority Date/Time Associated Diagnosis Comments TESTOSTERONE, FREE, BIOAVAILABLE AND TOTAL, MALES (ADULT), [place] Routine 07/27/2024 9:18 AM EST Male hypogonadism documented in this encounter Results * Testosterone, Free (Dialysis) And Total, MS (07/27/2024 9:18 AM EST) Testosterone, Total 335 250 - 1100 ng/dL [facility] Comment:For additional infor erwin, please refer tohttp://education.[employer]/faq/[email or web address](This link is being provided for informational/educational purposes only.)This test was developed and its analytical performancecharacteristics have been determined by [employer] [place], [place]. It hasnot been cleared or approved by the U.S. Food and DrugAdministration. This assay has been validated pursuantto the CLIA regulations and is used for clinicalpurposes. Testosterone, Free 65.0 35.0 - 155.0 pg/mL [facility] Comment:This test was develo ped and its analytical performancecharacteristics have been determined by [employer] [place]. It hasnot been cleared or approved by the U.S. Food and DrugAdministration. This assay has been validated pursuantto the CLIA regulations and is used for clinicalpurposes.THIS TEST WAS PERFORMED AT:[facility] [id number] [place] [address]JTACAVMLONNIE GUAMAN MD,PHD Blood Venous blood specimen / Unknown 07/27/2024 9:18 AM EST 07/27/2024 11:35 AM EST us Michelle Rodriguez MD LAB BLOOD ORDERABLES Final Res ult [facility] [address] [place] [phone] documented in this encounter Visit Diagnoses Diagnosis Male hypogonadism- Primary Other testicular hypofunction Type 2 diabetes mellitus with hyperglycemia, with long-term current use of insulin (HCC) documented in this encounter Additional Health Concerns Assessment Noted Time PHQ-9 Depression Total Score: 6 11/02/19 23 3:44 PM EDT documented as of this encounter Care Teams Parking Garage Manager Relationship Specialty Start Date End Date Michelle Rodriguez MD [address] [place] [address] PCP - General Family Medicine 02/19/21 Rose Phillip PharmD [address] [place] [address] Pharmacist Internal Medicine 03/02/24 documented as of this encounter
--- OUTSIDE RECORDS SUMMARY | 2025-05-29 10:45 | XMS_ITS | Encounter Summary ---
Author Organization [employer] Address [address] [facility] [address] 7t [place] [address] Care Team Providers Care Tobacco Prevention Health Educator Name Role Phone Michelle Rodriguez MD Primary Care Provider [phone] Rose Phillip PharmD Unavailable [phone] Encounter Details Date Type Department Care Team (Late st Contact Info) Description 05/29/2025 Orders Only GENERIC EXTERNAL DATA DEPARTMENT Provider, [...] is your housing situation today? I have natachabonnie deshpande 02/17/[address] you [...] Description 06/22/2025 9:30 AM EST Medication Management [facility] [address] [place] [phone] Rose Phillip PharmD [address] [place] [phone] 06/28/2025 10:15 AM EST Office Visit [facility] [address] [place] [phone] Michelle Rodriguez MD [address] [place] [phone] documented as of this encounter Goals Goal Patient Goal Type Associated Problems Recent Progress Patient-Stated? Author Help patients manage their type 2 diabetes Care Plan Help patients manage their type 2 diabetes No Robson Garcia Weekly blood pressure task Care Plan Weekly blood pressure task No Robson Garcia Help patients manage their type 2 diabetes Care Plan Help patients manage their type 2 diabetes No Robson Garcia Patient has chronic kidney disease Care Plan Patient has chronic kidney disease No Robson Garcia Weekly blood pressure task Care Plan Weekly blood pressure task No Robson Garcia Patient has chronic kidney disease Care Plan Patient has chronic kidney disease No Robson Garcia Weekly blood pressure task Care Plan Weekly blood pressure task No Blanca Ruvalcaba Weekly blood pressure task Care Plan Weekly blood pressure task No Blanca Ruvalcaba Patient has chronic kidney disease Care Plan Patient has chronic kidney disease No Blanca Ruvalcaba Patient has chronic kidney disease Care Plan Patient has chronic kidney disease No Blanca Ruvalcaba Weekly blood pressure task Care Plan Weekly blood pressure task No Blanca Ruvalcaba Weekly blood pressure task Care Plan Weekly blood pressure task No Jennifer Ruvalcabairia Patient has chronic kidney disease Care Plan Patient has chronic kidney disease No Jennifer Ruvalcabairia Patient has chronic kidney disease Care Plan Patient has chronic kidney disease No Jennifer Ruvalcabairia Weekly blood pressure task Care Plan Weekly [...] Plan Patient has chronic kidney disease No Albino, Antonio Patient has chronic kidney disease Care Plan Patient has chronic kidney disease No Albino, Antonio Weekly blood pressure task Care Plan Weekly blood pressure task No Puia, Rose, PharmD Weekly blood pressure task Care Plan Weekly blood pressure task No Puia, Rose, PharmD Patient has chronic kidney disease Care Plan Patient has chronic kidney disease No Puia, Rose, PharmD Patient has chronic kidney disease Care Plan Patient has chronic kidney disease No Puia, Rose, PharmD documented as of this encounter Procedures Procedure Name Priority Date/Time Associated Diagnosis Comments HIGH SENSITIVITY TROPONIN I Routine 05/29/2025 9:53 AM EST CBC WITH AUTO DIFFERENTIAL Routine 05/29/2025 9:53 AM EST PROTHROMBIN TIME-INR Routine 05/29/2025 9:53 AM EST MAGNESIUM Routine 05/29/2025 9:53 AM EST COMPREHENSIVE METABOLIC PANEL Routine 05/29/2025 9:53 AM EST documented in this encounter Results * High Sensitivity Troponin I (05/29/2025 9:53 AM EST) TROPONIN I HIGH SENSITIVITY <2.7 <3.5 - 35.0 ng/L [facility] Comment:The Blanc high sens itivity Troponin-I results should beused in conjunction with other diagnostic information suchas ECG, clinical observations and information, and patientsymptoms to aid in the diagnosis of NE. 05/29/2025 9:53 AM EST 05/29/2025 10:03 AM EST Generic External Data Provider LAB BLOOD ORDERAB LES Final Result Performing Organization Address [facility] Co de Phone Number [facility] [address] [place] [phone] * Magnesium (05/29/2025 9:53 AM EST) [facility] Magnesium 1.7 1.6 - 2.6 mg/dL [facility] 05/29/2025 9:53 AM EST 05/29/2025 10:03 AM EST Generic External Data Provider LAB BLOOD ORDERAB LES Final Result Performing Organization Address [facility] [[email or web address]] de Phone Number [facility] [address] [place] [phone] * (ABNORMAL) Comprehensive Metabolic Panel (05/29/2025 9:53 AM EST) Sodium 134(L) 135 - 145 mmol/L [facility] Potassium 4.6 3.3 - 5.1 mmol/L [facility] Chloride 104 96 - 108 mmol/L [facility] Carbon Dioxide 21(L) 22 - 29 mmol/L [facility] Anion Gap 14 12 - 20 [facility] Urea Nitrogen (BUN) 19(H) 9 - 16 mg/dL [facility] Creatinine, Serum 0.88 0.5 - 1.4 mg/dL [facility] Creatinine Clr Calc Pharmacy 115.6 [facility] Comment:eGFR (calculated fro m the MDRD study equation) and eCrCl(calculated from the Cockcroft-Gault equation) are based ondifferent parameters and may not yield comparable results.If eCrCl result is absurd, please check patient'sheight/weight. Estimated Glomerular Filt Rate >60 [facility] Comment:Chronic Kidney Disea se: Estimated GFR < 60 mL/min/1.01v7Tyeiyz Kidney Disease: Estimated GFR < 15 mL/min/1.73m2 Glucose 217(H) 60 - 115 mg/dL [facility] Calcium 9.1 8.4 - 10.2 mg/dL [facility] Bilirubin, Total 0.3 0.0 - 1.0 mg/dL [facility] Aspartate Amino Transferase 21 5 - 37 U/L [facility] Alanine Aminotransferase 25 0 - 40 U/L [facility] Total Protein 7.8 6.5 - 8.0 g/dL [facility] Albumin Level 4.3 3.5 - 5.0 g/dL [facility] Alkaline Phosphatase 115 39 - 117 U/L [facility] 05/29/2025 9:53 AM EST 05/29/2025 10:03 AM EST us Generic External Data Provider LAB BLOOD ORDERAB LES Final Result Performing Organization Address City/State/[facility] Co de Phone Number [facility] [address] [place] [phone] * Prothrombin Time-INR (05/29/2025 9:53 AM EST) Prothrombin Time 12.1 11.2 - 13.5 SEC [facility] INTERNATIONAL NORM RATIO 1.0 0.9 - 1.1 [facility] Comment:INTERNATIONAL NORMAL IZED RATIO (INR) REFERENCE RANGES Reference RangeFor patients not on anticoagulant therapy: 0.9 - 1.1INR ranges for oral anticoagulanttherapy:For prevention and treatment of venous thrombosis and pulmonary embolism: 2.0 - 3.0For acute myocardial infarction with aspirin therapy: 2.0 - 3.0For acute myocardial infarction without aspirin therapy: 3.0 - 4.0For patients with mechanical prosthetic heart valves: 2.5 - 3.5 05/29/2025 9:53 AM EST 05/29/2025 10:03 AM EST us Generic External Data Provider LAB BLOOD ORDERAB LES Final Result [facility] [address] [place] [address] [phone] * (ABNORMAL) CBC auto differential (05/29/2025 9:53 AM EST) White Blood Count 8.9 4.8 - 10.8 X10*3/uL [facility] Red Blood Count 4.90 4.60 - 5.80 X10*6/uL [facility] Hemoglobin 13.6(L) 14.0 - 18.0 g/dl [facility] Hematocrit 41.4(L) 42.0 - 52.0 % [facility] Mean Corpuscular Volume 84.5 80.0 - 98.0 fL [facility] Mean Corpuscular Hemoglobin 27.8 27.0 - 33.0 pg [facility] Mean Corpuscular HGB Conc 32.9 31.0 - 36.0 g/dl [facility] Red Cell Distribution Width 12.8 11.0 - 16.0 % [facility] Platelet Count 221 160 - 400 X10*3/uL [facility] Mean Platelet Volume 9.7 9.4 - 12.4 fL [facility] Neutrophils Percent Auto 69.7 45 - 73 % [facility] Imm Gran Pct Auto 0.5(H) 0.0 - 0.4 % [facility] Lymphocytes Percent Auto 21.2 20 - 40 % [facility] Monocytes Percent Auto 6.3 2 - 11 % [facility] Eosinophils Percent Auto 2.1 0 - 4 % [facility] Basophils Percent Auto 0.2 0 - 2 % [facility] NRBC Pct Auto 0.0 0.0 - 0.2 /100WBC [facility] Neutrophils Absolute Auto 6.2 2.0 - 8.3 x10*3/uL [facility] Imm Gran Abs Auto 0.04(H) 0.00 - 0.03 X10*3/uL [facility] Lymphocytes Absolute Auto 1.9 1.2 - 4.9 X10*3/uL [facility] Monocytes Absolute Auto 0.6 0.1 - 1.2 X10*3/uL [facility] Eosinophils Absolute Auto 0.2 0.0 - 0.4 X10*3/uL [facility] Basophils Absolute Auto 0.0 0.0 - 0.2 X10*3/uL [facility] NRBC Abs Auto 0.000 0.0 - 0.012 X10*3/uL [facility] 05/29/2025 9:53 AM EST 05/29/2025 10:03 AM EST us Generic External Data Provider LAB BLOOD ORDERAB LES Final Result Performing Organization Address City/State/[facility] [[email or web address]] de Phone Number [facility] [address] [place] [phone] [phone] documented in this encounter Visit Diagnoses [...] documented as of this encounter Care Teams Tobacco Prevention Health Educator Relationship Specialty Start Date End Date Michelle Rodriguez MD [address] [place] [address] PCP - General Family Medicine 02/19/21 Rose Phillip PharmD [address] [place] [address] Pharmacist Internal Medicine 03/02/24 documented as of this encounter
--- OUTSIDE RECORDS SUMMARY | 2025-05-29 10:45 | XMS_ITS | Encounter Summary ---
Author Organization [email or web address] Address [address] [place] [address] 7t [place] [address] Care Team Providers Care Private Inquiry Agent Name Role Phone Michelle Rodriguez MD Primary Care Provider [phone] Rose Phillip PharmD Unavailable [phone] Encounter Details Date Type Department Care Team (Latest Contact Info) Description 12/13/2021 Abstract [facility] CONVERSION[facility] Dental, Provider, DDS Social History [...] Care Team ( st Contact Info) Description 06/22/2025 9:30 AM EST Medication Management [facility] [address] [place] [phone] Rose Phillip, PharmD [address] [place] [address] 06/28/2025 10:15 AM EST Office Visit [facility] [address] [place] [phone] Michelle Rodriguez MD [address] [place] [phone] documented as of this encounter Visit Diagnoses Not on filedocumented in this encounter Care Teams Private Inquiry Agent Relationship Specialty Start Date End Date Michelle Rodriguez MD [address] [place] [address] PCP - General Family Medicine 02/19/21 Rose Phillip PharmD [address] [place] [address] Pharmacist Internal Medicine 03/02/24 documented as of this encounter
--- OUTSIDE RECORDS SUMMARY | 2025-05-29 10:45 | XMS_ITS | Encounter Summary ---
Author Organization [email or web address] Address [address] [place] [address] Care Team Providers Care Wireless Sales Manager Name Role Phone Michelle Rodriguez MD Primary Care Provider [phone] Rose Phillip PharmD Unavailable [phone] Encounter Details Date Type Department Care Team (Late st Contact Info) Description 09/11/2023 Orders Only [facility] [address], [place] [phone] Michelle Rodriguez MD [address] [place], [place] [phone] Primary insomnia Social History Tobacco Use Types [...] Description 06/22/2025 9:30 AM EST Medication Management [facility] [address] [place] [phone] Rose Phillip PharmD [address] [place] [phone] 06/28/2025 10:15 AM EST Office Visit [facility] [address] [place] [phone] Michelle Rodriguez MD [address] [place] [phone] documented as of this encounter Visit Diagnoses Diagnosis Primary insomnia Persistent disorder of initiating or maintaining sleep documented in this encounter Additional Health Concerns Assessment Noted Time PHQ-9 Depression Total Score: 6 11/02/19 23 3:44 PM EDT documented as of this encounter Care Teams Wireless Sales Manager Relationship Specialty Start Date End Date Michelle Rodriguez MD [address] [place] [phone] PCP - General Family Medicine 02/19/21 Rose Phillip PharmD [address] [place] [id number] Pharmacist Internal Medicine 03/02/24 documented as of this encounter
--- OUTSIDE RECORDS SUMMARY | 2025-05-29 10:45 | XMS_ITS | Clinical Summary ---
Author Organization [employer] Address [address] [place] [address] [address] [place] [address] Care Team Providers Care Yard Coordinator Name Role Phone Michelle Rodriguez MD Primary Care Provider [phone] Rose Phillip PharmD Unavailable [phone] Allergies Active Allergy Reactions Criticality Noted [...] tablet 3 09/07/19 25 Active Continuous Glucose Microbiology Professor (FreeStyle [place]ena 3 [place]) deviceIndicatio ns:Type 2 diabetes mellitus with hyperglycemia, with long-term current use of insulin (HCC) 1 each Once per day. Use as directed for CGM 1 each 10/22/19 25 Active Continuous Glucose Sensor (FreeStyle [place] Nena 3 Plus Sensor) miscIndications :Type 2 diabetes mellitus with hyperglycemia, with long-term current use of insulin ([facility]) Apply 1 every 15 days as directed for CGM 2 each 5 5:27 PM EST 10/22/19 25 Active glucose blood (FreeStyle Precision Kwaku Test) test stripIndication s:Type 2 diabetes mellitus with hyperglycemia, with long-term current use of insulin ([facility]) Use to test blood sugar up to 3 times daily, as directed 100 each 11 10/22/19 25 Active insulin pen needle (Pentips) 32G x 4 mm misc Use 1 daily with basal insulin 100 each 10/22/19 25 Active metFORMIN (Glucophage) 1000 MG tablet TAKE 1 TABLET BY MOUTH TWICE DAILY IN THE MORNING AND IN THE EVENING WITH MEALS 180 tablet 3 10/30/19 25 Active amLODIPine (Norvasc) 5 MG tablet TAKE 1 TABLET BY MOUTH EVERY MORNING 90 tablet 3 5 8:43 AM EST 11/04/19 25 Active atorvastatin (Lipitor) 20 MG tablet TAKE 1 TABLET BY MOUTH EVERYDAY AT NOON 90 tablet 3 5 8:43 AM EST 01/25/20 25 Active ibuprofen 600 MG tablet Take 1 tablet (600 mg) by mouth 3 times daily. 20 tablet 01/27/20 25 Active tamsulosin (Flomax) 0.4 MG 24 hr capsule Take 1 capsule (0.4 mg) by mouth at bedtime. 90 capsule 1 5 8:43 AM EST 02/12/20 25 Active nicotine polacrilex (Nicorette) 2 [...] 24 IN 24 HOURS. 02/12/20 25 Active zolpidem (Ambien) 10 MG tabletIndicatio ns:Primary insomnia TAKE 1 TABLET BY MOUTH AT BEDTIME 30 tablet 5 10:44 AM EST 04/19/20 25 Active glipiZIDE (Glucotrol) 5 MG tabletIndicatio ns:Type 2 diabetes mellitus with hyperglycemia, with long-term current use of insulin (HCC) TAKE 1 TABLET BY MOUTH TWICE DAILY IN THE MORNING AND IN THE EVENING WITH MEALS 180 tablet 05/04/20 25 Active pilocarpine (Salagen) 5 MG tablet TAKE 1 TABLET BY MOUTH THREE TIMES DAILY IN THE MORNING, EVENING, AND BEDTIME 90 tablet 1 05/09/20 25 Active Tirzepatide (Mounjaro) 7.5 MG/0.5ML solution auto-injectorIn dications:Type 2 diabetes mellitus with hyperglycemia, with long-term current use of insulin ([facility]) Inject 7.5 mg under the skin 1 (one) time per week. 2 mL 11 05/23/20 25 Active insulin degludec (Tresiba FlexTouch) 100 UNIT/ML injection Inject 16 Units under the skin in the morning. 15 mL 1 05/23/20 25 Active nicotine (Nicoderm, Step 3) 7 MG/24HR patch Place 1 patch on the skin 1 (one) time each day at the same time. 05/04/20 25 Active cloNIDine (Catapres) 0.1 MG tablet TAKE 1 TABLET BY MOUTH THREE TIMES DAILY NEEDED FOR ANXIETY OR FOR WITHDRAWL SYMPTOMS 05/04/20 25 Active Acetaminophen Extra Strength 500 MG tablet TAKE 1 TO 2 TABLETS BY MOUTH EVERY 8 HOURS NEEDED FOR PAIN 05/04/20 25 Active glipiZIDE (Glucotrol) 5 MG tabletIndicatio ns:Type 2 diabetes mellitus with hyperglycemia, with long-term current use of insulin ([facility]) TAKE 1 TABLET BY MOUTH TWICE DAILY IN THE MORNING AND IN THE EVENING WITH MEALS 60 tablet 5 11/02/19 25 025 Discontinued acetaminophen (Tylenol 8 Hour) 650 MG ER tablet Take 1 tablet (650 mg) by mouth every 8 (eight) hours if needed for mild pain. Do not crush, chew, or split. 30 tablet 01/27/20 25 025 Discontinued(A lternate therapy) insulin degludec (Tresiba FlexTouch) 100 UNIT/ML injection Inject 20 Units under the skin at bedtime. 15 mL 1 5 11:32 AM EST 02/06/20 025 Discontinued(R eorder (will not trigger notification to Pharmacy)) Tirzepatide (Mounjaro) 5 MG/0.5ML solution auto-injectorIn dications:Type 2 diabetes mellitus with hyperglycemia, with long-term current use of insulin ([facility]) Inject 5 mg under the skin 1 (one) time per week. 2 mL 11 5 1:28 PM EST 02/12/20 025 Discontinued(D ose adjustment) pilocarpine (Salagen) 5 MG tablet Take 1 tablet (5 mg) by mouth 3 times daily. 90 tablet 1 5 11:27 AM EST 03/15/20 025 Discontinued Active Problems Problem Noted Date Diagnosed Date Severe depression ([facility]) 03/22/2025 Insomnia, unspecified 03/04/2025 Tobacco dependence 02/11/2025 Dental calculus 01/26/2025 Missing teeth, acquired 01/26/2025 Gingival bleeding 01/26/2025 Non-restorable tooth 01/26/2025 Tooth sensitivity 01/26/2025 Caregiver with fatigue 10/18/2024 Assessment & Plan (10/18/2024 5:09 PM EDT): Gave resources from [place] [facility] to call for respite care/hours and caregiver support Frequent urination 10/18/2024 Assessment & Plan (10/18/2024 5:10 PM EDT): UA bland Trial Flomax 0.4mg at night Screening for colon cancer 10/18/2024 Uncomplicated opioid dependence (CMS/[facility]) 2024 Assessment & Plan (06/14/2024 10:18 AM EST): 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 Last [...] referral in, appt not made Dental: at [facility] BMP: Lab Results Component Value Date CREATININE [...] referral in, appt not made Dental: at [facility] BMP: Lab Results Component Value Date CREATININE [...] two months ago, he is actively seeking detox/tissue recovery technician Will come tomorrow morning at 845 to [...] Encounters Date Type Department Care Team Description 05/29/2025 Orders Only GENERIC EXTERNAL DATA DEPARTMENT Provider, Generic External Data 05/24/2025 Telephone [facility] [address] [place] [address] Rose Phillip, PharmD Prior Authorization (Kayleigh ) 05/23/2025 Patient Outreach [facility] [address] [place] [address] Antonio Posada RC Recovery Supports 05/23/2025 Travel 05/07/2025 Refill [facility] [address] [place] [address] Michelle Rodriguez MD 05/04/2025 Refill [facility] [address] [place] [address] Rose Phillip, PharmD Type 2 diabetes mellitus with hyperglycemia, with long-term current use of insulin ([facility]) 05/03/2025 Travel 05/02/2025 Patient Outreach [facility] [address] [place] [address] Blanca Ruvalcaba RC Recovery Supports 04/25/2025 Patient Outreach [facility] [address] [place] [address] Blanca Ruvalcaba [facility] Recovery Supports 04/25/2025 Patient Outreach [facility] [address] [place] [address] Robson Garcia RC Recovery Supports 04/18/2025 Refill [facility] [address] [place] [address] Michelle Rodriguez MD Primary insomnia 04/13/2025 Travel 04/08/2025 11:00 AM EST Office Visit [facility] [address] [place] [address] Lennox, Riana, OD Presbyopia of both eyes (Primary Dx) 03/14/2025 Orders Only GENERIC EXTERNAL DATA DEPARTMENT Provider, Generic External Data 03/11/2025 Orders Only [facility] [address] [facility] [place] [address] Michelle Rodriguez MD Type 2 diabetes mellitus with hyperglycemia, with long-term current use of insulin (HCC) (Primary Dx) 03/10/2025 Telephone [facility] [address] [facility] [address] Rose Phillip PharmD 03/08/2025 Refill [facility] [address] [place] [address] Michelle Rodriguez MD 03/06/2025 Refill [facility] [address] [place] [address] Brice Sommers DDS 03/04/2025 9:00 AM EDT Office Visit [facility] [address] [place] [address] Brice Sommers DDS Severe dental caries (Primary Dx); Non-restorable tooth 03/01/2025 1:30 PM EDT Office Visit [facility] [address] [facility] [facility] [place] [address] Lennox, Riana, OD Diabetes type 2, no ocular involvement (CMS/HCC) (Primary Dx); Retinal pigment epithelial atrophy; Age-related nuclear cataract of both eyes; Presbyopia of both eyes 03/01/2025 Travel from Last 3 Months Immunizations Immunization Administration [...] Description 06/22/2025 9:30 AM EST Medication Management [facility] [address] [place] [phone] Rose Phillip, MerissaD [address] [place], [place] [phone] 06/28/2025 10:15 AM EST Office Visit [facility] [address] [place], [place] [phone] Michelle Rodriguez MD [address] [place], [place] [phone] Health Maintenance Due Date Last Done Comments CT Colonography 1972 Colonoscopy 1972 FIT 1970 Sigmoidoscopy 1972 Alcohol/Substance Use Screening 1984 Family Planning (PISQ) 08/02/1987 Hepatitis A Vaccines (1 of 2 - Risk 2-dose series) 08/02/1991 Pneumococcal Vaccine: 50+ Years (1 of 2 - PCV) 08/02/1991 RSV Patients and Patients Aged 60 years or older (1 - Risk 50-74 years 1-dose series) 2022 Zoster Vaccines (2 of 2) 02/13/2023 12/19/2022 COVID-19 Vaccine ( season) 2025 06/27/2022, 10/05/2021, 12/27/2020, Additional history exists Influenza Vaccine (#1) 2025 05/06/2012, 2009 Diabetes: Urine Protein Screening 03/08/2025 03/08/2024, 04/24/2022, 04/24/2022, Additional history exists Depression Monitoring 04/20/2025 10/18/2024, 025 Dental Oral Exam 07/30/2025 01/26/2025, 11/27/2023 Dental Prophylaxis 07/30/2025 01/26/2025, 11/27/2023 Diabetes: Hemoglobin A1C 08/21/2025 025, 02/05/2025, 10/18/2024, Additional history exists Disability Screening 10/18/2025 10/18/2024 Lipid Panel 10/18/2025 [...] (2 - Td or Tdap) 04/21/2034 04/21/2024 HIV Screening Completed 08/19/2023 HIB Vaccines Aged [...] on patient's age to complete this topic Goals Goal Patient Goal Type Associated Problems Recent Progress Patient-Stated? Author Help patients manage their type 2 diabetes Care Plan Help patients manage their type 2 diabetes Robson Catherine Weekly blood pressure task Care Plan Weekly [...] Weekly blood pressure task No Jennifer Ruvalcabairia Weekly blood pressure task Care Plan Weekly blood pressure task No Jordon Cathiria Patient has chronic kidney disease Care Plan Patient has chronic kidney disease No Jordon Cathiria Patient has chronic kidney [...] Care Plan Weekly blood pressure task No Albino Antonio Weekly blood pressure task Care Plan Weekly blood pressure task No Albino, Antonio Patient has chronic kidney disease Care Plan Patient has chronic kidney disease No Albino, Antonio Patient has chronic kidney disease Care Plan Patient has chronic kidney disease No Albino Antonio Weekly blood pressure task Care Plan Weekly blood pressure task No Puia, Rose, PharmD Weekly blood pressure task Care Plan Weekly blood pressure task No Puia, Rose, PharmD Patient has chronic kidney disease Care Plan Patient has chronic kidney disease No Puia, Rose, PharmD Patient has chronic kidney disease Care Plan Patient has chronic kidney disease No Puia, Rose, PharmD Procedures Procedure Name Priority Date/Time Associated Diagnosis Comments HIGH SENSITIVITY TROPONIN I Routine 05/29/2025 9:53 AM EST MAGNESIUM Routine 05/29/2025 9:53 AM EST COMPREHENSIVE METABOLIC PANEL Routine 05/29/2025 9:53 AM EST PROTHROMBIN TIME-INR Routine 05/29/2025 9:53 AM EST CBC WITH AUTO DIFFERENTIAL Routine 05/29/2025 9:53 AM EST POCT GLYCATED HEMOGLOBIN, TOTAL Routine 05/23/2025 10:47 AM EST Type 2 diabetes mellitus with hyperglycemia, with long-term current use of insulin ([facility]) CT ABDOMEN PELVIS W CONTRAST Routine 03/14/2025 8:49 PM EDT XR CHEST 2 VIEWS Routine 03/14/2025 3:07 PM EDT LIPASE Routine 03/14/2025 2:43 PM EDT HIGH SENSITIVITY [...] 1:30 PM EDT Retinal pigment epithelial atrophy PROPHYLAXIS - ADULT Routine 01/26/2025 1 1:00 AM EDT INTRAORAL - COMPLETE SERIES OF RADIOGRAPHIC IMAGES Routine 01/26/2025 11:00 AM EDT PERIODIC ORAL EVALUATION - ESTABLISHED PATIENT Routine 01/26/2025 11:00 AM EDT LAB COLOGUARD COLON CANCER SCREEN Routine 10/26/2024 7:05 AM EDT Screening for colon cancer LIPID PANEL, STANDARD Routine 10/18/2024 9:30 AM EDT ALBUMIN, RANDOM URINE W/CREATININE Routine 03/08/2024 9:17 AM EDT HIV 1/2 ANTIGEN/ANTIBODY, FOURTH GENERATION W/RFL Routine 08/19/2023 10:02 AM EDT Type 2 diabetes mellitus without complication, with long-term current use of insulin ([facility]) from Last 3 Months or Most Recently Relevant to Health Maintenance Results * High Sensitivity Troponin I (05/29/2025 9:53 AM EST) Only the most recent of2 resultswithin the time period is included. Pathologist [facility] TROPONIN I HIGH SENSITIVITY <2.7 <3.5 - 35.0 ng/L [facility] Comment:The Mayer high sens itivity Troponin-I results should beused in conjunction with other diagnostic information suchas ECG, clinical observations and information, and patientsymptoms to aid in the diagnosis of [place]. 05/29/2025 9:53 AM EST 05/29/2025 10:03 AM EST us Generic External Data Provider LAB BLOOD ORDERAB LES Final Result [facility] [address] [place] [phone] * (ABNORMAL) CBC auto differential (05/29/2025 9:53 AM EST) Only the most recent of2 resultswithin the time period is included. Pathologist [facility] White Blood Count 8.9 4.8 - 10.8 X10*3/uL [facility] Red Blood Count 4.90 4.60 - 5.80 X10*6/uL [facility] Hemoglobin 13.6(L) 14.0 - 18.0 g/dl [facility] Hematocrit 41.4(L) 42.0 - 52.0 % [facility] Mean Corpuscular Volume 84.5 80.0 - 98.0 fL [facility] Mean Corpuscular Hemoglobin 27.8 27.0 - 33.0 pg [facility] Mean Corpuscular HGB Conc 32.9 31.0 - 36.0 g/dl [facility] Red Cell Distribution Width 12.8 11.0 - 16.0 % [facility] Platelet Count 221 160 - 400 X10*3/uL [facility] Mean Platelet Volume 9.7 9.4 - 12.4 fL [facility] Neutrophils Percent Auto 69.7 45 - 73 % [facility] Imm Gran Pct Auto 0.5(H) 0.0 - 0.4 % [facility] Lymphocytes Percent Auto 21.2 20 - 40 % [facility] Monocytes Percent Auto 6.3 2 - 11 % [facility] Eosinophils Percent Auto 2.1 0 - 4 % [facility] Basophils Percent Auto 0.2 0 - 2 % [facility] NRBC Pct Auto 0.0 0.0 - 0.2 /100WBC [facility] Neutrophils Absolute Auto 6.2 2.0 - 8.3 x10*3/uL [facility] Imm Gran Abs Auto 0.04(H) 0.00 - 0.03 X10*3/uL [facility] Lymphocytes Absolute Auto 1.9 1.2 - 4.9 X10*3/uL [facility] Monocytes Absolute Auto 0.6 0.1 - 1.2 X10*3/uL [facility] Eosinophils Absolute Auto 0.2 0.0 - 0.4 X10*3/uL [facility] Basophils Absolute Auto 0.0 0.0 - 0.2 X10*3/uL [facility] NRBC Abs Auto 0.000 0.0 - 0.012 X10*3/uL [facility] 05/29/2025 9:53 AM EST 05/29/2025 10:03 AM EST Generic External Data Provider LAB BLOOD ORDERAB LES Final Result Performing Organization Address [facility] Co de Phone Number [facility] [address] [place] [phone] * Prothrombin Time-INR (05/29/2025 9:53 AM EST) Only the most recent of2 resultswithin the time period is included. Prothrombin Time 12.1 11.2 - 13.5 SEC [facility] INTERNATIONAL NORM RATIO 1.0 0.9 - 1.1 [facility] Comment:INTERNATIONAL NORMAL IZED RATIO (INR) [...] ORDERAB LES Final Result Performing Organization Address City/[facility] Co de Phone Number [facility] [address] [place] [phone] * Magnesium (05/29/2025 9:53 AM EST) Only the most recent of2 resultswithin the time period is included. Magnesium 1.7 1.6 - 2.6 mg/dL [facility] 05/29/2025 9:53 AM EST 05/29/2025 10:03 AM EST us Generic External Data Provider LAB BLOOD ORDERAB LES Final Result [facility] [address] [place] [address] [phone] * (ABNORMAL) Comprehensive Metabolic Panel (05/29/2025 9:53 AM EST) Only the most recent of2 resultswithin the time period is included. Sodium 134(L) 135 - 145 mmol/L [facility] Potassium 4.6 3.3 - 5.1 mmol/L [facility] Chloride 104 96 - 108 mmol/L [facility] Carbon Dioxide 21(L) 22 - 29 mmol/L [facility] Anion Gap 14 12 - 20 [facility] Urea Nitrogen (BUN) 19(H) 9 - 16 mg/dL [facility] Creatinine, Serum 0.88 0.5 - 1.4 mg/dL [facility] Creatinine Clr Calc Pharmacy 115.6 [facility] Comment:eGFR (calculated fro m the MDRD study equation) and eCrCl(calculated from the Cockcroft-Gault equation) are based ondifferent parameters and may not yield comparable results.If eCrCl result is absurd, please check patient'sheight/weight. Estimated Glomerular Filt Rate >60 [facility] Comment:Chronic Kidney Disea se: Estimated GFR < 60 mL/min/1.44m0Obxpdm Kidney Disease: Estimated GFR < 15 mL/min/1.73m2 Glucose 217(H) 60 - 115 mg/dL [facility] Calcium 9.1 8.4 - 10.2 mg/dL [facility] Bilirubin, Total 0.3 0.0 - 1.0 mg/dL [facility] Aspartate Amino Transferase 21 5 - 37 U/L [facility] Alanine Aminotransferase 25 0 - 40 U/L [facility] Total Protein 7.8 6.5 - 8.0 g/dL [facility] Albumin Level 4.3 3.5 - 5.0 g/dL [facility] Alkaline Phosphatase 115 39 - 117 U/L [facility] 05/29/2025 9:53 AM EST 05/29/2025 10:03 AM EST us Generic External Data Provider LAB BLOOD ORDERAB LES Final Result [facility] [address] [place] [phone] * (ABNORMAL) POCT Hgb A1c (05/23/2025 10:47 AM EST) Hemoglobin A1C 8.0(A) 4.0 - 5.7 % Blood 05/23/2025 10:4 7 AM EST Michelle Rodriguez MD POINT OF CARE TEST ENTER/EDIT ORDERABLES Final Result * CT Abdomen Pelvis w/ Contrast (03/14/2025 8:49 PM EDT) Anatomical Region Laterality Modality Body, Pelvis, Abdomen Computed T omography 03/14/2025 8:49 PM EDT Narrative 03/14/2025 8:52 PM EDT [address] [address] [address] Scan Report Signed Patient: Raimundo Carcamo MR#: [id number] 9 : 1970 Acct:[id number] Age/Sex: 54 / M ADM Date: 03/14/25 Loc: .ED Attending Dr: Ordering Physician: Jae Hsieh Date of Service: 03/14/25 Procedure(s): CT abdomen pelvis w IV con Accession Number(s): [id number] cc: Michelle Rodriguez; Jae Hsieh Report Number: [id number]: Total DLP = 781.00 mGy-cm Reason for Exam: right sided abdominal pain CLINICAL HISTORY: right sided abdominal pain --- Additional Notes or Special Instructions: NO IV @ 18:27, GOING TO INSERT US GUIDED LINE - JR CT abdomen and pelvis with contrast Comparison: US - US RENAL BI - 07/01/24 11:43 EST Findings: No consolidation at the lung bases. Unremarkable gallbladder and bladder. No hydronephrosis. Right nephrolithiasis measures up to 3 mm. No left nephrolithiasis. No focal decreased enhancement of the kidneys. The other solid organs are unremarkable. No bowel dilation. Question mild wall thickening versus underdistention of portions of the small bowel and colon, most prominent in the distal small bowel and proximal colon. A normal appendix is identified. No aneurysm. Mild calcified atherosclerotic disease. No lymphadenopathy. No ascites. No acute osseous abnormality. Impression: Question mild enterocolitis, infectious/inflammatory. This document has been electronically signed by: Vidhya Pedersen MD on 03/14/2025 20:49:59 Dictated By: Vidhya Dubose MD Signed By: <Electronically signed by Vidhya Dubose MD in OV> 03/14/252050 DD/ 48 TD/TT: 03/14/252048 Security Sales Manager: Procedure Note Donotuseinterpreter, Image - 03/14/[address] [place] [address] [address] Scan Report Signed Patient: Raimundo CarcamoMR#: [id number] 9 : 1970Acct:[id number] Age/Sex: 54 / MADM Date: 03/14/25 Loc: HO.ED Attending Dr: Ordering Physician: Jae Hsieh Date of Service: 03/14/25 Procedure(s): CT abdomen pelvis w IV con Accession Number(s): [id number] cc: Guerita Rodriguez Daniel Report Number: [id number]: Total DLP = 781.00 mGy-cm Reason for Exam: right sided abdominal pain CLINICAL HISTORY: right sided abdominal pain --- Additional Notes orSpecial Instructions: NO IV @ 18:27, GOING TO INSERT US GUIDED LINE - JR CT abdomen and pelvis with contrast Comparison: US - US RENAL BI - 07/01/24 11:43 EST Findings: No consolidation at the lung bases. Unremarkable gallbladder and bladder. No hydronephrosis. Right nephrolithiasis measures up to 3 mm. No left nephrolithiasis. No focal decreased enhancement of the kidneys. The other solid organs are unremarkable. No bowel dilation. Question mild wall thickening versus underdistention of portions of the small bowel and colon, most prominent in the distal small bowel and proximal colon. A normal appendix is identified. No aneurysm. Mild calcified atherosclerotic disease. No lymphadenopathy. No ascites. No acute osseous abnormality. Impression: Question mild enterocolitis, infectious/inflammatory. This document has been electronically signed by: Vidhya Pedersen MD on 03/14/2025 20:49:59 Dictated By: Vidhya Dubose MD Signed By: <Electronically signed by Vidhya Dubose MD in OV> 03/14/252050 DD/ 48 TD/TT: 03/14/252048 Security Sales Manager: [employer] External Provider IMG CT PROCEDURES Edited Result - Final * XR Chest 2 Views (03/14/2025 3:07 PM EDT) Anatomical Region Laterality Modality Chest Radiographic Telma ging 03/14/2025 3:07 PM EDT Narrative 03/14/2025 3:08 PM EDT [address] [address] XRay Report Signed Patient: Raimundo Carcamo MR#: [id number] 9 : 1970 Acct:[id number] Age/Sex: 54 / M ADM Date: 03/14/25 Loc: .ED Attending Dr: Ordering Physician: Hien Schmidt Date of Service: 03/14/25 Procedure(s): XR chest 2V Accession Number(s): [id number] cc: Hien Schmidt; Michelle Rodriguez Reason for [...] OV> 03/14/25 1508 DD/ 1507 TD/TT: 03/14/25 150 Security Sales Manager: Procedure Note Donhectorter, Image - 03/14/[address] [address] XRay Report Signed Patient: Raimundo CarcamoMR#: [id number] 9 : 1970Acct:[id number] Age/Sex: 54 / MADM Date: 03/14/25 Loc: HO.ED Attending Dr: Ordering Physician: Hien Schmidt Date of Service: 03/14/25 Procedure(s): XR chest 2V Accession Number(s): [id number] cc: Hien Schmidt; Michelle Rodriguez Reason for [...] Dubose MD in OV> 03/14/25 1508 DD/ 150 TD/TT: 03/14/251506 Security Sales Manager: [employer] External Provider IMG XR PROCEDURES Edited Result - Final * Influenza A B2 ID NOW ([facility]) (03/14/2025 2:43 PM EDT) IDNOW SERIAL# [id number] [facility] Influenza A Negative Negative [facility] Influenza B2 Negative Negative [facility] Influenza A B2 Note See Note [facility] Comment:The Mayer ID NOW In [...] EDT us Generic External Data Provider LAB MICROBIOLOGY - GENERAL ORDERABLES Final Result [facility] [address] [place] [phone] [phone] * COVID-19 ID NOW ([facility]) (03/14/2025 2:43 PM EDT) IDNOW SERIAL# [id number] [facility] COVID-19 TEST Negative Negative [facility] COVID-19 NOTE See Note [facility] Comment: Results are for the identification of SARS-CoV2 RNA. TheSARS-CoV2 RNA is generally detectable in respiratory samplesduring the acute phase of infection. Positive results areindicative of the presence of SARS-CoV-2 RNA; clinicalcorrelation with patient history and other diagnosticinformation is necessary to determine patient infectionstatus. Positive results do not rule out bacterial infectionor co- infection with other viruses.Testing facilities within the [facility] and [facility] are required to report all positive results [...] GNOSTICS ORDERABLES Final Result Performing Organization Address City/[facility]/ZIP Co de Phone Number [facility] [address] [place] [phone] * Lipase (03/14/2025 2:43 PM EDT) Pathologist [facility] Lipase 8 8 - 78 U/L [facility] 03/14/2025 2:43 PM EDT 03/14/2025 2:46 PM EDT Generic External Data Provider LAB BLOOD ORDERAB LES Final Result Performing Organization Address [facility] Co de Phone Number [facility] [address] [place] [address] [phone] * OCT, Retina - OU - [...] significant. Will monitor at his next exam. us Riana Lennox OD OPHTH TOMOGRAPHY Final Result * Cologuard?? colon cancer screening (10/26/2024 7:05 AM EDT) Pathologist [facility] Cologuard Result Negative Negative 10/30/19 25 6:16 AM EDT [facility] (CLIA #:[id number]) Comment: The Cologuard (TM) test was performed [...] cancer. Following a negative Cologuard result, the [place] Cancer Society and U.S. Multi-Society Task Force screening guidelines recommend a Cologuard re-screening interval of 3 years. References: [place] [employer] Guideline for Colorectal Cancer Screening: https://www.cancer.org/cancer/xrcfh-febxqi-wcuosv/omuqvjexa-agsjjdkpq-znghfgd/ac s-rec ommendations.html.; Oswald DK, Cielo CR, Gulshan LiveK, Colorectal Cancer Screening: Recommendations for Physicians and Patients from the U.S. Multi-Society Task Force on Colorectal Cancer Screening , Am J Gastroenterology 2017; 112:5083-1565. TEST DESCRIPTION: Composite algorithmic analysis of stool [...] (Chip Kinsey al, N Engl J Med 2014;370(14):2027-3845.) Cologuard may produce a false negative or false positive result (no colorectal cancer or precancerous polyp present at colonoscopy follow up). A negative Cologuard test result does not guarantee the absence of CRC or advanced adenoma (pre-cancer). The current Cologuard screening interval is every 3 years. ([place] [employer] Society and U.S. Multi-Society Task Force). Cologuard performance data in a 10,000 patient pivotal study using colonoscopy as the reference method can be accessed at the following location: www.Snaptee/results. Additional description of the Cologuard test process, warnings and precautions can be found at www.[employer]erd.[employer]. Stool specimen (specimen) 10/26/2024 7:05 AM EDT 10/27/2024 10:44 AM EDT Michelle Rodriguez MD LAB MOLECULAR DIAGNOSTICS NEYMAR MOORE Final Result [facility] (CLIA #:[id number]) [address] [place] [address], * (ABNORMAL) Lipid Panel, Standard (10/18/2024 9:30 AM EDT) Triglycerides 52 <150 mg/dL [facility] Comment:Desirable Triglyceri de: less than 150 mg/dLBorderline High Triglyceride 150-199 mg/dLHigh Triglyceride: 200-499 mg/dLVery High Triglyceride: greater than or equal to 5OO mg/dL Cholesterol 75 <200 mg/dL [facility] Comment:Desirable Cholestero l: less than 200 mg/dLBorderline High Cholesterol: 200-239 mg/dLHigh Cholesterol: greater than 239 mg/dL LDL Cholesterol Calculated 33 <100 mg/dL [facility] Comment:Desirable LDL: less than 100 mg/dLNear Optimal/Above Optimal LDL: 110- 129 mg/dLBorderline High LDL: 130-159 mg/dLHigh LDL: 160-189 mg/dLVery High LDL: greater than or equal to 190 mg/dL HDL Cholesterol 32(L) >40 mg/dL [facility] Comment:Desirable HDL: great er than 40 mg/dL Note: This HDL assay may give artificially low results in patients with liver disease. 10/18/2024 9:3 0 AM EDT 10/18/2024 11:00 AM EDT Michelle Rodriguez MD LAB BLOOD ORDERABLES Final Res ult Performing Organization Address [facility] Co de Phone Number [facility] [address] [place] [phone] * Albumin, Random Urine W/Creatinine (03/08/2024 9:17 AM EDT) Creatinine, Urine 110.89 mg/dL [facility] Microalbumin Urine <5.0 mg/L [facility] Microalbum Creatinine Ratio Ur TNP <30 ug/mg cr [facility] Comment:Unable to calculate albumin/creatinine ratio due to lowmicroalbumin or creatinine result. 03/08/2024 9:17 AM EDT 03/08/2024 10:55 AM EDT us Michelle Rodriguez MD LAB URINE ORDERABLES Final Res ult Performing Organization Address [facility] Co de Phone Number [facility] [address] [place] [phone] [phone] * HIV-1/2 Antigen and Antibodies, Fourth Generation, with Reflexes (08/19/2023 10:02 AM EDT) HIV AB/AG Nonreactive Nonreactive [facility] Comment:HIV-1 p24 Ag and/or HIV-1/HIV-2 Ab not detected.A test result that is nonreactive does not exclude thepossibility of exposure to or infection with HIV-1 and/orHIV-2. Nonreactive results in this assay for individualswith prior exposure to HIV-1 and/or HIV-2 may be due toantigen and antibody levels that are below the limit ofdetection of this assay.The [place] HIV Ag/Ab Combo assay result andsupplemental assay results should be interpreted inconjunction with the patient's clinical presentation,history and other laboratory results. If the results areinconsistent with clinical evidence, additional testing issuggested to confirm the result. Blood Venous blood specimen / Unknown 08/19/2023 10:02 AM EDT 08/19/2023 11:21 AM EDT us Michelle Rodriguez MD LAB BLOOD ORDERABLES Final Res ult [facility] [address] [place] [phone] from Last 3 Months or Most Recently Relevant to Health Maintenance Additional Health Concerns Active Problems Noted Date [...] 05/24/2025 Patient has chronic kidney disease 05/24/2025 Insurance [facility] STANDARD DENTAL-[facility] MEDICAID STAND ADULT Care Teams Yard Coordinator Relationship Specialty Start Date End Date Michelle Rodriguez MD [address] [place] [address] PCP - General Family Medicine 02/19/21 Rose Phillip PharmD [address] [place] [address] Pharmacist Internal Medicine 03/02/24
--- OUTSIDE RECORDS SUMMARY | 2025-05-29 10:45 | XMS_ITS | Encounter Summary ---
Author Organization [employer] Address [address] [place] [address] 7t [place] [address] Care Team Providers Care Closing Agent Name Role Phone Michelle Rodriguez MD Primary Care Provider Rose Phillip PharmD Unavailable [phone] Reason for Visit * Reason Comments Med Refill Encounter Details Date Type Department Care Team (Late st Contact Info) Description 12/21/2022 Refill [facility] [address] [place], [place] [phone] Michelle Rodriguez MD [address] [place] [address] Social History Tobacco Use Types Packs/Day Years [...] Description 06/22/2025 9:30 AM EST Medication Management [facility] [address] [place] [address] PuRose jennings, PharmD [address] [place] [address] 06/28/2025 10:15 AM EST Office Visit [facility] [address] [place] [address] Michelle Rodriguez MD [address] [place] [address] documented as of this encounter Visit Diagnoses Not on filedocumented in this encounter Additional Health Concerns Assessment Noted Time PHQ-9 Depression Total Score: 6 11/02/19 23 3:44 PM EDT documented as of this encounter Care Teams Closing Agent Relationship Specialty Start Date End Date Michelle Rodriguez MD [address] [place] [address] [phone] PCP - General Family Medicine 02/19/21 Rose Phillip PharmD [address] [place] [address] [phone] Pharmacist Internal Medicine 03/02/24 documented as of this encounter
--- OUTSIDE RECORDS SUMMARY | 2025-05-29 10:45 | XMS_ITS | Encounter Summary ---
Author Organization [employer] Address [address] [facility] [address] 7t [place] [address] Care Team Providers Care Corporate Travel Agent Name Role Phone Michelle Rodriguez MD Primary Care Provider [phone] Rose Phillip PharmD Unavailable [phone] Reason for Visit * Reason Comments Med Refill Encounter Details Date Type Department Care Team ([facility] st Contact Info) Description 05/14/2023 Refill [facility] [address] [place] [address] Uriah Hoang FNP Social History Tobacco Use [...] Description 06/22/2025 9:30 AM EST Medication Management [facility] [address] [place] [address] Rose Phillip PharmD [address] [place] [address] 06/28/2025 10:15 AM EST Office Visit [address] [address] Michelle Rodriguez MD [address] [place] [address] documented as of this encounter Visit Diagnoses Not on filedocumented in this encounter Additional Health Concerns Assessment Noted Time PHQ-9 Depression Total Score: 6 11/02/19 23 3:44 PM EDT documented as of this encounter Care Teams Corporate Travel Agent Relationship Specialty Start Date End Date Michelle Rodriguez MD [address] [place] [phone] PCP - General Family Medicine 02/19/21 Rose Phillip PharmD [address] [place] [address] Pharmacist Internal Medicine 03/02/24 documented as of this encounter
--- OUTSIDE RECORDS SUMMARY | 2025-05-29 10:45 | XMS_ITS | Encounter Summary ---
Author Organization [employer] Address [address] [place] [address] 7t [place] [address] Care Team Providers Care Community Integration Specialist Name Role Phone Michelle Rodriguez MD Primary Care Provider [phone] Rose Phillip PharmD Unavailable [phone] Reason for Visit * Reason Comments Med Refill Encounter Details Date Type Department Care Team (Late st Contact Info) Description 01/20/2023 Refill [facility] [address] [place] [phone] Mimi Machuca FNP Primary insomnia Social History [...] Medication Management [facility] [address] [place] [address] [phone] Rose Phillip, PharmD [address] [place] [address] 06/28/2025 10:15 AM EST Office Visit [facility] [address] [place] [address] [phone] Michelle Rodriguez MD [address] [place] [address] documented as of this encounter Visit Diagnoses Diagnosis Primary insomnia Persistent disorder of initiating or maintaining sleep documented in this encounter Additional Health Concerns Assessment Noted Time PHQ-9 Depression Total Score: 6 11/02/19 23 3:44 PM EDT documented as of this encounter Care Teams Community Integration Specialist Relationship Specialty Start Date End Date Michelle Rodriguez MD [address] [place] [phone] PCP - General Family Medicine 02/19/21 Rose Phillip PharmD [address] [place] [address] Pharmacist Internal Medicine 03/02/24 documented as of this encounter
--- OUTSIDE RECORDS SUMMARY | 2025-05-29 10:45 | XMS_ITS | Encounter Summary ---
Author Organization [employer] Address [address] [place] [address] 7t [place] [address] Care Team Providers Care Pullman Car Clerk Name Role Phone Michelle Rodriguez MD Primary Care Provider Rose Phillip PharmD Unavailable Reason for Referral * Consultation (Routine) - Authorized Specialty Diagnoses / Procedures Referred By Contac t Referred To Contact Pharmacy Diagnoses Type 2 diabetes mellitus with hyperglycemia, with long-term current use of insulin (HCC) Michelle Rodriguez MD [address] [place] [address] Phone: tel: fax: Referral ID Status Reason Start Date Expiration Date Visits Requested Visits Authorized [id number] Authorized Consult and Treat 03/11/2025 03/11/2026 6 6 Encounter Details Date Type Department Care Team (Late st Contact Info) Description 03/11/2025 Orders Only [facility] [address] [place], [place] [phone] Michelle Rodriguez MD [address] [place], [place] [phone] Type 2 diabetes mellitus with hyperglycemia, with [...] Description 06/22/2025 9:30 AM EST Medication Management [facility] [address] [place] [address] Rose Phillip, PharmD [address] [place] [address] 06/28/2025 10:15 AM EST Office Visit [facility] [address] [place] [address] Michelle Rodriguez MD [address] [place] [address] Scheduled Referrals Name Type Priority Associated Diagnoses [...] documented as of this encounter Care Teams Pullman Car Clerk Relationship Specialty Start Date End Date Michelle Rodriguez MD [address] [place], [place] [phone] PCP - General Family Medicine 02/19/21 Rose Phillip PharmD [address] [place] [address] Pharmacist Internal Medicine 03/02/24 documented as of this encounter
--- OUTSIDE RECORDS SUMMARY | 2025-05-29 10:45 | XMS_ITS | Encounter Summary ---
Author Organization [employer] Address [address] [facility] [facility] [address] 7t [place] [address] Care Team Providers Care Public Health Worker Name Role Phone Michelle Rodriguez MD Primary Care Provider [phone] Rose Phillip PharmD Unavailable [phone] Encounter Details Date Type Department Care Team ([facility] st Contact Info) Description 10/19/2024 Orders Only [facility] [address] [place], [place] [phone] Michelle Rodriguez MD [address] [place], [place] [phone] Social History Tobacco Use Types Packs/Day Years [...] Management [facility] [address] [place] [address] Rose Phillip PharmD [address] [place] [address] 06/28/2025 10:15 AM EST Office Visit [address] [address] Michelle Rodriguez MD [address] [place] [address] documented as of this encounter Visit Diagnoses Not on filedocumented in this encounter Additional Health Concerns Assessment Noted Time PHQ-9 Depression Total Score: 21 025 4:09 PM EDT documented as of this encounter Care Teams Public Health Worker Relationship Specialty Start Date End Date Michelle Rodriguez MD [address] [place] [address] PCP - General Family Medicine 02/19/21 Rose Phillip PharmD [address] [place] [phone] Pharmacist Internal Medicine 03/02/24 documented as of this encounter
--- OUTSIDE RECORDS SUMMARY | 2025-05-29 10:45 | XMS_ITS | Encounter Summary ---
Author Organization [employer] Address [address] 7t [place] [address] Care Team Providers Care Chief Operator Hydroformer Name Role Phone Michelle Rodriguez MD Primary Care Provider [phone] Rose Phillip PharmD Unavailable [phone] Reason for Visit * Reason Comments Med Refill Encounter Details Date Type Department Care Team ([facility] st Contact Info) Description 10/12/[address] [facility] 230 [place], [place] [phone] Rose Phillip, PharmD [address] [place] [address] Social History Tobacco Use Types Packs/Day Years [...] Description 06/22/2025 9:30 AM EST Medication Management [facility] [address] [place] [address] Rose Phillip PharmD [address] [place] [address] 06/28/2025 10:15 AM EST Office Visit [facility] [address] [place] [address] Michelle Rodriguez MD [address] [place] [address] documented as of this encounter Visit Diagnoses Not on filedocumented in this encounter Additional Health Concerns Assessment Noted Time PHQ-9 Depression Total Score: 6 11/02/19 23 3:44 PM EDT documented as of this encounter Care Teams Chief Operator Hydroformer Relationship Specialty Start Date End Date Michelle Rodriguez MD [address] [place] [phone] PCP - General Family Medicine 02/19/21 Rose Phillip, MerissaD [address] [place] [address] Pharmacist Internal Medicine 03/02/24 documented as of this encounter
--- OUTSIDE RECORDS SUMMARY | 2025-05-29 10:45 | XMS_ITS | Encounter Summary ---
Author Organization [employer] Address [address] [facility] 7t [place] [address] Care Team Providers Care Crime Investigator Special Agent Name Role Phone Michelle Rodriguez MD Primary Care Provider [phone] Rose Phillip PharmD Unavailable [phone] Reason for Visit * Reason Comments Med Refill Encounter Details Date Type Department Care Team ([facility] st Contact Info) Description 11/11/2023 Refill [facility] 230 [place], [place] [phone] Michelle Rodriguez MD 230 [place], [place] [phone] Primary insomnia Social History Tobacco Use Types [...] Description 06/22/2025 9:30 AM EST Medication Management [address] [address] Rose Phillip PharmD [address] [place] [address] 06/28/2025 10:15 AM EST Office Visit [facility] [address] [place] [address] Michelle Rodriguez MD [address] [place] [address] documented as of this encounter Visit Diagnoses Diagnosis Primary insomnia Persistent disorder of initiating or maintaining sleep documented in this encounter Additional Health Concerns Assessment Noted Time PHQ-9 Depression Total Score: 6 11/02/19 23 3:44 PM EDT documented as of this encounter Care Teams Crime Investigator Special Agent Relationship Specialty Start Date End Date Michelle Rodriguez MD [address] [place] [address] PCP - General Family Medicine 02/19/21 Rose Phillip PharmD [address] [place] [address] Pharmacist Internal Medicine 03/02/24 documented as of this encounter
--- OUTSIDE RECORDS SUMMARY | 2025-05-29 10:45 | XMS_ITS | Encounter Summary ---
Author Organization [employer] Address [address] [facility] [address] 7t [place] [address] Care Team Providers Care Trail Construction Worker Name Role Phone Michelle Rodriguez MD Primary Care Provider [phone] Rose Phillip PharmD Unavailable [phone] Reason for Visit * Reason Comments Med Refill Encounter Details Date Type Department Care Team ([facility] st Contact Info) Description 09/10/2023 Refill [facility] 230 [place], [place] [phone] Michelle Rodriguez MD 230 [place], [place] [phone] Primary insomnia Social History Tobacco Use Types [...] Description 06/22/2025 9:30 AM EST Medication Management [address] [address] Rose Phillip PharmD [address] [place] [address] 06/28/2025 10:15 AM EST Office Visit [address] [address] Michelle Rodriguez MD [address] [place] [address] documented as of this encounter Visit Diagnoses Diagnosis Primary insomnia Persistent disorder of initiating or maintaining sleep documented in this encounter Additional Health Concerns Assessment Noted Time PHQ-9 Depression Total Score: 6 11/02/19 23 3:44 PM EDT documented as of this encounter Care Teams Trail Construction Worker Relationship Specialty Start Date End Date Michelle Rodriguez MD [address] [place] [address] PCP - General Family Medicine 02/19/21 Rose Phillip PharmD [address] [place] [address] Pharmacist Internal Medicine 03/02/24 documented as of this encounter
--- OUTSIDE RECORDS SUMMARY | 2025-05-29 10:45 | XMS_ITS | Encounter Summary ---
Author Organization [employer] Address [address] [facility] 7t [place] [address] Care Team Providers Care Door To Door Selling Distributor Name Role Phone Michelle Rodriguez MD Primary Care Provider [phone] Rose Phillip PharmD Unavailable [phone] Reason for Visit * Reason Comments Med Refill Encounter Details Date Type Department Care Team ([facility] st Contact Info) Description 10/25/2024 Refill [facility] 230 [place], [place] [phone] Michelle Rodriguez MD 230 [place], [place] [phone] Type 2 diabetes mellitus with hyperglycemia, with long-term current use of insulin ([facility]) Social History Tobacco Use Types Packs/Day [...] Description 06/22/2025 9:30 AM EST Medication Management [address] [address] Rose Phillip PharmD [address] [place] [address] 06/28/2025 10:15 AM EST Office Visit [address] [address] Michelle Rodriguez MD [address] [place] [address] documented as of this encounter Visit Diagnoses Diagnosis Type 2 diabetes mellitus with hyperglycemia, with long-term current use of insulin (HCC) documented in this encounter Additional Health Concerns Assessment Noted Time PHQ-9 Depression Total Score: 21 025 4:09 PM EDT documented as of this encounter Care Teams Door To Door Selling Distributor Relationship Specialty Start Date End Date Michelle Rodriguez MD [address] [place] [address] PCP - General Family Medicine 02/19/21 Rose Phillip PharmD [address] [place] [address] Pharmacist Internal Medicine 03/02/24 documented as of this encounter
--- OUTSIDE RECORDS SUMMARY | 2025-05-29 10:45 | XMS_ITS | Encounter Summary ---
Author Organization [employer] Address [address] [place] [address] 7 [place] [address] Care Team Providers Care Component Design Engineer Name Role Phone Michelle Rodriguez MD Primary Care Provider [phone] Rose Phillip PharmD Unavailable [phone] Encounter Details Date Type Department Care Team ([facility] st Contact Info) Description 04/22/2024 Telephone [facility] 230 [place], [place] [phone] Liat Pink, PharmD [address] [place] [address] Social History Tobacco Use Types Packs/Day Years [...] Description 06/22/2025 9:30 AM EST Medication Management [facility] [address] [place] [phone] Rose Phillip PharmD [address] [place] [address] 06/28/2025 10:15 AM EST Office Visit [address] [address] Michelle Rodriguez MD [address] [place] [address] documented as of this encounter Visit Diagnoses Not on filedocumented in this encounter Additional Health Concerns Assessment Noted Time PHQ-9 Depression Total Score: 6 11/02/19 23 3:44 PM EDT documented as of this encounter Care Teams Component Design Engineer Relationship Specialty Start Date End Date Michelle Rodriguez MD [address] [place] [address] PCP - General Family Medicine 02/19/21 Rose Phillip PharmD [address] [place] [address] [phone] Pharmacist Internal Medicine 03/02/24 documented as of this encounter
--- OUTSIDE RECORDS SUMMARY | 2025-05-29 10:45 | XMS_ITS | Encounter Summary ---
Author Organization [employer] Address [address] [place] [address] 7t [place] [address] Care Team Providers Care Dipper Fish Name Role Phone Michelle Rodriguez MD Primary Care Provider [phone] Rose Phillip PharmD Unavailable [phone] Encounter Details Date Type Department Care Team (Late st Contact Info) Description 02/05/2023 Orders Only [facility] [address] [place], [place] [phone] Michelle Rodriguez MD [address] [place] [address] Male hypogonadism (Primary Dx) Social History Tobacco [...] Description 06/22/2025 9:30 AM EST Medication Management [facility] [address] [place], [place] [phone] Rose Phillip, PharmD 230 [place], [place] [phone] 06/28/2025 10:15 AM EST Office Visit [facility] [address] [place] [address] Michelle Rodriguez MD [address] [place] [address] Scheduled Orders Name Type Priority Associated Diagnoses [...] documented as of this encounter Care Teams Dipper Fish Relationship Specialty Start Date End Date Michelle Rodriguez MD [address] [place] [address] PCP - General Family Medicine 02/19/21 Rose Phillip PharmD [address] [place] [address] Pharmacist Internal Medicine 03/02/24 documented as of this encounter
--- OUTSIDE RECORDS SUMMARY | 2025-05-29 10:45 | XMS_ITS | Encounter Summary ---
Author Organization [employer] Address [address] [place] [address] Care Team Providers Care Post Partum Nurse Name Role Phone Michelle Rodriguez MD Primary Care Provider [phone] Rose Phillip PharmD Unavailable [phone] Encounter Details Date Type Department Care Team ([facility] st Contact Info) Description 03/02/2024 Orders Only [facility] [address] [place], [place] [phone] Michelle Rodriguez MD [address] [place], [place] [phone] History of hepatitis C (Primary Dx) Social [...] Description 06/22/2025 9:30 AM EST Medication Management [facility] [address] [place] [phone] Rose Phillip PharmD [address] [place] [phone] 06/28/2025 10:15 AM EST Office Visit [address] [address] Michelle Rodriguez MD [address] [place] [phone] documented as of this encounter Procedures Procedure Name Priority Date/Time Associated Diagnosis Comments HEPATITIS PANEL, GENERAL Routine 03/08/2024 9:25 AM EDT History of hepatitis C documented in this encounter Results * (ABNORMAL) Hepatitis A,B,C Profile (03/08/2024 9:25 AM EDT) Hepatitis A IgM Nonreactive Nonreactive [facility] Comment:IgM antibodies to JOSEPH V not detected; does not exclude earlyacute or recovered HAV infection. ~Hepatitis B Surface Antibody REACTIVE Nonreactive [facility] Comment:REACTIVE: > 11.99 mI U/mL Hepatitis B Core Antibody Nonreactive Nonreactive [facility] Hepatitis C Antibody Reactive(A) Nonreactive [facility] Comment:Presumptive evidence of antibodies to HCV. Hepatitis B Surface Ag Negative Negative [facility] Blood Venous blood specimen / Unknown 03/08/2024 9:25 AM EDT 03/08/2024 11:15 AM EDT Michelle Rodriguez MD LAB BLOOD ORDERABLES Final Res ult [facility] [address] [place] [address] [phone] documented in this encounter Visit Diagnoses Diagnosis History of hepatitis C- Primary Personal history of other infectious and parasitic disease documented in this encounter Additional Health Concerns Assessment Noted Time PHQ-9 Depression Total Score: 6 11/02/19 23 3:44 PM EDT documented as of this encounter Care Teams Post Partum Nurse Relationship Specialty Start Date End Date Michelle Rodriguez MD [address] [place] [phone] PCP - General Family Medicine 02/19/21 Rose Phillip PharmD [address] [place] [phone] Pharmacist Internal Medicine 03/02/24 documented as of this encounter
--- OUTSIDE RECORDS SUMMARY | 2025-05-29 10:45 | XMS_ITS | Encounter Summary ---
Author Organization [employer] Address [address] [facility] [address] [place] [address] Care Team Providers Care Lockstitch Lining Setter Name Role Phone Michelle Rodriguez MD Primary Care Provider [phone] Rose Phillip PharmD Unavailable [phone] Encounter Details Date Type Department Care Team (Late st Contact Info) Description 07/15/2022 Orders Only [facility] [address] [place] [address] Pily Linn LPN Social History Tobacco Use [...] Description 06/22/2025 9:30 AM EST Medication Management [facility] [address] [place] [address] [phone] Rose Phillip, PharmD [address] [place] [address] 06/28/2025 10:15 AM EST Office Visit [facility] [address] [place] [phone] Michelle Rodriguez MD [address] [place] [address] documented as of this encounter Visit Diagnoses Not on filedocumented in this encounter Care Teams Lockstitch Lining Setter Relationship Specialty Start Date End Date Michelle Rodriguez MD [address] [place], [place] [phone] PCP - General Family Medicine 02/19/21 Rose Phillip PharmD [address] [place], [place] [phone] Pharmacist Internal Medicine 03/02/24 documented as of this encounter
--- NOTE | 2025-05-29 11:23 | ED.CHESTPAIN ---
HPI - Chest Pain General Chief Complaint: Chest Pain Stated Complaint: Chest pain Time Seen by Provider: 05/29/25 11:09 Source: patient Mode of arrival: ambulatory Limitations: no limitations History of Present Illness ED Provider: Cirilo Mas HPI narrative: 54-year-old male with past medical history diabetes hypertension presents to the ED for resolved left-sided chest pain. Patient states last night he had left chest pain that lasted around for 5 seconds that was squeezing. Patient states he was cooking when he had symptoms. Patient states no symptoms ever since. Patient denies any leg swelling, calf pain, coughing up blood, URI symptoms, pleurisy, recent travel, recent surgery, or any history of blood clots. Related Data Previous Rx's ?Medication ?Instructions ?Recorded lidocaine 4 % topical patch 1 patch topical DAILY PRN pain #10 08/31/20 ea blood-glucose meter #1 ea 09/06/23 insulin lispro 100 unit/mL 1 sliding scale dose subcut 09/06/23 subcutaneous pen (Humalog KwikPen USEASDIRECTD #15 mL (U-100) Insulin) lisinopril 20 1 tab PO DAILY #30 tabs 09/06/23 mg-hydrochlorothiazide 12.5 mg tablet lisinopril 20 1 tab PO DAILY #90 tabs 09/07/23 mg-hydrochlorothiazide 12.5 mg tablet Allergies Allergy/AdvReac Type Severity Reaction Status Date / Time haloperidol (From HALDOL) Allergy Severe EPS Verified 05/29/25 10:04 trazodone (TRAZODONE) Allergy Unknown AGITATION Verified 05/29/25 10:04 Review of Systems Review of Systems: Resolved chest pain Yes all other systems are reviewed and are negative [facility] Past Medical History Medical History Diabetes Glaucoma Social History Social History Alcohol intake: never Substance Use Type: Heroin and Opiates Advance Directives: No Advance Directives Information Provided: Yes Do you have a plan to hurt others: No Plan Physical Exam Vital Signs: Vital Signs: Last Vital Signs Temp 97.6 F 05/29/25 13:38 Pulse 75 05/29/25 13:38 Resp 18 05/29/25 13:38 BP 123/63 05/29/25 13:38 Pulse Ox 97 05/29/25 13:38 O2 Del Method Room Air 05/29/25 13:38 BMI result Body Mass Index 35.4 Const: General: cooperative, healthy appearing, comfortable, no acute distress, well developed, alert, awake and Physically active Orientation/consciousness: patient oriented x3 HEENT: Head: Yes normal to inspection, Yes No palpable skull fracture present, Yes normocephalic and Yes atraumatic Ears: hearing grossly normal bilaterally, external ears normal, TM's normal bilaterally, TM normal on the right, TM normal on the left, EAC's normal, mastoids normal and no periauricular adenopathy Throat: Yes posterior oropharynx normal, Yes tonsils normal and Yes uvula midline Eyes: General: appearance normal, both eyes and all related structures Neck: Neck: Yes normal visual inspection, Yes full ROM, Yes no lymphadenopathy, Yes no meningeal signs, Yes trachea midline, Yes supple, No anterior neck swelling and No tender Chest: Chest palpation & inspection: normal inspection of the chest and normal palpation of entire chest wall Resp: Effort & Inspection: normal respiratory effort and able to speak in complete sentences Cardio: Jugular venous distension: no JVD Heart sounds: S1 normal heart sound present and S2 normal heart sound present GI: Inspection: Yes normal to inspection Palpation (GI): Soft to palpation, not firm, nontender, no guarding and not rigid : General: Yes no CVA tenderness Back/Spine/Pelvis: Back: no CVA tenderness and No back tenderness Skin: General skin exam: no rashes or lesions noted, elasticity normal and turgor normal Neuro: General: patient oriented x3, gait normal, tone normal, moves all extremities, Normal light touch and pain sensation, no meningeal signs, no focal motor deficits, CN's II-XI intact bilaterally and normal sensation to monofilament Extrem: General: Yes normal to inspection, Yes full ROM and Yes capillary refill normal Psych: Appearance: grossly normal, well kempt and not disheveled Medical Decision Making Medical Decision Making MDM Narrative: 54-year-old male history of diabetes hypertension presents to the ED for resolved left-sided chest pain. Patient has not had chest pain since last night. Patient is presently asymptomatic. EKG nondiagnostic. First troponin negative. Pending chest x-ray repeat troponin and and T BNP. 1:26pm: Patient had glucose level of 72 due to patient not having breakfast. Patient was asymptomatic. Patient was given food repeat glucose 129. Patient's repeat troponin negative. Patient's x-ray normal. Patient's NT BNP normal. Patient informed to follow up with primary care provider and Cardiology. Patient explained worrisome signs informed return to the ED immediately. Not suspecting PE, ChF, septic emboli, myocarditits, pericariditis, or any other life threatening etiology. Differential Diagnosis Differential Diagnoses: The differential diagnosis associated with the presentation includes ( CHF AL ammonia) Admission/Observation Consideration of admission/observation: Escalation of care including admission/observation considered Lab Data MDM Lab Attestation statement: I reviewed the patient's lab results. 05/29/25 09:53 05/29/25 09:53 Labs: Lab Results 05/29/25 05/29/25 05/29/25 Range/Units 09:53 12:10 13:22 WBC 8.9 (4.8-10.8) X10*3/uL RBC 4.90 (4.60-5.80) X10*6/uL Hgb 13.6 L (14.0-18.0) g/dl Hct 41.4 L (42.0-52.0) % MCV 84.5 (80.0-98.0) fL MCH 27.8 (27.0-33.0) pg MCHC 32.9 (31.0-36.0) g/dl RDW 12.8 (11.0-16.0) % Plt Count 221 (160-400) X10*3/uL MPV 9.7 (9.4-12.4) fL Immature Gran % (Auto) 0.5 H (0.0-0.4) % Neut % (Auto) 69.7 (45-73) % Lymph % (Auto) 21.2 (20-40) % Amelia % (Auto) 6.3 (2-11) % Eos % (Auto) 2.1 (0-4) % Baso % (Auto) 0.2 (0-2) % Lymph # (Auto) 1.9 (1.2-4.9) X10*3/uL Amelia # (Auto) 0.6 (0.1-1.2) X10*3/uL Eos # (Auto) 0.2 (0.0-0.4) X10*3/uL Baso # (Auto) 0.0 (0.0-0.2) X10*3/uL Abs Immat Gran (auto) 0.04 H (0.00-0.03) X10*3/uL Absolute Neuts (auto) 6.2 (2.0-8.3) x10*3/uL Absolute Nucleated RBC 0.000 (0.0-0.012) X10*3/uL Nucleated RBC % (auto) 0.0 (0.0-0.2) /100WBC PT 12.1 (11.2-13.5) SEC INR 1.0 (0.9-1.1) Sodium 134 L (135-145) mmol/L Potassium 4.6 D (3.3-5.1) mmol/L Chloride 104 (96-108) mmol/L Carbon Dioxide 21 L (22-29) mmol/L Anion Gap 14 (12-20) BUN 19 H (9-16) mg/dL Creatinine 0.88 (0.5-1.4) mg/dL Estim Creat Clear Calc 115.6 Estimated GFR > 60 POC Glucose 123 H (60-115) mg/dL Random Glucose 217 H (60-115) mg/dL Calcium 9.1 (8.4-10.2) mg/dL Magnesium 1.7 (1.6-2.6) mg/dL Total Bilirubin 0.3 (0.0-1.0) mg/dL AST 21 (5-37) U/L ALT 25 (0-40) U/L Alkaline Phosphatase 115 (39-117) U/L Troponin I High Sens < 2.7 < 2.7 (<3.5-35.0) ng/L NT-Pro-B Natriuret Pep 91.1 (<300) pg/mL Total Protein 7.8 (6.5-8.0) g/dL Albumin 4.3 (3.5-5.0) g/dL Independent Interpretation I performed an independent interpretation of an: Plain X-Ray Radiology Impression Discussion of test interpretation with radiology: I have reviewed the radiologist's reading. Independent Historian Clinical information obtained from an independent historian. History obtained from or confirmed by: Other (patient) Discharge Plan Discharge Clinical Impression: Chest pain Patient Disposition: Home, Self-Care Instructions: Chest Pain (ED) Additional Instructions: recommend follow up with primary care provider. Return to the ED immediately for any chest pain, shortness of breath, coughing up blood, leg swelling, calf pain, pleurisy, or any other concerning symptoms. Ordering Physician: Cirilo Mas Date of Service: 05/29/25 Procedure(s): XR chest 2V Accession Number(s): [id number] cc: Cirilo Mas; Michelle Rodriguez~ Reason for Exam: Chest pain CLINICAL HISTORY: Chest pain 2 view chest x-ray. Comparison: 03/14/2025 Findings: No consolidation. No pneumothorax. Heart size normal No acute fracture. Impression: Lungs are clear. This document has been electronically signed by: Fredrick Alaniz MD on 05/29/2025 13:10:57 Dictated By: Fredrick Alaniz MD Signed By: <Electronically signed by Fredrick Alaniz MD in OV> 05/29/25 1311 Prescriptions: No Action lidocaine 4 % adhesive patch,medicated 1 patch topical DAILY PRN (Reason: pain) Qty: 10 0RF Rx Instructions: may leave on for up to 12 hrs lisinopril-hydrochlorothiazide 20-12.5 mg tablet 1 tab PO DAILY Qty: 30 0RF (DME) blood-glucose meter Kit See Rx Instructions .Route Qty: 1 0RF Rx Instructions: As directed insulin lispro [Humalog KwikPen Insulin] 100 unit/mL insulin pen 1 sliding scale dose subcut USEASDIRECTD Qty: 15 3RF Rx Instructions: check blood sugar before meals BG <111 0 units, 111-150 - 0 units, 151-200 2 units, 201-250 4 units, 251-300 6 units, 301-350 8 units, >350 10 units lisinopril-hydrochlorothiazide 20-12.5 mg tablet 1 tab PO DAILY Qty: 90 0RF Referrals: [facility] [Provider Group, Cardiology] - 2 days Referral Note: chest pain Clinical Impression: Chest pain Michelle Rodriguez MD [Primary Care Provider, Internal Medicine] - 2 days Referral Note: Chest pain Clinical Impression: Chest pain Interventions: ED Discharge Assessment Last Done: 05/29/25 13:38 Discharge Date/Time: 12/28/25 13:38 Print Language: Tajik
[2025-05-29 12:51] LABS: NT Pro B Type Natriuretic Pept 91.1 pg/mL (<300)
[2025-05-29 12:52] LABS: Troponin-I High Sensitivity < 2.7 ng/L (<3.5-35.0)
[2025-05-29 13:27] LABS: Glucose, Whole Blood 123 mg/dL (60-115)
[2025-05-29 13:38] VITALS: BP 123/63; PULSE 75; RESP 18; TEMP 36.4; O2SAT 97
== END 2025-05-29 13:38 | disposition home or self-care (01) ==
PROVIDERS: Physician Assistant; Emergency Provider Emergency Medicine; PCP General Practice
DX: R07.9 Chest pain, unspecified (principal); I10 Essential (primary) hypertension; E11.9 Type 2 diabetes mellitus without complications
CPT/HCPCS: 36415; 71046; 80053; 82947; 83735; 83880; 84484; 85025; 85610; 93005; 99283; 99284

== ENCOUNTER → 2025-05-29 09:43 | Outpatient (BNV) | payer MEDICAID, SELFPAY | PROVIDERS: Emergency Provider Emergency Medicine; PCP General Practice; Visit Provider Internal Medicine | DX: R07.9 Chest pain, unspecified (principal) | CPT/HCPCS: 93010 ==

== ENCOUNTER → 2025-05-29 11:13 | Outpatient (BNV) | payer MEDICAID, SELFPAY | PROVIDERS: Emergency Provider Emergency Medicine; PCP General Practice; Visit Provider Radiology Diagnostic Radiology | DX: R07.9 Chest pain, unspecified (principal) | CPT/HCPCS: 71046 ==